=== PATIENT | male | born 1955 | race Caucasian/White ===

== ENCOUNTER 2024-08-24 20:00 | Inpatient (IN) | payer MEDICARE, MEDICAID, SELFPAY ==
--- NOTE | ~2024-08-24 | CT_ITS ---
EXAMINATION: CT CHEST, ABDOMEN AND PELVIS WITH CONTRAST CLINICAL INFORMATION: Abdominal pain. Leukocytosis. COMPARISON: None available. TECHNIQUE: Multidetector volumetric CT imaging of the chest was obtained after the administration of 98 mL of Omnipaque 350 intravenous contrast without immediate adverse reactions. Axial MIP volume rendering provided. Sagittal and coronal reformatted images were obtained. This CT examination was performed using dose optimization techniques as appropriate, variously including the following: *Automated exposure control *Adjustment of mA and/or kV according to patient size (this includes techniques or standardized protocols for targeted exams where dose is matched to indication/reason for exam; i.e. extremities or head) *Use of iterative reconstruction technique DLP: 1617 mGy-cm FINDINGS: AN/SYQ 13 NAV/C2 OPERATOR: Unremarkable. LUNGS: There is scarring and/or subsegmental atelectasis at the anterior lung bases. The lungs are otherwise clear. MEDIASTINUM: The mediastinum is normal. PLEURA: There is no pleural effusion. No pleural mass or thickening. AXILLA: No lymphadenopathy. UPPER ABDOMEN: Unremarkable LIVER, GALLBLADDER, AND BILIARY TREE: The liver is heterogeneous in attenuation and significantly irregular in contour. No focal liver lesions are seen. There is no intrahepatic biliary duct dilatation. Gallstones are noted within a normally distended gallbladder. PANCREAS: Unremarkable SPLEEN: The spleen is enlarged measuring up to 16 cm. ADRENAL GLANDS: 1.7 cm low-density adrenal nodule. KIDNEYS AND URETERS: The kidneys are normal in size, shape, and attenuation. No hydronephrosis, hydroureter, or calculi seen. No perinephric stranding. There is a 2.5 cm cyst mid pole right kidney. BLADDER: Unremarkable GASTROINTESTINAL TRACT: There are a few diverticula of the descending colon without diverticulitis. The appendix is visualized and is within normal limits. ABDOMINAL WALL: Minimal umbilical hernia containing fat. LYMPH NODES: Normal VASCULAR: There perigastric, splenic and esophageal varices. PELVIC VISCERA: Unremarkable. OSSEOUS STRUCTURES: Unremarkable CT/CT abdomen pelvis w IV con IMPRESSION: No active cardiopulmonary disease. Cirrhotic liver with varices and splenomegaly. There are a few diverticula of the descending colon without diverticulitis. No acute intra-abdominal process. Fleischner guidelines were followed. Electronically signed by: Joe Gil MD 08/25/2024 02:32 AM EDT
--- NOTE | ~2024-08-24 | CT_ITS ---
EXAMINATION: CT HEAD WITHOUT CONTRAST CLINICAL INFORMATION: Altered mental status. COMPARISON: None available. TECHNIQUE: Contiguous axial imaging was performed from the skull base to vertex without intravenous administration of contrast. This CT examination was performed using dose optimization techniques as appropriate, variously including the following: *Automated exposure control *Adjustment of mA and/or kV according to patient size (this includes techniques or standardized protocols for targeted exams where dose is matched to indication/reason for exam; i.e. extremities or head) *Use of iterative reconstruction technique DLP: 760 mGy-cm FINDINGS: The lateral, third and fourth ventricles are normally outlined. The cortical sulci and basal cisterns are normally outlined as well. There is minimal bilateral periventricular and central white matter diminished attenuation. There is no acute territorial defect, hemorrhage or midline shift. The extra-axial spaces are unremarkable. Calvarium/scalp: Intact. Maxillofacial sinuses and mastoids: Clear as visualized. CT/CT head/brain wo IV con IMPRESSION: No acute intracranial pathology. Electronically signed by: Joe Gil MD 08/25/2024 01:36 AM EDT
--- NOTE | ~2024-08-24 | CT_ITS ---
EXAMINATION: CT CHEST, ABDOMEN AND PELVIS WITH CONTRAST CLINICAL INFORMATION: Abdominal pain. Leukocytosis. COMPARISON: None available. TECHNIQUE: Multidetector volumetric CT imaging of the chest was obtained after the administration of 98 mL of Omnipaque 350 intravenous contrast without immediate adverse reactions. Axial MIP volume rendering provided. Sagittal and coronal reformatted images were obtained. This CT examination was performed using dose optimization techniques as appropriate, variously including the following: *Automated exposure control *Adjustment of mA and/or kV according to patient size (this includes techniques or standardized protocols for targeted exams where dose is matched to indication/reason for exam; i.e. extremities or head) *Use of iterative reconstruction technique DLP: 1617 mGy-cm FINDINGS: HOBBER: Unremarkable. LUNGS: There is scarring and/or subsegmental atelectasis at the anterior lung bases. The lungs are otherwise clear. MEDIASTINUM: The mediastinum is normal. PLEURA: There is no pleural effusion. No pleural mass or thickening. AXILLA: No lymphadenopathy. UPPER ABDOMEN: Unremarkable LIVER, GALLBLADDER, AND BILIARY TREE: The liver is heterogeneous in attenuation and significantly irregular in contour. No focal liver lesions are seen. There is no intrahepatic biliary duct dilatation. Gallstones are noted within a normally distended gallbladder. PANCREAS: Unremarkable SPLEEN: The spleen is enlarged measuring up to 16 cm. ADRENAL GLANDS: 1.7 cm low-density adrenal nodule. KIDNEYS AND URETERS: The kidneys are normal in size, shape, and attenuation. No hydronephrosis, hydroureter, or calculi seen. No perinephric stranding. There is a 2.5 cm cyst mid pole right kidney. BLADDER: Unremarkable GASTROINTESTINAL TRACT: There are a few diverticula of the descending colon without diverticulitis. The appendix is visualized and is within normal limits. ABDOMINAL WALL: Minimal umbilical hernia containing fat. LYMPH NODES: Normal VASCULAR: There perigastric, splenic and esophageal varices. PELVIC VISCERA: Unremarkable. OSSEOUS STRUCTURES: Unremarkable CT/CT chest w IV con IMPRESSION: No active cardiopulmonary disease. Cirrhotic liver with varices and splenomegaly. There are a few diverticula of the descending colon without diverticulitis. No acute intra-abdominal process. Fleischner guidelines were followed. Electronically signed by: Joe Gil MD 08/25/2024 02:32 AM EDT
--- NOTE | ~2024-08-24 | XR_ITS ---
EXAMINATION: XR CHEST CLINICAL INFORMATION: Altered mental status COMPARISON: None available. TECHNIQUE: Frontal view of the chest was obtained. FINDINGS: No significant abnormality is noted involving the heart, lungs, mediastinum, bony thorax or soft tissues. XR/XR chest 1V IMPRESSION: Unremarkable examination. Electronically signed by: Audra Kam MD 08/24/2024 10:03 PM EDT RP
[2024-08-24 20:13] VITALS: BP 154/86; BP 162/94; PULSE 104; PULSE 118; RESP 15; TEMP 36.4; O2SAT 98; BMI 28.8
--- NOTE | 2024-08-24 20:19 | ED_ITS ---
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 lives alone with severe depression comes here for not eating and not feeling good for last 3 days bed-bound denied any drug use but he took methadone 50 mg prior to arrival denies any cough or fever denies any SI or HI does feels very weak and lethargic Related Data Home Medications ?Medication ?Instructions ?Recorded ?Confirmed methadone 08/24/24 Allergies Allergy/AdvReac Type Severity Reaction Status Date / Time No Known Allergies Allergy Verified 08/24/24 20:17 Review of Systems 2 Review of Systems: Yes all other systems are reviewed and are negative [facility] Social History Social History Use of substances other than those prescribed or required for medical reasons: No Do you have a plan to hurt others: No Plan Physical Exam ED Vital Signs: Vital Signs - 24 hr 08/24/24 20:13 08/24/24 22:23 08/24/24 23:27 Temperature 97.5 F 98.1 F 97.8 F Pulse Rate 104 H 110 H 99 Respiratory Rate 15 15 12 Blood Pressure 154/86 H 114/74 136/82 Pulse Oximetry 98 95 97 Oxygen Delivery Method Room Air Room Air Room Air BMI result Body Mass Index 28.8 Appearance: Alert. Oriented X3. Lethargic Eyes: No pallor or icterus ENT: Pharynx normal. Oral Mucosa moist Neck: Normal inspection. Neck supple. CVS: Normal heart rate and rhythm. Pulses normal. Respiratory: No respiratory distress. Equal air entry bilateral, no wheezing/rales/rhonchi Abdomen: Soft and nontender. Bowel sounds are present, no mass palpable, no CVA tenderness Skin: Skin warm and dry. Normal skin color. Normal skin turgor. Extremities: No lower extremity edema. No calf tenderness left AKA Neuro: Oriented X 3. No motor deficit. No sensory deficit.No cerebellar signs , cranial nerves II-XII intact Medications Administered Discontinued Medications Generic Name Dose Route Start Last Admin Trade Name Freq PRN Reason Stop Dose Admin Ceftriaxone Sodium 1 gm 08/24/24 20:53 08/24/24 21:02 Ceftriaxone Sodium 1 Gm Vial IVPUSH 08/24/24 20:54 1 gm ONCE ONE Administration Sodium Chloride 1,000 mls @ 999 mls/hr 08/24/24 20:28 08/24/24 22:42 Ns IV 08/24/24 21:28 Infused .Q1H1M ONE Infusion Sodium Chloride 1,000 mls @ 999 mls/hr 08/24/24 22:12 08/24/24 22:42 Ns IV 08/24/24 23:12 999 mls/hr .Q1H1M ONE Administration Iohexol 98 ml 08/25/24 00:25 08/25/24 00:25 Iohexol 350 Mg/Ml 100 Ml Infus..Btl IV 08/25/24 00:26 98 ml ONCE ONE Administration Medical Decision Making Medical Decision Making [facility] Narrative: Patient has increased lethargy etiology not clear afebrile but had leukocytosis of 24.1 and lactic acidosis of 4.2 without any significant abdominal pain afebrile started broad-spectrum antibiotic Rocephin was given IV fluids blood cultures drawn will admit patient for increased lethargy possible bacteremia patient's feel depressed. CT chest CT Abdo CT head was ordered by hospitalist Differential Diagnosis Differential Diagnoses: The differential diagnosis associated with the presentation includes Metabolic encephalopathy/bacteremia/unknown infection/substance abuse Admission/Observation Consideration of admission/observation: Escalation of care including admission/observation considered Consult Healthcare Provider Management of the patient was discussed with: Hospitalist Lab Data [facility] Lab Attestation statement: I reviewed the patient's lab results. 08/24/24 20:37 08/24/24 20:37 Labs: Lab Results 08/24/24 08/24/24 08/24/24 Range/Units 20:37 20:38 21:05 WBC 24.3 H (4.8-10.8) X10*3/uL RBC 3.64 L (4.60-5.80) X10*6/uL Hgb 10.8 L (14.0-18.0) g/dl Hct 32.3 L (42.0-52.0) % MCV 88.7 (80.0-98.0) fL MCH 29.7 (27.0-33.0) pg MCHC 33.4 (31.0-36.0) g/dl RDW 17.4 H (11.0-16.0) % Plt Count 207 (160-400) X10*3/uL MPV 10.8 (9.4-12.4) fL Immature Gran % (Auto) 1.5 H (0.0-0.4) % Neut % (Auto) 74.4 H (45-73) % Lymph % (Auto) 16.0 L (20-40) % Fergus % (Auto) 7.7 (2-11) % Eos % (Auto) 0.2 (0-4) % Baso % (Auto) 0.2 (0-2) % Lymph # (Auto) 3.9 (1.2-4.9) X10*3/uL Fergus # (Auto) 1.9 H (0.1-1.2) X10*3/uL Eos # (Auto) 0.0 (0.0-0.4) X10*3/uL Baso # (Auto) 0.0 (0.0-0.2) X10*3/uL Abs Immat Gran (auto) 0.37 H (0.00-0.03) X10*3/uL Absolute Neuts (auto) 18.1 H (2.0-8.3) x10*3/uL Absolute Nucleated RBC 0.150 H (0.0-0.012) X10*3/uL Nucleated RBC % (auto) 0.6 H (0.0-0.2) /100WBC Smear Tech's Comments VERIFIED Sodium 146 H (135-145) mmol/L Potassium 3.2 L (3.3-5.1) mmol/L Chloride 109 H (96-108) mmol/L Carbon Dioxide 25 (22-29) mmol/L Anion Gap 15 (12-20) BUN 46 H (9-16) mg/dL Creatinine 0.86 (0.5-1.4) mg/dL Estim Creat Clear Calc 98.9 Estimated GFR > 60 Random Glucose 117 H (60-115) mg/dL Lactic Acid 4.2 H* (0.5-2.0) mmol/L Lactic Acid F/U @ 2Hr (0.5-2.0) mmol/L Calcium 9.5 (8.4-10.2) mg/dL Magnesium 2.5 (1.6-2.6) mg/dL Total Bilirubin 2.5 H (0.0-1.0) mg/dL AST 119 H (5-37) U/L ALT 68 H (0-40) U/L Alkaline Phosphatase 63 (39-117) U/L Total Protein 7.1 (6.5-8.0) g/dL Albumin 3.8 (3.5-5.0) g/dL Urine Color Urine Appearance Urine pH (5.0-9.0) Ur Specific [place] (1.005-1.025) Urine Protein (Neg-Trace) mg/dL Urine Glucose (UA) (Negative) mg/dL Urine Ketones (Negative) mg/dL Urine Blood (Negative) Urine Nitrite (Negative) Ur Leukocyte Esterase (Negative) Urine RBC (0-2) /HPF Urine WBC (0-5) /HPF Ur Squamous Epith Cells (0-2) /HPF Urine Bacteria (None Seen) Hyaline Casts (0-2) /LPF COVID-19 (DAIN) Negative (Negative) COVID-19 Clin Com See Note 08/24/24 08/24/24 Range/Units 22:46 23:46 WBC (4.8-10.8) X10*3/uL RBC (4.60-5.80) X10*6/uL Hgb (14.0-18.0) g/dl Hct (42.0-52.0) % MCV (80.0-98.0) fL MCH (27.0-33.0) pg MCHC (31.0-36.0) g/dl RDW (11.0-16.0) % Plt Count (160-400) X10*3/uL MPV (9.4-12.4) fL Immature Gran % (Auto) (0.0-0.4) % Neut % (Auto) (45-73) % Lymph % (Auto) (20-40) % Fergus % (Auto) (2-11) % Eos % (Auto) (0-4) % Baso % (Auto) (0-2) % Lymph # (Auto) (1.2-4.9) X10*3/uL Fergus # (Auto) (0.1-1.2) X10*3/uL Eos # (Auto) (0.0-0.4) X10*3/uL Baso # (Auto) (0.0-0.2) X10*3/uL Abs Immat Gran (auto) (0.00-0.03) X10*3/uL Absolute Neuts (auto) (2.0-8.3) x10*3/uL Absolute Nucleated RBC (0.0-0.012) X10*3/uL Nucleated RBC % (auto) (0.0-0.2) /100WBC Smear Tech's Comments Sodium (135-145) mmol/L Potassium (3.3-5.1) mmol/L Chloride (96-108) mmol/L Carbon Dioxide (22-29) mmol/L Anion Gap (12-20) BUN (9-16) mg/dL Creatinine (0.5-1.4) mg/dL Estim Creat Clear Calc Estimated GFR Random Glucose (60-115) mg/dL Lactic Acid (0.5-2.0) mmol/L Lactic Acid F/U @ 2Hr 3.4 H* (0.5-2.0) mmol/L Calcium (8.4-10.2) mg/dL Magnesium (1.6-2.6) mg/dL Total Bilirubin (0.0-1.0) mg/dL AST (5-37) U/L ALT (0-40) U/L Alkaline Phosphatase (39-117) U/L Total Protein (6.5-8.0) g/dL Albumin (3.5-5.0) g/dL Urine Color Dark Yellow Urine Appearance Clear Urine pH 6.0 (5.0-9.0) Ur Specific [place] >= 1.030 H (1.005-1.025) Urine Protein Trace (Neg-Trace) mg/dL Urine Glucose (UA) Negative (Negative) mg/dL Urine Ketones Trace (Negative) mg/dL Urine Blood Negative (Negative) Urine Nitrite Negative (Negative) Ur Leukocyte Esterase Trace H (Negative) Urine RBC 0-2 (0-2) /HPF Urine WBC 0-5 (0-5) /HPF Ur Squamous Epith Cells 0-2 (0-2) /HPF Urine Bacteria None Seen (None Seen) Hyaline Casts 0-2 (0-2) /LPF COVID-19 (DAIN) (Negative) COVID-19 Clin Com Independent Interpretation I performed an independent interpretation of an: Plain X-Ray Radiology Impression Discussion of test interpretation with radiology: I have reviewed the radiologist's reading. Discharge Plan Discharge Clinical Impression: Lethargic, Depression, Acidosis, lactic, Leukocytosis Patient Disposition: Admitted As Inpatient
[2024-08-24] MEDS: 0.9 % Sodium Chloride 1,000 ML 999 ML IV ×2 (20:40→22:42)
[2024-08-24 20:44] LABS: Basophils Percent Auto 0.2 % (0-2); Eosinophils Percent Auto 0.2 % (0-4); Hematocrit 32.3 % (42.0-52.0); Hemoglobin 10.8 g/dl (14.0-18.0); Imm Gran Abs Auto 0.37 X10*3/uL (0.00-0.03); Imm Gran Pct Auto 1.5 % (0.0-0.4); Lymphocytes Absolute Auto 3.9 X10*3/uL (1.2-4.9); MANUAL DIFF FLAG SCAN; Mean Corpuscular HGB Conc 33.4 g/dl (31.0-36.0); Mean Corpuscular Hemoglobin 29.7 pg (27.0-33.0); Mean Corpuscular Volume 88.7 fL (80.0-98.0); Mean Platelet Volume 10.8 fL (9.4-12.4); Monocytes Absolute Auto 1.9 X10*3/uL (0.1-1.2); Monocytes Percent Auto 7.7 % (2-11); NRBC Pct Auto 0.6 /100WBC (0.0-0.2); Neutrophils Absolute Auto 18.1 x10*3/uL (2.0-8.3); Neutrophils Percent Auto 74.4 % (45-73); Platelet Count 207 X10*3/uL (160-400); Red Blood Count 3.64 X10*6/uL (4.60-5.80); Red Cell Distribution Width 17.4 % (11.0-16.0); SCAN SMEAR FLAG 1; White Blood Count 24.3 X10*3/uL (4.8-10.8)
--- NOTE | 2024-08-24 20:47 | PC.NURSE ---
pt has LAKA, skin intact.
--- NOTE | 2024-08-24 20:49 | PC.NURSE ---
pt is slow to respond to questions. When asked if he had a pharmacy, pt states 'NO , pt does not know what medicines he takes, denies all but Methadone
[2024-08-24] MEDS: cefTRIAXone sodium 1 GM VIAL IVPUSH (21:02)
[2024-08-24 21:03] LABS: COVID-19 Test Negative (Negative); IDNOW Serial# 08D9AD1C
[2024-08-24 21:08] LABS: SLIDE REVIEW VERIFIED
[2024-08-24 21:26] LABS: Alanine Aminotransferase 68 U/L (0-40); Albumin Level 3.8 g/dL (3.5-5.0); Alkaline Phosphatase 63 U/L (39-117); Anion Gap 15 (12-20); Aspartate Amino Transferase 119 U/L (5-37); Bilirubin Total 2.5 mg/dL (0.0-1.0); Blood Urea Nitrogen 46 mg/dL (9-16); Calcium 9.5 mg/dL (8.4-10.2); Carbon Dioxide 25 mmol/L (22-29); Chloride 109 mmol/L (96-108); Creatinine Clr Calc Pharmacy 98.9; Estimated Glomerular Filt Rate > 60; Glucose Random 117 mg/dL (60-115); Magnesium 2.5 mg/dL (1.6-2.6); Potassium 3.2 mmol/L (3.3-5.1); Sodium 146 mmol/L (135-145); Total Protein 7.1 g/dL (6.5-8.0)
[2024-08-24 21:28] LABS: Lactic Acid 4.2 mmol/L (0.5-2.0)
[2024-08-24 22:23] VITALS: BP 114/74; PULSE 110; RESP 15; TEMP 36.7; O2SAT 95
[2024-08-24 22:54] LABS: Appearance Urine Clear; Color Urine Dark Yellow; Glucose Urine UA Negative (Negative); Leukocyte Esterase Urine Trace (Negative); Nitrite Urine Negative (Negative); Specific Gravity - Urine >= 1.030 (1.005-1.025); UMIC TRIGGER UACC YES; Urine Blood Negative (Negative); Urine Ketones Trace mg/dL (Negative); Urine Protein Trace mg/dL (Neg-Trace)
[2024-08-24 22:56] LABS: Bacteria Urine None Seen (None Seen); Hyaline Casts Urine 0-2 /LPF (0-2); RBC Urine 0-2 /HPF (0-2); Squamous Epithelial Cell Urine 0-2 /HPF (0-2); WBC Urine 0-5 /HPF (0-5)
[2024-08-24 23:11] LABS: Reflex Lactate? Lactic Acid Added
[2024-08-24 23:27] VITALS: BP 136/82; PULSE 99; RESP 12; TEMP 36.6; O2SAT 97
[2024-08-25 00:19] LABS: ~Lactic Acid-LAB USE ONLY 3.4 mmol/L (0.5-2.0)
[2024-08-25] MEDS: iohexoL 350 MG/ML 100 ML INFUS..BTL 98 ML IV (00:25)
[2024-08-25 00:44] LABS: Amphetamine Screen Urine Not Detected (Not Detect); Barbiturates, Urine Not Detected (Not Detect); Benzodiazepines Screen Urine Not Detected (Not Detect); Buprenorphine Scr Not Detected (Not Detect); Cannabinoid Screen Urine Not Detected (Not Detect); Cocaine Screen Urine Not Detected (Not Detect); Fentanyl, urine Not Detected (Not Detect); Methadone Screen, Urine Positive (Not Detect); Opiate Screen Urine Not Detected (Not Detect); Oxycodone Screen Urine Not Detected (Not Detect); Phencyclidine Screen Urine Not Detected (Not Detect)
[2024-08-25] MEDS: 0.9 % Sodium Chloride 1,000 ML 999 ML IV (01:22)
[2024-08-25 01:33] VITALS: BP 127/72; PULSE 77; RESP 14; O2SAT 97
[2024-08-25 01:50] LABS: Reflex Lactate? 2 Y
--- NOTE | 2024-08-25 01:50 | PC.NURSE ---
resting quietly on stretcher at this time
[2024-08-25 02:35] LABS: ~Lactic Acid-LAB USE ONLY 2.9 mmol/L (0.5-2.0)
--- NOTE | 2024-08-25 02:42 | PM.IMHP ---
History of Present Illness Date of Service: 08/25/24 Chief Complaint: Acute encephalopathy, lethargy This is a 69-year-old male with pertinent history of opioid use disorder on methadone, left AKA who was brought to the emergency department for evaluation of altered mentation. EMS was called as patient was found in bed covered with urine as per roommate. Unable to obtain history from the patient. As per EMS, patient was confused and was bed-bound for the last 3 days. Unclear baseline. At the time of my evaluation, patient with minimal conversation and does not know why he is in the hospital. Upon extensive questioning, states he does not feel well and possibly has headache. He only takes methadone as per the patient. Denies using drugs. In the emergency department, white count found to be 24.3, lactic acid 4.2 Review of Systems Review of Systems: Yes Unobtainable due to mental status PMFSH Medical History Cirrhosis Pertinent family history: Unable to obtain Surgical History Hx of AKA (above knee amputation) Social History Use of substances other than those prescribed or required for medical reasons: No Advance Directives: No Advance Directives Information Provided: No Do you have a plan to hurt others: No Plan Meds Allergies Allergy/AdvReac Type Severity Reaction Status Date / Time No Known Allergies Allergy Verified 08/24/24 20:17 Active Medications: Current Medications Ceftriaxone Sodium (Ceftriaxone Sodium 2 Gm Vial) 2 gm IVPUSH Q12H [facility] Dexamethasone Sodium Phosphate (Dexamethasone Sod Phosphate 10 Mg/Ml Vial) 10 mg IVPUSH Q6H [facility] Vancomycin HCl 1,000 mg/Vancomycin HCl 750 mg/ Sodium Chloride 535 mls @ 267.5 mls/hr IV ONCE ONE Stop: 08/25/24 04:36 Ampicillin Sodium 2 gm/ Sodium (Chloride) 100 mls @ 200 mls/hr IV Q4H [facility] Acyclovir Sodium 851.2 mg/ (Sodium Chloride) 267.024 mls @ 267.024 mls/hr IV Q8H [facility] Pharmacy Consult (Consult Rx Vancomycin Dosing) 1 each MISCELLANE DAILY PRN PRN Reason: Consult order Home Medications ?Medication ?Instructions ?Recorded ?Confirmed ?Last Taken ?Type methadone 08/24/24 08/24/24 History 2000 Physical Exam Vital Signs and Narrative: Vital Signs: Last Vital Signs Temp 97.8 F 08/24/24 23:27 Pulse 77 08/25/24 01:33 Resp 14 08/25/24 01:33 BP 127/72 08/25/24 01:33 Pulse Ox 97 08/25/24 01:33 O2 Del Method Room Air 08/25/24 01:33 BMI result Body Mass Index 28.8 Middle-aged male lying in bed in no distress Neck supple, no JVD Regular rate and rhythm, S1-S2 heard Regular breath sounds bilaterally, no wheezing or crackles appreciated Abdomen soft nontender, no guarding, no rigidity Patient is drowsy and occasionally answers in one-word responses, not following commands, unable to have a conversation, unable to assess orientation Psych: Lethargic Left AKA, right extremity with changes of stasis dermatitis Results Labs 08/24/24 20:37 08/24/24 20:37 Labs: Laboratory Results - last 24 hr 08/24/24 08/24/24 08/24/24 20:37 20:38 21:05 MCV 88.7 MCH 29.7 MCHC 33.4 RDW 17.4 H Plt Count 207 MPV 10.8 Immature Gran % (Auto) 1.5 H Neut % (Auto) 74.4 H Lymph % (Auto) 16.0 L [place] % (Auto) 7.7 Eos % (Auto) 0.2 Baso % (Auto) 0.2 Lymph # (Auto) 3.9 [place] # (Auto) 1.9 H Eos # (Auto) 0.0 Baso # (Auto) 0.0 Abs Immat Gran (auto) 0.37 H Absolute Neuts (auto) 18.1 H Absolute Nucleated RBC 0.150 H Nucleated RBC % (auto) 0.6 H Smear Tech's Comments VERIFIED Anion Gap 15 Estim Creat Clear Calc 98.9 Estimated GFR > 60 Random Glucose 117 H Lactic Acid 4.2 H* Lactic Acid F/U @ 2Hr Lactic Acid F/U @ 4Hr Calcium 9.5 Magnesium 2.5 Total Bilirubin 2.5 H AST 119 H ALT 68 H Alkaline Phosphatase 63 Total Creatine Kinase 299 H Total Protein 7.1 Albumin 3.8 Urine Color Urine Appearance Urine pH Ur Specific Social [place] Urine Protein Urine Glucose (UA) Urine Ketones Urine Blood Urine Nitrite Ur Leukocyte Esterase Urine RBC Urine WBC Ur Squamous Epith Cells Urine Bacteria Hyaline Casts Urine Opiates Screen Ur Buprenorphine Scrn Ur Oxycodone Screen Urine Methadone Screen Urine Fentanyl Screen Ur Barbiturates Screen Ur Phencyclidine Scrn Ur Amphetamines Screen U Benzodiazepines Scrn Urine Cocaine Screen U Marijuana (THC) Screen COVID-19 (DAIN) Negative COVID-19 Clin Com See Note 08/24/24 08/24/24 08/25/24 22:46 23:46 02:12 MCV MCH MCHC RDW Plt Count MPV Immature Gran % (Auto) Neut % (Auto) Lymph % (Auto) [place] % (Auto) Eos % (Auto) Baso % (Auto) Lymph # (Auto) [place] # (Auto) Eos # (Auto) Baso # (Auto) Abs Immat Gran (auto) Absolute Neuts (auto) Absolute Nucleated RBC Nucleated RBC % (auto) Smear Tech's Comments Anion Gap Estim Creat Clear Calc Estimated GFR Random Glucose Lactic Acid Lactic Acid F/U @ 2Hr 3.4 H* Lactic Acid F/U @ 4Hr 2.9 H* Calcium Magnesium Total Bilirubin AST ALT Alkaline Phosphatase Total Creatine Kinase Total Protein Albumin Urine Color Dark Yellow Urine Appearance Clear Urine pH 6.0 Ur Specific [place] >= 1.030 H Urine Protein Trace Urine Glucose (UA) Negative Urine Ketones Trace Urine Blood Negative Urine Nitrite Negative Ur Leukocyte Esterase Trace H Urine RBC 0-2 Urine WBC 0-5 Ur Squamous Epith Cells 0-2 Urine Bacteria None Seen Hyaline Casts 0-2 Urine Opiates Screen Not Detected Ur Buprenorphine Scrn Not Detected Ur Oxycodone Screen Not Detected Urine Methadone Screen Positive H Urine Fentanyl Screen Not Detected Ur Barbiturates Screen Not Detected Ur Phencyclidine Scrn Not Detected Ur Amphetamines Screen Not Detected U Benzodiazepines Scrn Not Detected Urine Cocaine Screen Not Detected U Marijuana (THC) Screen Not Detected COVID-19 (DAIN) COVID-19 Clin Com Imaging Radiologist's Impressions: Impressions Chest X-Ray 08/24/24 20:53 IMPRESSION: Unremarkable examination. Electronically signed by: Audra Kam MD 08/24/2024 10:03 PM EDT Abdomen/Pelvis CT 08/25/24 00:20 IMPRESSION: No active cardiopulmonary disease. Cirrhotic liver with varices and splenomegaly. There are a few diverticula of the descending colon without diverticulitis. No acute intra-abdominal process. Fleischner guidelines were followed. Electronically signed by: Joe Gil MD 08/25/2024 02:32 AM EDT RP Head CT 08/25/24 00:20 IMPRESSION: No acute intracranial pathology. Electronically signed by: Joe Gil MD 08/25/2024 01:36 AM EDT RP Chest CT 08/25/24 00:45 IMPRESSION: No active cardiopulmonary disease. Cirrhotic liver with varices and splenomegaly. There are a few diverticula of the descending colon without diverticulitis. No acute intra-abdominal process. Fleischner guidelines were followed. Electronically signed by: Joe Gil MD 08/25/2024 02:32 AM EDT RP Assessment and Plan (1) SIRS (systemic inflammatory response syndrome): Status: Acute (2) Acute encephalopathy: Status: Acute (3) Leukocytosis: Status: Acute Plan This is a 69-year-old male with pertinent history of opioid use disorder on methadone, left AKA who was brought to the emergency department for evaluation of altered mentation. #. Acute encephalopathy with severe sepsis: Will admit patient with empiric IV antibiotics and antiviral. CT abdomen/pelvis/chest without any acute abnormality. Ordered lumbar puncture, CSF studies and meningitis/encephalitis panel pending. Follow blood culture. #. Acute lactic acidosis due to sepsis: Trending down #. Hypokalemia: Repleted #. Opioid use disorder: Continue methadone once verified and able to take p.o. #. Cirrhosis with varices: Unclear etiology of cirrhosis. Outpatient Gastroenterology follow-up. Will benefit from diuretics once sepsis is resolved, lactulose and beta-alisha for variceal hemorrhage prophylaxis. Ammonia ok DVT prophylaxis: Mechanical Full code Med rec pending Admit as inpatient and will require two night minimum hospital stay for monitoring of mentation, IV antibiotics (as above), which is not possible in a lesser acute setting. Quality Stroke Does the patient have a stroke diagnosis?: No VTE Prior VTE?: No VTE Risk Level:: Medical - moderate - high VTE Device Contraindication: N/A - Device Ordered VTE Drug Contraindication: Treatment Not Indicated
[2024-08-25 03:07] LABS: Ammonia 51 umol/L (13-55)
[2024-08-25] MEDS: dexAMETHasone sod phosphate 10 MG/ML VIAL IVPUSH ×4 (03:21→20:37)
[2024-08-25] MEDS: cefTRIAXone sodium 2 GM VIAL IVPUSH ×2 (03:22→14:48)
[2024-08-25] MEDS: Acyclovir Sodium 850 MG in 0.9 % Sodium Chloride 250 ML 267 MG IV ×3 (03:27→19:34)
[2024-08-25] MEDS: Potassium Chloride/H20 10 MEQ/100 ML PIGGYBACK 100 MEQ IV ×4 (03:40→07:46)
[2024-08-25] MEDS: vancomycin/NS 2,000 MG/500 ML PLAST..BAG 250 MG IV (03:48)
[2024-08-25] MEDS: Ampicillin Sodium 2 GM in 0.9 % Sodium Chloride 100 ML IV ×5 (04:56→20:41)
[2024-08-25 05:12] LABS: Basophils Percent Auto 0.2 % (0-2); Eosinophils Absolute Auto 0.1 X10*3/uL (0.0-0.4); Eosinophils Percent Auto 0.7 % (0-4); Hemoglobin 9.1 g/dl (14.0-18.0); Imm Gran Abs Auto 0.17 X10*3/uL (0.00-0.03); Imm Gran Pct Auto 1.2 % (0.0-0.4); Lymphocytes Absolute Auto 3.5 X10*3/uL (1.2-4.9); Lymphocytes Percent Auto 23.5 % (20-40); MANUAL DIFF FLAG NO; Mean Corpuscular HGB Conc 33.7 g/dl (31.0-36.0); Mean Corpuscular Hemoglobin 30.1 pg (27.0-33.0); Mean Corpuscular Volume 89.4 fL (80.0-98.0); Mean Platelet Volume 10.6 fL (9.4-12.4); Monocytes Absolute Auto 1.5 X10*3/uL (0.1-1.2); Monocytes Percent Auto 10.1 % (2-11); NRBC Pct Auto 0.7 /100WBC (0.0-0.2); Neutrophils Absolute Auto 9.5 x10*3/uL (2.0-8.3); Neutrophils Percent Auto 64.3 % (45-73); PLT CLUMP 1; Red Blood Count 3.02 X10*6/uL (4.60-5.80); Red Cell Distribution Width 16.7 % (11.0-16.0); SCAN SMEAR FLAG 1; White Blood Count 14.7 X10*3/uL (4.8-10.8)
[2024-08-25 05:24] LABS: Alanine Aminotransferase 69 U/L (0-40); Alkaline Phosphatase 61 U/L (39-117); Anion Gap 13 (12-20); Aspartate Amino Transferase 104 U/L (5-37); Bilirubin Total 1.4 mg/dL (0.0-1.0); Blood Urea Nitrogen 39 mg/dL (9-16); Calcium 8.3 mg/dL (8.4-10.2); Carbon Dioxide 24 mmol/L (22-29); Chloride 113 mmol/L (96-108); Estimated Glomerular Filt Rate > 60; Glucose Random 89 mg/dL (60-115); Potassium 3.6 mmol/L (3.3-5.1); Sodium 146 mmol/L (135-145); Total Protein 5.8 g/dL (6.5-8.0)
[2024-08-25 05:27] LABS: Platelet Count 107 X10*3/uL (160-400)
--- NOTE | 2024-08-25 05:39 | PC.NURSE ---
dr baez aware of potassium of 3.6, he still wants all 4 bags of Potassium 10meq.
[2024-08-25 06:05] VITALS: BP 141/72; PULSE 94; RESP 18; TEMP 37.1; O2SAT 98
[2024-08-25 06:25] VITALS: BMI 29.4
[2024-08-25 06:38] VITALS: BMI 29.4
--- NOTE | 2024-08-25 06:54 | PHA.PROG ---
Admission Date/Time: August 25, 2024 02:41 Indication: Sepsis Weight in k.5 kg Adjusted body weight in Kg: [place] body weight in Kg: Obesity Dosing Indication % IBW: BMI 29.5 Serum Creatinine - Last 168 Hours 08/24/24 08/25/24 20:37 04:13 Creatinine 0.86 0.74 Estimated CrCl and GFR - Last 168 Hours 08/24/24 08/25/24 20:37 04:13 Estim Creat Clear Calc 98.9 115.0 Estimated GFR > 60 > 60 Vancomycin Loading Dose: 2000 X1 Current Vancomycin Dosing Regimen: 1250mg Q12H Vancomycin Monitoring using AUC goal of 400 - 600 range with trough as surrogate marker: 509 Date and Time for next Vancomycin Level to be drawn: 08/26 @1400 Pharmacist Comments on Vancomycin Plan: renal function appears stable, per indication - trying to use 1250 to get therapeutic quicker. To be rechecked 08/26 and adjusted based on renal fx and trough - predicted trough 16. Vancomycin dosing will take advantage of [employer] as a clinical decision support tool that uses Bayesian modeling to calculate individual patient's pharmacokinetic parameters and forecast the patient's drug concentration time course with the target goal AUC 24 range of 400 - 600 mg/L/hr.
[2024-08-25] MEDS: 0.9 % Sodium Chloride Flush 3 ML SYRINGE IVFLUSH ×3 (07:48→20:41)
[2024-08-25 08:00] VITALS: BP 131/79; PULSE 86; RESP 18; TEMP 37; O2SAT 95
--- NOTE | 2024-08-25 12:03 | MHC.CM.PN ---
CM ATTEMPTED CM ASSESSMENT AT BEDSIDE W/ PATIENT. HOWEVER, PATIENT ONLY ORIENTED TO PERSON AT THIS TIME. PER EMR, NOT PATIENT'S BASELINE. NO CONTACTS LISTED AND NO HCP. CM REQUESTED INFO FROM [facility], PATIENT NOT ON FILE. PER EMR, LIVES W/ ROOMMATE AND IS ON METHADONE. PATIENT UNABLE TO NAME HOME CLINIC. UNABLE TO ANSWER ANY OTHER QUESTIONS AT THIS TIME. DP: TBD, WILL REASSESS WHEN MENTAL STATUS IMPROVES.
--- NOTE | 2024-08-25 12:10 | PHA.MEDREC ---
Addendum entered by Isabell Haas RPh 08/25/24 12:21: Reviewed by [facility], no claim history Original Note: Pharmacy Consult ? Medication Reconciliation Pharmacy has completed the medication reconciliation. Spoke to patient to confirm med list. Patient seemed very confused and slow at answering any questions. patient only confirmed he takes Methadone. He couldn't say what dose or where he gets it from. With help, he was able to call his friend David and ask him to read his bottle off to me. Patient was having a hard time talking to his friend, so he put his phone on speaker phone. I was able to speak to David. He stated he can't read the bottle ,however he will bring patients bottle in to [facility] [place]. Instructed him to ask nurse to call the pharmacy when he arrives. will update med rec when/If David comes in.
--- NOTE | 2024-08-25 14:07 | HE.PHANOTE ---
Re Methadone Received verification form from nursing. Pt receives take home bottles from [facility], and last took a dose of 50mg there on 08/15/24, and was given ten take home bottles. He states he took on on 08/24/24 before coming to the ED.
--- NOTE | 2024-08-25 14:51 | HO.PM.IMPN ---
Subjective Subjective Date of Service: 08/25/24 Interval History: Confusion slowly improving. Could not obtain LP as patient not competent to give consent. Review of Systems Denies chest pain Denies shortness of breath Denies nausea vomiting diarrhea Denies fever chills Physical Exam Vital Signs: Vital Signs: Last Vital Signs Temp 98.6 F 08/25/24 08:00 Pulse 86 08/25/24 08:00 Resp 18 08/25/24 08:00 BP 131/79 08/25/24 08:00 Pulse Ox 95 08/25/24 08:00 O2 Del Method Room Air 08/25/24 08:00 BMI result Body Mass Index 29.4 Const: Other: Awake confused but easily reoriented Resp: Other: Clear to auscultation bilaterally no rales rhonchi or wheezes Cardio: Other: No S4; positive S1-S2; no S3 murmurs rubs or gallops GI: Other: Soft nontender nondistended normoactive bowel sounds Neuro: Other: Awake alert oriented x1. Cranial nerves 2-12 grossly intact as tested sensation intact. Limited exam Extrem: Other: No edema bilaterally. Left BKA Objective Data Active Medications Acetaminophen (Acetaminophen 325 Mg Tablet) 650 mg PO Q6H PRN PRN Reason: Pain, Mild (Pain Scale 1-3), fever or headache Calcium Carbonate (Calcium Carbonate 750 Mg Tab.Chew) 750 mg PO Q4H PRN PRN Reason: Heartburn Ceftriaxone Sodium (Ceftriaxone Sodium 2 Gm Vial) 2 gm IVPUSH Q12H [facility] Last Admin: 08/25/24 03:22 Dose: 2 gm Documented By: JOSE Dexamethasone Sodium Phosphate (Dexamethasone Sod Phosphate 10 Mg/Ml Vial) 10 mg IVPUSH Q6H [facility] Last Admin: 08/25/24 09:39 Dose: 10 mg Documented By: BONNIE Acyclovir Sodium 850 mg/ (Sodium Chloride) 267 mls @ 267 mls/hr IV Q8H [facility] Last Admin: 08/25/24 11:40 Dose: 267 mls/hr Documented By: BONNIE Ampicillin Sodium 2 gm/ Sodium (Chloride) 100 mls @ 200 mls/hr IV Q4H [facility] Last Admin: 08/25/24 13:30 Dose: 200 mls/hr Documented By: BONNIE Vancomycin HCl 1,250 mg/ (Sodium Chloride) 250 mls @ 166.667 mls/hr IV Q12H [facility] Magnesium Hydroxide (Milk Of Magnesia 30 Ml Oral.Susp) 30 ml PO DAILY PRN PRN Reason: Constipation Melatonin (Melatonin 3 Mg Tablet) 6 mg PO BEDTIME PRN PRN Reason: Insomnia Ondansetron HCl (Ondansetron Hcl 4 Mg/2 Ml Vial) 4 mg IVPUSH Q8H PRN PRN Reason: Nausea and Vomiting Pharmacy Consult (Consult Rx Vancomycin Dosing) 1 each MISCELLANE DAILY PRN PRN Reason: Consult order Sodium Chloride (0.9 % Sodium Chloride Flush 3 Ml Syringe) 3 ml IVFLUSH QSHIFT [facility] Last Admin: 08/25/24 07:48 Dose: 3 ml Documented By: BONNIE Labs 08/25/24 04:13 08/25/24 04:13 Labs: Laboratory Results - last 24 hr 08/24/24 08/24/24 08/24/24 20:37 20:38 21:05 MCV 88.7 MCH 29.7 MCHC 33.4 RDW 17.4 H Plt Count 207 MPV 10.8 Immature Gran % (Auto) 1.5 H Neut % (Auto) 74.4 H Lymph % (Auto) 16.0 L [place] % (Auto) 7.7 Eos % (Auto) 0.2 Baso % (Auto) 0.2 Lymph # (Auto) 3.9 [place] # (Auto) 1.9 H Eos # (Auto) 0.0 Baso # (Auto) 0.0 Abs Immat Gran (auto) 0.37 H Absolute Neuts (auto) 18.1 H Absolute Nucleated RBC 0.150 H Nucleated RBC % (auto) 0.6 H Smear Tech's Comments VERIFIED Anion Gap 15 Estim Creat Clear Calc 98.9 Estimated GFR > 60 Random Glucose 117 H Lactic Acid 4.2 H* Lactic Acid F/U @ 2Hr Lactic Acid F/U @ 4Hr Calcium 9.5 Magnesium 2.5 Total Bilirubin 2.5 H AST 119 H ALT 68 H Alkaline Phosphatase 63 Ammonia Total Creatine Kinase 299 H Total Protein 7.1 Albumin 3.8 Urine Color Urine Appearance Urine pH Ur Specific [place] Urine Protein Urine Glucose (UA) Urine Ketones Urine Blood Urine Nitrite Ur Leukocyte Esterase Urine RBC Urine WBC Ur Squamous Epith Cells Urine Bacteria Hyaline Casts Urine Opiates Screen Ur Buprenorphine Scrn Ur Oxycodone Screen Urine Methadone Screen Urine Fentanyl Screen Ur Barbiturates Screen Ur Phencyclidine Scrn Ur Amphetamines Screen U Benzodiazepines Scrn Urine Cocaine Screen U Marijuana (THC) Screen COVID-19 (DAIN) Negative COVID-19 Clin Com See Note 08/24/24 08/24/24 08/25/24 22:46 23:46 02:12 MCV MCH MCHC RDW Plt Count MPV Immature Gran % (Auto) Neut % (Auto) Lymph % (Auto) [place] % (Auto) Eos % (Auto) Baso % (Auto) Lymph # (Auto) [place] # (Auto) Eos # (Auto) Baso # (Auto) Abs Immat Gran (auto) Absolute Neuts (auto) Absolute Nucleated RBC Nucleated RBC % (auto) Smear Tech's Comments Anion Gap Estim Creat Clear Calc Estimated GFR Random Glucose Lactic Acid Lactic Acid F/U @ 2Hr 3.4 H* Lactic Acid F/U @ 4Hr 2.9 H* Calcium Magnesium Total Bilirubin AST ALT Alkaline Phosphatase Ammonia Total Creatine Kinase Total Protein Albumin Urine Color Dark Yellow Urine Appearance Clear Urine pH 6.0 Ur Specific [place] >= 1.030 H Urine Protein Trace Urine Glucose (UA) Negative Urine Ketones Trace Urine Blood Negative Urine Nitrite Negative Ur Leukocyte Esterase Trace H Urine RBC 0-2 Urine WBC 0-5 Ur Squamous Epith Cells 0-2 Urine Bacteria None Seen Hyaline Casts 0-2 Urine Opiates Screen Not Detected Ur Buprenorphine Scrn Not Detected Ur Oxycodone Screen Not Detected Urine Methadone Screen Positive H Urine Fentanyl Screen Not Detected Ur Barbiturates Screen Not Detected Ur Phencyclidine Scrn Not Detected Ur Amphetamines Screen Not Detected U Benzodiazepines Scrn Not Detected Urine Cocaine Screen Not Detected U Marijuana (THC) Screen Not Detected COVID-19 (DAIN) COVID-19 InVitae 08/25/24 08/25/24 02:56 04:13 MCV 89.4 MCH 30.1 MCHC 33.7 RDW 16.7 H Plt Count 107 L D MPV 10.6 Immature Gran % (Auto) 1.2 H Neut % (Auto) 64.3 Lymph % (Auto) 23.5 [place] % (Auto) 10.1 Eos % (Auto) 0.7 Baso % (Auto) 0.2 Lymph # (Auto) 3.5 [place] # (Auto) 1.5 H Eos # (Auto) 0.1 Baso # (Auto) 0.0 Abs Immat Gran (auto) 0.17 H Absolute Neuts (auto) 9.5 H Absolute Nucleated RBC 0.100 H Nucleated RBC % (auto) 0.7 H Smear Tech's Comments Anion Gap 13 Estim Creat Clear Calc 115.0 Estimated GFR > 60 Random Glucose 89 Lactic Acid Lactic Acid F/U @ 2Hr Lactic Acid F/U @ 4Hr Calcium 8.3 L D Magnesium Total Bilirubin 1.4 H AST 104 H ALT 69 H Alkaline Phosphatase 61 Ammonia 51 Total Creatine Kinase Total Protein 5.8 L Albumin 3.0 L Urine Color Urine Appearance Urine pH Ur Specific [place] Urine Protein Urine Glucose (UA) Urine Ketones Urine Blood Urine Nitrite Ur Leukocyte Esterase Urine RBC Urine WBC Ur Squamous Epith Cells Urine Bacteria Hyaline Casts Urine Opiates Screen Ur Buprenorphine Scrn Ur Oxycodone Screen Urine Methadone Screen Urine Fentanyl Screen Ur Barbiturates Screen Ur Phencyclidine Scrn Ur Amphetamines Screen U Benzodiazepines Scrn Urine Cocaine Screen U Marijuana (THC) Screen COVID-19 (DAIN) COVID-19 Clin Com Assessment and Plan (1) Acute encephalopathy: Status: Acute (2) Cirrhosis: Status: Acute Plan This is a 69-year-old male with pertinent history of opioid use disorder on methadone, left AKA who was brought to the emergency department for evaluation of altered mentation. 1.Acute encephalopathy with severe sepsis (resolved) -unable to obtain LP secondary to inability to consent. (as now had IV antibiotics for 24 hours cultures unreliable if taken at this time) -continue vancomycin/ceftriaxone/ampicillin/acyclovir (2) -await formal cultures 2.Hypokalemia -resolved -follow renals/divalent 3.Opioid use disorder -addiction Medicine consult 4.Cirrhosis with varices -stable and well compensated at this time -reassess in a.m.; add back therapies as appropriate Mechanical Full code Requires ongoing hospitalization for IV antibiotics pending culture Quality Stroke Does the patient have a stroke diagnosis?: No VTE Prior VTE?: No VTE Risk Level:: Medical - moderate - high VTE Device Contraindication: N/A - Device Ordered VTE Drug Contraindication: Treatment Not Indicated
[2024-08-25 15:29] VITALS: BP 142/74; PULSE 93; RESP 18; TEMP 36.9; O2SAT 93
[2024-08-25] MEDS: vancomycin HCL 1,250 MG in 0.9 % Sodium Chloride 250 ML 166.67 MG IV (15:36)
[2024-08-25] MEDS: methADONE HCl 20 MG/2 ML ORAL.CONC 50 MG PO (17:50)
[2024-08-25 19:31] VITALS: BP 150/70; PULSE 100; RESP 18; TEMP 36.8; O2SAT 95
[2024-08-26] MEDS: Ampicillin Sodium 2 GM in 0.9 % Sodium Chloride 100 ML IV ×6 (01:02→20:25)
[2024-08-26] MEDS: cefTRIAXone sodium 2 GM VIAL IVPUSH ×2 (01:31→14:44)
[2024-08-26] MEDS: dexAMETHasone sod phosphate 10 MG/ML VIAL IVPUSH ×4 (01:31→19:18)
[2024-08-26] MEDS: Acyclovir Sodium 850 MG in 0.9 % Sodium Chloride 250 ML 267 MG IV ×3 (01:43→19:18)
[2024-08-26] MEDS: vancomycin HCL 1,250 MG in 0.9 % Sodium Chloride 250 ML 125 MG IV (02:53)
[2024-08-26 04:00] VITALS: BP 131/69; PULSE 93; RESP 18; TEMP 36.6; O2SAT 95
[2024-08-26 07:28] LABS: MANUAL DIFF FLAG NO
[2024-08-26 07:31] LABS: Basophils Percent Auto 0.1 % (0-2); Hematocrit 24.5 % (42.0-52.0); Hemoglobin 8.2 g/dl (14.0-18.0); Imm Gran Abs Auto 0.25 X10*3/uL (0.00-0.03); Imm Gran Pct Auto 1.8 % (0.0-0.4); Lymphocytes Absolute Auto 1.7 X10*3/uL (1.2-4.9); Lymphocytes Percent Auto 12.8 % (20-40); Mean Corpuscular HGB Conc 33.5 g/dl (31.0-36.0); Mean Corpuscular Hemoglobin 29.8 pg (27.0-33.0); Mean Corpuscular Volume 89.1 fL (80.0-98.0); Mean Platelet Volume 11.4 fL (9.4-12.4); Monocytes Absolute Auto 0.8 X10*3/uL (0.1-1.2); NRBC Pct Auto 0.5 /100WBC (0.0-0.2); Neutrophils Absolute Auto 10.8 x10*3/uL (2.0-8.3); Neutrophils Percent Auto 79.3 % (45-73); Platelet Count 104 X10*3/uL (160-400); Red Blood Count 2.75 X10*6/uL (4.60-5.80); Red Cell Distribution Width 17.1 % (11.0-16.0); White Blood Count 13.6 X10*3/uL (4.8-10.8)
[2024-08-26 07:48] VITALS: BP 139/71; PULSE 98; RESP 16; TEMP 36.6; O2SAT 97
[2024-08-26 07:55] LABS: Alanine Aminotransferase 63 U/L (0-40); Alkaline Phosphatase 62 U/L (39-117); Anion Gap 13 (12-20); Aspartate Amino Transferase 61 U/L (5-37); Bilirubin Total 0.6 mg/dL (0.0-1.0); Blood Urea Nitrogen 31 mg/dL (9-16); Calcium 8.3 mg/dL (8.4-10.2); Carbon Dioxide 23 mmol/L (22-29); Chloride 108 mmol/L (96-108); Creatinine Clr Calc Pharmacy 97.6; Estimated Glomerular Filt Rate > 60; Glucose Fasting 154 mg/dL (60-99); Magnesium 2.2 mg/dL (1.6-2.6); Potassium 3.5 mmol/L (3.3-5.1); Sodium 140 mmol/L (135-145); Total Protein 5.6 g/dL (6.5-8.0)
[2024-08-26] MEDS: 0.9 % Sodium Chloride Flush 3 ML SYRINGE IVFLUSH ×4 (08:02→19:22)
[2024-08-26] MEDS: methADONE HCl 20 MG/2 ML ORAL.CONC 50 MG PO (10:41)
[2024-08-26 11:54] VITALS: BP 125/60; PULSE 101; RESP 20; TEMP 36.8; O2SAT 97
--- NOTE | 2024-08-26 14:19 | P.PNIM_ITS ---
Subjective Subjective Date of Service: 08/26/24 Interval History: No acute issues overnight. Less confused today. White count improving Review of Systems Denies chest pain Denies shortness of breath Denies nausea vomiting diarrhea Denies fever chills Physical Exam 2 Vital Signs: Vital Signs: Last Vital Signs Temp 98.3 F 08/26/24 11:54 Pulse 101 H 08/26/24 11:54 Resp 20 08/26/24 11:54 BP 125/60 08/26/24 11:54 Pulse Ox 97 08/26/24 11:54 O2 Del Method Room Air 08/26/24 11:54 BMI result Body Mass Index 29.4 Const: Other: Awake confused but easily reoriented Resp: Other: Clear to auscultation bilaterally no rales rhonchi or wheezes Cardio: Other: No S4; positive S1-S2; no S3 murmurs rubs or gallops GI: Other: Soft nontender nondistended normoactive bowel sounds Neuro: Other: Awake alert oriented x1. Cranial nerves 2-12 grossly intact as tested sensation intact. Limited exam Extrem: Other: No edema bilaterally. Left BKA Objective Data Active Medications Acetaminophen (Acetaminophen 325 Mg Tablet) 650 mg PO Q6H PRN PRN Reason: Pain, Mild (Pain Scale 1-3), fever or headache Calcium Carbonate (Calcium Carbonate 750 Mg Tab.Chew) 750 mg PO Q4H PRN PRN Reason: Heartburn Ceftriaxone Sodium (Ceftriaxone Sodium 2 Gm Vial) 2 gm IVPUSH Q12H [facility] Last Admin: 08/26/24 01:31 Dose: 2 gm Documented By: PHILLIP Dexamethasone Sodium Phosphate (Dexamethasone Sod Phosphate 10 Mg/Ml Vial) 10 mg IVPUSH Q6H [facility] Last Admin: 08/26/24 08:02 Dose: 10 mg Documented By: MANI Acyclovir Sodium 850 mg/ (Sodium Chloride) 267 mls @ 267 mls/hr IV Q8H [facility] Last Infusion: 08/26/24 11:41 Dose: Infused Documented By: MANI Ampicillin Sodium 2 gm/ Sodium (Chloride) 100 mls @ 200 mls/hr IV Q4H [facility] Last Infusion: 08/26/24 13:09 Dose: Infused Documented By: MANI Vancomycin HCl 1,250 mg/ (Sodium Chloride) 250 mls @ 166.667 mls/hr IV Q12H [facility] Last Infusion: 08/26/24 04:54 Dose: Infused Documented By: PHILLIP Magnesium Hydroxide (Milk Of Magnesia 30 Ml Oral.Susp) 30 ml PO DAILY PRN PRN Reason: Constipation Melatonin (Melatonin 3 Mg Tablet) 6 mg PO BEDTIME PRN PRN Reason: Insomnia Methadone HCl (Methadone Hcl 20 Mg/2 Ml Oral.Conc) 50 mg PO DAILY@0800 [facility] Ondansetron HCl (Ondansetron Hcl 4 Mg/2 Ml Vial) 4 mg IVPUSH Q8H PRN PRN Reason: Nausea and Vomiting Pharmacy Consult (Consult Rx Vancomycin Dosing) 1 each MISCELLANE DAILY PRN PRN Reason: Consult order Sodium Chloride (0.9 % Sodium Chloride Flush 3 Ml Syringe) 3 ml IVFLUSH QSHIFT [facility] Last Admin: 08/26/24 08:02 Dose: 3 ml Documented By: MANI Labs 08/26/24 05:56 08/26/24 05:56 Labs: Laboratory Results - last 24 hr 08/26/24 05:56 MCV 89.1 MCH 29.8 MCHC 33.5 RDW 17.1 H Plt Count 104 L MPV 11.4 Immature Gran % (Auto) 1.8 H Neut % (Auto) 79.3 H Lymph % (Auto) 12.8 L [place] % (Auto) 6.0 Eos % (Auto) 0.0 Baso % (Auto) 0.1 Lymph # (Auto) 1.7 [place] # (Auto) 0.8 Eos # (Auto) 0.0 Baso # (Auto) 0.0 Abs Immat Gran (auto) 0.25 H Absolute Neuts (auto) 10.8 H Absolute Nucleated RBC 0.070 H Nucleated RBC % (auto) 0.5 H Anion Gap 13 Estim Creat Clear Calc 97.6 Estimated GFR > 60 Fasting Glucose 154 H Calcium 8.3 L Magnesium 2.2 Total Bilirubin 0.6 AST 61 H ALT 63 H Alkaline Phosphatase 62 Total Protein 5.6 L Albumin 3.0 L Microbiology Microbiology Results: Microbiology 08/24/24 21:05 Blood Culture - Preliminary Blood - Venous No growth after 24 hours. 08/24/24 21:05 Blood Culture - Preliminary Blood - Venous No growth after 24 hours. Assessment and Plan (1) Acute encephalopathy: Status: Acute (2) Cirrhosis: Status: Acute Plan This is a 69-year-old male with pertinent history of opioid use disorder on methadone, left AKA who was brought to the emergency department for evaluation of altered mentation. 1.Acute encephalopathy with severe sepsis (resolved) -continue vancomycin/ceftriaxone/ampicillin/acyclovir (3) -await formal cultures.. Blood cultures negative times 24 hours 2.Hypokalemia -resolved -follow renals/divalent 3.Opioid use disorder -addiction Medicine consult -question alcohol use. Attempted to call roommate... message left 4.Cirrhosis with varices -stable and well compensated at this time -reassess in a.m.; add back therapies as appropriate Mechanical Full code Requires ongoing hospitalization for IV antibiotics pending culture Quality Stroke Does the patient have a stroke diagnosis?: No VTE Prior VTE?: No VTE Risk Level:: Medical - moderate - high VTE Device Contraindication: N/A - Device Ordered VTE Drug Contraindication: Treatment Not Indicated
[2024-08-26 14:24] LABS: Vancomycin Random 10.3 mcg/mL (15-20)
[2024-08-26] MEDS: vancomycin HCL 1,500 MG in 0.9 % Sodium Chloride 500 ML 333.33 MG IV (15:35)
[2024-08-26 16:00] VITALS: BP 144/64; PULSE 61; RESP 18; TEMP 36.7; O2SAT 98
[2024-08-26 19:55] VITALS: BP 135/69; PULSE 100; RESP 18; TEMP 36.6; O2SAT 94
[2024-08-27] VITALS (7 sets, daily range): BP systolic 129–167; BP diastolic 64–91; PULSE 95–106; RESP 16–18; TEMP 36.2–36.9; O2SAT 93–96
[2024-08-27] MEDS: Ampicillin Sodium 2 GM in 0.9 % Sodium Chloride 100 ML IV ×6 (01:42→21:30)
[2024-08-27] MEDS: cefTRIAXone sodium 2 GM VIAL IVPUSH ×2 (02:09→16:24)
[2024-08-27] MEDS: dexAMETHasone sod phosphate 10 MG/ML VIAL IVPUSH ×4 (02:09→21:22)
[2024-08-27] MEDS: Acyclovir Sodium 850 MG in 0.9 % Sodium Chloride 250 ML 267 MG IV ×3 (02:14→18:04)
[2024-08-27] MEDS: vancomycin HCL 1,500 MG in 0.9 % Sodium Chloride 500 ML 333.33 MG IV (03:27)
[2024-08-27 07:11] LABS: Ammonia 84 umol/L (13-55)
[2024-08-27 07:19] LABS: Basophils Percent Auto 0.1 % (0-2); Hematocrit 21.1 % (42.0-52.0); Hemoglobin 7.1 g/dl (14.0-18.0); Imm Gran Abs Auto 0.15 X10*3/uL (0.00-0.03); Imm Gran Pct Auto 1.9 % (0.0-0.4); Lymphocytes Absolute Auto 0.9 X10*3/uL (1.2-4.9); Lymphocytes Percent Auto 11.1 % (20-40); Mean Corpuscular HGB Conc 33.6 g/dl (31.0-36.0); Mean Corpuscular Hemoglobin 29.6 pg (27.0-33.0); Mean Corpuscular Volume 87.9 fL (80.0-98.0); Mean Platelet Volume 10.3 fL (9.4-12.4); Monocytes Absolute Auto 0.5 X10*3/uL (0.1-1.2); Monocytes Percent Auto 6.5 % (2-11); Neutrophils Absolute Auto 6.3 x10*3/uL (2.0-8.3); Neutrophils Percent Auto 80.4 % (45-73); Red Cell Distribution Width 16.7 % (11.0-16.0); White Blood Count 7.8 X10*3/uL (4.8-10.8)
[2024-08-27 07:23] LABS: NRBC Pct Auto 1.1 /100WBC (0.0-0.2); Platelet Count 68 X10*3/uL (160-400)
[2024-08-27 07:33] LABS: Alanine Aminotransferase 48 U/L (0-40); Albumin Level 2.6 g/dL (3.5-5.0); Alkaline Phosphatase 55 U/L (39-117); Anion Gap 9 (12-20); Aspartate Amino Transferase 37 U/L (5-37); Bilirubin Total 0.6 mg/dL (0.0-1.0); Blood Urea Nitrogen 30 mg/dL (9-16); Calcium 8.2 mg/dL (8.4-10.2); Carbon Dioxide 28 mmol/L (22-29); Chloride 107 mmol/L (96-108); Creatinine Clr Calc Pharmacy 110.2; Estimated Glomerular Filt Rate > 60; Glucose Fasting 189 mg/dL (60-99); Potassium 4.1 mmol/L (3.3-5.1); Sodium 140 mmol/L (135-145); Total Protein 4.8 g/dL (6.5-8.0)
[2024-08-27 07:52] LABS: MANUAL DIFF FLAG SCAN; SLIDE REVIEW VERIFIED
[2024-08-27] MEDS: 0.9 % Sodium Chloride Flush 3 ML SYRINGE IVFLUSH ×2 (08:13→16:14)
[2024-08-27] MEDS: Lactulose 20 GM/30 ML SOLUTION 30 GM PO (08:15)
[2024-08-27] MEDS: methADONE HCl 20 MG/2 ML ORAL.CONC 50 MG PO (08:22)
--- NOTE | 2024-08-27 11:24 | P.PNIM_ITS ---
Subjective Subjective Date of Service: 08/27/24 Interval History: Continues to improve. Blood cultures negative times greater than 48 hours Review of Systems Denies chest pain Denies shortness of breath Denies nausea vomiting diarrhea Denies fever chills Physical Exam 2 Vital Signs: Vital Signs: Last Vital Signs Temp 97.8 F 08/27/24 08:00 Pulse 99 08/27/24 08:00 Resp 18 08/27/24 08:00 BP 145/77 H 08/27/24 08:00 Pulse Ox 95 08/27/24 08:00 O2 Del Method Room Air 08/27/24 08:00 BMI result Body Mass Index 29.4 Const: Other: Awake confused but easily reoriented Resp: Other: Clear to auscultation bilaterally no rales rhonchi or wheezes Cardio: Other: No S4; positive S1-S2; no S3 murmurs rubs or gallops GI: Other: Soft nontender nondistended normoactive bowel sounds Neuro: Other: Awake alert oriented x1. Cranial nerves 2-12 grossly intact as tested sensation intact. Limited exam Extrem: Other: No edema bilaterally. Left BKA Objective Data Active Medications Acetaminophen (Acetaminophen 325 Mg Tablet) 650 mg PO Q6H PRN PRN Reason: Pain, Mild (Pain Scale 1-3), fever or headache Calcium Carbonate (Calcium Carbonate 750 Mg Tab.Chew) 750 mg PO Q4H PRN PRN Reason: Heartburn Ceftriaxone Sodium (Ceftriaxone Sodium 2 Gm Vial) 2 gm IVPUSH Q12H [facility] Last Admin: 08/27/24 02:09 Dose: 2 gm Documented By: PHILLIP Dexamethasone Sodium Phosphate (Dexamethasone Sod Phosphate 10 Mg/Ml Vial) 10 mg IVPUSH Q6H [facility] Last Admin: 08/27/24 08:27 Dose: 10 mg Documented By: ANTHONY Acyclovir Sodium 850 mg/ (Sodium Chloride) 267 mls @ 267 mls/hr IV Q8H [facility] Last Infusion: 08/27/24 03:28 Dose: Infused Documented By: PHILLIP Ampicillin Sodium 2 gm/ Sodium (Chloride) 100 mls @ 200 mls/hr IV Q4H [facility] Last Infusion: 08/27/24 09:03 Dose: Infused Documented By: ANTHONY Vancomycin HCl 1,500 mg/ (Sodium Chloride) 500 mls @ 333.333 mls/hr IV Q12H [facility] Last Infusion: 08/27/24 05:12 Dose: Infused Documented By: PHILLIP Lactulose (Lactulose 20 Gm/30 Ml Solution) 30 gm PO DAILY [facility] Last Admin: 08/27/24 08:15 Dose: 30 gm Documented By: ANTHONY Magnesium Hydroxide (Milk Of Magnesia 30 Ml Oral.Susp) 30 ml PO DAILY PRN PRN Reason: Constipation Melatonin (Melatonin 3 Mg Tablet) 6 mg PO BEDTIME PRN PRN Reason: Insomnia Methadone HCl (Methadone Hcl 20 Mg/2 Ml Oral.Conc) 50 mg PO DAILY@0800 [facility] Last Admin: 08/27/24 08:22 Dose: 50 mg Documented By: ANTHONY Co-signed By: GO Ondansetron HCl (Ondansetron Hcl 4 Mg/2 Ml Vial) 4 mg IVPUSH Q8H PRN PRN Reason: Nausea and Vomiting Pharmacy Consult (Consult Rx Vancomycin Dosing) 1 each MISCELLANE DAILY PRN PRN Reason: Consult order Sodium Chloride (0.9 % Sodium Chloride Flush 3 Ml Syringe) 3 ml IVFLUSH QSHIFT [facility] Last Admin: 08/27/24 08:13 Dose: 3 ml Documented By: ATNHONY Labs 08/27/24 06:53 08/27/24 06:53 Labs: Laboratory Results - last 24 hr 08/26/24 08/27/24 13:59 06:53 MCV 87.9 MCH 29.6 MCHC 33.6 RDW 16.7 H Plt Count 68 L D MPV 10.3 Immature Gran % (Auto) 1.9 H Neut % (Auto) 80.4 H Lymph % (Auto) 11.1 L [place] % (Auto) 6.5 Eos % (Auto) 0.0 Baso % (Auto) 0.1 Lymph # (Auto) 0.9 L [place] # (Auto) 0.5 Eos # (Auto) 0.0 Baso # (Auto) 0.0 Abs Immat Gran (auto) 0.15 H Absolute Neuts (auto) 6.3 Absolute Nucleated RBC 0.090 H Nucleated RBC % (auto) 1.1 H Smear Tech's Comments VERIFIED Anion Gap 9 L Estim Creat Clear Calc 110.2 Estimated GFR > 60 Fasting Glucose 189 H Calcium 8.2 L Total Bilirubin 0.6 AST 37 ALT 48 H Alkaline Phosphatase 55 Ammonia 84 H Total Protein 4.8 L Albumin 2.6 L Random Vancomycin 10.3 L Microbiology Microbiology Results: Microbiology 08/24/24 21:05 Blood Culture - Preliminary Blood - Venous No growth after 48 hours. 08/24/24 21:05 Blood Culture - Preliminary Blood - Venous No growth after 48 hours. Assessment and Plan (1) Acute encephalopathy: Status: Acute (2) Cirrhosis: Status: Acute Plan This is a 69-year-old male with pertinent history of opioid use disorder on methadone, left AKA who was brought to the emergency department for evaluation of altered mentation. 1.Acute encephalopathy with severe sepsis (resolved) -continue vancomycin/ceftriaxone/ampicillin/acyclovir (4) -await formal cultures.. Blood cultures negative times 48 hours -if afebrile overnight will DC antibiotics -ammonia level elevated. .. Start lactulose 30 g daily and follow clinically 2.Hypokalemia -resolved -follow renals/divalent 3.Opioid use disorder -addiction Medicine consult -question alcohol use. Attempted to call roommate... message left 4.Cirrhosis with varices -stable and well compensated at this time -reassess in a.m.; add back therapies as appropriate Mechanical Full code Requires ongoing hospitalization for IV antibiotics pending culture Quality Stroke Does the patient have a stroke diagnosis?: No VTE Prior VTE?: No VTE Risk Level:: Medical - moderate - high VTE Device Contraindication: N/A - Device Ordered VTE Drug Contraindication: Treatment Not Indicated
[2024-08-27 15:02] LABS: Vancomycin Random 11.6 mcg/mL (15-20)
--- NOTE | 2024-08-27 15:11 | HE.PHANOTE ---
RE VANCO DOSING RENAL FUNCTION STABLE WITH CRCL 110.2. TROUGH CONTINUES TO BE SUBTHERAPEUTIC DESPITE DOSE INCREASES. WILL CHANGE DOSING FREQUENCY WITH NEW REGIMEN 1250 Q8 HOURS. EXPECTED TROUGH AT NEXT DRAW (08/28/24 @1400) TO BE 15.5 AND AUC 525.
[2024-08-27] MEDS: vancomycin HCL 1,250 MG in 0.9 % Sodium Chloride 250 ML 166.67 MG IV ×2 (16:30→23:44)
[2024-08-28] VITALS (12 sets, daily range): BP systolic 130–151; BP diastolic 67–76; PULSE 69–94; RESP 16–20; TEMP 36.2–36.9; O2SAT 93–95
[2024-08-28] MEDS: Ampicillin Sodium 2 GM in 0.9 % Sodium Chloride 100 ML IV ×2 (01:23→05:03)
[2024-08-28] MEDS: dexAMETHasone sod phosphate 10 MG/ML VIAL IVPUSH (02:46)
[2024-08-28] MEDS: cefTRIAXone sodium 2 GM VIAL IVPUSH (02:46)
[2024-08-28] MEDS: Acyclovir Sodium 850 MG in 0.9 % Sodium Chloride 250 ML 267 MG IV (02:56)
[2024-08-28 06:23] LABS: MANUAL DIFF FLAG NO
[2024-08-28 06:28] LABS: Imm Gran Abs Auto 0.16 X10*3/uL (0.00-0.03); Imm Gran Pct Auto 2.5 % (0.0-0.4); Lymphocytes Absolute Auto 0.6 X10*3/uL (1.2-4.9); Mean Corpuscular HGB Conc 32.7 g/dl (31.0-36.0); Mean Corpuscular Hemoglobin 28.7 pg (27.0-33.0); Mean Corpuscular Volume 87.8 fL (80.0-98.0); Mean Platelet Volume 10.7 fL (9.4-12.4); Monocytes Absolute Auto 0.5 X10*3/uL (0.1-1.2); Monocytes Percent Auto 7.6 % (2-11); Neutrophils Percent Auto 79.9 % (45-73); Red Cell Distribution Width 16.8 % (11.0-16.0); White Blood Count 6.3 X10*3/uL (4.8-10.8)
[2024-08-28 06:29] LABS: NRBC Pct Auto 1.7 /100WBC (0.0-0.2); Platelet Count 74 X10*3/uL (160-400)
[2024-08-28 06:37] LABS: Hemoglobin 6.6 g/dl (14.0-18.0)
[2024-08-28 06:38] LABS: Hematocrit 20.2 % (42.0-52.0)
[2024-08-28 06:43] LABS: Alanine Aminotransferase 55 U/L (0-40); Albumin Level 2.5 g/dL (3.5-5.0); Alkaline Phosphatase 49 U/L (39-117); Anion Gap 9 (12-20); Aspartate Amino Transferase 46 U/L (5-37); Bilirubin Total 0.7 mg/dL (0.0-1.0); Blood Urea Nitrogen 29 mg/dL (9-16); Calcium 7.9 mg/dL (8.4-10.2); Carbon Dioxide 27 mmol/L (22-29); Chloride 107 mmol/L (96-108); Creatinine Clr Calc Pharmacy 113.1; Estimated Glomerular Filt Rate > 60; Glucose Fasting 161 mg/dL (60-99); Sodium 139 mmol/L (135-145); Total Protein 4.7 g/dL (6.5-8.0)
[2024-08-28] MEDS: Pantoprazole Sodium 40 MG/10 ML VIAL 80 MG IVPUSH (07:58)
[2024-08-28] MEDS: Octreotide Acetate 100 MCG/ML AMPUL IVPUSH (07:58)
[2024-08-28] MEDS: Octreotide Acetate 500 MCG in 0.9 % Sodium Chloride 500 ML 50.1 MCG IVCONT (07:59)
[2024-08-28 08:06] LABS: Ammonia 50 umol/L (13-55)
[2024-08-28] MEDS: 0.9 % Sodium Chloride Flush 3 ML SYRINGE IVFLUSH (08:14)
[2024-08-28 09:39] LABS: INTERNATIONAL NORM RATIO 1.4 (0.9-1.1); Prothrombin Time 16.2 SEC (10.9-12.4)
--- NOTE | 2024-08-28 09:45 | MHC.CM.PN ---
Addendum entered by Clementine Feliz RN 08/28/24 11:10: Per [facility] liasion patient will begin services w/ home care program on dc. Addendum entered by Clementine Feliz RN 08/28/24 10:44: Per MD rounds not medically cleared for dc. Awaiting GI/ID evals. CM will continue to follow. Original Note: Patient now alert + oriented x3. Reports he has Medicare. IMM delivered. Reports he lives w/ 2 roommates. Independent w/ care. Uses prosthetic for L AKA and walker. Has a shower chair. Methadone from [facility] [place]. No PCP. Brochure provided. HCP completed naming his friend/roommate Donovan as HCP. DP: Goal is home. Requesting services w/ [facility] for MOW, home making. Referral sent via [employer]. CM will continue to follow.
[2024-08-28] MEDS: methADONE HCl 20 MG/2 ML ORAL.CONC 50 MG PO (10:34)
--- NOTE | 2024-08-28 12:18 | HO.PM.IMPN ---
Subjective Subjective Date of Service: 08/28/24 Interval History: Events of overnight noted. Hemoglobin continues to drop. Transfusion ordered Review of Systems Denies chest pain Denies shortness of breath Denies nausea vomiting diarrhea Denies fever chills Physical Exam Vital Signs: Vital Signs: Last Vital Signs Temp 98.3 F 08/28/24 09:27 Pulse 85 08/28/24 09:27 Resp 18 08/28/24 09:27 BP 135/68 08/28/24 09:27 Pulse Ox 95 08/28/24 07:13 O2 Del Method Room Air 08/28/24 07:13 BMI result Body Mass Index 29.4 Const: Other: Awake confused but easily reoriented Resp: Other: Clear to auscultation bilaterally no rales rhonchi or wheezes Cardio: Other: No S4; positive S1-S2; no S3 murmurs rubs or gallops GI: Other: Soft nontender nondistended normoactive bowel sounds Neuro: Other: Awake alert oriented x1. Cranial nerves 2-12 grossly intact as tested sensation intact. Limited exam Extrem: Other: No edema bilaterally. Left BKA Objective Data Active Medications Acetaminophen (Acetaminophen 325 Mg Tablet) 650 mg PO Q6H PRN PRN Reason: Pain, Mild (Pain Scale 1-3), fever or headache Calcium Carbonate (Calcium Carbonate 750 Mg Tab.Chew) 750 mg PO Q4H PRN PRN Reason: Heartburn Octreotide Acetate 500 mcg/ (Sodium Chloride) 501 mls @ 50.1 mls/hr IVCONT .Q10H [facility] Last Admin: 08/28/24 07:59 Dose: 50 mcg/hr, 50.1 mls/hr Documented By: BONNIE Lactulose (Lactulose 20 Gm/30 Ml Solution) 30 gm PO DAILY [facility] Last Admin: 08/28/24 09:41 Dose: Not Given Documented By: BONNIE Non-Admin Reason: Physician Approved Magnesium Hydroxide (Milk Of Magnesia 30 Ml Oral.Susp) 30 ml PO DAILY PRN PRN Reason: Constipation Melatonin (Melatonin 3 Mg Tablet) 6 mg PO BEDTIME PRN PRN Reason: Insomnia Methadone HCl (Methadone Hcl 20 Mg/2 Ml Oral.Conc) 50 mg PO DAILY@0800 [facility] Last Admin: 08/28/24 10:34 Dose: 50 mg Documented By: BONNIE Co-signed By: ALISHA Ondansetron HCl (Ondansetron Hcl 4 Mg/2 Ml Vial) 4 mg IVPUSH Q8H PRN PRN Reason: Nausea and Vomiting Pantoprazole Sodium (Pantoprazole Sodium 40 Mg/10 Ml Vial) 40 mg IVPUSH BID@0630,1630 [facility] Sodium Chloride (0.9 % Sodium Chloride Flush 3 Ml Syringe) 3 ml IVFLUSH QSHIFT [facility] Last Admin: 08/28/24 08:14 Dose: 3 ml Documented By: BONNIE Labs 08/28/24 05:39 08/28/24 05:39 Labs: Laboratory Results - last 24 hr 08/27/24 08/28/24 08/28/24 14:42 05:39 07:45 MCV 87.8 MCH 28.7 MCHC 32.7 RDW 16.8 H Plt Count 74 L MPV 10.7 Immature Gran % (Auto) 2.5 H Neut % (Auto) 79.9 H Lymph % (Auto) 10.0 L Gilmer % (Auto) 7.6 Eos % (Auto) 0.0 Baso % (Auto) 0.0 Lymph # (Auto) 0.6 L Gilmer # (Auto) 0.5 Eos # (Auto) 0.0 Baso # (Auto) 0.0 Abs Immat Gran (auto) 0.16 H Absolute Neuts (auto) 5.0 Absolute Nucleated RBC 0.110 H Nucleated RBC % (auto) 1.7 H Smear Path Review SEE NOTE PT INR Anion Gap 9 L Estim Creat Clear Calc 113.1 Estimated GFR > 60 Fasting Glucose 161 H Calcium 7.9 L Total Bilirubin 0.7 AST 46 H ALT 55 H Alkaline Phosphatase 49 Ammonia 50 Total Protein 4.7 L Albumin 2.5 L Random Vancomycin 11.6 L Blood Type O Positive Antibody Screen NEGATIVE Crossmatch See Detail 08/28/24 09:24 MCV MCH MCHC RDW Plt Count MPV Immature Gran % (Auto) Neut % (Auto) Lymph % (Auto) Gilmer % (Auto) Eos % (Auto) Baso % (Auto) Lymph # (Auto) Gilmer # (Auto) Eos # (Auto) Baso # (Auto) Abs Immat Gran (auto) Absolute Neuts (auto) Absolute Nucleated RBC Nucleated RBC % (auto) Smear Path Review PT 16.2 H INR 1.4 H Anion Gap Estim Creat Clear Calc Estimated GFR Fasting Glucose Calcium Total Bilirubin AST ALT Alkaline Phosphatase Ammonia Total Protein Albumin Random Vancomycin Blood Type Antibody Screen Crossmatch Assessment and Plan (1) Acute encephalopathy: Status: Acute (2) Cirrhosis: Status: Acute Plan This is a 69-year-old male with pertinent history of opioid use disorder on methadone, left AKA who was brought to the emergency department for evaluation of altered mentation. 1.Acute encephalopathy with severe sepsis (resolved) -more awake and alert today; ammonia level improved with lactulose -antibiotics DC as cultures remain negative -consult ID for further input 2. Anemia ; worsening -octreotide started overnight; GI consulted -IV PPI -remains clinically stable -follow daily CBCs 3.Opioid use disorder -addiction Medicine consult -question alcohol use. Attempted to call roommate... message left 4.Cirrhosis with varices -stable and well compensated at this time -await GI input Mechanical Full code Requires ongoing hospitalization for IV antibiotics pending culture Quality Stroke Does the patient have a stroke diagnosis?: No VTE Prior VTE?: No VTE Risk Level:: Medical - moderate - high VTE Device Contraindication: N/A - Device Ordered VTE Drug Contraindication: Treatment Not Indicated
--- NOTE | 2024-08-28 14:00 | P.CDIM_ITS ---
PROVIDER RESPONSE TEXT: To clarify, the appropriate diagnosis supported by the clinical indicators: Metabolic QUERY TEXT: PHYSICIAN'S DOCUMENTATION REQUEST Date of Query: 08/28/2024 09:00 AM EDT Patient Name: Micheal Linder Admit Date: 08/25/2024 Dear Lev Potts DO, A review of the medical record indicates additional documentation may be needed. Please review below and update the documentation accordingly. Clinical Indicators: Progress notes: Acute encephalopathy with severe sepsis (resolved) Continue vancomycin/ceftriaxone/ampicillin/acyclovir. Unable to obtain history from the patient. Confused and bed-bound for the last three days. Does not know why he is in the hospital. Based on the above, please further specify, in the Progress Notes, the known or suspected type of the documented encephalopathy: Metabolic Septic Toxic Toxic metabolic Other (explain) Clinically unable to determine (explain) Thank you, Melody Lomeli, CCS, CDIS Use of terms such as suspected, likely, concern for, or probable (associated with a specific diagnosi s that is being evaluated, monitored, or treated as if it exists) are acceptable and can be coded in the inpatient se tting, when documented at the time of discharge. Please use your independent medical judgment in providing your response. THIS QUERY IS PART OF THE PERMANENT MEDICAL RECORD
--- NOTE | 2024-08-28 14:16 | HO.WOUND ---
Addendum entered by Gela Mehta RN 08/30/24 07:15: 08/29/[address] Potts - Patient able to wear prosthetic on left leg dispite wound. The patient should consider wearing the foam dressig to protect from injury while wearing the prosthetic. Patient was encouraged to follow up outpt for prosthetic fit check. Topical Wound Care Recommendations: Right Acevedo - Cleanse with Ph balanced wipes / soap and water, pat dry. Apply thin layer of triad to wound bed cover with foam dressing and change every 3 days and PRN. Left Residual Leg - Cleanse with NS, pat dry. Apply foam dressing change every 5 days and PRN. Follow up outpatient for proper prosthetic fit. Protect areas of friction wit protective dressings. Original Note: Wound Consult: Initial 69yr old?male admitted to [facility] on 08/25/24 - See progress notes and H&P for detailed history.? Wound consult placed for left residual leg wound and right lower legs wound.? Patient agreeable to assessment and photo documentation.? Patient reports he does have prosthetic for the left leg and the wound present is due to friction. Patient is unclear of the cause behind the friction. Despite etiology topical treatment will remain the same with Foam dressing to allow for moist wound healing and protect from friction. The right lower leg is noted for venous dermatitis with a small open area on the acevedo. The site is clean and moist with surrounding hemosiderin staining noted. Currently with Triad and foam dressing in place recommend continuing with this topical treatment to create a moist wound healing environment. Left residual leg - resolving stage 2 pressure injury device related Right Lower Leg - Venous Dermatitis Recommendations: 1. Turn and Reposition every 2 hours and as needed for patient comfort.? Use pillows or wedges to support off loading positions. 2. Off Load all bony prominences with use of pillows and heel boots if needed.? Apply Preventative foams where needed. ? 3. Monitor for incontinence and moisture control, use barrier creams when needed for prevention and treatment. 4. Provide adequate and supplemental nutrition.? 5. Order low air loss mattress. 6. When applicable maintain blood glucose levels per Providers order. 7. Right Acevedo - Cleanse with Ph balanced wipes, pat dry. Apply thin layer of triad to wound bed cover with foam dressing and change every 3 days and PRN. 8. Left Residual Leg - Cleanse with NS, pat dry. Apply foam dressing change every 5 days and PRN. Re-consult wound care Nurse for wound deterioration or wound changes.
--- NOTE | 2024-08-28 16:08 | P.CNID_ITS ---
History of Present Illness Data of Consult Service Date: 08/28/24 Requesting physician: Lev Potts Primary Care Provider: Unknown Physician HPI Reason for consult: leukocytosis,hepatitis He presents after being found in bed for three days. He says he was not eating or drinking. He has elevated LFT and WBC on arrival,now negative. He has cirrhotic liver. Blood cultures negative. Review of Systems 2 Review of Systems: Yes all other systems are reviewed and are negative PMFSH Past Medical History Medical History Cirrhosis Family History Family history: reviewed and not pertinent Surgical History Surgical History Hx of AKA (above knee amputation) Social History Social History Patient Tobacco Use Status: Tobacco use Unknown Meds Allergies Allergy/AdvReac Type Severity Reaction Status Date / Time No Known Allergies Allergy Verified 08/24/24 20:17 Active Medications: Current Medications Acetaminophen (Acetaminophen 325 Mg Tablet) 650 mg PO Q6H PRN PRN Reason: Pain, Mild (Pain Scale 1-3), fever or headache Calcium Carbonate (Calcium Carbonate 750 Mg Tab.Chew) 750 mg PO Q4H PRN PRN Reason: Heartburn Octreotide Acetate 500 mcg/ (Sodium Chloride) 501 mls @ 50.1 mls/hr IVCONT .Q10H [facility] Last Admin: 08/28/24 07:59 Dose: 50 mcg/hr, 50.1 mls/hr Lactulose (Lactulose 20 Gm/30 Ml Solution) 30 gm PO DAILY [facility] Last Admin: 08/28/24 09:41 Dose: Not Given Magnesium Hydroxide (Milk Of Magnesia 30 Ml Oral.Susp) 30 ml PO DAILY PRN PRN Reason: Constipation Melatonin (Melatonin 3 Mg Tablet) 6 mg PO BEDTIME PRN PRN Reason: Insomnia Methadone HCl (Methadone Hcl 20 Mg/2 Ml Oral.Conc) 50 mg PO DAILY@0800 [facility] Last Admin: 08/28/24 10:34 Dose: 50 mg Ondansetron HCl (Ondansetron Hcl 4 Mg/2 Ml Vial) 4 mg IVPUSH Q8H PRN PRN Reason: Nausea and Vomiting Pantoprazole Sodium (Pantoprazole Sodium 40 Mg/10 Ml Vial) 40 mg IVPUSH BID@0630,1630 [facility] Sodium Chloride (0.9 % Sodium Chloride Flush 3 Ml Syringe) 3 ml IVFLUSH QSHIFT [facility] Last Admin: 08/28/24 15:15 Dose: Not Given Home Medications ?Medication ?Instructions ?Recorded ?Confirmed ?Last Taken ?Type methadone 10 mg/mL oral 50 mg PO DAILY 08/25/24 08/25/24 08/24/24 History concentrate (Methadone Intensol) Physical Exam 2 Vital Signs: Vital Signs: Last Vital Signs Temp 97.9 F 08/28/24 15:26 Pulse 73 08/28/24 15:26 Resp 17 08/28/24 15:26 BP 137/71 08/28/24 15:26 Pulse Ox 94 08/28/24 15:00 O2 Del Method Room Air 08/28/24 15:00 BMI result Body Mass Index 29.4 Const: General: cooperative HEENT: Head: Yes normal to inspection Face and sinus: Yes normal facial exam Mouth: Normal oral and palatal mucosa present Teeth and gingiva: d entition normal Eyes: General: appearance normal, both eyes and all related structures P upils: Equal, round and reactive pupils present Resp: Effort & Inspection: normal respiratory effort Cardio: Rate: regular rate Rhythm: regular rhythm GI: Palpation (GI): Soft to palpation and nontender : General: Yes no CVA tenderness Back/Spine/Pelvis: Back: no CVA tenderness Skin: General skin exam: no rashes or lesions noted Neuro: General: moves all extremities Cranial nerves: Yes Equal, round and reactive pupils present Extrem: Other: left leg BKA after infection patient says,looks clear General: Yes normal to inspection Psych: Appearance: grossly normal Results Labs 08/28/24 05:39 08/28/24 05:39 Labs: Short CBC 08/28/24 Range/Units 05:39 WBC 6.3 (4.8-10.8) X10*3/uL Hgb 6.6 L* (14.0-18.0) g/dl Hct 20.2 L* (42.0-52.0) % Plt Count 74 L (160-400) X10*3/uL BMP 08/28/24 05:39 Sodium 139 Potassium 4.0 Chloride 107 Carbon Dioxide 27 BUN 29 H Creatinine 0.76 Calcium 7.9 L Liver Function 10/21/24 Range/Units 05:39 Total Bilirubin 0.7 (0.0-1.0) mg/dL AST 46 H (5-37) U/L ALT 55 H (0-40) U/L Alkaline Phosphatase 49 (39-117) U/L Albumin 2.5 L (3.5-5.0) g/dL Microbiology Microbiology Results: Microbiology 08/24/24 21:05 Blood - Venous Blood Culture - Preliminary No growth after 48 hours. 08/24/24 21:05 Blood - Venous Blood Culture - Preliminary No growth after 48 hours. Assessment and Plan (1) Cirrhosis: Status: Acute (2) Acute encephalopathy: Status: Acute (3) SIRS (systemic inflammatory response syndrome): Status: Acute (4) Leukocytosis: Status: Acute (5) Acidosis, lactic: Status: Acute Plan There is no bacteremia There is no evidence of acute meningitis (neck moves well). There is possible opioid withdrawal or Hepatitis C There is no evidence Lyme disease Stop antibiotics at this time. Check HIV and Hepatitis C.
[2024-08-28 17:19] LABS: Iron 24 mcg/dL (45-160); Percent Iron Saturation 11 % (15-50); Total Iron Binding Capacity 222 mcg/dL (228-428); Unsaturated Iron Binding 198 ug/dL
[2024-08-28 17:34] LABS: Ferritin 44 ng/mL (20-250)
[2024-08-28 17:47] LABS: Folate 13.3 ng/mL (> or = 4.0); Vitamin B12 1077 pg/mL (200-900)
--- NOTE | 2024-08-28 18:06 | PM.EVENT ---
Event Note Date of Service: 08/28/24 Event Note: GI Consult-Full note dictated-History from patient, EMR, and his RN. Imp: 69 yo male with cirrhosis due to previous Hepatitis C and probable fatty liver. He denies significant EtOH use. He describes cure of the Hep C with Harvoni. His encephalopathy has improved since admisson. There is no sign of ascites or SBP. His sepsis w/u has been negative. He has baseline anemia that has worsened, but there has been no sign of GI bleeding as per the patient and his RN. He denies any GI symptoms. Rec: Would continue supportive care, including Lactulose and F/U labs. Given no reported GI bleeding, I would stop the Octreotide and advance his diet for now. He would rather not have GI procedures at this time and is hungry. I don't think an endoscopy or colonoscopy needs to be done urgently unless there is evidence of active GI bleeding. F/U labs after the transfusions. Change to po PPI as well. If his Hgb continues to drop and there is no sign of GI bleeding I would recommend a Hematology consult. D/W patient in detail and he is comfortable with this plan. Thanks. Time Spent With Patient Time: Total time managing care of this patient today ____ minutes.
[2024-08-28] MEDS: Phytonadione (Vit K1) 10 MG in 0.9 % Sodium Chloride 50 ML 51 MG IV (18:32)
[2024-08-29] VITALS (7 sets, daily range): BP systolic 118–155; BP diastolic 63–79; PULSE 69–95; RESP 16–20; TEMP 36–36.8; O2SAT 93–97
[2024-08-29 04:08] LABS: HBsAGNum1 0.33 S/CO (0.00-0.99); Hepatitis B Core Antibody Nonreactive (Nonreactive); Hepatitis B Surface Antigen Negative (Negative)
--- NOTE | 2024-08-29 04:20 | CONS_ITS ---
DATE OF SERVICE: 08/28/2024 REASON FOR CONSULTATION: Cirrhosis, encephalopathy, and anemia. HISTORY OF PRESENT ILLNESS: This has been obtained from the patient, his RN, and the medical record. The patient is a 69-year-old male with a known history of cirrhosis. He describes having been treated and cured with Harvoni for his chronic hepatitis C about 5 years ago at [place]. He describes a history of cirrhosis, but denies any history of jaundice. He denies any significant alcohol use in the past. The patient was admitted here on August 25 with what appeared to be some component of possible sepsis, encephalopathy, and lethargy. He is on chronic methadone at home for his previous drug use, but apparently there are no other chronic medications. On admission, he had a leukocytosis and elevated lactic acid. Since admission, over the past several days, he has improved. His mental status has significantly improved. There have been no findings in regard to potential sepsis and his antibiotics have been recommended to be stopped by the infectious disease cassandra consultant earlier today. Since admission, his mental status and ammonia level have improved with lactulose. He has been eating comfortably, although has been kept n.p.o. today due to a drop in his hemoglobin. He reports that he is presently hungry. He denies any significant heartburn, dysphagia, vomiting, abdominal pain, nor diarrhea. According to the patient and his nurse, there has been no evidence of any melena nor hematochezia. His hemoglobin on admission was 10.8. This has gradually dropped to a level of 6.6 today. However, again, there has been no sign of GI bleeding. He is currently receiving 2 units of blood transfusion. The patient does not recall if he has ever had an upper endoscopy or colonoscopy. It appears that at least some of his care is done down at [facility], where he was treated for the hepatitis C with Harvoni. MEDICATIONS: At home, methadone. His current medications here include acetaminophen p.r.n., Tums, lactulose, melatonin, methadone, IV Sandostatin that was started last evening due to concern about his anemia and potential GI bleeding, Zofran, and IV Protonix. PAST MEDICAL HISTORY: Left above knee amputation. Cirrhosis due to presumably hepatitis C. He has had multiple broken bones but denies any other surgeries aside from orthopedic procedures. He denies any history of known heart disease or diabetes. SOCIAL HISTORY: He describes abstinence from drugs for about 5 years since he was treated for hepatitis C. He does not smoke nor use any alcohol. FAMILY HISTORY: Noncontributory. REVIEW OF SYSTEMS: CONSTITUTIONAL: Prior to coming in to the hospital, he was feeling poorly in regard to his appetite and energy level. CARDIAC: No chest pain. PULMONARY: No coughing or hemoptysis. GI: As above. URINARY: He denies any dysuria, hematuria. PHYSICAL EXAMINATION: GENERAL: The patient is alert, cooperative male, in no distress. He answers questions appropriately. I do not see any definite asterixis on his exam. HEENT: Nonjaundiced. Anicteric sclerae. CARDIAC: Normal S1, S2. ABDOMEN: Soft, nondistended, and nontender. There is no palpable mass. LABORATORY DATA: Initial white count 24,000 on admission, but down to 6.3 today. Hemoglobin 10.8 on admission, but 6.6 today. MCV 88, platelet count 74,000. PT 16.2 with an INR of 1.4. Normal electrolytes. BUN 29, creatinine 0.8. BUN is essentially unchanged over the past 2 days, but is lower than the admission level of 39. Lactic acid level down to 2.9. His most recent LFTs from this morning showed a total bilirubin 0.7, AST 46, ALT 55, alkaline phosphatase 49, and albumin of 2.5. His initial toxicology screen was only positive for methadone. His CT of the abdomen and pelvis describes some cirrhosis, but no sign of any focal liver lesions, biliary obstruction, nor ascites. There was some splenomegaly. Gallstones were noted. The GI tract appeared unremarkable. Varices were noted. IMPRESSION: Given the patient's clinical history, it does appear that his encephalopathy has improved with the administration of lactulose. He has not had any obvious gastrointestinal bleeding in relation to his drop in hemoglobin. At the present time, his cirrhosis appears to be fairly well compensated without any other complicating features such as significant ascites, spontaneous bacterial peritonitis, jaundice, or GI bleeding. At this point, I will continue supportive care. I would continue his lactulose and continue to follow up laboratories. Given no reported GI bleeding, I would stop his octreotide and IV PPI and advance his diet. The patient reports that he is hungry and would rather not have any GI procedures at this time. I do not think endoscopy or colonoscopy is urgent given no report of any active bleeding. I would change him to a p.o. PPI as well. If the hemoglobin continues to drop and there was no sign of GI bleeding, I would then recommend a hematology consult. Certainly, if he shows signs of gastrointestinal bleeding, we could then proceed with upper endoscopy and/or colonoscopy. We did review that it would obviously be important to continue to remain abstinent from all drugs and alcohol. The patient understood all this and was comfortable with that plan. Thank you for the consultation. MD ISRAEL Khan/SANTOSH / [id number]
[2024-08-29 04:23] LABS: ~HepC Num1 11.96 S/CO (0.00-0.79); ~Hepatitis C Antibody Reactive (Nonreactive)
[2024-08-29] MEDS: Omeprazole 40 MG CAPSULE.DR PO (06:23)
[2024-08-29 06:37] LABS: MANUAL DIFF FLAG NO
[2024-08-29 06:43] LABS: Basophils Percent Auto 0.2 % (0-2); Hematocrit 25.6 % (42.0-52.0); Hemoglobin 8.6 g/dl (14.0-18.0); Imm Gran Abs Auto 0.11 X10*3/uL (0.00-0.03); Imm Gran Pct Auto 2.1 % (0.0-0.4); Lymphocytes Absolute Auto 0.7 X10*3/uL (1.2-4.9); Lymphocytes Percent Auto 14.1 % (20-40); Mean Corpuscular HGB Conc 33.6 g/dl (31.0-36.0); Mean Corpuscular Volume 86.2 fL (80.0-98.0); Mean Platelet Volume 11.2 fL (9.4-12.4); Monocytes Absolute Auto 0.7 X10*3/uL (0.1-1.2); Monocytes Percent Auto 13.1 % (2-11); Neutrophils Absolute Auto 3.6 x10*3/uL (2.0-8.3); Neutrophils Percent Auto 70.5 % (45-73); Red Blood Count 2.97 X10*6/uL (4.60-5.80); Red Cell Distribution Width 16.4 % (11.0-16.0); White Blood Count 5.1 X10*3/uL (4.8-10.8)
[2024-08-29 06:44] LABS: NRBC Pct Auto 2.3 /100WBC (0.0-0.2); Platelet Count 77 X10*3/uL (160-400)
[2024-08-29 06:49] LABS: INTERNATIONAL NORM RATIO 1.3 (0.9-1.1); Prothrombin Time 15.2 SEC (10.9-12.4)
[2024-08-29 06:54] LABS: Alanine Aminotransferase 65 U/L (0-40); Albumin Level 2.7 g/dL (3.5-5.0); Alkaline Phosphatase 47 U/L (39-117); Anion Gap 9 (12-20); Aspartate Amino Transferase 51 U/L (5-37); Bilirubin Total 1.1 mg/dL (0.0-1.0); Blood Urea Nitrogen 25 mg/dL (9-16); Calcium 7.8 mg/dL (8.4-10.2); Carbon Dioxide 27 mmol/L (22-29); Chloride 109 mmol/L (96-108); Creatinine Clr Calc Pharmacy 122.8; Estimated Glomerular Filt Rate > 60; Glucose Fasting 123 mg/dL (60-99); Potassium 4.1 mmol/L (3.3-5.1); Sodium 141 mmol/L (135-145); Total Protein 4.8 g/dL (6.5-8.0)
[2024-08-29] MEDS: methADONE HCl 20 MG/2 ML ORAL.CONC 50 MG PO (08:15)
[2024-08-29] MEDS: 0.9 % Sodium Chloride Flush 3 ML SYRINGE IVFLUSH ×2 (08:17→19:39)
[2024-08-29 11:03] LABS: HBS Num1 1.09 mIU/mL (0-7.99); ~Hepatitis B Surface Antibody NONREACTIVE (Nonreactive)
--- NOTE | 2024-08-29 14:03 | HO.PM.IMPN ---
Subjective Subjective Date of Service: 08/29/24 Interval History: No acute issues overnight. No vomiting. Much clearer today Review of Systems Denies chest pain Denies shortness of breath Denies nausea vomiting diarrhea Denies fever chills Physical Exam Vital Signs: Vital Signs: Last Vital Signs Temp 97.8 F 08/29/24 12:00 Pulse 80 08/29/24 12:00 Resp 18 08/29/24 12:00 BP 134/75 08/29/24 12:00 Pulse Ox 94 08/29/24 12:00 O2 Del Method Room Air 08/29/24 12:00 BMI result Body Mass Index 29.4 Const: Other: Awake confused but easily reoriented Resp: Other: Clear to auscultation bilaterally no rales rhonchi or wheezes Cardio: Other: No S4; positive S1-S2; no S3 murmurs rubs or gallops GI: Other: Soft nontender nondistended normoactive bowel sounds Neuro: Other: Awake alert oriented x1. Cranial nerves 2-12 grossly intact as tested sensation intact. Limited exam Extrem: Other: No edema bilaterally. Left BKA Objective Data Active Medications Acetaminophen (Acetaminophen 325 Mg Tablet) 650 mg PO Q6H PRN PRN Reason: Pain, Mild (Pain Scale 1-3), fever or headache Calcium Carbonate (Calcium Carbonate 750 Mg Tab.Chew) 750 mg PO Q4H PRN PRN Reason: Heartburn Lactulose (Lactulose 20 Gm/30 Ml Solution) 30 gm PO DAILY [facility] Last Admin: 08/29/24 09:09 Dose: Not Given Documented By: BONNIE Non-Admin Reason: Physician Approved Magnesium Hydroxide (Milk Of Magnesia 30 Ml Oral.Susp) 30 ml PO DAILY PRN PRN Reason: Constipation Melatonin (Melatonin 3 Mg Tablet) 6 mg PO BEDTIME PRN PRN Reason: Insomnia Methadone HCl (Methadone Hcl 20 Mg/2 Ml Oral.Conc) 50 mg PO DAILY@0800 [facility] Last Admin: 08/29/24 08:15 Dose: 50 mg Documented By: BONNIE Co-signed By: BLANQUITA Omeprazole (Omeprazole 40 Mg Capsule.Dr) 40 mg PO DAILY@0630 [facility] Last Admin: 08/29/24 06:23 Dose: 40 mg Documented By: ASH Ondansetron HCl (Ondansetron Hcl 4 Mg/2 Ml Vial) 4 mg IVPUSH Q8H PRN PRN Reason: Nausea and Vomiting Sodium Chloride (0.9 % Sodium Chloride Flush 3 Ml Syringe) 3 ml IVFLUSH QSHIFT DINO Last Admin: 08/29/24 08:17 Dose: 3 ml Documented By: BONNIE Labs 08/29/24 06:19 08/29/24 06:19 Labs: Laboratory Results - last 24 hr 08/28/24 08/28/24 08/29/24 07:45 16:43 06:19 MCV 86.2 MCH 29.0 MCHC 33.6 RDW 16.4 H Plt Count 77 L MPV 11.2 Immature Gran % (Auto) 2.1 H Neut % (Auto) 70.5 Lymph % (Auto) 14.1 L [place] % (Auto) 13.1 H Eos % (Auto) 0.0 Baso % (Auto) 0.2 Lymph # (Auto) 0.7 L [place] # (Auto) 0.7 Eos # (Auto) 0.0 Baso # (Auto) 0.0 Abs Immat Gran (auto) 0.11 H Absolute Neuts (auto) 3.6 Absolute Nucleated RBC 0.120 H Nucleated RBC % (auto) 2.3 H PT 15.2 H INR 1.3 H Anion Gap 9 L Estim Creat Clear Calc 122.8 Estimated GFR > 60 Fasting Glucose 123 H Calcium 7.8 L Iron 24 L TIBC 222 L % Saturation 11 L Unsat Iron Binding 198 Ferritin 44 Total Bilirubin 1.1 H AST 51 H ALT 65 H Alkaline Phosphatase 47 Total Protein 4.8 L Albumin 2.7 L Vitamin B12 1077 H Folate 13.3 Hep Bs Antigen Negative Hep Bs Antibody NONREACTIVE Hep B Core Total Ab Nonreactive Hepatitis C Ab (EIA) Reactive H Blood Type O Positive Antibody Screen NEGATIVE Crossmatch See Detail Assessment and Plan (1) Acute encephalopathy: Status: Acute Plan This is a 69-year-old male with pertinent history of opioid use disorder on methadone, left AKA who was brought to the emergency department for evaluation of altered mentation. 1.Acute encephalopathy with severe sepsis (resolved) -more awake and alert today; ammonia level improved with lactulose -antibiotics DC as cultures remain negative -consult ID for further input 2. Anemia ; worsening -stable; rise appropriate with transfusion -IV PPI -follow daily CBCs 3.Opioid use disorder -addiction Medicine consult -continue methadone 4.Cirrhosis with varices -stable and well compensated at this time -await GI input Mechanical Full code Requires ongoing hospitalization for IV antibiotics pending culture Quality Stroke Does the patient have a stroke diagnosis?: No VTE Prior VTE?: No VTE Risk Level:: Medical - moderate - high VTE Device Contraindication: N/A - Device Ordered VTE Drug Contraindication: Treatment Not Indicated
[2024-08-30] MEDS: Omeprazole 40 MG CAPSULE.DR PO (06:13)
[2024-08-30 06:25] LABS: MANUAL DIFF FLAG NO
[2024-08-30 06:52] LABS: Alanine Aminotransferase 81 U/L (0-40); Albumin Level 2.7 g/dL (3.5-5.0); Alkaline Phosphatase 55 U/L (39-117); Anion Gap 9 (12-20); Aspartate Amino Transferase 63 U/L (5-37); Bilirubin Total 1.6 mg/dL (0.0-1.0); Blood Urea Nitrogen 24 mg/dL (9-16); Calcium 7.9 mg/dL (8.4-10.2); Carbon Dioxide 30 mmol/L (22-29); Chloride 108 mmol/L (96-108); Creatinine Clr Calc Pharmacy 116.1; Estimated Glomerular Filt Rate > 60; Glucose Fasting 91 mg/dL (60-99); Potassium 3.9 mmol/L (3.3-5.1); Sodium 143 mmol/L (135-145)
[2024-08-30 06:57] LABS: Basophils Percent Auto 0.1 % (0-2); Eosinophils Absolute Auto 0.1 X10*3/uL (0.0-0.4); Eosinophils Percent Auto 0.7 % (0-4); Hematocrit 27.9 % (42.0-52.0); Hemoglobin 9.4 g/dl (14.0-18.0); Imm Gran Abs Auto 0.07 X10*3/uL (0.00-0.03); Lymphocytes Absolute Auto 1.5 X10*3/uL (1.2-4.9); Lymphocytes Percent Auto 21.3 % (20-40); Mean Corpuscular HGB Conc 33.7 g/dl (31.0-36.0); Mean Corpuscular Hemoglobin 29.2 pg (27.0-33.0); Mean Corpuscular Volume 86.6 fL (80.0-98.0); Mean Platelet Volume 11.3 fL (9.4-12.4); Monocytes Absolute Auto 0.8 X10*3/uL (0.1-1.2); NRBC Pct Auto 0.7 /100WBC (0.0-0.2); Neutrophils Absolute Auto 4.5 x10*3/uL (2.0-8.3); Neutrophils Percent Auto 65.9 % (45-73); Red Blood Count 3.22 X10*6/uL (4.60-5.80); Red Cell Distribution Width 16.9 % (11.0-16.0); White Blood Count 6.9 X10*3/uL (4.8-10.8)
[2024-08-30 07:21] LABS: Platelet Count 77 X10*3/uL (160-400)
[2024-08-30 07:34] VITALS: BP 138/75; PULSE 88; RESP 17; TEMP 36.9; O2SAT 92
[2024-08-30] MEDS: methADONE HCl 20 MG/2 ML ORAL.CONC 50 MG PO (08:11)
[2024-08-30] MEDS: 0.9 % Sodium Chloride Flush 3 ML SYRINGE IVFLUSH (08:12)
--- NOTE | 2024-08-30 11:54 | PM.DS ---
DS: Providers Provider Date of Service: 08/30/24 Date of admission: 08/25/24 02:41 Date of discharge: 08/30/24 Primary care physician: Unknown Physician Consults: 08/25/24 14:57 Addiction Medicine Routine Consulting Provider: Addiction Abiodun Reason for consultation: Opiate use disorder Has provider been notified: No 08/26/24 02:34 Consult to Wound Care Routine Reason for consultation: small abrasion lt stump 08/28/24 06:42 Consult to Gastroenterology Routine Consulting Provider: Olayinka Pressley Reason for consultation: Hx of liver cirrhosis, encephalopathy, acute anemia Has provider been notified: No 08/28/24 07:50 Consult to Infectious Diseases Routine Consulting Provider: [facility] Reason for consultation: acute metabolic encephalopthy Has provider been notified: Yes DS: Diagnosis Discharge Diagnosis (1) Acute encephalopathy: Status: Acute DS: Summary Hospital Course Hospital Course: 69-year-old male with pertinent history of opioid use disorder on methadone, left AKA who was brought to the emergency department for evaluation of altered mentation. EMS was called as patient was found in bed covered with urine as per roommate. Unable to obtain history from the patient. As per EMS, patient was confused and was bed-bound for the last 3 days. Unclear baseline. At the time of my evaluation, patient with minimal conversation and does not know why he is in the hospital. Upon extensive questioning, states he does not feel well and possibly has headache. He only takes methadone as per the patient. Denies using drugs. In the emergency department, white count found to be 24.3, lactic acid 4.2 Hospital Course Patient admitted to the general medical floor and started on broad-spectrum coverage including vancomycin/ceftriaxone/ampicillin/acyclovir for question of meningitis. Over the course of the next 48 hours his mentation did improve however during that time he was not able to consent for an LP. Subsequently his mentation returned to normal and his antibiotics were DC. ID consulted and agreed there was no need for a lumbar puncture. Upon review of the case as thought that this was related to his methadone withdrawal as he has been on it for many years and was off it for the better part of a week. On the day of discharge he is back to his baseline and anxious to go home. Of note he does have a small abrasion on the stump on his left AKA which wound care saw and made recommendations. They felt it was acceptable for him to use his stump and do the dressings. He was seen by Physical therapy and deemed appropriate to go home with prosthesis. At this point in time he will be discharged home to follow up with a new PCP when 1st appointment available Time Attestation Discharge Coordination Time (in mins): 35 Quality: Safe Use of Opioids Does Pt have an Active Cancer Diagnosis on the Problem List?: No Quality: Stroke Does the patient have a stroke diagnosis?: No Physical Exam Vital Signs: Vital Signs: Last Vital Signs Temp 98.5 F 08/30/24 07:34 Pulse 88 08/30/24 07:34 Resp 17 08/30/24 07:34 BP 138/75 08/30/24 07:34 Pulse Ox 92 08/30/24 07:34 O2 Del Method Room Air 08/30/24 07:34 BMI result Body Mass Index 29.4 Const: Other: Awake confused but easily reoriented Resp: Other: Clear to auscultation bilaterally no rales rhonchi or wheezes Cardio: Other: No S4; positive S1-S2; no S3 murmurs rubs or gallops GI: Other: Soft nontender nondistended normoactive bowel sounds Neuro: Other: Awake alert oriented x1. Cranial nerves 2-12 grossly intact as tested sensation intact. Limited exam Extrem: Other: No edema bilaterally. Left BKA DS: Data Data Completed and Pending Labs on day of discharge: Laboratory Results - last 24 hr 08/30/24 06:06 WBC 6.9 RBC 3.22 L Hgb 9.4 L Hct 27.9 L MCV 86.6 MCH 29.2 MCHC 33.7 RDW 16.9 H Plt Count 77 L MPV 11.3 Immature Gran % (Auto) 1.0 H Neut % (Auto) 65.9 Lymph % (Auto) 21.3 [place] % (Auto) 11.0 Eos % (Auto) 0.7 Baso % (Auto) 0.1 Lymph # (Auto) 1.5 [place] # (Auto) 0.8 Eos # (Auto) 0.1 Baso # (Auto) 0.0 Abs Immat Gran (auto) 0.07 H Absolute Neuts (auto) 4.5 Absolute Nucleated RBC 0.050 H Nucleated RBC % (auto) 0.7 H Sodium 143 Potassium 3.9 Chloride 108 Carbon Dioxide 30 H Anion Gap 9 L BUN 24 H Creatinine 0.74 Estim Creat Clear Calc 116.1 Estimated GFR > 60 Fasting Glucose 91 Calcium 7.9 L Total Bilirubin 1.6 H AST 63 H ALT 81 H Alkaline Phosphatase 55 Total Protein 5.0 L Albumin 2.7 L Discharge Plan Discharge Anticipated Discharge Date/Time: 08/30/24 11:42 Patient Disposition: Home, Self-Care Discharge Diagnosis: Acute metabolic encephalopathy Referrals: Asiya Sanchez PA-C [Physician Medical Certification Specialist] - 1 Week Discharge Medications: Continued methadone [Methadone Intensol] 10 mg/mL Concentrate 50 mg PO DAILY Discharge Orders: Discharge Order (Routine); Ordered 08/30/24 Ordered By: Lev Potts Diet: Advance to usual diet Activity on Discharge: As tolerated Stand Alone Forms: Patient Portal Discharge page Print Language: Citizen Of [place] Activity Restrictions/Additional Instructions: Topical Wound Care Recommendations: Right Lindsey - Cleanse with Ph balanced wipes / soap and water, pat dry. Apply thin layer of triad to wound bed cover with foam dressing and change every 3 days and PRN. Left Residual Leg - Cleanse with NS, pat dry. Apply foam dressing change every 5 days and PRN. Follow up outpatient for proper prosthetic fit. Protect areas of friction wit protective dressings. Care Plan Goals: Resume methadone at previous clinic Health Concerns: Follow up with PCP when appointment available Plan of Treatment: Dressing changes as above Assessment: See discharge summary Patient Instructions: Pressure Injury (DC), Chronic Wounds (DC), Acute Wounds (DC)
--- NOTE | 2024-08-30 12:27 | PC.NURSE ---
last dose letter for methadone give to patient.
--- NOTE | 2024-08-30 14:24 | P.CDIM_ITS ---
PROVIDER RESPONSE TEXT: To clarify, the appropriate diagnosis supported by the clinical indicators: Clinically unable to determine (explain): likely multifactorial QUERY TEXT: PHYSICIAN'S DOCUMENTATION REQUEST Date of Query: 08/30/2024 08:36 AM EDT Patient Name: Micheal Linder Admit Date: 08/25/2024 Dear Lev Potts DO, A review of the medical record indicates additional documentation may be needed. Please review below and update the documentation accordingly. Clinical Indicators: HGB 6.6 HCT 20.2 Transfused 2 units PRBC Iron 24 L Weakness, lethargic present on admission. Post transfusion H/H: 8.6/25.6 Based on the above, could you clarify if there is a diagnosis that correlates with the H/H lab findin gs: Acute blood loss anemia possible, probable, suspected, resolved etc. Iron deficiency anemia due to acute blood loss, acute on chronic blood loss etc. Unknown etiology of lab findings Other (explain) Clinically unable to determine (explain) Thank you, Melody Lomeli, CCS, CDIS Use of terms such as suspected, likely, concern for, or probable (associated with a specific diagnosi s that is being evaluated, monitored, or treated as if it exists) are acceptable and can be coded in the inpatient se tting, when documented at the time of discharge. Please use your independent medical judgment in providing your response. THIS QUERY IS PART OF THE PERMANENT MEDICAL RECORD
[2024-08-31 05:53] LABS: HCV Log PCR <1.18 NOT DETECTED Log IU/mL (NOT DETECTED); HepC Viral Load <15 NOT DETECTED IU/mL (NOT DETECTED)
--- NOTE | 2024-09-07 15:35 | P.CDIM_ITS ---
PROVIDER RESPONSE TEXT: To clarify, the appropriate diagnosis supported by the clinical indicators: Sepsis: resolved QUERY TEXT: PHYSICIAN'S DOCUMENTATION REQUEST Date of Query: 09/06/2024 11:06 AM EDT Patient Name: Micheal Linder Admit Date: 08/25/2024 Dear Lev Potts DO, RETROSPECTIVE QUERY A review of the medical record indicates additional documentation may be needed. Please review below and update the documentation accordingly. Clinical indicators: H&P 08/25 - Acute encephalopathy with severe sepsis. Empiric IV antibiotics WBC 24.3 LA 4.2 Inability to consent to LP, continue vancomycin/ceftriaxone/acyclovir. Blood cultures negative 48 hours. ID consult 08/28 - There is no bacteremia, no evidence of acute meningitis, no evidence of Lyme disea se. Stop antibiotics. Discharge summary diagnosis 08/30 - Acute encephalopathy. Sepsis Systemic manifestations of infection, with 2 or more SIRS criteria which include: Fever > 100.4?F or hypothermia < 96.8?F Leukocytosis - WBC > 12,000 or leukopenia, WBC < 4,000, or > 10% bands Tachycardia- > 90 beats/minute Tachypnea- RR > 20 breaths/minute or PaCO2 < 32mmHg Based on the above information, Consistency, clarity, for the diagnosis of Sepsis: Sepsis resolved, possible, suspected, probable, present on arrival etc. After study Sepsis has been ruled out SIRS Other (explain) Clinically unable to determine (explain) Thank you, Melody Lomeli, CCS, CDIS Use of terms such as suspected, likely, concern for, or probable (associated with a specific diagnosi s that is being evaluated, monitored, or treated as if it exists) are acceptable and can be coded in the inpatient se tting, when documented at the time of discharge. Please use your independent medical judgment in providing your response. THIS QUERY IS PART OF THE PERMANENT MEDICAL RECORD
== END 2024-08-30 12:44 | disposition home or self-care (01) | DRG 871 ==
LOC: HO.ED 08-25 00:57 → HO.EDOVER 08-25 02:45 → HO.S3 08-25 05:10
PROVIDERS: Internal Medicine; Admitting Provider Student in an Organized Health Care Education/Training Program; Emergency Provider Internal Medicine; Visit Provider Hospitalist
DX: A41.9 Sepsis, unspecified organism (principal); G93.41 Metabolic encephalopathy; F11.23 Opioid dependence with withdrawal; E87.21 Acute metabolic acidosis; I85.10 Secondary esophageal varices without bleeding; R65.20 Severe sepsis without septic shock; K74.69 Other cirrhosis of liver; T40.3X6A Underdosing of methadone, initial encounter; D64.9 Anemia, unspecified; K76.0 Fatty (change of) liver, not elsewhere classified; E87.6 Hypokalemia; Z86.19 Personal history of other infectious and parasitic diseases; Z89.612 Acquired absence of left leg above knee
CPT/HCPCS: 36415; 70450; 71045; 71260; 74177; 80053; 80202; 80307; 81001; 82140; 82550; 82607; 82728; 82746; 83540; 83605; 83735; 85025; 85610; 86704; 86706; 86803; 86850; 86900; 86901; 86923; 87040; 87340; 87522; 87635; 97162; 99285; J0133; J0290; J0696; J1100; J2354; J2470; J3370; J3371; J3430; J3480; P9016; Q9967

== ENCOUNTER → 2024-08-25 02:41 | Outpatient (BNV) | payer SELFPAY | PROVIDERS: Admitting Provider Student in an Organized Health Care Education/Training Program; Emergency Provider Internal Medicine; Visit Provider Student in an Organized Health Care Education/Training Program | DX: G93.40 Encephalopathy, unspecified (principal); K74.60 Unspecified cirrhosis of liver | CPT/HCPCS: 99223; 99232; 99239; 99499 ==

== ENCOUNTER → 2024-08-25 02:41 | Outpatient (BNV) | payer MEDICARE, MEDICAID, SELFPAY | PROVIDERS: Admitting Provider Student in an Organized Health Care Education/Training Program; Emergency Provider Internal Medicine; Visit Provider Internal Medicine | DX: K74.60 Unspecified cirrhosis of liver (principal); G93.40 Encephalopathy, unspecified; R65.10 Systemic inflammatory response syndrome (SIRS) of non-infectious origin without acute organ dysfunction; D72.829 Elevated white blood cell count, unspecified; E87.20 Acidosis, unspecified | CPT/HCPCS: 99222 ==

== ENCOUNTER 2024-10-12 08:44 | Inpatient (IN) | payer MEDICARE, MEDICAID, SELFPAY ==
[2024-10-12] VITALS (28 sets, daily range): BP systolic 90–126; BP diastolic 42–71; PULSE 82–116; RESP 14–20; TEMP 35.8–37.1; O2SAT 87–99; BMI 31.6
--- NOTE | ~2024-10-12 | CT_ITS ---
EXAMINATION: CT ABDOMEN AND PELVIS WITHOUT AND WITH CONTRAST CLINICAL INFORMATION: GI bleed. COMPARISON: CT dated August 25, 2024. TECHNIQUE: Multidetector volumetric imaging was performed of the abdomen and pelvis before and after the IV administration of 80 mL of Omnipaque 350 strength without reported immediate complications. Sagittal and coronal reformatted images were obtained on the technologist's workstation. This CT examination was performed using dose optimization techniques as appropriate, variously including the following: *Automated exposure control *Adjustment of mA and/or kV according to patient size (this includes techniques or standardized protocols for targeted exams where dose is matched to indication/reason for exam; i.e. extremities or head) *Use of iterative reconstruction technique DLP: 1320.5 mGy-cm FINDINGS: There are multiple gastroesophageal varices protruding in the posterior fundus of the stomach. I do not see extraluminal contrast into the proper lumen of the stomach. Abundant stool within the large intestine. No intestinal obstruction pattern. No pneumatosis intestinalis. No ascites. No pneumoperitoneum. No hemoperitoneum. No peripheral enhancing fluid collection, peritoneal cavity. I do not see the appendix. Liver measures 13 cm with the heterogeneous nodular enhancement and a nodular surface. No focal enhancing mass during the arterial phase. There is absent enhancement of the main portal vein from the confluence to the left and likely right main portal branches. The hepatic veins and intrahepatic portion of the IVC are patent. Cholelithiasis. No focal pancreatic mass or peripancreatic fluid collection. No main pancreatic ductal dilatation. Spleen measures 15 cm. No nodular lesions in the adrenal glands. No gross renal mass or hydronephrosis. No nephrolithiasis. Calcified plaques throughout the abdominal aorta wall and iliac arteries without aneurysm or dissection in the abdominal aorta. There is a 2 cm ectasia of the right common iliac artery. There is a Sheikh catheter in the bladder. Small fat-containing umbilical hernia with protrusion of nondilated small bowel loops. Multilevel lumbar spondylosis more conspicuous at L4-5 and L5-S1 without acute fracture or gross listhesis. No lytic or blastic lesions. CT/CT gi bleed abd pel wo/w IVcon IMPRESSION: Cirrhosis without ascites and no overt active gastrointestinal bleed. Portal vein thrombosis. Large volume of gastroesophageal varices. Cholelithiasis. Left-sided pleural effusion. Cardiomegaly. Discussed with the requesting physician (Dr. Eulalia Andrews) at the time of the examination 1:30 PM on October 12, 2024. Fleischner guidelines were followed. Electronically signed by: Addison Davis MD 10/12/2024 01:36 PM AMA
--- NOTE | ~2024-10-12 | CT_ITS ---
Pancytopenia. PROCEDURES: 1. Limited preprocedure CT of the pelvis. Permanent images saved in PACS. 2. 11 g bone marrow core biopsy of the left posterior iliac spine 3. 11 g bone marrow aspirate of the left posterior iliac spine CLINICIANS: Matteo Rodriguez PA-C MEDICATIONS: -Versed 1 mg, Fentanyl 50 mcg, and lidocaine 1% 10 mL SQ -Antibiotics: None -For additional details, please see nursing flowsheet. COMPLICATIONS: None ESTIMATED BLOOD LOSS: < 5 ml CONTRAST: None SPECIMENS: 11 g core placed in formalin. Bone marrow aspirate placed in EDTA and sodium heparin tubes MODERATE SEDATION TIME: 20 min PROCEDURE NOTE: The procedure, risks, benefits, and alternatives were carefully explained to the patient and written informed consent was obtained. The patient was placed prone on the CT table. A timeout was performed. A limited CT of the pelvis was performed to localize the posterior iliac spine and choose appropriate needle entry and trajectory. The patient was prepped and draped in usual sterile fashion. The skin, subcutaneous tissues, and periosteum were anesthetized with lidocaine. Under CT guidance, an 11-gauge bone marrow biopsy needle was advanced into the posterior iliac spine, with the tip positioned slightly cephalad. An 11-gauge core biopsy of the bone marrow was performed and was placed in formalin. Next, the 11-gauge bone marrow biopsy needle was then advanced into the posterior iliac spine, under CT guidance, with the tip positioned slightly caudal. A bone marrow aspiration was performed. The specimens were placed in the provided EDTA and sodium heparin tubes. The needle was removed. A dry dressing was applied and secured with Tegaderm. There were no immediate complications. The patient was stable after the procedure and was transferred to the post anesthesia care unit. The procedure was done under moderate sedation with a dedicated nurse for monitoring of vital signs. CT/CT biopsy bone marrow Impression: CT-guided bone marrow biopsy and aspiration. This procedure was performed by Matteo Rodriguez PA-C and supervised by Dr. Castillo. Electronically signed by: Aj Castillo MD 10/26/2024 02:50 PM [facility] [place]
--- NOTE | ~2024-10-12 | CT_ITS ---
EXAMINATION: CT CHEST WITHOUT CONTRAST CLINICAL INFORMATION: [Shortness of breath. GI bleed. COMPARISON: CT chest dated August 25, 2024 TECHNIQUE: Multidetector volumetric CT imaging of the chest was done. Axial MIP volume rendering provided. Sagittal and coronal reformatted images were obtained. This CT examination was performed using dose optimization techniques as appropriate, variously including the following: *Automated exposure control *Adjustment of mA and/or kV according to patient size (this includes techniques or standardized protocols for targeted exams where dose is matched to indication/reason for exam; i.e. extremities or head) *Use of iterative reconstruction technique DLP: 219.7 mGy-cm FINDINGS: Left-sided pleural fusion, moderate volume. Pulmonary patchy groundglass slightly asymmetric to the left lung and to a lesser extent right lung base. No pneumothorax. No bronchiectasis. No honeycombing. Respiratory airways patent. No gross pulmonary nodules. Heart is enlarged, all 4 chambers. Prominent lymph nodes in the mediastinum the largest in the subcarinal region. No pericardial effusion. Prominent vessels in the gastroesophageal junction/periesophageal. Gynecomastia, left breast. Nodular surface of the liver with a prominent caudate lobe. Cholelithiasis. Enlarged spleen. Prominent vessels in the splenorenal. Multilevel cervical thoracic spondylosis. Trabeculated the appearance of the vertebral bodies, T8, T9 and T10. No acute fracture or listhesis. CT/CT chest wo IV con IMPRESSION: Left-sided pleural effusion, moderate volume and likely left-sided asymmetric pulmonary edema. Cardiomegaly. Hepatocellular disease/cirrhosis. Varices, gastroesophageal. Cholelithiasis. Fleischner guidelines were followed. Electronically signed by: Addison Davis MD 10/12/2024 01:15 PM AMA
--- NOTE | 2024-10-12 09:10 | ECG_ITS ---
Test Reason : TACHY Blood Pressure : / mmHG Vent. Rate : 107 BPM Atrial Rate : 107 BPM P-R Int : 150 ms QRS Dur : 084 ms QT Int : 336 ms P-R-T Axes : 056 007 082 degrees QTc Int : [address] & T wave abnormality, consider lateral ischemia Abnormal ECG No previous ECGs available Referred By: Eulalia Andrews Electronically Signed By:Estevan Fleming
--- NOTE | 2024-10-12 09:12 | ED.GENADULT ---
HPI - General Adult General Chief complaint: Altered Mental Status Stated complaint: FALL,FAIZAN HAND SWELL,LETHARGIC,-HS/LOC/THIN PER EMS Time Seen by Provider: 10/12/24 08:51 Source: patient Mode of arrival: EMS History of Present Illness ED Provider: Darryl CARREON narrative: 69-year-old male who is brought in by EMS for a fall from his bed this morning, he is not able to provide much history and appears to be exhausted. Related Data Home Medications ?Medication ?Instructions ?Recorded ?Confirmed methadone 10 mg/mL oral 50 mg PO DAILY 08/25/24 08/25/24 concentrate (Methadone Intensol) Allergies Allergy/AdvReac Type Severity Reaction Status Date / Time No Known Allergies Allergy Verified 10/12/24 08:59 Review of Systems Review of Systems: Pertinent positives and negatives as stated in HPI [facility] Past Medical History Source: nursing notes reviewed Medical History Depression Cirrhosis Surgical History Hx of AKA (above knee amputation) Social History Social History Unable to assess alcohol history related to: Unknown Patient Tobacco Use Status: Tobacco use Unknown Use of substances other than those prescribed or required for medical reasons: No Advance Directives: Yes Advance Directives on File: Yes Advance Directives Date on File: 08/31/24 Physical Exam ED Vital Signs: Vital Signs - 24 hr 10/12/24 08:56 10/12/24 09:12 10/12/24 09:40 Temperature 98.5 F Pulse Rate 116 H 107 H Pulse Rate [Monitor] Respiratory Rate 16 18 Blood Pressure 97/47 L 107/56 L Pulse Oximetry 87 L 90 L Oxygen Delivery Method Room Air Room Air Nasal Cannula Oxygen Flow Rate 2 10/12/24 09:50 10/12/24 09:53 10/12/24 10:01 Temperature 98.5 F 98.5 F 96.6 F L Pulse Rate 108 H 107 H 104 H Pulse Rate [Monitor] Respiratory Rate 18 20 16 Blood Pressure 98/50 L 97/54 L Pulse Oximetry Oxygen Delivery Method Oxygen Flow Rate 10/12/24 10:13 10/12/24 10:20 10/12/24 10:21 Temperature 96.8 F 96.8 F 98.6 F Pulse Rate 100 101 H 101 H Pulse Rate [Monitor] Respiratory Rate 18 16 18 Blood Pressure 110/67 106/42 L 103/65 Pulse Oximetry Oxygen Delivery Method Oxygen Flow Rate 10/12/24 10:24 10/12/24 10:29 10/12/24 10:35 Temperature 96.5 F L 96.8 F Pulse Rate 100 99 98 Pulse Rate [Monitor] Respiratory Rate 18 18 16 Blood Pressure 108/67 109/64 106/71 Pulse Oximetry Oxygen Delivery Method Oxygen Flow Rate 10/12/24 11:23 10/12/24 11:34 10/12/24 12:19 Temperature 98.2 F Pulse Rate 99 95 Pulse Rate [Monitor] 98 Respiratory Rate 14 16 Blood Pressure 109/68 106/68 Pulse Oximetry 90 L Oxygen Delivery Method Nasal Cannula Oxygen Flow Rate 3 10/12/24 12:39 10/12/24 12:39 Temperature 98.6 F 98.6 F Pulse Rate 95 95 Pulse Rate [Monitor] Respiratory Rate 16 16 Blood Pressure 104/59 L 104/59 L Pulse Oximetry Oxygen Delivery Method Oxygen Flow Rate BMI result Body Mass Index 31.6 VITAL SIGNS: Reviewed. GENERAL: Well developed, well nourished, in no acute distress. HEAD: Normocephalic/atraumatic EYES: PERRLA, EOMI, pale conjunctiva EARS: Ext canals without abnormality NOSE: Nares patent bilateral OROPHARYNX: no oral lesions noted, posterior pharynx clear, dry mucosa, pale mucosa NECK: Supple, no adenopathy LUNGS: Normal breath sounds. No adventitious sounds or accessory muscle use. SpO2<87>Placed on 2 L via nasal cannula CARDIOVASCULAR: Regular rate and rhythm without noted murmurs, no JVD right lower extremity edema ABDOMEN: Soft, non-tender, non-distended with bowel sounds. ANORECTAL: no external lesions, melena on finger with soft stool MUSCULOSKELETAL: No tenderness, deformities, or effusions noted on gross inspection. EXTREMITIES: No cyanosis, clubbing or edema. SKIN: Inspection of the skin reveals no rashes, poor color NEUROLOGIC: Alert and oriented x 3. Strength and sensation to light touch were grossly intact x 4. Medications Administered Discontinued Medications Generic Name Dose Route Start Last Admin Trade Name Freq PRN Reason Stop Dose Admin Sodium Chloride 500 mls @ 500 mls/hr 10/12/24 09:15 10/12/24 11:00 Ns IV 10/12/24 10:14 Infused .Q1H DINO Infusion Piperacillin Sod/Tazobactam 50 mls @ 100 mls/hr 10/12/24 11:54 10/12/24 12:08 Sod 3.375 gm/ Sodium Chloride IV 10/12/24 12:23 100 mls/hr ONCE ONE Administration Iohexol 100 ml 10/12/24 11:49 10/12/24 11:50 Iohexol 350 Mg/Ml 100 Ml Infus..Btl IV 10/12/24 11:50 80 ml ONCE ONE Administration Pantoprazole Sodium 80 mg 10/12/24 10:02 10/12/24 10:23 Pantoprazole Sodium 40 Mg/10 Ml Vial IVPUSH 10/12/24 10:03 80 mg ONCE ONE Administration Medical Decision Making Medical Decision Making MDM Narrative: 69-year-old male with history and clinical presentation, DD DX: Acute blood loss anemia, possibility of upper GI bleed, unclear medical history will need to review all chart and prior lab work, patient has anasarca. INTERVENTION: Supplemental oxygen initiated via nasal cannula, 500 cc of fluids were started for borderline low blood pressure however I do feel that this is secondary to blood loss, patient is also tachycardic which I also feel is secondary to blood loss. EKG: Sinus tachycardia, HR - 107, no STEMI, but lateral ST and T-wave abnormalities likely consistent with demand ischemia secondary to severe anemia. Due to patient's current condition ordered emergent release of 2 units of RBCs. Will be infusing via the rapid transfuser. 0950: hemoglobin-1.6 1010: 2 units RBC are in, have asked for another 2 unit emergency release, blood pressure and heart rate have responded accordingly and patient does appear to be more alert. CT of the chest / abdomen and pelvis have been ordered the latter for GI bleed protocol, also 80 mg of Protonix given the positive guaiac and melena that was found. I reviewed interpreted remainder lab work and lactic acid is likely secondary to severe hypoperfusion secondary to severe anemia and not secondary to septic shock but instead secondary to hemorrhagic shock. 1153: I suspect the possibility of pneumonia/infection as on my interpretation of CT scan of the chest there are findings that are suggestive of pneumonia, possibility of aspiration pneumonia as well as a small pleural effusion. official read of the CT scan is pending but will initiate antibiotics at this time. Repeat hematologic values show inappropriate response to 4 units of blood transfusion, platelet count is now wet patient's baseline, otherwise no leukocytosis. On coagulation studies there is worsening coagulopathy with INR-2.2. VBG with pH is 7.5 and pCO2 within normal range, no evidence of respiratory acidosis or hypercapnia. Chemistry indices demonstrate worsened liver function which is likely associated with shock liver although it is noted that patient has had similar values previously. CPK/Magnesium is within normal limits. I also received a phone call reporting improvements in lactic acid to 3.4. 1201: I discussed the case with hospitalist, Dr. Tran.. 1323: CT scan a chest demonstrates left pleural effusion although no mention of underlying or suggestion of pneumonia, otherwise nothing acute on GI bleed scan of the abdomen but radiology did call and suggest that this may be variceal bleeding but there is nothing acute. I communicated these results to Dr. Carter and patient should be Admitted. Differential Diagnosis Differential Diagnoses: The differential diagnosis associated with the presentation includes Please see the discussion above Admission/Observation Consideration of admission/observation: Escalation of care including admission/observation considered dispo for this patient is admission Consult Healthcare Provider Management of the patient was discussed with: Hospitalist see above Lab Data MDM Lab Attestation statement: I reviewed the patient's lab results. see above 10/12/24 11:25 10/12/24 11:25 Labs: Lab Results 10/12/24 10/12/24 10/12/24 Range/Units 09:23 09:24 09:33 WBC (4.8-10.8) X10*3/uL RBC (4.60-5.80) X10*6/uL Hgb (14.0-18.0) g/dl Hct (42.0-52.0) % MCV (80.0-98.0) fL MCH (27.0-33.0) pg MCHC (31.0-36.0) g/dl RDW (11.0-16.0) % Plt Count (160-400) X10*3/uL MPV (9.4-12.4) fL Immature Gran % (Auto) (0.0-0.4) % Neut % (Auto) (45-73) % Lymph % (Auto) (20-40) % [place] % (Auto) (2-11) % Eos % (Auto) (0-4) % Baso % (Auto) (0-2) % Lymph # (Auto) (1.2-4.9) X10*3/uL [place] # (Auto) (0.1-1.2) X10*3/uL Eos # (Auto) (0.0-0.4) X10*3/uL Baso # (Auto) (0.0-0.2) X10*3/uL Abs Immat Gran (auto) (0.00-0.03) X10*3/uL Absolute Neuts (auto) (2.0-8.3) x10*3/uL Absolute Nucleated RBC (0.0-0.012) X10*3/uL Nucleated RBC % (auto) (0.0-0.2) /100WBC Smear Tech's Comments Smear Path Review PT (10.9-12.4) SEC INR (0.9-1.1) VBG pH (7.32-7.43) VBG pCO2 mmHg VBG pO2 mmHg VBG HCO3 (22-26) mmol/L VBG O2 Saturation VBG Base Excess mmol/L Sodium (135-145) mmol/L Potassium (3.3-5.1) mmol/L Chloride (96-108) mmol/L Carbon Dioxide (22-29) mmol/L Anion Gap (12-20) BUN (9-16) mg/dL Creatinine (0.5-1.4) mg/dL Estim Creat Clear Calc Estimated GFR POC Glucose 116 H (60-115) mg/dL Random Glucose (60-115) mg/dL Lactic Acid (0.5-2.0) mmol/L Calcium (8.4-10.2) mg/dL Magnesium (1.6-2.6) mg/dL Total Bilirubin (0.0-1.0) mg/dL AST (5-37) U/L ALT (0-40) U/L Alkaline Phosphatase (39-117) U/L Total Creatine Kinase (38-174) U/L Total Protein (6.5-8.0) g/dL Albumin (3.5-5.0) g/dL Stool Occult Blood POSITIVE (NEGATIVE) Ethyl Alcohol mg/dL Blood Type O Positive Antibody Screen NEGATIVE Crossmatch See Detail 10/12/24 10/12/24 10/12/24 Range/Units 09:39 09:42 11:25 WBC 9.1 6.0 (4.8-10.8) X10*3/uL RBC 0.97 L D 2.09 L D (4.60-5.80) X10*6/uL Hgb 1.7 L* D 5.4 L* D (14.0-18.0) g/dl Hct 6.8 L* D 17.2 L* D (42.0-52.0) % MCV 70.1 L 82.3 D (80.0-98.0) fL MCH 17.5 L 25.8 L (27.0-33.0) pg MCHC 25.0 L 31.4 (31.0-36.0) g/dl RDW 23.1 H 20.2 H (11.0-16.0) % Plt Count 186 D 96 L D (160-400) X10*3/uL MPV 10.6 10.7 (9.4-12.4) fL Immature Gran % (Auto) 0.5 H 0.8 H (0.0-0.4) % Neut % (Auto) 76.2 H 74.6 H (45-73) % Lymph % (Auto) 11.2 L 12.3 L (20-40) % [place] % (Auto) 12.1 H 12.3 H (2-11) % Eos % (Auto) 0.0 0.0 (0-4) % Baso % (Auto) 0.0 0.0 (0-2) % Lymph # (Auto) 1.0 L 0.7 L (1.2-4.9) X10*3/uL [place] # (Auto) 1.1 0.7 (0.1-1.2) X10*3/uL Eos # (Auto) 0.0 0.0 (0.0-0.4) X10*3/uL Baso # (Auto) 0.0 0.0 (0.0-0.2) X10*3/uL Abs Immat Gran (auto) 0.05 H 0.05 H (0.00-0.03) X10*3/uL Absolute Neuts (auto) 7.0 4.5 (2.0-8.3) x10*3/uL Absolute Nucleated RBC 0.130 H 0.100 H (0.0-0.012) X10*3/uL Nucleated RBC % (auto) 1.4 H 1.7 H (0.0-0.2) /100WBC Smear Tech's Comments VERIFIED Smear Path Review SEE NOTE PT 25.6 H D (10.9-12.4) SEC INR 2.2 H (0.9-1.1) VBG pH 7.55 H (7.32-7.43) VBG pCO2 24 mmHg VBG pO2 78 mmHg VBG HCO3 21 L (22-26) mmol/L VBG O2 Saturation TNP VBG Base Excess -1.2 mmol/L Sodium 134 L 133 L (135-145) mmol/L Potassium 4.2 4.2 (3.3-5.1) mmol/L Chloride 104 105 (96-108) mmol/L Carbon Dioxide 17 L 20 L (22-29) mmol/L Anion Gap 17 12 (12-20) BUN 40 H 37 H (9-16) mg/dL Creatinine 1.06 0.97 (0.5-1.4) mg/dL Estim Creat Clear Calc 74.3 81.1 Estimated GFR > 60 > 60 POC Glucose (60-115) mg/dL Random Glucose 122 H 134 H (60-115) mg/dL Lactic Acid 6.7 H* (0.5-2.0) mmol/L Calcium 8.2 L 7.8 L (8.4-10.2) mg/dL Magnesium 2.5 (1.6-2.6) mg/dL Total Bilirubin 1.5 H 1.9 H (0.0-1.0) mg/dL AST 79 H 65 H (5-37) U/L ALT 20 14 (0-40) U/L Alkaline Phosphatase 42 39 (39-117) U/L Total Creatine Kinase 80 (38-174) U/L Total Protein 5.1 L 4.6 L (6.5-8.0) g/dL Albumin 2.7 L 2.5 L (3.5-5.0) g/dL Stool Occult Blood (NEGATIVE) Ethyl Alcohol < 10 mg/dL Blood Type Antibody Screen Crossmatch 10/12/24 Range/Units 11:31 WBC (4.8-10.8) X10*3/uL RBC (4.60-5.80) X10*6/uL Hgb (14.0-18.0) g/dl Hct (42.0-52.0) % MCV (80.0-98.0) fL MCH (27.0-33.0) pg MCHC (31.0-36.0) g/dl RDW (11.0-16.0) % Plt Count (160-400) X10*3/uL MPV (9.4-12.4) fL Immature Gran % (Auto) (0.0-0.4) % Neut % (Auto) (45-73) % Lymph % (Auto) (20-40) % [place] % (Auto) (2-11) % Eos % (Auto) (0-4) % Baso % (Auto) (0-2) % Lymph # (Auto) (1.2-4.9) X10*3/uL [place] # (Auto) (0.1-1.2) X10*3/uL Eos # (Auto) (0.0-0.4) X10*3/uL Baso # (Auto) (0.0-0.2) X10*3/uL Abs Immat Gran (auto) (0.00-0.03) X10*3/uL Absolute Neuts (auto) (2.0-8.3) x10*3/uL Absolute Nucleated RBC (0.0-0.012) X10*3/uL Nucleated RBC % (auto) (0.0-0.2) /100WBC Smear Tech's Comments Smear Path Review PT (10.9-12.4) SEC INR (0.9-1.1) VBG pH (7.32-7.43) VBG pCO2 mmHg VBG pO2 mmHg VBG HCO3 (22-26) mmol/L VBG O2 Saturation VBG Base Excess mmol/L Sodium (135-145) mmol/L Potassium (3.3-5.1) mmol/L Chloride (96-108) mmol/L Carbon Dioxide (22-29) mmol/L Anion Gap (12-20) BUN (9-16) mg/dL Creatinine (0.5-1.4) mg/dL Estim Creat Clear Calc Estimated GFR POC Glucose (60-115) mg/dL Random Glucose (60-115) mg/dL Lactic Acid 3.5 H* (0.5-2.0) mmol/L Calcium (8.4-10.2) mg/dL Magnesium (1.6-2.6) mg/dL Total Bilirubin (0.0-1.0) mg/dL AST (5-37) U/L ALT (0-40) U/L Alkaline Phosphatase (39-117) U/L Total Creatine Kinase (38-174) U/L Total Protein (6.5-8.0) g/dL Albumin (3.5-5.0) g/dL Stool Occult Blood (NEGATIVE) Ethyl Alcohol mg/dL Blood Type Antibody Screen Crossmatch Independent Interpretation I performed an independent interpretation of an: EKG Interpretation: see above Radiology Impression Radiologist Impression: see above External Record Review External record reviewed: Inpatient record, Prior outpatient labs and Prior outpatient radiology Critical Care Time Critical Care Time Critical Care Time: Yes Total Critical Care Time: 90 Attestation: I atttest the time spent in the care of this patient. Discharge Plan Discharge Clinical Impression: Anemia due to blood loss, Hemorrhagic shock, Pneumonia, Pleural effusion, left Patient Disposition: Admitted As Inpatient Print Language: Martiniquais
[2024-10-12 09:36] LABS: OBS Int Ctl Valid YES; OBS1 POSITIVE (NEGATIVE)
[2024-10-12 09:46] LABS: Venous Blood Gas Refer to POC result
[2024-10-12 09:47] LABS: VBG Base Excess -1.2 mmol/L; VBG HCO3 21 mmol/L (22-26); VBG pCO2 24 mmHg; VBG pH 7.55 (7.32-7.43); VBG pO2 78 mmHg
[2024-10-12 09:51] LABS: Imm Gran Abs Auto 0.05 X10*3/uL (0.00-0.03); Imm Gran Pct Auto 0.5 % (0.0-0.4); Lymphocytes Percent Auto 11.2 % (20-40); MANUAL DIFF FLAG SCAN; Mean Corpuscular Hemoglobin 17.5 pg (27.0-33.0); Mean Corpuscular Volume 70.1 fL (80.0-98.0); Monocytes Absolute Auto 1.1 X10*3/uL (0.1-1.2); Monocytes Percent Auto 12.1 % (2-11); Neutrophils Percent Auto 76.2 % (45-73); PLT CLUMP 1; Red Blood Count 0.97 X10*6/uL (4.60-5.80); Red Cell Distribution Width 23.1 % (11.0-16.0); SCAN SMEAR FLAG 1
[2024-10-12 09:52] LABS: INTERNATIONAL NORM RATIO 2.2 (0.9-1.1); Prothrombin Time 25.6 SEC (10.9-12.4)
[2024-10-12 09:55] LABS: Hematocrit 6.8 % (42.0-52.0); Hemoglobin 1.7 g/dl (14.0-18.0); NRBC Pct Auto 1.4 /100WBC (0.0-0.2)
[2024-10-12] MEDS: 0.9 % Sodium Chloride 500 ML IV (09:56)
[2024-10-12 09:59] LABS: Alanine Aminotransferase 20 U/L (0-40); Albumin Level 2.7 g/dL (3.5-5.0); Alkaline Phosphatase 42 U/L (39-117); Anion Gap 17 (12-20); Aspartate Amino Transferase 79 U/L (5-37); Bilirubin Total 1.5 mg/dL (0.0-1.0); Blood Urea Nitrogen 40 mg/dL (9-16); Calcium 8.2 mg/dL (8.4-10.2); Carbon Dioxide 17 mmol/L (22-29); Chloride 104 mmol/L (96-108); Creatinine Clr Calc Pharmacy 74.3; Estimated Glomerular Filt Rate > 60; Glucose Random 122 mg/dL (60-115); Potassium 4.2 mmol/L (3.3-5.1); Sodium 134 mmol/L (135-145); Total Protein 5.1 g/dL (6.5-8.0)
[2024-10-12 10:03] LABS: Lactic Acid 6.7 mmol/L (0.5-2.0)
[2024-10-12] MEDS: Pantoprazole Sodium 40 MG/10 ML VIAL 80 MG IVPUSH (10:23)
[2024-10-12 10:35] LABS: White Blood Count 9.1 X10*3/uL (4.8-10.8)
[2024-10-12 10:36] LABS: Mean Platelet Volume 10.6 fL (9.4-12.4); Platelet Count 186 X10*3/uL (160-400); SLIDE REVIEW VERIFIED
[2024-10-12 11:13] LABS: Ethanol < 10 mg/dL; Magnesium 2.5 mg/dL (1.6-2.6)
[2024-10-12 11:24] LABS: Glucose, Whole Blood 116 mg/dL (60-115)
[2024-10-12 11:31] LABS: MANUAL DIFF FLAG NO
--- NOTE | 2024-10-12 11:34 | PC.NURSE ---
Back Charting: this RN received t from EMS, pt called EMS d/t slipping off his bed, pt then wanted to refuse transport, however pt had been lethargic, more than baseline, EMS able to get pt to come in. Pt noted to be luong/jaundice on arrival, very lethargic, 90s sys and 120 HR. Pt noted to have pitting edema to upper extremities, #20x2 IV placed in the right arm. Pt labs obtained, and had to be recollected d/t number being out of range/ on recollect labs remained critcal (see chart). at bedside, ordered 4 units PRBC to get infused via rapid transfuser. Blood delivered, pt tolerated well. Pt then brought to CT, pt tolerated CT well. Sheikh placed prior to scan, 200cc pale yellow urine obtained. Pt color has improved since bood products. Awaiting CT results at this time before new orders placed by
[2024-10-12 11:36] LABS: Imm Gran Abs Auto 0.05 X10*3/uL (0.00-0.03); Imm Gran Pct Auto 0.8 % (0.0-0.4); Lymphocytes Absolute Auto 0.7 X10*3/uL (1.2-4.9); Lymphocytes Percent Auto 12.3 % (20-40); Mean Corpuscular HGB Conc 31.4 g/dl (31.0-36.0); Mean Corpuscular Hemoglobin 25.8 pg (27.0-33.0); Mean Corpuscular Volume 82.3 fL (80.0-98.0); Monocytes Absolute Auto 0.7 X10*3/uL (0.1-1.2); Monocytes Percent Auto 12.3 % (2-11); Neutrophils Absolute Auto 4.5 x10*3/uL (2.0-8.3); Neutrophils Percent Auto 74.6 % (45-73); Red Blood Count 2.09 X10*6/uL (4.60-5.80); Red Cell Distribution Width 20.2 % (11.0-16.0)
[2024-10-12 11:40] LABS: Hematocrit 17.2 % (42.0-52.0); Hemoglobin 5.4 g/dl (14.0-18.0); NRBC Pct Auto 1.7 /100WBC (0.0-0.2)
[2024-10-12 11:44] LABS: Reflex Lactate? Lactic Acid Added
[2024-10-12 11:49] LABS: Alanine Aminotransferase 14 U/L (0-40); Albumin Level 2.5 g/dL (3.5-5.0); Alkaline Phosphatase 39 U/L (39-117); Anion Gap 12 (12-20); Aspartate Amino Transferase 65 U/L (5-37); Bilirubin Total 1.9 mg/dL (0.0-1.0); Blood Urea Nitrogen 37 mg/dL (9-16); Calcium 7.8 mg/dL (8.4-10.2); Carbon Dioxide 20 mmol/L (22-29); Chloride 105 mmol/L (96-108); Creatinine Clr Calc Pharmacy 81.1; Estimated Glomerular Filt Rate > 60; Glucose Random 134 mg/dL (60-115); Potassium 4.2 mmol/L (3.3-5.1); Sodium 133 mmol/L (135-145); Total Protein 4.6 g/dL (6.5-8.0)
[2024-10-12] MEDS: iohexoL 350 MG/ML 100 ML INFUS..BTL IV (11:50)
[2024-10-12 11:59] LABS: Mean Platelet Volume 10.7 fL (9.4-12.4); Platelet Count 96 X10*3/uL (160-400)
[2024-10-12 12:05] LABS: Lactic Acid 3.5 mmol/L (0.5-2.0)
[2024-10-12] MEDS: Piperacillin Sodium/Tazobactam 3.375 GM in 0.9 % Sodium Chloride 50 ML IV (12:08)
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
[2024-10-12] MEDS: Octreotide Acetate 100 MCG/ML AMPUL 50 MCG IVPUSH (15:08)
[2024-10-12 15:11] LABS: Cancel Lactic Acid Canceled
--- NOTE | 2024-10-12 15:16 | PHA.MEDREC ---
Addendum entered by Gwen Krishnan RPh 10/12/24 16:07: Reviewed by [facility]. Original Note: Pharmacy Consult ? Medication Reconciliation Pharmacy has completed the medication reconciliation. Spoke to patient and he was able to confirmed he is taking only Methadone and confirmed it is 50mg and he states he took it last yesterday.
[2024-10-12] MEDS: Octreotide Acetate 500 MCG in 0.9 % Sodium Chloride 500 ML 50.1 MCG IVCONT (15:18)
[2024-10-12] MEDS: Pantoprazole Sodium 40 MG/10 ML VIAL IVPUSH (18:09)
[2024-10-12] MEDS: 0.9 % Sodium Chloride Flush 3 ML SYRINGE IVFLUSH ×2 (18:15→19:50)
[2024-10-12 18:38] LABS: Hemoglobin 6.2 g/dl (14.0-18.0)
[2024-10-12 18:39] LABS: Ammonia 33 umol/L (13-55); Hematocrit 18.8 % (42.0-52.0)
[2024-10-12 18:50] LABS: B Type Natriuretic Peptide 637 pg/mL (<100)
[2024-10-12] MEDS: Furosemide 20 MG/2 ML VIAL IVPUSH (19:50)
--- NOTE | 2024-10-12 21:24 | PC.NURSE ---
vitals documented at 2020 entered at wrong time, should have been documented for 203
[2024-10-13] VITALS (16 sets, daily range): BP systolic 90–111; BP diastolic 52–66; PULSE 73–86; RESP 12–20; TEMP 36.1–37.1; O2SAT 92–99; BMI 31.6
[2024-10-13] MEDS: Octreotide Acetate 500 MCG in 0.9 % Sodium Chloride 500 ML 50.1 MCG IVCONT ×2 (01:30→11:32)
[2024-10-13 03:57] LABS: Hematocrit 24.1 % (42.0-52.0); Hemoglobin 8.3 g/dl (14.0-18.0); Mean Corpuscular HGB Conc 34.4 g/dl (31.0-36.0); Mean Corpuscular Hemoglobin 27.3 pg (27.0-33.0); Mean Corpuscular Volume 79.3 fL (80.0-98.0); Mean Platelet Volume 10.3 fL (9.4-12.4); Platelet Count 54 X10*3/uL (160-400); Red Blood Count 3.04 X10*6/uL (4.60-5.80); Red Cell Distribution Width 17.4 % (11.0-16.0)
[2024-10-13 04:03] LABS: INTERNATIONAL NORM RATIO 1.5 (0.9-1.1)
[2024-10-13 04:05] LABS: Partial Thromboplastin Time 28.1 SEC (26.0-36.8)
[2024-10-13 04:15] LABS: Albumin Level 2.8 g/dL (3.5-5.0); Anion Gap 13 (12-20); Aspartate Amino Transferase 76 U/L (5-37); Bilirubin Total 3.2 mg/dL (0.0-1.0); Blood Urea Nitrogen 34 mg/dL (9-16); Calcium 8.1 mg/dL (8.4-10.2); Carbon Dioxide 21 mmol/L (22-29); Chloride 106 mmol/L (96-108); Creatinine Clr Calc Pharmacy 77.2; Estimated Glomerular Filt Rate > 60; Glucose Random 127 mg/dL (60-115); Potassium 3.7 mmol/L (3.3-5.1); Sodium 136 mmol/L (135-145); Total Protein 5.1 g/dL (6.5-8.0)
[2024-10-13 04:25] LABS: Alanine Aminotransferase 19 U/L (0-40); Alkaline Phosphatase 45 U/L (39-117)
[2024-10-13] MEDS: Pantoprazole Sodium 40 MG/10 ML VIAL IVPUSH ×2 (06:44→16:29)
--- NOTE | 2024-10-13 07:00 | CA_ITS ---
Transthoracic Echocardiogram Patient (Last, First, Middle): Micheal Linder, Gender: Male Date of : 1955 Age: 69 Procedure Date: 10/13/2024 Procedure Type: Transthoracic Echocardiogram Location: [facility] [place] Height: 172.72 cm Weight: 93.9 kg BSA: 2.07 m2 Heart Rate: bpm BP: 102 / 66 mmHg Electro Mechanical Technologist: Referring MD: Luis RAMOS Symptoms: Pleural effusion Study Quality: Good ECG Rhythm: Sinus Conclusions: - Normal left ventricular size, thickness, systolic function, and wall motion. The visually estimated ejection fraction is between 55-60%. Diastolic function is normal for age. - Mildly increased right ventricular cavity size. There is normal right ventricular systolic function. - The left atrium is moderately dilated. - Normal tricuspid valve structure. - Mild pulmonary hypertension is present. - There is mild dilatation of the ascending aorta measuring 3.70 cm. Findings Left Ventricle Normal left ventricular size, thickness, systolic function, and wall motion. The visually estimated ejection fraction is between 55-60%. Diastolic function is normal for age. Right Ventricle Mildly increased right ventricular cavity size. There is normal right ventricular systolic function. Atria The left atrium is moderately dilated. Aortic Valve There is a normal trileaflet aortic valve. There is no aortic valve stenosis. There is no aortic valve regurgitation. Mitral Valve The mitral valve appears normal. There is mild to moderate mitral valve regurgitation. There is no mitral valve stenosis. Pulmonic Valve The pulmonic valve is normal. There is no pulmonic valve regurgitation. Tricuspid Valve Normal tricuspid valve structure. There is mild to moderate tricuspid valve regurgitation. Tricuspid regurgitation envelope is inadequate for calculation of right ventricular systolic pressure. The right ventricular systolic pressure is 40 mmHg. Significantly elevated right atrial pressure. Mild pulmonary hypertension is present. Great Vessels There is mild dilatation of the ascending aorta measuring 3.70 cm. The visualized portions of the pulmonary artery and branches are normal. Venous The inferior vena cava is dilated and collapses less than 50% with inspiration. Pericardium/Pleural There is no evidence of pericardial effusion. Prior Study Comparison No prior study available for comparison. Measurements 2D Linear Measurements IVSd: 0.96 0.6-0.9/0.6-1.0 cm LVIDd: 4.62 3.9-5.3/4.2-5.9 cm LVIDd Index: 2.23 2.4-3.2/2.2-3.1 cm/m2 LVIDs: 2.55 2.0-3.6 cm LVPWd: 0.94 0.7-1.1 cm Ao Root: 3.70 2.1-3.5 cm LA Diam: 4.70 2.7-3.8/3.0-4.0 cm LAIDs Index: 2.27 1.5-2.3 cm/m2 LV Mass: 186.76 67-162/88-224 g LV Mass Index: 90.22 43-95/49-115 g/m2 LVOT Diam: 2.20 3.0+(-)1.3 cm Mitral Valve MV Pk E: 1.00 MV PK A: 0.56 MV Decel Time: 176.00 E/A: 1.80 E'Lateral: 12.40 E'Medial: 10.00 E/E' Med: 10.00 E/E' Lat: 8.10 PHT: 51.00 MVA PHT: 4.31 Decel [place]: 5.70 Aortic Valve AoV Pk Rocky: 1.66 AoV Mn Rocky: 1.05 AoV VTI: 0.34 AoV Pk Grad: 11.00 Aov Mn Grad: 5.00 VINEET Cont.VTI: 2.75 LVOT LVOT Pk Rocky: 1.14 LVOT Mn Rocky: 0.75 LVOT VTI: 0.25 LVOT Pk Grad: 5.00 LVOT Mn Grad: 3.00 LVOT Diam: 2.20 LVOT Area: 3.80 Diastolic Function MV Pk E: 1.00 MV Pk A: 0.56 E/A: 1.80 E'Medial: 10.00 E/E' Med: 10.00 E' Laterial: 12.40 E/E' Lat: 8.10 Right Ventricle TAPSE (mm): 32.00 TVS' Rocky: 9.00 Tricuspid Valve TR Pk Rocky: 2.50 TR Pk Grad: 25.00 RA Press: 3.00 RVSP: 40.00 Great Vessels Aorta Ao Root-2D: 3.70 2.0-3.7 cm Ao Asc: 3.70 2.1-3.4 cm Pulmonary Valve PV Pk Rocky: 0.94 Peak PV Grad: 4.00 Updated in Other Vendor System with Status of Final Estevan Fleming MD electronically signed on 10/13/2024 8:57:54 PM with status of Final
[2024-10-13 07:22] LABS: Hematocrit 24.5 % (42.0-52.0); Hemoglobin 8.3 g/dl (14.0-18.0); Mean Corpuscular HGB Conc 33.9 g/dl (31.0-36.0); Mean Corpuscular Hemoglobin 27.2 pg (27.0-33.0); Mean Corpuscular Volume 80.3 fL (80.0-98.0); Mean Platelet Volume 10.4 fL (9.4-12.4); Red Blood Count 3.05 X10*6/uL (4.60-5.80); Red Cell Distribution Width 17.3 % (11.0-16.0); White Blood Count 4.9 X10*3/uL (4.8-10.8)
[2024-10-13 07:28] LABS: Anion Gap 12 (12-20); Blood Urea Nitrogen 31 mg/dL (9-16); Calcium 8.2 mg/dL (8.4-10.2); Carbon Dioxide 21 mmol/L (22-29); Chloride 106 mmol/L (96-108); Creatinine Clr Calc Pharmacy 81.1; Estimated Glomerular Filt Rate > 60; Glucose Random 124 mg/dL (60-115); Potassium 3.5 mmol/L (3.3-5.1); Sodium 135 mmol/L (135-145)
[2024-10-13 07:59] LABS: NRBC Pct Auto 1.4 /100WBC (0.0-0.2); Platelet Count 58 X10*3/uL (160-400)
--- NOTE | 2024-10-13 08:40 | MHC.CM.PN ---
CM met with Patient at bedside and addressed IMM with him, providing Patient with the original and a copy has been placed on the chart. Patient lives in an apartment with 2 Roommates (one of whom/Donovan who is the HCP)and r/t his (L) AKA, he uses a w/c for mobility. Patient cannot recall who his PCP is but he is able to say that he gets his Methadone from [facility]. Patient is s/p Fall so he may benefit from a PT Eval to assist with disposition; CM has initiated and will follow for dc planning.
--- NOTE | 2024-10-13 08:56 | HE.PHANOTE ---
RE: METHADONE DOSING Per Luma Yoder LPN at [facility] [phone], methadone dose is 50 mg po daily pt goes to the clinic 1x month, supply sent with pt till oct 09).
[2024-10-13] MEDS: 0.9 % Sodium Chloride Flush 3 ML SYRINGE IVFLUSH ×2 (09:05→16:29)
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
[2024-10-13 09:50] LABS: Iron 14 mcg/dL (45-160); Percent Iron Saturation 5 % (15-50); Total Iron Binding Capacity 281 mcg/dL (228-428); Unsaturated Iron Binding 267 ug/dL
[2024-10-13 10:11] LABS: Ferritin 22 ng/mL (20-250)
--- NOTE | 2024-10-13 10:28 | P.CDIM_ITS ---
PROVIDER RESPONSE TEXT: To clarify, the appropriate diagnosis supported by the clinical indicators: Pressure injury medial sacrum Stage II: proabbale QUERY TEXT: PHYSICIAN'S DOCUMENTATION REQUEST Date of Query: 10/13/2024 10:20 AM EST Patient Name: Micheal Linder Admit Date: 10/12/2024 Dear Jasvir Lira MD, A review of the medical record indicates additional documentation may be needed. Please review below and update the documentation accordingly. Clinical Indicators: Wound care nursing notes dated 10/12 - Pressure injury medial sacrum Stage II. Macerated, pink. Foam dressing applied. Based on the above, could you please provide further information regarding the ulcer/wound/injury: Pressure injury medial sacrum Stage II suspected, possible, probable etc. Other (explain) Clinically unable to determine (explain) Thank you, Melody Lomeli, CCS, CDIS Use of terms such as suspected, likely, concern for, or probable (associated with a specific diagnosi s that is being evaluated, monitored, or treated as if it exists) are acceptable and can be coded in the inpatient se tting, when documented at the time of discharge. Please use your independent medical judgment in providing your response. THIS QUERY IS PART OF THE PERMANENT MEDICAL RECORD
--- NOTE | 2024-10-13 11:48 | MHC.CLN ---
RE; CONSULT PT WITH INCREASED NUTRITION RISK R/T PRESSURE INJURY CURRENTLY NPO WHEN DIET TO ADVANCE, RECOMMEND ADDING NUTRITION SUPPLEMENT SUPP TO PROVIDE 700KCALS, 40G PROTEIN WITH 100% ACCEPTANCE MONITOR PO INTAKE AND ENCOURAGE SUPPLEMENTS CONSULT RD IF ALTERNATIVE NUTRITION NEEDED R/T GIB/PROLONGED NPO SEE ALSO FULL CLINICAL NUTRITION ASSESSMENT
--- NOTE | 2024-10-13 12:33 | MHC.SHP ---
Pre-Procedural Eval Section A - 24 Hr Update-Section A only Date of Service: 10/13/24 The patient is an INPATIENT: Yes The patient has been examined within 24 hours of the surgical procedure. The History & Physical has been completed within 30 days and I have reviewed it.: Yes Section B - Complete if H&P > 30 days Chief Complaint: Acutw blood loss anemia Allergies: Allergies Allergy/AdvReac Type Severity Reaction Status Date / Time No Known Allergies Allergy Verified 10/12/24 08:59 Plan I have reviewed the history and physical and performed a pertinent physical examination on my patient. No changes have occurred unless specified. Time Spent With Patient Time: Total time managing care of this patient today ____ minutes.
--- NOTE | 2024-10-13 12:34 | PM.EVENT ---
Event Note Date of Service: 10/13/24 Event Note: GI Consult-Full note dictated. History from patient and EMR. Imp: 69 yo male with cirrhosis due to previous chronic Hepatitis C, that was successfully treated, who presents with melena and severe anemia. He describes taking Excedrin and Motrin every day, He denies any past history of significant EtOH use. He denies any particular GI symptoms other than anorexia. He denies abdominal pain, N/V, hematemesis, or coffee grounds emesis. He denies any previous history of GI bleeding or ulcer disease. He has stabilized after 8 u PRBC's and 1 u FFP. He denies any bleeding since admission. He does have a chronic thrombocytopenia with a platelet count of 58K and an INR of 1.5 this morning. Diff dx: PUD, gastritis, portal gastropathy. He does have varices on imaging studies but this doesn't sound like a variceal bleed. Rec: Upper endoscopy today with me or Dr. Oscar. Full consent has been obtained from him for this, including risks of bleeding and perforation. Continue IV PPI and Sandostatin for now. D/W patient in detail and he is comfortable with this plan. Thanks Time Spent With Patient Time: Total time managing care of this patient today ____ minutes.
--- NOTE | 2024-10-13 13:06 | PC.NURSE ---
inserted 18g left hand. 20g right wrist and right upper arm. intact. octeo running upon arrival.
--- NOTE | 2024-10-13 13:22 | P.CONAN_ITS ---
[facility] Active Problems Active Problems: All Active Problems Pleural effusion, left (Acute) Pneumonia (Acute) Hemorrhagic shock (Acute) Anemia due to blood loss (Acute) Hx of AKA (above knee amputation) (Acute) Past Medical History Medical History Opioid use disorder Esophageal varices Hepatitis C Depression Cirrhosis Surgical History Surgical History Hx of AKA (above knee amputation) Social History Social History Household Members: Friend(s) Housing: Apartment Do you presently have visiting nurse or other home services: No Unable to assess alcohol history related to: Unknown Patient Tobacco Use Status: Never used Tobacco Use of substances other than those prescribed or required for medical reasons: No Substance Use Type: Heroin Currently Displaying Signs/Symptoms of Drug Intoxication Withdrawal: No Advance Directives: Yes Advance Directives on File: Yes Advance Directives Date on File: 08/31/24 Recently lost weight without trying: Unsure Nutrition Risks: Poor intake 0-25% >4 days Poor oral hygiene: No service: No Meds Allergies Allergy/AdvReac Type Severity Reaction Status Date / Time No Known Allergies Allergy Verified 10/12/24 08:59 Active Medications: Current Medications Acetaminophen (Acetaminophen 325 Mg Tablet) 650 mg PO Q6H PRN PRN Reason: Pain, Mild (Pain Scale 1-3), fever or headache Benzonatate (Benzonatate 100 Mg Capsule) 100 mg PO TID PRN PRN Reason: Cough Calcium Carbonate (Calcium Carbonate 750 Mg Tab.Chew) 750 mg PO Q4H PRN PRN Reason: Heartburn Octreotide Acetate 500 mcg/ (Sodium Chloride) 501 mls @ 50.1 mls/hr IVCONT .Q10H [facility] Last Admin: 10/13/24 11:32 Dose: 50 mcg/hr, 50.1 mls/hr Magnesium Hydroxide (Milk Of Magnesia 30 Ml Oral.Susp) 30 ml PO DAILY PRN PRN Reason: Constipation Melatonin (Melatonin 3 Mg Tablet) 6 mg PO BEDTIME PRN PRN Reason: Insomnia Pantoprazole Sodium (Pantoprazole Sodium 40 Mg/10 Ml Vial) 40 mg IVPUSH BID@0630,1630 [facility] Last Admin: 10/13/24 06:44 Dose: 40 mg Sodium Chloride (0.9 % Sodium Chloride Flush 3 Ml Syringe) 3 ml IVFLUSH QSHIFT [facility] Last Admin: 10/13/24 09:05 Dose: 3 ml Home Medications ?Medication ?Instructions ?Recorded ?Confirmed ?Last Taken ?Type methadone 10 mg/mL oral 50 mg PO DAILY 08/25/24 10/13/24 10/09/24 History concentrate (Methadone Intensol) Exam Height,Weight and Vital Signs: Height 5 ft 8 in Weight 94.3 kg Last Vital Signs Temp 98.2 F 10/13/24 12:46 Pulse 81 10/13/24 12:46 Resp 16 10/13/24 12:46 BP 98/57 L 10/13/24 12:46 Pulse Ox 96 10/13/24 12:46 O2 Del Method Nasal Cannula 10/13/24 12:46 O2 Flow Rate 2 10/13/24 12:46 Pertinent Lab Results Pertinent Lab Results: Laboratory Tests 10/12/24 10/12/24 10/12/24 09:23 09:24 09:33 WBC RBC Hgb Hct MCV MCH MCHC RDW Plt Count MPV Immature Gran % (Auto) Neut % (Auto) Lymph % (Auto) [place] % (Auto) Eos % (Auto) Baso % (Auto) Lymph # (Auto) [place] # (Auto) Eos # (Auto) Baso # (Auto) Abs Immat Gran (auto) Absolute Neuts (auto) Absolute Nucleated RBC Nucleated RBC % (auto) Smear Tech's Comments Smear Path Review PT INR APTT VBG pH VBG pCO2 VBG pO2 VBG HCO3 VBG O2 Saturation VBG Base Excess Sodium Potassium Chloride Carbon Dioxide Anion Gap BUN Creatinine Estim Creat Clear Calc Estimated GFR POC Glucose 116 H Random Glucose Lactic Acid Lactic Acid F/U @ 2Hr Calcium Magnesium Iron TIBC % Saturation Unsat Iron Binding Ferritin Total Bilirubin AST ALT Alkaline Phosphatase Ammonia Total Creatine Kinase B-Natriuretic Peptide Total Protein Albumin Stool Occult Blood POSITIVE Ethyl Alcohol Blood Type O Positive Antibody Screen NEGATIVE Crossmatch See Detail 10/12/24 10/12/24 10/12/24 09:39 09:42 11:25 WBC 9.1 6.0 RBC 0.97 L D 2.09 L D Hgb 1.7 L* D 5.4 L* D Hct 6.8 L* D 17.2 L* D MCV 70.1 L 82.3 D MCH 17.5 L 25.8 L MCHC 25.0 L 31.4 RDW 23.1 H 20.2 H Plt Count 186 D 96 L D MPV 10.6 10.7 Immature Gran % (Auto) 0.5 H 0.8 H Neut % (Auto) 76.2 H 74.6 H Lymph % (Auto) 11.2 L 12.3 L [place] % (Auto) 12.1 H 12.3 H Eos % (Auto) 0.0 0.0 Baso % (Auto) 0.0 0.0 Lymph # (Auto) 1.0 L 0.7 L [place] # (Auto) 1.1 0.7 Eos # (Auto) 0.0 0.0 Baso # (Auto) 0.0 0.0 Abs Immat Gran (auto) 0.05 H 0.05 H Absolute Neuts (auto) 7.0 4.5 Absolute Nucleated RBC 0.130 H 0.100 H Nucleated RBC % (auto) 1.4 H 1.7 H Smear Tech's Comments VERIFIED Smear Path Review SEE NOTE PT 25.6 H D INR 2.2 H APTT VBG pH 7.55 H VBG pCO2 24 VBG pO2 78 VBG HCO3 21 L VBG O2 Saturation TNP VBG Base Excess -1.2 Sodium 134 L 133 L Potassium 4.2 4.2 Chloride 104 105 Carbon Dioxide 17 L 20 L Anion Gap 17 12 BUN 40 H 37 H Creatinine 1.06 0.97 Estim Creat Clear Calc 74.3 81.1 Estimated GFR > 60 > 60 POC Glucose Random Glucose 122 H 134 H Lactic Acid 6.7 H* Lactic Acid F/U @ 2Hr Calcium 8.2 L 7.8 L Magnesium 2.5 Iron 14 L TIBC 281 % Saturation 5 L Unsat Iron Binding 267 Ferritin 22 Total Bilirubin 1.5 H 1.9 H AST 79 H 65 H ALT 20 14 Alkaline Phosphatase 42 39 Ammonia Total Creatine Kinase 80 B-Natriuretic Peptide Total Protein 5.1 L 4.6 L Albumin 2.7 L 2.5 L Stool Occult Blood Ethyl Alcohol < 10 Blood Type Antibody Screen Crossmatch 10/12/24 10/12/24 10/12/24 11:31 15:01 18:14 WBC RBC Hgb 6.2 L* Hct 18.8 L* MCV MCH MCHC RDW Plt Count MPV Immature Gran % (Auto) Neut % (Auto) Lymph % (Auto) [place] % (Auto) Eos % (Auto) Baso % (Auto) Lymph # (Auto) [place] # (Auto) Eos # (Auto) Baso # (Auto) Abs Immat Gran (auto) Absolute Neuts (auto) Absolute Nucleated RBC Nucleated RBC % (auto) Smear Tech's Comments Smear Path Review PT INR APTT VBG pH VBG pCO2 VBG pO2 VBG HCO3 VBG O2 Saturation VBG Base Excess Sodium Potassium Chloride Carbon Dioxide Anion Gap BUN Creatinine Estim Creat Clear Calc Estimated GFR POC Glucose Random Glucose Lactic Acid 3.5 H* Lactic Acid F/U @ 2Hr Cancelled Calcium Magnesium Iron TIBC % Saturation Unsat Iron Binding Ferritin Total Bilirubin AST ALT Alkaline Phosphatase Ammonia 33 Total Creatine Kinase B-Natriuretic Peptide 637 H Total Protein Albumin Stool Occult Blood Ethyl Alcohol Blood Type Antibody Screen Crossmatch 10/13/24 10/13/24 03:52 06:37 WBC 5.0 4.9 RBC 3.04 L D 3.05 L Hgb 8.3 L D 8.3 L Hct 24.1 L D 24.5 L MCV 79.3 L 80.3 MCH 27.3 27.2 MCHC 34.4 33.9 RDW 17.4 H 17.3 H Plt Count 54 L D 58 L MPV 10.3 10.4 Immature Gran % (Auto) Neut % (Auto) Lymph % (Auto) [place] % (Auto) Eos % (Auto) Baso % (Auto) Lymph # (Auto) [place] # (Auto) Eos # (Auto) Baso # (Auto) Abs Immat Gran (auto) Absolute Neuts (auto) Absolute Nucleated RBC 0.050 H 0.070 H Nucleated RBC % (auto) 1.0 H 1.4 H Smear Tech's Comments Smear Path Review PT 18.0 H D INR 1.5 H APTT 28.1 VBG pH VBG pCO2 VBG pO2 VBG HCO3 VBG O2 Saturation VBG Base Excess Sodium 136 135 Potassium 3.7 3.5 Chloride 106 106 Carbon Dioxide 21 L 21 L Anion Gap 13 12 BUN 34 H 31 H Creatinine 1.02 0.97 Estim Creat Clear Calc 77.2 81.1 Estimated GFR > 60 > 60 POC Glucose Random Glucose 127 H 124 H Lactic Acid Lactic Acid F/U @ 2Hr Calcium 8.1 L 8.2 L Magnesium Iron TIBC % Saturation Unsat Iron Binding Ferritin Total Bilirubin 3.2 H AST 76 H ALT 19 Alkaline Phosphatase 45 Ammonia Total Creatine Kinase B-Natriuretic Peptide Total Protein 5.1 L Albumin 2.8 L Stool Occult Blood Ethyl Alcohol Blood Type Antibody Screen Crossmatch Airway Mallampati Class: III TM Dist: >3cm Neck ROM: Limited Loose/Missing/Broken Teeth: No Heart: RRR Lungs: CTA Assessment and Plan Assessment Anesthesia Assessment: Anesthesia Plan Discussed and Chart Reviewed Final Anesthetic Review NPO: Yes ASA Class: IV Final Preanesthetic Review: Meds/Allgs Chart Reviewed, Consent Obtained/Reviewed and Anes Risks/Benef Reviewed Patient Risk: High Procedure Risk: Intermediate Anesthetic Plan Anesthetic Plan: GA Disposition: Standard PACU
--- NOTE | 2024-10-13 13:41 | PM.OP ---
Brief Operative Note Date of Service: 10/13/24 Pre-op diagnosis: gi bleeding Post-op diagnosis: same Procedure: EGD Surgeon: Oli Oscar MD Anesthesia: GETA Was an Supervisor Nuclear Medicine used for this Procedure?: No Estimated blood loss (mL): 0 Pathology: none sent Condition: stable Disposition: PACU
--- NOTE | 2024-10-13 13:44 | PM.EVENT ---
Event Note Date of Service: 10/13/24 Event Note: EGD dictated no esophageal varices questionable nonbleeding gastric varices mild portal hypertensive gastropathy and gastritis, no bleeding Rec: d/c octreotide, monitor hct cont ppi colonoscopy 10/16 Time Spent With Patient Time: Total time managing care of this patient today ____ minutes.
--- NOTE | 2024-10-13 14:20 | OP_ITS ---
DATE OF SERVICE: 10/13/2024 SURGEON: Oli Oscar MD INDICATIONS: Anemia and black stools. PREOPERATIVE DIAGNOSIS: POSTOPERATIVE DIAGNOSIS: PROCEDURE PERFORMED: Upper endoscopy. ESTIMATED BLOOD LOSS: COMPLICATIONS: ANESTHESIA: General anesthesia. ASSISTANTS: SPECIMENS: DESCRIPTION OF PROCEDURE: A history and physical was performed. The risks and benefits of the procedure were explained to the patient and informed consent was obtained. The patient was placed in the left lateral decubitus position. The Olympus video gastroscope was introduced into the esophagus, stomach, and duodenum. Examination was performed and the scope was removed. He tolerated the procedure well and was returned to recovery area in stable condition. FINDINGS: Esophagus: The esophagus was normal. No varices were identified. Stomach: The stomach showed changes of mild portal hypertensive gastropathy and gastritis with no active bleeding. There was a question of gastric varices on retroflexed examination, but no stigmata of recent hemorrhage. Duodenum: The bulb and 2nd portion were normal. IMPRESSION: 1. Gastritis. 2. Portal hypertensive gastropathy, mild. RECOMMENDATIONS: 1. Monitor hematocrit. 2. Discontinue octreotide. 3. Continue proton pump inhibitor and advance diet. 4. Colonoscopy 10/16. MD MARIO Sagastume/SANTOSH / [id number]
[2024-10-14 04:00] VITALS: BP 95/54; PULSE 86; RESP 16; TEMP 36.4; O2SAT 92
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
[2024-10-14] MEDS: 0.9 % Sodium Chloride Flush 3 ML SYRINGE IVFLUSH ×4 (06:33→20:11)
[2024-10-14] MEDS: Pantoprazole Sodium 40 MG/10 ML VIAL IVPUSH ×2 (06:33→16:21)
[2024-10-14 07:29] VITALS: BP 112/61; PULSE 75; RESP 18; TEMP 36.5; O2SAT 97
[2024-10-14 08:01] LABS: Hematocrit 22.8 % (42.0-52.0); Hemoglobin 7.6 g/dl (14.0-18.0); Mean Corpuscular HGB Conc 33.3 g/dl (31.0-36.0); Mean Corpuscular Hemoglobin 27.2 pg (27.0-33.0); Mean Corpuscular Volume 81.7 fL (80.0-98.0); Mean Platelet Volume 10.5 fL (9.4-12.4); NRBC Pct Auto 0.8 /100WBC (0.0-0.2); Red Blood Count 2.79 X10*6/uL (4.60-5.80); Red Cell Distribution Width 18.3 % (11.0-16.0); White Blood Count 3.8 X10*3/uL (4.8-10.8)
[2024-10-14 08:07] LABS: Platelet Count 48 X10*3/uL (160-400)
[2024-10-14 08:30] LABS: Alanine Aminotransferase 18 U/L (0-40); Albumin Level 2.5 g/dL (3.5-5.0); Alkaline Phosphatase 45 U/L (39-117); Anion Gap 11 (12-20); Aspartate Amino Transferase 59 U/L (5-37); Bilirubin Direct 2.2 mg/dL (0.0-0.5); Bilirubin Total 3.7 mg/dL (0.0-1.0); Blood Urea Nitrogen 26 mg/dL (9-16); Calcium 7.9 mg/dL (8.4-10.2); Carbon Dioxide 22 mmol/L (22-29); Chloride 106 mmol/L (96-108); Creatinine Clr Calc Pharmacy 103.6; Estimated Glomerular Filt Rate > 60; Glucose Fasting 111 mg/dL (60-99); Potassium 3.4 mmol/L (3.3-5.1); Sodium 136 mmol/L (135-145); Total Protein 4.7 g/dL (6.5-8.0)
[2024-10-14] MEDS: methADONE HCl 20 MG/2 ML ORAL.CONC 50 MG PO (09:56)
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
--- NOTE | 2024-10-14 10:37 | HO.POSTANES ---
Post Anesthesia Evaluation Post Anesthesia Evaluation Date of Service: 10/14/24 Vital Signs: Vital Signs Temp Pulse Resp BP Pulse Ox O2 Del Method O2 Flow Rate 10/14/24 07:29 97.7 F 75 18 112/61 97 Nasal Cannula 2 10/14/24 04:00 97.6 F 86 16 95/54 L 92 Nasal Cannula 2 10/13/24 23:24 97.7 F 80 20 90/54 L 95 Room Air Anesthesia: General Endotracheal-GETA Mental Status: Awake Pain Control: Satisfactory Nausea/Vomiting: None Hydration: Adequate Anesthesia-Related Issues: No Anes. Related Issues
[2024-10-14 11:43] VITALS: BP 124/60; PULSE 88; RESP 20; TEMP 36.8; O2SAT 94
[2024-10-14 15:47] VITALS: BP 112/57; PULSE 93; RESP 20; TEMP 36.4; O2SAT 96
[2024-10-14 19:24] VITALS: BP 99/61; PULSE 83; RESP 20; TEMP 36.5; O2SAT 97
--- NOTE | 2024-10-14 22:18 | PC.NURSE ---
Assumed care of patient at 19:00. Please see patient shift assessment, MAR, and tasks for full details. Bed alarm, safety measures in place. Handoff report given at 21:45 to charge master coordinator.
[2024-10-14 23:22] VITALS: BP 98/53; PULSE 81; RESP 18; TEMP 36.4; O2SAT 97
[2024-10-15] VITALS (10 sets, daily range): BP systolic 98–113; BP diastolic 55–72; PULSE 75–91; RESP 17–20; TEMP 36.1–37.1; O2SAT 95–98
[2024-10-15] MEDS: Melatonin 3 MG TABLET 6 MG PO (00:02)
[2024-10-15] MEDS: Acetaminophen 325 MG TABLET 650 MG PO (00:02)
[2024-10-15] MEDS: Pantoprazole Sodium 40 MG/10 ML VIAL IVPUSH ×2 (05:12→15:40)
[2024-10-15 07:12] LABS: Hemoglobin 7.6 g/dl (14.0-18.0); Mean Corpuscular Hemoglobin 27.4 pg (27.0-33.0); NRBC Pct Auto 0.9 /100WBC (0.0-0.2); Red Blood Count 2.77 X10*6/uL (4.60-5.80); Red Cell Distribution Width 18.4 % (11.0-16.0)
[2024-10-15 07:25] LABS: White Blood Count 2.3 X10*3/uL (4.8-10.8)
[2024-10-15 07:29] LABS: Platelet Count 12 X10*3/uL (160-400)
[2024-10-15 07:33] LABS: Anion Gap 10 (12-20); Blood Urea Nitrogen 14 mg/dL (9-16); Carbon Dioxide 21 mmol/L (22-29); Chloride 107 mmol/L (96-108); Estimated Glomerular Filt Rate > 60; Glucose Random 108 mg/dL (60-115); Potassium 3.3 mmol/L (3.3-5.1); Sodium 135 mmol/L (135-145)
[2024-10-15] MEDS: methADONE HCl 20 MG/2 ML ORAL.CONC 50 MG PO (07:58)
[2024-10-15] MEDS: 0.9 % Sodium Chloride Flush 3 ML SYRINGE IVFLUSH ×3 (08:02→20:59)
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
--- NOTE | 2024-10-15 15:20 | PC.NURSE ---
per Pankaj PATTERSON, hold colonoscopy prep at this time.
--- NOTE | 2024-10-15 17:43 | PM.EVENT ---
Event Note Date of Service: 10/15/24 Event Note: GI Mr Niyah has a platelet count of 12,000. His colonoscopy should be deferred until this resolves. Discussed with Dr Lira. Time Spent With Patient Time: Total time managing care of this patient today ____ minutes.
[2024-10-16] VITALS (8 sets, daily range): BP systolic 93–114; BP diastolic 56–65; PULSE 76–96; RESP 16–20; TEMP 36.2–37; O2SAT 95–98
[2024-10-16 06:36] LABS: Hematocrit 24.2 % (42.0-52.0); Hemoglobin 7.7 g/dl (14.0-18.0); Mean Corpuscular HGB Conc 31.8 g/dl (31.0-36.0); Mean Corpuscular Hemoglobin 27.1 pg (27.0-33.0); Mean Corpuscular Volume 85.2 fL (80.0-98.0); Red Blood Count 2.84 X10*6/uL (4.60-5.80); Red Cell Distribution Width 18.7 % (11.0-16.0)
[2024-10-16 06:37] LABS: PLT ABN DIST 1; Platelet Count 48 X10*3/uL (160-400); White Blood Count 2.2 X10*3/uL (4.8-10.8)
[2024-10-16 06:56] LABS: INTERNATIONAL NORM RATIO 1.5 (0.9-1.1); Prothrombin Time 17.6 SEC (10.9-12.4)
[2024-10-16 07:07] LABS: Albumin Level 2.4 g/dL (3.5-5.0); Anion Gap 10 (12-20); Aspartate Amino Transferase 62 U/L (5-37); Bilirubin Direct 2.4 mg/dL (0.0-0.5); Bilirubin Total 3.7 mg/dL (0.0-1.0); Blood Urea Nitrogen 11 mg/dL (9-16); Calcium 7.9 mg/dL (8.4-10.2); Carbon Dioxide 24 mmol/L (22-29); Chloride 105 mmol/L (96-108); Creatinine Clr Calc Pharmacy 117.5; Estimated Glomerular Filt Rate > 60; Glucose Random 99 mg/dL (60-115); Magnesium 2.1 mg/dL (1.6-2.6); Potassium 3.3 mmol/L (3.3-5.1); Sodium 136 mmol/L (135-145); Total Protein 4.6 g/dL (6.5-8.0)
[2024-10-16 07:16] LABS: Alanine Aminotransferase 31 U/L (0-40); Alkaline Phosphatase 57 U/L (39-117)
[2024-10-16] MEDS: methADONE HCl 20 MG/2 ML ORAL.CONC 50 MG PO (08:23)
[2024-10-16] MEDS: 0.9 % Sodium Chloride Flush 3 ML SYRINGE IVFLUSH ×2 (08:26→16:52)
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
--- NOTE | 2024-10-16 10:24 | MHC.CM.PN ---
Per ROUNDS discussion, Patient is not yet medically cleared for dc (low Platelets/? of Colonoscopy tomorrow); Patient may benefit from a PT Eval to assist with disposition. CM will follow.
--- NOTE | 2024-10-16 13:48 | P.CDIM_ITS ---
PROVIDER RESPONSE TEXT: To clarify, the appropriate diagnosis supported by the clinical indicators: Metabolic: acute' QUERY TEXT: PHYSICIAN'S DOCUMENTATION REQUEST Date of Query: 10/16/2024 10:01 AM EST Patient Name: Micheal Linder Admit Date: 10/12/2024 Dear Jasvir Lira MD, A review of the medical record indicates additional documentation may be needed. Please review below and update the documentation accordingly. Clinical Indicators: H & P: 10/12 - Patient presents with fall from home, alert and oriented to person and time only. Patie nt is unable to state where he is or why he is here. Patient encephalopathic. Hypothermic, tachycardic, hypotensive, hypoxic. Patient will be admitted to the hospital for treatment and further evaluation of hepatic encephalopat hy History of opiate use - Continue Methadone. Pt will require two nights for txt of acute encephalopathy. Acute encephalopathy likely secondary to liver cirrhosis, symptomatic acute blood loss anemia and met hadone withdrawal. Based on the above, please further specify, in the Progress Notes, the known or suspected type of the documented encephalopathy: Metabolic possible, probable, suspected, resolved etc. Toxic Toxic metabolic Other (explain) Clinically unable to determine (explain) Thank you, Melody Lomeli, CCS, CDIS Use of terms such as suspected, likely, concern for, or probable (associated with a specific diagnosi s that is being evaluated, monitored, or treated as if it exists) are acceptable and can be coded in the inpatient se tting, when documented at the time of discharge. Please use your independent medical judgment in providing your response. THIS QUERY IS PART OF THE PERMANENT MEDICAL RECORD
--- NOTE | 2024-10-16 13:48 | P.CDIM_ITS ---
PROVIDER RESPONSE TEXT: To clarify, the appropriate diagnosis supported by the clinical indicators: Acute QUERY TEXT: PHYSICIAN'S DOCUMENTATION REQUEST Date of Query: 10/16/2024 10:58 AM EST Patient Name: Micheal Linder Admit Date: 10/12/2024 Dear Jasvir Lira MD, A review of the medical record indicates additional documentation may be needed. Please review below and update the documentation accordingly. Clinical Indicators: GI Op note Impression 10/13 : Gastritis Progress note within the Plan 10/16 - s/p EGD 10/13/24 showed Gastritis and portal hypertensive gastrop athy. Continue Protonix. Clarify which of the following accurately represents the acuity of the Gastritis: Acute Acute on chronic Chronic Other (explain) Clinically unable to determine (explain) Thank you, Melody Lomeli, CCS, CDIS Use of terms such as suspected, likely, concern for, or probable (associated with a specific diagnosi s that is being evaluated, monitored, or treated as if it exists) are acceptable and can be coded in the inpatient se tting, when documented at the time of discharge. Please use your independent medical judgment in providing your response. THIS QUERY IS PART OF THE PERMANENT MEDICAL RECORD
--- NOTE | 2024-10-16 15:51 | PM.EVENT ---
Event Note Date of Service: 10/16/24 Event Note: GI-Course noted. No report of active bleeding. Hgb stable. Colonoscopy was postponed today due to yesterday's platelet count of 12K. Platelet count is better today after yesterday's platelet transfusion. Will R/S colonoscopy for tomorrow, 10/17, and recheck CBC in AM as well. He can receive platelet transfusions preop tomorrow morning if need be. D/W Dr. Lira and Dr. Davenport. Thanks Time Spent With Patient Time: Total time managing care of this patient today ____ minutes.
--- NOTE | 2024-10-16 16:36 | HO.WOUND ---
Wound Consult: Initial 69yr old male? admitted to [facility] on 10/12/24 - See progress notes and H&P for detailed history.? Wound consult placed for sacrum and groin.? Patient reluctant but agreeable to assessment and photo documentation.? The groin was assessed for mild pink tissue with some swelling - no fungal dermatitis noted. Patient has current use of Male Purewick with out leaking noted. May use topical barrier cream if moisture exposure continues. Sacrum Etiology: Stage 2 Pressure Injury ?Present on Admission Measurements: see charting for details. Wound Bed: red pink clean wound bed Drainage / Odor: None noted Edges: ? well defined Jessica wound: Bruising vs DTI noted to left sacrum, will monitor. mild moisture noted - No Induration, Fluctuance or Warmth noted Pain: denies Goals of Treatment: ? Triad to protect from moisture and allow for autolytic moist wound healing - foam to aid in pressure redistribution Recommendations: 1. Turn and Reposition every 2 hours and as needed for patient comfort.? Use pillows or wedges to support off loading positions. 2. Off Load all bony prominences with use of pillows and heel boots if needed.? Apply Preventative foams where needed. ? 3. Monitor for incontinence and moisture control, use barrier creams when needed for prevention and treatment. 4. Provide adequate and supplemental nutrition.? 5. Continue low air loss mattress. 6. When applicable maintain blood glucose levels per Providers order. 7. Sacrum - Off Load Pressure with Q2hr turns with pillows. Cleanse with PH balanced wipes, pat dry. Apply triad to wound bed twice daily and PRN. Only pat and dab no scrub and rub when soiling occurs. Reapply thin layer PRN after each episode of incontinence. Re-consult wound care Nurse for wound deterioration or wound changes.
[2024-10-16] MEDS: bisacodyL 5 MG TABLET.DR 10 MG PO (16:51)
[2024-10-16] MEDS: PEG 3350/Na Sulf,Bicarb,Cl/KCL 4,000 ML SOLN.RECON 4000 ML PO (17:52)
--- NOTE | 2024-10-16 22:34 | PC.NURSE ---
Patient had one large soft/liquid brown BM in commode. Patient refusing to drink anymore of the [employer] prep for colonoscopy tomorrow. Patient stating, this whole process is too difficult for a handicap person . Patient educated on importance of continuing prep and encouraged to continue drinking. At this time patient is still refusing. Prep still available at bedside.
[2024-10-17] VITALS (9 sets, daily range): BP systolic 96–120; BP diastolic 56–80; PULSE 76–93; RESP 16–20; TEMP 36.2–36.5; O2SAT 91–98
[2024-10-17] MEDS: 0.9 % Sodium Chloride Flush 3 ML SYRINGE IVFLUSH ×4 (02:22→19:51)
[2024-10-17 08:13] LABS: Hematocrit 23.3 % (42.0-52.0); Hemoglobin 7.4 g/dl (14.0-18.0); INTERNATIONAL NORM RATIO 1.6 (0.9-1.1); Mean Corpuscular HGB Conc 31.8 g/dl (31.0-36.0); Mean Corpuscular Hemoglobin 26.9 pg (27.0-33.0); Mean Corpuscular Volume 84.7 fL (80.0-98.0); Mean Platelet Volume 10.7 fL (9.4-12.4); Prothrombin Time 18.4 SEC (10.9-12.4); Red Blood Count 2.75 X10*6/uL (4.60-5.80); Red Cell Distribution Width 18.7 % (11.0-16.0)
[2024-10-17 08:14] LABS: Platelet Count 45 X10*3/uL (160-400); White Blood Count 1.9 X10*3/uL (4.8-10.8)
[2024-10-17] MEDS: methADONE HCl 20 MG/2 ML ORAL.CONC 50 MG PO (08:16)
[2024-10-17 08:43] LABS: Albumin Level 2.3 g/dL (3.5-5.0); Anion Gap 10 (12-20); Aspartate Amino Transferase 53 U/L (5-37); Bilirubin Direct 2.1 mg/dL (0.0-0.5); Bilirubin Total 3.3 mg/dL (0.0-1.0); Blood Urea Nitrogen 8 mg/dL (9-16); Carbon Dioxide 26 mmol/L (22-29); Chloride 107 mmol/L (96-108); Creatinine Clr Calc Pharmacy 121.1; Estimated Glomerular Filt Rate > 60; Glucose Random 90 mg/dL (60-115); Magnesium 2.1 mg/dL (1.6-2.6); Potassium 3.5 mmol/L (3.3-5.1); Sodium 139 mmol/L (135-145); Total Protein 4.3 g/dL (6.5-8.0)
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
[2024-10-17 08:57] LABS: Alanine Aminotransferase 29 U/L (0-40); Alkaline Phosphatase 56 U/L (39-117)
[2024-10-17] MEDS: Lactated Ringers 1,000 ML 80 ML IVCONT (10:41)
[2024-10-17] MEDS: Sodium Phosphate,Mono-Dibasic 133 ML ENEMA PR (10:41)
--- NOTE | 2024-10-17 10:47 | PC.NURSE ---
Addendum entered by Kathy Austin RN 10/17/24 11:06: Enema results Dark brown but all liquid stool. Dr. Oscar aware and at bedside. Okay to proceed with colonoscopy. Original Note: RN from floor reported patient drank 2-3 cups of bowel prep, stool appears loose but not clear. Dr. Oscar aware. Upon arrival to [facility], Fleet Enema ND ordered and given.
--- NOTE | 2024-10-17 11:01 | MHC.SHP ---
Pre-Procedural Eval Section A - 24 Hr Update-Section A only Date of Service: 10/17/24 The patient is an INPATIENT: Yes Changes since office visit: No Cold of Flu in the past 2 weeks, No New Medical Problems, No Changes in Medication and No Patient answered all questions The patient has been examined within 24 hours of the surgical procedure. The History & Physical has been completed within 30 days and I have reviewed it.: Yes Section B - Complete if H&P > 30 days Chief Complaint: Acutw blood loss anemia Allergies: Allergies Allergy/AdvReac Type Severity Reaction Status Date / Time No Known Allergies Allergy Verified 10/12/24 08:59 Plan I have reviewed the history and physical and performed a pertinent physical examination on my patient. No changes have occurred unless specified. Time Spent With Patient Time: Total time managing care of this patient today ____ minutes.
--- NOTE | 2024-10-17 11:03 | P.CONAN_ITS ---
HPI - Anesthesia Eval Consult details Narrative: 69 yo M admitted with severe anemia PMFSH Active Problems Active Problems: All Active Problems Pleural effusion, left (Acute) Pneumonia (Acute) Hemorrhagic shock (Acute) Anemia due to blood loss (Acute) Hx of AKA (above knee amputation) (Acute) Past Medical History Medical History Opioid use disorder Esophageal varices Hepatitis C Depression Cirrhosis Family History Family history of problems with anesthesia: No Surgical History Surgical History Hx of AKA (above knee amputation) History of Problems with Anesthesia: No Social History Social History Household Members: Friend(s) Housing: Apartment Do you presently have visiting nurse or other home services: No Unable to assess alcohol history related to: Unknown Patient Tobacco Use Status: Never used Tobacco Use of substances other than those prescribed or required for medical reasons: No Substance Use Type: Heroin Currently Displaying Signs/Symptoms of Drug Intoxication Withdrawal: No Advance Directives: Yes Advance Directives on File: Yes Advance Directives Date on File: 08/31/24 Recently lost weight without trying: Unsure Nutrition Risks: Poor intake 0-25% >4 days Poor oral hygiene: No service: No Meds Allergies Allergy/AdvReac Type Severity Reaction Status Date / Time No Known Allergies Allergy Verified 10/12/24 08:59 Active Medications: Current Medications Acetaminophen (Acetaminophen 325 Mg Tablet) 650 mg PO Q6H PRN PRN Reason: Pain, Mild (Pain Scale 1-3), fever or headache Last Admin: 10/15/24 00:02 Dose: 650 mg Benzonatate (Benzonatate 100 Mg Capsule) 100 mg PO TID PRN PRN Reason: Cough Calcium Carbonate (Calcium Carbonate 750 Mg Tab.Chew) 750 mg PO Q4H PRN PRN Reason: Heartburn Lactated Ringer's (Lr) 1,000 mls @ 80 mls/hr IVCONT .[id number] DINO Last Admin: 10/17/24 10:41 Dose: 80 mls/hr Magnesium Hydroxide (Milk Of Magnesia 30 Ml Oral.Susp) 30 ml PO DAILY PRN PRN Reason: Constipation Melatonin (Melatonin 3 Mg Tablet) 6 mg PO BEDTIME PRN PRN Reason: Insomnia Last Admin: 10/15/24 00:02 Dose: 6 mg Methadone HCl (Methadone Hcl 20 Mg/2 Ml Oral.Conc) 50 mg PO DAILY DINO Last Admin: 10/17/24 08:16 Dose: 50 mg Naloxone HCl (Naloxone Hcl 0.4 Mg/Ml Vial) 0.04 mg IVPUSH Q5M PRN PRN Reason: Excessive sedation or RR < 8 Sodium Biphosphate/Sodium Phosphate (Sodium Phosphate,Carver-Dibasic 133 Ml Enema) 133 ml [place] ONCE PRN PRN Reason: Poor Colonoscopy Prep Results Last Admin: 10/17/24 10:41 Dose: 133 ml Sodium Chloride (0.9 % Sodium Chloride Flush 3 Ml Syringe) 3 ml IVFLUSH QSHIFT DINO Last Admin: 10/17/24 08:21 Dose: 3 ml Home Medications ?Medication ?Instructions ?Recorded ?Confirmed ?Last Taken ?Type methadone 10 mg/mL oral 50 mg PO DAILY 08/25/24 10/13/24 10/09/24 History concentrate (Methadone Intensol) Exam Exam Date and Time: 10/17/24 1100 Height,Weight and Vital Signs: Height 5 ft 8 in Weight 94.3 kg Last Vital Signs Temp 97.5 F 10/17/24 10:36 Pulse 93 10/17/24 10:36 Resp 16 10/17/24 10:36 BP 120/69 10/17/24 10:36 Pulse Ox 97 10/17/24 10:36 O2 Del Method Room Air 10/17/24 10:36 O2 Flow Rate 2 10/14/24 07:29 Pertinent Lab Results Pertinent Lab Results: Laboratory Tests 10/12/24 10/12/24 10/12/24 09:23 09:24 09:33 WBC RBC Hgb Hct MCV MCH MCHC RDW Plt Count MPV Immature Gran % (Auto) Neut % (Auto) Lymph % (Auto) Carver % (Auto) Eos % (Auto) Baso % (Auto) Lymph # (Auto) Carver # (Auto) Eos # (Auto) Baso # (Auto) Abs Immat Gran (auto) Absolute Neuts (auto) Absolute Nucleated RBC Nucleated RBC % (auto) Smear Tech's Comments Smear Path Review Hold Purple Top PT INR APTT VBG pH VBG pCO2 VBG pO2 VBG HCO3 VBG O2 Saturation VBG Base Excess Sodium Potassium Chloride Carbon Dioxide Anion Gap BUN Creatinine Estim Creat Clear Calc Estimated GFR POC Glucose 116 H Random Glucose Fasting Glucose Lactic Acid Lactic Acid F/U @ 2Hr Calcium Magnesium Iron TIBC % Saturation Unsat Iron Binding Ferritin Total Bilirubin Direct Bilirubin AST ALT Alkaline Phosphatase Ammonia Total Creatine Kinase B-Natriuretic Peptide Total Protein Albumin Stool Occult Blood POSITIVE Ethyl Alcohol Blood Type O Positive Antibody Screen NEGATIVE Crossmatch See Detail 10/12/24 10/12/24 10/12/24 09:39 09:42 11:25 WBC 9.1 6.0 RBC 0.97 L D 2.09 L D Hgb 1.7 L* D 5.4 L* D Hct 6.8 L* D 17.2 L* D MCV 70.1 L 82.3 D MCH 17.5 L 25.8 L MCHC 25.0 L 31.4 RDW 23.1 H 20.2 H Plt Count 186 D 96 L D MPV 10.6 10.7 Immature Gran % (Auto) 0.5 H 0.8 H Neut % (Auto) 76.2 H 74.6 H Lymph % (Auto) 11.2 L 12.3 L Carver % (Auto) 12.1 H 12.3 H Eos % (Auto) 0.0 0.0 Baso % (Auto) 0.0 0.0 Lymph # (Auto) 1.0 L 0.7 L Carver # (Auto) 1.1 0.7 Eos # (Auto) 0.0 0.0 Baso # (Auto) 0.0 0.0 Abs Immat Gran (auto) 0.05 H 0.05 H Absolute Neuts (auto) 7.0 4.5 Absolute Nucleated RBC 0.130 H 0.100 H Nucleated RBC % (auto) 1.4 H 1.7 H Smear Tech's Comments VERIFIED Smear Path Review SEE NOTE Hold Purple Top PT 25.6 H D INR 2.2 H APTT VBG pH 7.55 H VBG pCO2 24 VBG pO2 78 VBG HCO3 21 L VBG O2 Saturation TNP VBG Base Excess -1.2 Sodium 134 L 133 L Potassium 4.2 4.2 Chloride 104 105 Carbon Dioxide 17 L 20 L Anion Gap 17 12 BUN 40 H 37 H Creatinine 1.06 0.97 Estim Creat Clear Calc 74.3 81.1 Estimated GFR > 60 > 60 POC Glucose Random Glucose 122 H 134 H Fasting Glucose Lactic Acid 6.7 H* Lactic Acid F/U @ 2Hr Calcium 8.2 L 7.8 L Magnesium 2.5 Iron 14 L TIBC 281 % Saturation 5 L Unsat Iron Binding 267 Ferritin 22 Total Bilirubin 1.5 H 1.9 H Direct Bilirubin AST 79 H 65 H ALT 20 14 Alkaline Phosphatase 42 39 Ammonia Total Creatine Kinase 80 B-Natriuretic Peptide Total Protein 5.1 L 4.6 L Albumin 2.7 L 2.5 L Stool Occult Blood Ethyl Alcohol < 10 Blood Type Antibody Screen Crossmatch 10/12/24 10/12/24 10/12/24 11:31 15:01 18:14 WBC RBC Hgb 6.2 L* Hct 18.8 L* MCV MCH MCHC RDW Plt Count MPV Immature Gran % (Auto) Neut % (Auto) Lymph % (Auto) Carver % (Auto) Eos % (Auto) Baso % (Auto) Lymph # (Auto) Carver # (Auto) Eos # (Auto) Baso # (Auto) Abs Immat Gran (auto) Absolute Neuts (auto) Absolute Nucleated RBC Nucleated RBC % (auto) Smear Tech's Comments Smear Path Review Hold Purple Top PT INR APTT VBG pH VBG pCO2 VBG pO2 VBG HCO3 VBG O2 Saturation VBG Base Excess Sodium Potassium Chloride Carbon Dioxide Anion Gap BUN Creatinine Estim Creat Clear Calc Estimated GFR POC Glucose Random Glucose Fasting Glucose Lactic Acid 3.5 H* Lactic Acid F/U @ 2Hr Cancelled Calcium Magnesium Iron TIBC % Saturation Unsat Iron Binding Ferritin Total Bilirubin Direct Bilirubin AST ALT Alkaline Phosphatase Ammonia 33 Total Creatine Kinase B-Natriuretic Peptide 637 H Total Protein Albumin Stool Occult Blood Ethyl Alcohol Blood Type Antibody Screen Crossmatch 10/13/24 10/13/24 10/14/24 03:52 06:37 06:59 WBC 5.0 4.9 3.8 L RBC 3.04 L D 3.05 L 2.79 L Hgb 8.3 L D 8.3 L 7.6 L Hct 24.1 L D 24.5 L 22.8 L MCV 79.3 L 80.3 81.7 MCH 27.3 27.2 27.2 MCHC 34.4 33.9 33.3 RDW 17.4 H 17.3 H 18.3 H Plt Count 54 L D 58 L 48 L MPV 10.3 10.4 10.5 Immature Gran % (Auto) Neut % (Auto) Lymph % (Auto) Carver % (Auto) Eos % (Auto) Baso % (Auto) Lymph # (Auto) Carver # (Auto) Eos # (Auto) Baso # (Auto) Abs Immat Gran (auto) Absolute Neuts (auto) Absolute Nucleated RBC 0.050 H 0.070 H 0.030 H Nucleated RBC % (auto) 1.0 H 1.4 H 0.8 H Smear Tech's Comments Smear Path Review Hold Purple Top SEE NOTE PT 18.0 H D INR 1.5 H APTT 28.1 VBG pH VBG pCO2 VBG pO2 VBG HCO3 VBG O2 Saturation VBG Base Excess Sodium 136 135 136 Potassium 3.7 3.5 3.4 Chloride 106 106 106 Carbon Dioxide 21 L 21 L 22 Anion Gap 13 12 11 L BUN 34 H 31 H 26 H Creatinine 1.02 0.97 0.76 Estim Creat Clear Calc 77.2 81.1 103.6 Estimated GFR > 60 > 60 > 60 POC Glucose Random Glucose 127 H 124 H Fasting Glucose 111 H Lactic Acid Lactic Acid F/U @ 2Hr Calcium 8.1 L 8.2 L 7.9 L Magnesium Iron TIBC % Saturation Unsat Iron Binding Ferritin Total Bilirubin 3.2 H 3.7 H Direct Bilirubin 2.2 H AST 76 H 59 H ALT 19 18 Alkaline Phosphatase 45 45 Ammonia Total Creatine Kinase B-Natriuretic Peptide Total Protein 5.1 L 4.7 L Albumin 2.8 L 2.5 L Stool Occult Blood Ethyl Alcohol Blood Type Antibody Screen Crossmatch 10/15/24 10/16/24 10/17/24 06:27 05:56 07:39 WBC 2.3 L 2.2 L 1.9 L RBC 2.77 L 2.84 L 2.75 L Hgb 7.6 L 7.7 L 7.4 L Hct 23.0 L 24.2 L 23.3 L MCV 83.0 85.2 84.7 MCH 27.4 27.1 26.9 L MCHC 33.0 31.8 31.8 RDW 18.4 H 18.7 H 18.7 H Plt Count 12 L* D 48 L D 45 L MPV Not Reportable Not Reportable 10.7 Immature Gran % (Auto) Neut % (Auto) Lymph % (Auto) Carver % (Auto) Eos % (Auto) Baso % (Auto) Lymph # (Auto) Carver # (Auto) Eos # (Auto) Baso # (Auto) Abs Immat Gran (auto) Absolute Neuts (auto) Absolute Nucleated RBC 0.020 H 0.000 0.000 Nucleated RBC % (auto) 0.9 H 0.0 0.0 Smear Tech's Comments Smear Path Review Cancelled Hold Purple Top PT 17.6 H 18.4 H INR 1.5 H 1.6 H APTT VBG pH VBG pCO2 VBG pO2 VBG HCO3 VBG O2 Saturation VBG Base Excess Sodium 135 136 139 Potassium 3.3 3.3 3.5 Chloride 107 105 107 Carbon Dioxide 21 L 24 26 Anion Gap 10 L 10 L 10 L BUN 14 11 8 L Creatinine 0.64 0.67 0.65 Estim Creat Clear Calc 123.0 117.5 121.1 Estimated GFR > 60 > 60 > 60 POC Glucose Random Glucose 108 99 90 Fasting Glucose Lactic Acid Lactic Acid F/U @ 2Hr Calcium 8.0 L 7.9 L 8.0 L Magnesium 2.1 2.1 Iron TIBC % Saturation Unsat Iron Binding Ferritin Total Bilirubin 3.7 H 3.3 H Direct Bilirubin 2.4 H 2.1 H AST 62 H 53 H ALT 31 29 Alkaline Phosphatase 57 56 Ammonia Total Creatine Kinase B-Natriuretic Peptide Total Protein 4.6 L 4.3 L Albumin 2.4 L 2.3 L Stool Occult Blood Ethyl Alcohol Blood Type Antibody Screen Crossmatch Airway Mallampati Class: III TM Dist: >3cm Neck ROM: Full Loose/Missing/Broken Teeth: Yes (several broken teeth per patient but nothing loose) Heart: S1S2 Lungs: CTAB Assessment and Plan Assessment Anesthesia Assessment: Anesthesia Plan Discussed and Chart Reviewed Final Anesthetic Review Family History of Problems with Anesthesia: No History of Problems with Anesthesia: No NPO: Yes ASA Class: IV Final Preanesthetic Review: No Changes in Pt Med Stat, Meds/Allgs Chart Reviewed, Consent Obtained/Reviewed and Anes Risks/Benef Reviewed Patient Risk: Intermediate Procedure Risk: Low Anesthetic Plan Anesthetic Plan: MAC: and Agree w/ Assess. and Plan Disposition: Standard PACU
--- NOTE | 2024-10-17 11:40 | P.BOP_ITS ---
Brief Operative Note Date of Service: 10/17/24 Pre-op diagnosis: gi bleeding Post-op diagnosis: same Procedure: colonoscopy Surgeon: Oli Oscar MD Anesthesia: MAC Was an Drapery Inspector used for this Procedure?: No Estimated blood loss (mL): 2 Pathology: other Condition: stable Disposition: PACU
--- NOTE | 2024-10-17 11:41 | PM.EVENT ---
Event Note Date of Service: 10/17/24 Event Note: Colonoscopy note dictated limited exam due to incomplete prep 2 polyps removed no mass identified Rec: advance diet f/u bx results Time Spent With Patient Time: Total time managing care of this patient today ____ minutes.
--- NOTE | 2024-10-17 12:03 | OP_ITS ---
DATE OF SERVICE: 10/17/2024 SURGEON: Oli Oscar MD INDICATIONS: GI blood loss. PREOPERATIVE DIAGNOSIS: POSTOPERATIVE DIAGNOSIS: PROCEDURE PERFORMED: Colonoscopy to the terminal ileum with biopsy, snare polypectomy, and endoscopic clip placement. ESTIMATED BLOOD LOSS: COMPLICATIONS: ANESTHESIA: Monitored anesthesia care. ASSISTANTS: SPECIMENS: DESCRIPTION OF PROCEDURE: A history and physical was performed. The risks and benefits of the procedure were explained to the patient and informed consent was obtained. The patient was placed in the left lateral decubitus position. A digital rectal exam was performed and was found to be normal. The Olympus pediatric video colonoscope was introduced into the rectum and advanced to the cecum. The cecum was identified by transillumination, palpation, and identification of ileocecal valve. Examination was performed. The scope was removed. He tolerated the procedure well and was returned to the recovery area in stable condition. FINDINGS: The terminal ileum was examined and appeared normal. The visualized colonic mucosa was normal. Examination was extremely limited due to the fact that the patient did not complete the prep. Small polyps could have been missed. No bleeding site was identified. Two polyps were removed. The first was located at 75 cm measuring less than 5 mm and was removed with a biopsy forceps. The 10 mm polyp at 35 cm was removed with a hot snare, and endoscopic clip placement to the polypectomy site was performed because of the patient's thrombocytopenia and elevated INR. Retroflexed examination showed internal hemorrhoids. IMPRESSION: 1. Colon polyps. 2. Limited examination as above. RECOMMENDATION: 1. Follow up the biopsy results. 2. Advance diet. MD MARIO Sagastume/JUAN MIGUELL / [id number]
[2024-10-18] VITALS (13 sets, daily range): BP systolic 107–119; BP diastolic 56–68; PULSE 83–104; RESP 12–20; TEMP 36.3–37.6; O2SAT 94–97
--- OUTSIDE RECORDS SUMMARY | 2024-10-18 00:53 | XMS_ITS ---
Author Organization [facility] Address [address] [place] [address] Care Team Providers Care Driver Education Instructor Name Role Phone NONE, NONE Primary Care Provider Olayinka Qureshi Unavailable [phone] REASON FOR VISIT gi bleed Encounters Encounter Location Date Provider Diagnosis [facility] Inpatient [address] [place], [place] [id number] 10/16/2024 Olayinka Presslye PLAN OF TREATMENT No Information
--- OUTSIDE RECORDS SUMMARY | 2024-10-18 00:53 | XMS_ITS | Patient Health Record ---
Author Organization [facility] Address [address] [place] [address] Care Team Providers Care Drum Drier Name Role Phone NONE, NONE Primary Care Provider Olayinka Qureshi [phone] RESULTS Component Value Reference Range Notes Prothrombin Time INR Reviewed date:08/28/2024 11:04:51 PM Interpretation: Performing Lab:[facility], [address] [place] [phone] Notes/Report: Prothrombin Time 16.2 10.9-12.4 SEC INTERNATIONAL NORM RATIO 1.4 0.9-1.1 INTERNATIONAL NORMALIZED RATIO (INR) REFERENCE RANGES Reference Range For patients not on anticoagulant therapy: 0.9 - 1.1 INR ranges for oral anticoagulant therapy: For prevention and treatment of venous thrombosis and pulmonary embolism: 2.0 - 3.0 For acute myocardial infarction with aspirin therapy: 2.0 - 3.0 For acute myocardial infarction without aspirin therapy: 3.0 - 4.0 For patients with mechanical prosthetic heart valves: 2.5 - 3.5 IRON PROFILE Reviewed date:08/28/2024 11:02:11 PM Interpretation: Performing Lab:[facility], [address] [place] [phone] Notes/Report: Iron 24 45-160 mcg/dL Total Iron Binding Capacity 222 228-428 mcg/d L Percent Iron Saturation 11 15-50 % Unsaturated Iron Binding 198 Ferritin Reviewed date:08/28/2024 11:02:19 PM Interpretation: Performing Lab:[facility], [address] [place] [phone] Notes/Report: Ferritin 44 20-250 ng/mL Vitamin B12 and Folate Reviewed date:08/28/2024 11:02:28 PM Interpretation: Performing Lab:[facility], [address] [place] [phone] Notes/Report: Vitamin B12 1077 200-900 pg/mL NORMAL 200-900 PG/ML INDETERMINATE 160-199 PG/ML DEFICIENT < 160 PG/ML Folate 13.3 > or = 4.0 ng/mL Reference Values: > or = 4.0 ng/mL < 4.0 ng/mL suggests folate deficiency Methotrexate, aminopterin and folinic acid (leucovorin) are chemotherapeutic agents whose molecular structures are similar to folate; therefore, the Rubber Extrusion Machine Operator folate assay cannot be used for patients using these drugs. Hepatitis B Profile Reviewed date:08/29/2024 12:15:16 PM Interpretation: Performing Lab:[facility], [address] [place] [phone] Notes/Report: Hepatitis B Surface Antibody NONREACTIVE Nonreactive Nonreactive: < 8.00 mIU/mL Hepatitis B Core Antibody Nonreactive Nonreactive Hepatitis B Surface Antigen Negative Negative Hepatitis C Antibody Reflex Reviewed date:08/29/2024 09:15:29 AM Interpretation: Performing Lab:[facility], [address] [place] [phone] Notes/Report: Hepatitis C Antibody Reactive Nonreactive Presump tive evidence of antibodies to HCV. Prothrombin Time INR Reviewed date:08/29/2024 09:15:12 AM Interpretation: Performing Lab:[facility], [address] [place] [phone] Notes/Report: Prothrombin Time 15.2 10.9-12.4 SEC INTERNATIONAL NORM RATIO 1.3 0.9-1.1 INTERNATIONAL NORMALIZED RATIO (INR) REFERENCE RANGES Reference Range For patients not on anticoagulant therapy: 0.9 - 1.1 INR ranges for oral anticoagulant therapy: For prevention and treatment of venous thrombosis and pulmonary embolism: 2.0 - 3.0 For acute myocardial infarction with aspirin therapy: 2.0 - 3.0 For acute myocardial infarction without aspirin therapy: 3.0 - 4.0 For patients with mechanical prosthetic heart valves: 2.5 - 3.5 Prothrombin Time INR Reviewed date:10/17/2024 09:18:21 PM Interpretation: Performing Lab:[facility], [address] [place] [phone] Notes/Report: Prothrombin Time 17.6 10.9-12.4 SEC INTERNATIONAL NORM RATIO 1.5 0.9-1.1 INTERNATIONAL NORMALIZED RATIO (INR) REFERENCE RANGES Reference Range For patients not on anticoagulant therapy: 0.9 - 1.1 INR ranges for oral anticoagulant therapy: For prevention and treatment of venous thrombosis and pulmonary embolism: 2.0 - 3.0 For acute myocardial infarction with aspirin therapy: 2.0 - 3.0 For acute myocardial infarction without aspirin therapy: 3.0 - 4.0 For patients with mechanical prosthetic heart valves: 2.5 - 3.5 REASON FOR REFERRAL No Information SOCIAL HISTORY Sex Assigned At : Social History Observation Description Sex Assigned At Unknown PROBLEMS Problem Type ICD Code Onset Dates Problem Status W/U Status Risk SNOMED Code Notes Problem Diverticulosis of large intestine without perforation or abscess without bleeding (K57.30) Active confirmed Diverticul ar disease of colon (975365078) Problem Cirrhosis (K74.60) Active confirmed Cir rhotic (979862234) Encounters Encounter Location Date Provider Diagnosis [facility] [place] [address] [place] [id number] 10/16/2024 Olayinka Pressley PLAN OF TREATMENT No Information Insurance Providers Payer Name Payer Address Payer Phone Subscriber Number Group Number Insured Name Patient Relationship to Insured Coverage Start Date Coverage End Date MEDIC[employer] OF [employer] [address] [place] [id number] RENE PRADO Self - patient is the insured
[2024-10-18 06:18] LABS: Hematocrit 22.8 % (42.0-52.0); Mean Corpuscular HGB Conc 30.7 g/dl (31.0-36.0); Mean Corpuscular Hemoglobin 26.1 pg (27.0-33.0); Mean Corpuscular Volume 85.1 fL (80.0-98.0); Mean Platelet Volume 10.3 fL (9.4-12.4); Red Blood Count 2.68 X10*6/uL (4.60-5.80); Red Cell Distribution Width 18.5 % (11.0-16.0)
[2024-10-18 06:31] LABS: Platelet Count 47 X10*3/uL (160-400); White Blood Count 2.3 X10*3/uL (4.8-10.8)
[2024-10-18 06:34] LABS: Anion Gap 11 (12-20); Blood Urea Nitrogen 10 mg/dL (9-16); Carbon Dioxide 24 mmol/L (22-29); Chloride 107 mmol/L (96-108); Creatinine Clr Calc Pharmacy 119.3; Estimated Glomerular Filt Rate > 60; Glucose Random 114 mg/dL (60-115); Potassium 3.5 mmol/L (3.3-5.1); Sodium 138 mmol/L (135-145)
[2024-10-18] MEDS: methADONE HCl 20 MG/2 ML ORAL.CONC 50 MG PO (08:17)
[2024-10-18] MEDS: Multivitamin TABLET 1 TAB PO (08:17)
[2024-10-18] MEDS: Folic Acid 1 MG TABLET PO (08:17)
[2024-10-18] MEDS: Ferrous Sulfate 324 MG TABLET.DR PO ×2 (08:17→17:32)
[2024-10-18] MEDS: 0.9 % Sodium Chloride Flush 3 ML SYRINGE IVFLUSH ×2 (08:19→21:05)
--- NOTE | 2024-10-18 09:10 | HO.POSTANES ---
Post Anesthesia Evaluation Post Anesthesia Evaluation Date of Service: 10/18/24 Vital Signs: Vital Signs Temp Pulse Resp BP Pulse Ox O2 Del Method 10/18/24 07:15 97.3 F 90 12 119/66 96 Room Air 10/18/24 03:57 97.8 F 90 20 111/62 97 Room Air 10/18/24 00:00 97.6 F 83 20 109/56 L 97 Room Air Anesthesia: Monitored Mental Status: Awake Pain Control: Satisfactory Nausea/Vomiting: None Hydration: Adequate Anesthesia-Related Issues: No Anes. Related Issues
--- NOTE | 2024-10-18 10:48 | MHC.CM.PN ---
Per Rounds, Patient is not yet medically cleared for dc (receiving blood today); Patient will benefit from a PT Eval to assist with disposition. CM will follow.
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
--- NOTE | 2024-10-18 16:20 | MHC.CM.PN ---
PT is recommending STR; CM will follow.
[2024-10-19] VITALS (17 sets, daily range): BP systolic 108–139; BP diastolic 59–89; PULSE 84–123; RESP 15–20; TEMP 36.2–37.3; O2SAT 95–98
[2024-10-19 07:26] LABS: MANUAL DIFF FLAG NO
[2024-10-19 07:43] LABS: Eosinophils Percent Auto 0.9 % (0-4); Hematocrit 22.5 % (42.0-52.0); Hemoglobin 7.1 g/dl (14.0-18.0); Imm Gran Abs Auto 0.02 X10*3/uL (0.00-0.03); Imm Gran Pct Auto 0.6 % (0.0-0.4); Lymphocytes Absolute Auto 0.7 X10*3/uL (1.2-4.9); Lymphocytes Percent Auto 21.6 % (20-40); Mean Corpuscular HGB Conc 31.6 g/dl (31.0-36.0); Mean Corpuscular Hemoglobin 26.9 pg (27.0-33.0); Mean Corpuscular Volume 85.2 fL (80.0-98.0); Monocytes Absolute Auto 0.5 X10*3/uL (0.1-1.2); Monocytes Percent Auto 13.5 % (2-11); Neutrophils Absolute Auto 2.1 x10*3/uL (2.0-8.3); Neutrophils Percent Auto 63.4 % (45-73); Red Blood Count 2.64 X10*6/uL (4.60-5.80); Red Cell Distribution Width 18.4 % (11.0-16.0); White Blood Count 3.3 X10*3/uL (4.8-10.8)
[2024-10-19 07:44] LABS: Platelet Count 49 X10*3/uL (160-400)
[2024-10-19] MEDS: Multivitamin TABLET 1 TAB PO (08:24)
[2024-10-19] MEDS: Ferrous Sulfate 324 MG TABLET.DR PO ×2 (08:24→16:44)
[2024-10-19] MEDS: Folic Acid 1 MG TABLET PO (08:24)
[2024-10-19] MEDS: 0.9 % Sodium Chloride Flush 3 ML SYRINGE IVFLUSH ×3 (08:24→20:09)
[2024-10-19] MEDS: methADONE HCl 20 MG/2 ML ORAL.CONC 50 MG PO (08:25)
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
--- NOTE | 2024-10-19 12:54 | P.PNGI_ITS ---
Subjective Subjective Date of Service: 10/19/24 Interval History: denies abd pain no reported melena per nursing Critical Care Time (minutes): 0 Physical Exam 2 Vital Signs: Vital Signs: Last Vital Signs Temp 98.9 F 10/19/24 11:58 Pulse 104 H 10/19/24 11:58 Resp 15 10/19/24 11:58 BP 108/63 10/19/24 11:58 Pulse Ox 95 10/19/24 10:49 O2 Del Method Room Air 10/19/24 10:49 O2 Flow Rate 3 10/17/24 12:27 BMI result Body Mass Index 31.6 GI: Other: abdomen is soft and nontender Objective Data Labs 10/19/24 06:37 10/18/24 05:55 Microbiology Microbiology Results: Microbiology 10/12/24 09:23 Blood - Venous Blood Culture - Final No growth after 5 days. 10/12/24 09:17 Blood - Venous Blood Culture - Final No growth after 5 days. Procedures Date of Service Date of Service: 10/19/24 Progress Note: A&P Assessment and plan (1) Hemorrhagic shock: Status: Acute Plan agree with transfusion monitor hematocrit Time Spent With Patient Time: Total time managing care of this patient today ____ minutes. Quality Stroke Does the patient have a stroke diagnosis?: No VTE Prior VTE?: No VTE Risk Level:: Medical - moderate - high VTE Device Contraindication: N/A - Device Ordered VTE Drug Contraindication: Treatment Not Indicated
[2024-10-19 13:14] LABS: C Reactive Protein 2.03 mg/dL (< or = 0.50); Lactate Dehydrogenase 191 U/L (118-273)
[2024-10-19 15:34] LABS: Immature Retic Fraction 14.6 % (2.3-13.4); Retic HGB Equivalent 18.8 pg (30.0-35.0); Reticulocyte Percent 5.1 % (0.5-1.8)
[2024-10-19 15:35] LABS: Reticulocytes Absolute 0.145 X10*6/uL (0.026-0.095)
[2024-10-19 16:04] LABS: Erythrocyte Sedimentation Rate 4 MM/HR (0-15)
[2024-10-19 17:03] LABS: OBS Int Ctl Valid YES; OBS1 POSITIVE (NEGATIVE)
[2024-10-19] MEDS: Metoprolol Tartrate 12.5 MG HALFTAB PO ×2 (18:43→20:09)
[2024-10-19] MEDS: Potassium Chloride ER 20 MEQ TAB.ER.PRT 40 MEQ PO (18:44)
[2024-10-19] MEDS: Magnesium Oxide 400 MG TABLET PO (18:44)
[2024-10-19] MEDS: Nystatin Powder 15 GM BOTTLE 1 APPL TOPICAL (20:09)
[2024-10-20] VITALS (8 sets, daily range): BP systolic 106–129; BP diastolic 65–77; PULSE 80–104; RESP 16–20; TEMP 36.1–37.1; O2SAT 95–100
[2024-10-20 01:25] LABS: Ammonia 115 umol/L (13-55)
[2024-10-20] MEDS: Lactulose 20 GM/30 ML SOLUTION PO ×2 (02:03→07:59)
[2024-10-20 07:21] LABS: MANUAL DIFF FLAG NO
[2024-10-20 07:23] LABS: Eosinophils Percent Auto 0.6 % (0-4); Hematocrit 25.6 % (42.0-52.0); Hemoglobin 8.6 g/dl (14.0-18.0); Imm Gran Abs Auto 0.01 X10*3/uL (0.00-0.03); Imm Gran Pct Auto 0.2 % (0.0-0.4); Lymphocytes Absolute Auto 1.2 X10*3/uL (1.2-4.9); Lymphocytes Percent Auto 23.2 % (20-40); Mean Corpuscular HGB Conc 33.6 g/dl (31.0-36.0); Mean Corpuscular Hemoglobin 28.2 pg (27.0-33.0); Mean Corpuscular Volume 83.9 fL (80.0-98.0); Mean Platelet Volume 11.1 fL (9.4-12.4); Monocytes Absolute Auto 0.6 X10*3/uL (0.1-1.2); Monocytes Percent Auto 10.9 % (2-11); Neutrophils Absolute Auto 3.5 x10*3/uL (2.0-8.3); Neutrophils Percent Auto 65.1 % (45-73); Platelet Count 75 X10*3/uL (160-400); Red Blood Count 3.05 X10*6/uL (4.60-5.80); Red Cell Distribution Width 17.1 % (11.0-16.0); White Blood Count 5.3 X10*3/uL (4.8-10.8)
[2024-10-20 07:36] LABS: Anion Gap 6 (12-20); Blood Urea Nitrogen 28 mg/dL (9-16); Calcium 7.9 mg/dL (8.4-10.2); Carbon Dioxide 28 mmol/L (22-29); Chloride 112 mmol/L (96-108); Creatinine Clr Calc Pharmacy 148.6; Estimated Glomerular Filt Rate > 60; Glucose Random 92 mg/dL (60-115); Potassium 4.1 mmol/L (3.3-5.1); Sodium 142 mmol/L (135-145)
[2024-10-20] MEDS: Ferrous Sulfate 324 MG TABLET.DR PO ×2 (07:58→15:45)
[2024-10-20] MEDS: Magnesium Oxide 400 MG TABLET PO (07:58)
[2024-10-20] MEDS: Multivitamin TABLET 1 TAB PO (07:58)
[2024-10-20] MEDS: Folic Acid 1 MG TABLET PO (07:58)
[2024-10-20] MEDS: Metoprolol Tartrate 12.5 MG HALFTAB PO (07:59)
[2024-10-20] MEDS: methADONE HCl 20 MG/2 ML ORAL.CONC 50 MG PO (08:02)
[2024-10-20] MEDS: 0.9 % Sodium Chloride Flush 3 ML SYRINGE IVFLUSH ×3 (08:18→22:32)
[2024-10-20] MEDS: Nystatin Powder 15 GM BOTTLE 1 APPL TOPICAL ×2 (08:22→22:26)
--- NOTE | 2024-10-20 11:31 | MHC.CM.PN ---
Per ROUNDS, Patient is medically cleared for dc to SNF/STR today. CM does not yet have a bed offer and once a bed offer is secured, Methadone Guest Dosing will be needed. Patient also has [place] Medicaid as a secondary insurance and a [place] SNf may need to be considered for copay for day 21 and beyond in a SNF. CM will follow.
--- NOTE | 2024-10-20 13:35 | MHC.CM.PN ---
Patient has [place] Medicaid as his secondary insurance; CM has referred Patient to [address] [place] [address]([facility], and [facility]); CM awaits response.
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
[2024-10-20] MEDS: Furosemide 20 MG/2 ML VIAL IVPUSH (15:43)
--- NOTE | 2024-10-20 16:10 | MHC.CM.PN ---
[facility] [place] is inquiring; CM will follow.
[2024-10-20 16:38] LABS: Hematocrit 23.5 % (42.0-52.0); Hemoglobin 7.4 g/dl (14.0-18.0); Mean Corpuscular HGB Conc 31.5 g/dl (31.0-36.0); Mean Corpuscular Hemoglobin 27.2 pg (27.0-33.0); Mean Corpuscular Volume 86.4 fL (80.0-98.0); Mean Platelet Volume 12.5 fL (9.4-12.4); Platelet Count 104 X10*3/uL (160-400); Red Blood Count 2.72 X10*6/uL (4.60-5.80); Red Cell Distribution Width 17.4 % (11.0-16.0)
[2024-10-21] VITALS (10 sets, daily range): BP systolic 96–110; BP diastolic 51–71; PULSE 71–100; RESP 12–18; TEMP 35.8–37.4; O2SAT 97–99
[2024-10-21 06:53] LABS: MANUAL DIFF FLAG NO
[2024-10-21 06:59] LABS: Basophils Percent Auto 0.1 % (0-2); Eosinophils Percent Auto 0.2 % (0-4); Hematocrit 23.7 % (42.0-52.0); Hemoglobin 7.2 g/dl (14.0-18.0); Imm Gran Abs Auto 0.04 X10*3/uL (0.00-0.03); Imm Gran Pct Auto 0.4 % (0.0-0.4); Mean Corpuscular HGB Conc 30.4 g/dl (31.0-36.0); Mean Corpuscular Hemoglobin 27.2 pg (27.0-33.0); Mean Corpuscular Volume 89.4 fL (80.0-98.0); Mean Platelet Volume 10.8 fL (9.4-12.4); Monocytes Absolute Auto 0.9 X10*3/uL (0.1-1.2); Neutrophils Absolute Auto 6.6 x10*3/uL (2.0-8.3); Neutrophils Percent Auto 69.3 % (45-73); Platelet Count 106 X10*3/uL (160-400); Red Blood Count 2.65 X10*6/uL (4.60-5.80); Red Cell Distribution Width 18.3 % (11.0-16.0); White Blood Count 9.5 X10*3/uL (4.8-10.8)
[2024-10-21 07:12] LABS: Anion Gap 12 (12-20); Blood Urea Nitrogen 39 mg/dL (9-16); Calcium 8.2 mg/dL (8.4-10.2); Carbon Dioxide 25 mmol/L (22-29); Chloride 112 mmol/L (96-108); Estimated Glomerular Filt Rate > 60; Glucose Random 109 mg/dL (60-115); Potassium 4.1 mmol/L (3.3-5.1); Sodium 145 mmol/L (135-145)
[2024-10-21] MEDS: Ferrous Sulfate 324 MG TABLET.DR PO ×2 (09:27→16:36)
[2024-10-21] MEDS: Furosemide 20 MG/2 ML VIAL IVPUSH ×2 (09:27→18:25)
[2024-10-21] MEDS: Metoprolol Tartrate 12.5 MG HALFTAB PO ×2 (09:27→20:36)
[2024-10-21] MEDS: Magnesium Oxide 400 MG TABLET PO (09:27)
[2024-10-21] MEDS: 0.9 % Sodium Chloride Flush 3 ML SYRINGE IVFLUSH ×3 (09:28→23:15)
[2024-10-21] MEDS: Multivitamin TABLET 1 TAB PO (09:28)
[2024-10-21] MEDS: Folic Acid 1 MG TABLET PO (09:28)
[2024-10-21] MEDS: Nystatin Powder 15 GM BOTTLE 1 APPL TOPICAL ×2 (09:33→20:36)
[2024-10-21] MEDS: Lactulose 20 GM/30 ML SOLUTION PO ×2 (10:23→20:36)
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
[2024-10-21 13:19] LABS: Mean Corpuscular HGB Conc 32.2 g/dl (31.0-36.0); Mean Corpuscular Hemoglobin 28.6 pg (27.0-33.0); Mean Corpuscular Volume 88.8 fL (80.0-98.0); Mean Platelet Volume 10.5 fL (9.4-12.4); Red Blood Count 2.24 X10*6/uL (4.60-5.80); Red Cell Distribution Width 18.9 % (11.0-16.0)
[2024-10-21 13:43] LABS: Hematocrit 19.9 % (42.0-52.0); Hemoglobin 6.4 g/dl (14.0-18.0); Platelet Count 91 X10*3/uL (160-400)
[2024-10-21] MEDS: Phytonadione (Vit K1) 10 MG in 0.9 % Sodium Chloride 50 ML 51 MG IV (15:29)
[2024-10-21] MEDS: Octreotide Acetate 500 MCG in 0.9 % Sodium Chloride 500 ML 50.1 MCG IVCONT (16:25)
[2024-10-21] MEDS: Pantoprazole Sodium 40 MG/10 ML VIAL IVPUSH (16:28)
[2024-10-22] VITALS (8 sets, daily range): BP systolic 88–102; BP diastolic 48–64; PULSE 67–82; RESP 16–18; TEMP 36.1–36.8; O2SAT 7–98
[2024-10-22] MEDS: Octreotide Acetate 500 MCG in 0.9 % Sodium Chloride 500 ML 50.1 MCG IVCONT ×3 (02:01→22:19)
--- NOTE | 2024-10-22 05:06 | HO.SKINPHOTO ---
Location Coccyx Category:Pressure injury Stage: Length: Width: Depth: cm Location: Category: Stage: Length: Width: Depth: cm Location: Category: Stage: Length: Width: Depth: cm Location: Category: Stage: Length: Width: Depth: cm Location: Category: Stage: Length: Width: Depth: cm Location: Category: Stage: Length: Width: Depth: cm
[2024-10-22] MEDS: Pantoprazole Sodium 40 MG/10 ML VIAL IVPUSH ×2 (05:34→16:16)
[2024-10-22 06:39] LABS: MANUAL DIFF FLAG NO
[2024-10-22 06:43] LABS: Basophils Percent Auto 0.1 % (0-2); Eosinophils Absolute Auto 0.2 X10*3/uL (0.0-0.4); Eosinophils Percent Auto 1.9 % (0-4); Hematocrit 28.7 % (42.0-52.0); Hemoglobin 9.1 g/dl (14.0-18.0); Imm Gran Abs Auto 0.04 X10*3/uL (0.00-0.03); Imm Gran Pct Auto 0.5 % (0.0-0.4); Lymphocytes Percent Auto 11.7 % (20-40); Mean Corpuscular HGB Conc 31.7 g/dl (31.0-36.0); Mean Corpuscular Hemoglobin 28.3 pg (27.0-33.0); Mean Corpuscular Volume 89.4 fL (80.0-98.0); Monocytes Absolute Auto 0.7 X10*3/uL (0.1-1.2); Monocytes Percent Auto 8.5 % (2-11); Neutrophils Absolute Auto 6.6 x10*3/uL (2.0-8.3); Neutrophils Percent Auto 77.3 % (45-73); Platelet Count 101 X10*3/uL (160-400); Red Blood Count 3.21 X10*6/uL (4.60-5.80); Red Cell Distribution Width 18.8 % (11.0-16.0); White Blood Count 8.5 X10*3/uL (4.8-10.8)
[2024-10-22 06:48] LABS: INTERNATIONAL NORM RATIO 1.1 (0.9-1.1); Prothrombin Time 13.2 SEC (10.9-12.4)
[2024-10-22 07:17] LABS: Alanine Aminotransferase 20 U/L (0-40); Albumin Level 2.2 g/dL (3.5-5.0); Alkaline Phosphatase 69 U/L (39-117); Anion Gap 13 (12-20); Aspartate Amino Transferase 49 U/L (5-37); Bilirubin Direct 1.6 mg/dL (0.0-0.5); Blood Urea Nitrogen 35 mg/dL (9-16); Calcium 8.1 mg/dL (8.4-10.2); Carbon Dioxide 24 mmol/L (22-29); Chloride 111 mmol/L (96-108); Creatinine Clr Calc Pharmacy 106.4; Estimated Glomerular Filt Rate > 60; Glucose Random 111 mg/dL (60-115); Potassium 3.9 mmol/L (3.3-5.1); Sodium 144 mmol/L (135-145); Total Protein 4.4 g/dL (6.5-8.0)
[2024-10-22 07:26] LABS: Bilirubin Total 3.3 mg/dL (0.0-1.0)
[2024-10-22] MEDS: Multivitamin TABLET 1 TAB PO (08:39)
[2024-10-22] MEDS: 0.9 % Sodium Chloride Flush 3 ML SYRINGE IVFLUSH ×3 (08:39→22:20)
[2024-10-22] MEDS: Magnesium Oxide 400 MG TABLET PO (08:39)
[2024-10-22] MEDS: Ferrous Sulfate 324 MG TABLET.DR PO ×2 (08:39→16:16)
[2024-10-22] MEDS: Furosemide 20 MG/2 ML VIAL IVPUSH (08:39)
[2024-10-22] MEDS: Folic Acid 1 MG TABLET PO (08:39)
[2024-10-22] MEDS: Metoprolol Tartrate 12.5 MG HALFTAB PO (08:39)
[2024-10-22] MEDS: Nystatin Powder 15 GM BOTTLE 1 APPL TOPICAL ×2 (08:40→22:20)
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
[2024-10-22] MEDS: Albumin Human 25 % 100 ML IV ×3 (13:11→17:53)
[2024-10-22] MEDS: Lactulose 20 GM/30 ML SOLUTION PO ×2 (13:11→22:19)
[2024-10-22] MEDS: rifAXIMin 550 MG TABLET PO ×2 (13:11→22:19)
[2024-10-22] MEDS: Zinc Sulfate 220 MG CAPSULE PO (13:30)
[2024-10-22] MEDS: Furosemide 200 MG in 0.9 % Sodium Chloride 80 ML IVCONT (21:15)
[2024-10-23] VITALS (8 sets, daily range): BP systolic 93–120; BP diastolic 52–58; PULSE 60–67; RESP 16–19; TEMP 36–36.3; O2SAT 95–100; BMI 34.2
[2024-10-23] MEDS: Albumin Human 25 % 100 ML IV ×5 (00:02→22:35)
[2024-10-23] MEDS: Pantoprazole Sodium 40 MG/10 ML VIAL IVPUSH ×2 (06:15→17:26)
[2024-10-23 06:42] LABS: Anion Gap 14 (12-20); Blood Urea Nitrogen 28 mg/dL (9-16); Calcium 8.3 mg/dL (8.4-10.2); Carbon Dioxide 23 mmol/L (22-29); Chloride 110 mmol/L (96-108); Estimated Glomerular Filt Rate > 60; Glucose Random 96 mg/dL (60-115); Potassium 3.4 mmol/L (3.3-5.1); Sodium 144 mmol/L (135-145)
[2024-10-23] MEDS: Metoprolol Tartrate 12.5 MG HALFTAB PO ×2 (08:50→22:38)
[2024-10-23] MEDS: Ferrous Sulfate 324 MG TABLET.DR PO ×2 (08:50→17:26)
[2024-10-23] MEDS: Octreotide Acetate 500 MCG in 0.9 % Sodium Chloride 500 ML 50.1 MCG IVCONT (08:50)
[2024-10-23] MEDS: Folic Acid 1 MG TABLET PO (08:50)
[2024-10-23] MEDS: Zinc Sulfate 220 MG CAPSULE PO (08:50)
[2024-10-23] MEDS: Multivitamin TABLET 1 TAB PO (08:50)
[2024-10-23] MEDS: Magnesium Oxide 400 MG TABLET PO (08:50)
[2024-10-23] MEDS: Lactulose 20 GM/30 ML SOLUTION PO ×2 (08:50→22:36)
[2024-10-23] MEDS: rifAXIMin 550 MG TABLET PO ×2 (08:50→22:36)
[2024-10-23] MEDS: methADONE HCl 20 MG/2 ML ORAL.CONC 50 MG PO (08:51)
[2024-10-23] MEDS: 0.9 % Sodium Chloride Flush 3 ML SYRINGE IVFLUSH ×3 (08:51→22:39)
--- NOTE | 2024-10-23 10:18 | MHC.CM.PN ---
Per ROUNDS discussion, Patient is no longer medically cleared for dc . [facility] in [facility] is interested and has emailed this worker a check list on documents that will be needed for Methadone Guest Dosing. CM has started to gather the requested information but will continue to follow for medical clearance for dc.
[2024-10-23] MEDS: Nystatin Powder 15 GM BOTTLE 1 APPL TOPICAL ×2 (11:00→22:36)
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
--- NOTE | 2024-10-23 14:21 | MHC.CLN ---
RE: CONSULT PT WITH INCREASED NUTRITION RISK R/T PRESSURE INJURY POOR PO INTAKE DIET RX: REGULAR-APPROPRIATE PT RECEIVING ENSURE TID TO PROMOTE WOUND HEALING AND INCREASE KCALS SUPP PROVIDES 1050KCALS, 60G PROTEIN MONITOR PO INTAKE AND ENCOURAGE SUPPLEMENT
--- NOTE | 2024-10-23 15:11 | MHC.CM.PN ---
RN was asked by ALIZE/Donovan to call [facility] (Zina Darden @ [phone]) regarding Patient being hospitalized and unable to pay mortgage/rent. CM did speak with Zina to confirm that Patient has been hospitalized for the past 11days and currently.
--- NOTE | 2024-10-23 17:22 | P.PNGI_ITS ---
Subjective Subjective Date of Service: 10/23/24 Interval History: History from his RN, Hospitalist staff, patient , and EMR He has had two brown stools today and without any signs of melena nor hematochezia. There has been no vomiting. Eating is fair. Denies abdominal pain or heartburn. He has having liquid brown stools on the Lactulose Critical Care Time (minutes): 0 Physical Exam 2 Vital Signs: Vital Signs: Last Vital Signs Temp 97.4 F 10/23/24 15:28 Pulse 60 10/23/24 15:28 Resp 16 10/23/24 15:28 BP 94/52 L 10/23/24 15:28 Pulse Ox 95 10/23/24 15:28 O2 Del Method Room Air 10/23/24 15:28 O2 Flow Rate 3 10/17/24 12:27 BMI result Body Mass Index 34.2 Const: General: cooperative, comfortable, no acute distress, awake and tired appearing Eyes: Sclerae: sclerae normal GI: Other: Abd-soft, NT, no mass Neuro: Other: Alert, although a little lethargic; oriented to year and his name, not to place; no definitive asterixis Objective Data Labs 10/22/24 05:59 10/23/24 06:14 Labs: Laboratory Results - last 24 hr 10/23/24 06:14 Sodium 144 Potassium 3.4 Chloride 110 H Carbon Dioxide 23 Anion Gap 14 BUN 28 H Creatinine 0.82 Estim Creat Clear Calc 96.0 Estimated GFR > 60 Random Glucose 96 Calcium 8.3 L Microbiology Microbiology Results: Microbiology 10/12/24 09:23 Blood - Venous Blood Culture - Final No growth after 5 days. 10/12/24 09:17 Blood - Venous Blood Culture - Final No growth after 5 days. Procedures Date of Service Date of Service: 10/23/24 Progress Note: A&P Assessment and plan (1) Anemia due to blood loss: Status: Acute (2) Acute hepatic encephalopathy: Status: Acute Assessment and Plan: Imp: Cirrhosis with significant anemia requiring transfusions but without definitive active GI blood loss judging by just brown stools and no report of melena or hematochezia by report. His upper endo and colonoscopy have not been particularly revealing in regard to a GI source of blood loss. Hematology consult did not think there was a primary Hematologic source of his anemia. His encephalopathy seems to be clinically improving on the Lactulose and Xifaxan. Rec: Continue supportive care, F/U labs, continue PPI. I don't think IV Sandostatin is needed given no description of variceal bleeding. If he develops obvious bleeding with melena or hematochezia I would recommend a CTA of the abdomen to try to isolate a source of active bleeding. If the situation persists with ongoing significant drops in his Hgb, but without any obvious GI bleeding,I would recommend a F/U Hematology consult. Thanks Time Spent With Patient Time: Total time managing care of this patient today ____ minutes. Quality Stroke Does the patient have a stroke diagnosis?: No VTE Prior VTE?: No VTE Risk Level:: Medical - moderate - high VTE Device Contraindication: N/A - Device Ordered VTE Drug Contraindication: Treatment Not Indicated
[2024-10-23] MEDS: Midodrine HCl 5 MG TABLET PO ×2 (17:25→22:39)
[2024-10-23] MEDS: Furosemide 200 MG in 0.9 % Sodium Chloride 80 ML IVCONT (22:35)
[2024-10-24] VITALS (11 sets, daily range): BP systolic 96–136; BP diastolic 52–73; PULSE 55–86; RESP 16–18; TEMP 36.3–36.7; O2SAT 96–99
[2024-10-24] MEDS: Albumin Human 25 % 100 ML IV ×2 (02:50→08:15)
[2024-10-24] MEDS: Pantoprazole Sodium 40 MG/10 ML VIAL IVPUSH ×2 (05:47→15:58)
[2024-10-24 06:17] LABS: Eosinophils Percent Auto 0.9 % (0-4); Imm Gran Abs Auto 0.01 X10*3/uL (0.00-0.03); Imm Gran Pct Auto 0.4 % (0.0-0.4); Lymphocytes Absolute Auto 0.6 X10*3/uL (1.2-4.9); Lymphocytes Percent Auto 26.6 % (20-40); MANUAL DIFF FLAG SCAN; Mean Corpuscular HGB Conc 32.5 g/dl (31.0-36.0); Mean Corpuscular Hemoglobin 29.2 pg (27.0-33.0); Mean Corpuscular Volume 89.8 fL (80.0-98.0); Mean Platelet Volume 10.5 fL (9.4-12.4); Monocytes Absolute Auto 0.3 X10*3/uL (0.1-1.2); Monocytes Percent Auto 11.8 % (2-11); Neutrophils Absolute Auto 1.4 x10*3/uL (2.0-8.3); Neutrophils Percent Auto 60.3 % (45-73); Red Blood Count 2.26 X10*6/uL (4.60-5.80); Red Cell Distribution Width 19.8 % (11.0-16.0); SCAN SMEAR FLAG 1
[2024-10-24 06:33] LABS: INTERNATIONAL NORM RATIO 1.5 (0.9-1.1); Prothrombin Time 17.3 SEC (10.9-12.4)
[2024-10-24 06:39] LABS: Platelet Count 42 X10*3/uL (160-400); White Blood Count 2.3 X10*3/uL (4.8-10.8)
[2024-10-24 07:12] LABS: Hematocrit 20.3 % (42.0-52.0); Hemoglobin 6.6 g/dl (14.0-18.0)
[2024-10-24 07:13] LABS: SLIDE REVIEW VERIFIED
[2024-10-24] MEDS: 0.9 % Sodium Chloride Flush 3 ML SYRINGE IVFLUSH ×3 (08:17→22:22)
[2024-10-24] MEDS: Ferrous Sulfate 324 MG TABLET.DR PO ×2 (08:30→15:58)
[2024-10-24] MEDS: Midodrine HCl 5 MG TABLET PO ×3 (08:30→22:22)
[2024-10-24] MEDS: Metoprolol Tartrate 12.5 MG HALFTAB PO ×2 (08:30→22:21)
[2024-10-24] MEDS: rifAXIMin 550 MG TABLET PO ×2 (08:30→22:21)
[2024-10-24] MEDS: Magnesium Oxide 400 MG TABLET PO (08:30)
[2024-10-24] MEDS: Folic Acid 1 MG TABLET PO (08:30)
[2024-10-24] MEDS: Multivitamin TABLET 1 TAB PO (08:30)
[2024-10-24] MEDS: Zinc Sulfate 220 MG CAPSULE PO (08:30)
[2024-10-24] MEDS: methADONE HCl 20 MG/2 ML ORAL.CONC 50 MG PO (08:31)
[2024-10-24] MEDS: Nystatin Powder 15 GM BOTTLE 1 APPL TOPICAL ×2 (08:31→22:22)
[2024-10-24] MEDS: Lactulose 20 GM/30 ML SOLUTION PO ×2 (08:31→22:21)
--- NOTE | 2024-10-24 11:41 | HO.WOUND ---
Wound Consult: Follow up 69yr old male? [place] [facility] [place] See progress notes and H&P for detailed history.? Wound consult follow up for sacral wound.? Patient agreeable to assessment and photo documentation.? 10/24/24 Sacrum Etiology: Stage 2 Pressure Injury ?Present on Admission Wound Bed: red pink clean wound bed Drainage / Odor: None noted Edges: ? well defined Jessica wound: Bruising vs DTI noted to left sacrum, will monitor. mild moisture noted - No Induration, Fluctuance or Warmth noted Pain: denies Goals of Treatment: ? Triad to protect from moisture and allow for autolytic moist wound healing No new topical recommendations needed at this time. Recommendations: 1. Turn and Reposition every 2 hours and as needed for patient comfort.? Use pillows or wedges to support off loading positions. 2. Off Load all bony prominences with use of pillows and heel boots if needed.? Apply Preventative foams where needed. ? 3. Monitor for incontinence and moisture control, use barrier creams when needed for prevention and treatment. 4. Provide adequate and supplemental nutrition.? 5. Continue low air loss mattress. 6. When applicable maintain blood glucose levels per Providers order. 7. Sacrum - Off Load Pressure with Q2hr turns with pillows. Cleanse with PH balanced wipes, pat dry. Apply triad to wound bed twice daily and PRN. Only pat and dab no scrub and rub when soiling occurs. Reapply thin layer PRN after each episode of incontinence. Re-consult wound care Nurse for wound deterioration or wound changes.
--- NOTE | 2024-10-24 13:17 | PM.HEMONCPN ---
Medical Summary - Medical Summary Date of Service: 10/24/24 Chief complaint: Reports that he is feeling well Primary Care Provider: None Physician Interval History Interval history: Micheal Linder is a 69 year old male with history of liver cirrhosis related to hepatitis-C who has been admitted to the hospital with severe anemia, hemoglobin of 1.7 gram/dL. He says for several days prior to admission he has been feeling very weak and tired, on the day of admission he fell off the chair and his roommate called the ambulance. He was having black stools for a week or so, he did not have hematochezia. No associated nausea, vomiting or abdominal pain. No fever or chills. Patient was treated with Harvoni under physicians at [facility]. No history of alcohol abuse. He was admitted in August 2024 for encephalopathy and anemia. He received blood transfusion at that time but refused GI workup. 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 He has undergone EGD and colonoscopy. EGD revealed gastritis and mild portal hypertensive gastropathy. Colonoscopy showed polyps but no source of acute bleeding. Review of Systems - Neurologic Reports weakness [facility] Medical History: Medical History (Last Reviewed 10/13/24 @ 13:22 by Mandi Kaur MD) Cirrhosis Depression Esophageal varices Hepatitis C Opioid use disorder Surgical History: Surgical History (Last Reviewed 10/13/24 @ 13:22 by Mandi Kaur MD) Hx of AKA (above knee amputation) Social History: Social History (Last Reviewed 10/13/24 @ 13:22 by Mandi Kaur MD) Living Situation History: Household Members: Friend(s) Housing: Apartment Do you presently have visiting nurse or other home services: No Alcohol History: Unable to assess alcohol history related to: Unknown Alcohol History Details: 1. How often do you have a drink containing alcohol?: a. Never AUDIT-C Alcohol total score: 0 Currently Displaying Signs/Symptoms of Alcohol Withdrawal: No Tobacco History: Patient Tobacco Use Status: Never used Tobacco Substance Use History: Use of substances other than those prescribed or required for medical reasons: No Substance Use Type: Heroin Currently Displaying Signs/Symptoms of Drug Intoxication Withdrawal: No Advance Directives: Advance Directives: Yes Advance Directives on File: Yes Advance Directives Date on File: 08/31/24 Nutrition Assessment: Recently lost weight without trying: Unsure Nutrition Risks: Poor intake 0-25% >4 days Poor oral hygiene: No Occupation Assessmet: service: No Home Medications and Allergies Current Medications: Current Medications Acetaminophen (Acetaminophen 325 Mg Tablet) 650 mg PO Q6H PRN PRN Reason: Pain, Mild (Pain Scale 1-3), fever or headache Last Admin: 10/15/24 00:02 Dose: 650 mg Benzonatate (Benzonatate 100 Mg Capsule) 100 mg PO TID PRN PRN Reason: Cough Calcium Carbonate (Calcium Carbonate 750 Mg Tab.Chew) 750 mg PO Q4H PRN PRN Reason: Heartburn Ferrous Sulfate (Ferrous Sulfate 324 Mg Tablet.Dr) 324 mg PO BIDWM [facility] Last Admin: 10/24/24 08:30 Dose: 324 mg Folic Acid (Folic Acid 1 Mg Tablet) 1 mg PO DAILY [facility] Last Admin: 10/24/24 08:30 Dose: 1 mg Furosemide 200 mg/ Sodium (Chloride) 100 mls @ 2.5 mls/hr IVCONT .Q24H [facility] Last Admin: 10/23/24 22:35 Dose: 5 mg/hr, 2.5 mls/hr Lactulose (Lactulose 20 Gm/30 Ml Solution) 20 gm PO BID [facility] Last Admin: 10/24/24 08:31 Dose: 20 gm Magnesium Hydroxide (Milk Of Magnesia 30 Ml Oral.Susp) 30 ml PO DAILY PRN PRN Reason: Constipation Magnesium Oxide (Magnesium Oxide 400 Mg Tablet) 400 mg PO DAILY [facility] Last Admin: 10/24/24 08:30 Dose: 400 mg Melatonin (Melatonin 3 Mg Tablet) 6 mg PO BEDTIME PRN PRN Reason: Insomnia Last Admin: 10/15/24 00:02 Dose: 6 mg Methadone HCl (Methadone Hcl 20 Mg/2 Ml Oral.Conc) 50 mg PO DAILY [facility] Last Admin: 10/24/24 08:31 Dose: 50 mg Metoprolol Tartrate (Metoprolol Tartrate 12.5 Mg Halftab) 12.5 mg PO BID [facility]; Protocol Last Admin: 10/24/24 08:30 Dose: 12.5 mg Midodrine (Midodrine Hcl 5 Mg Tablet) 5 mg PO TID [facility] Last Admin: 10/24/24 08:30 Dose: 5 mg Multivitamins/Vitamin C (Multivitamin Tablet) 1 tab PO DAILY [facility] Last Admin: 10/24/24 08:30 Dose: 1 tab Naloxone HCl (Naloxone Hcl 0.4 Mg/Ml Vial) 0.04 mg IVPUSH Q5M PRN PRN Reason: Excessive sedation or RR < 8 Naloxone HCl (Naloxone Hcl 0.4 Mg/Ml Vial) 0.04 mg IVPUSH Q5M PRN PRN Reason: Excessive sedation or RR < 8 Nystatin (Nystatin Powder 15 Gm Bottle) 1 appl TOPICAL BID [facility]; Protocol Last Admin: 10/24/24 08:31 Dose: 1 appl Pantoprazole Sodium (Pantoprazole Sodium 40 Mg/10 Ml Vial) 40 mg IVPUSH BID@0630,1630 [facility] Last Admin: 10/24/24 05:47 Dose: 40 mg Rifaximin (Rifaximin 550 Mg Tablet) 550 mg PO BID [facility] Last Admin: 10/24/24 08:30 Dose: 550 mg Sodium Biphosphate/Sodium Phosphate (Sodium Phosphate,[place]-Dibasic 133 Ml Enema) 133 ml [place] ONCE PRN PRN Reason: Poor Colonoscopy Prep Results Last Admin: 10/17/24 10:41 Dose: 133 ml Sodium Chloride (0.9 % Sodium Chloride Flush 3 Ml Syringe) 3 ml IVFLUSH QSHIFT [facility] Last Admin: 10/24/24 08:17 Dose: 3 ml Zinc Sulfate (Zinc Sulfate 220 Mg Capsule) 220 mg PO DAILY [facility] Last Admin: 10/24/24 08:30 Dose: 220 mg Home Medications ?Medication ?Instructions ?Recorded ?Confirmed ?Type methadone 10 mg/mL oral 50 mg PO DAILY 08/25/24 10/13/24 History concentrate (Methadone Intensol) Allergies Allergy/AdvReac Type Severity Reaction Status Date / Time No Known Allergies Allergy Verified 10/12/24 08:59 Exam Vital signs: Vital Signs Temp 97.7 F 10/24/24 11:43 Pulse 61 10/24/24 11:43 Resp 16 10/24/24 11:43 BP 127/65 10/24/24 11:43 Pulse Ox 96 10/24/24 11:41 O2 Del Method Room Air 10/24/24 11:41 O2 Flow Rate 3 10/17/24 12:27 Intake & Output 10/23/24 10/24/24 10/24/24 18:59 06:59 18:59 Intake Total 1702 / 2205.333 503.333 / 2205.333 450 / 450 Output Total 1900 / 1900 750 / 750 Balance 1702 / 305.333 -1396.667 / 305.333 -300 / -300 Urine Output (Average ml/kg/hr) 1.55 0.61 Intake: Intake, Oral Amount 400 / 640 240 / 640 Intake (Blood Product) Amount 350 / 350 Red Blood Cells (E0336) Unit 350 / 350 [id number] Intake, IV Amount 1302 / 1565.333 263.333 / 1565.333 100 / 100 Albumin Human 25 % 100 ml @ 100 300 / 500 200 / 500 100 / 100 mls/hr IV Q6H [facility] Rx#: [id number] Furosemide 200 mg In 0.9 % 63.333 / 63.333 Sodium Chloride 80 ml @ 5 MG/HR 2.5 mls/hr IVCONT .Q24H [facility] Rx #:[id number] Octreotide Acetate 500 mcg In 0 1002 / 1002 .9 % Sodium Chloride 500 ml @ 50 MCG/HR 50.1 mls/hr IVCONT . Q10H [facility] Rx#:[id number] Output: Output, Urine Amount 1900 / 1900 750 / 750 Other: Lunch % Eaten 75% Eating (Feeding) Ability Cueing Needed Number of Unmeasured Voids 1 Number of Bowel Movements 2 Urine purewick Urine Color Pale Yellow Last Bowel Movement 10/22/24 10/24/24 10/24/24 Stool Incontinent Stool Amount Moderate Weight 102 kg BMI result Body Mass Index 34.2 - Constitutional Present: no acute distress, obese, somnolent - Routine HEENT Exam Head: Present: normal inspection - Routine Respiratory Exam Present: CTAB. Absent: wheezes - Routine Cardiovascular Exam Cardiovascular: Present: S1, S2 - Routine Abdominal Exam Present: soft - Routine Extremities Exam Present: pulses intact Data - Labs CBC & Chem 7: 10/24/24 05:47 10/23/24 06:14 Labs: Laboratory Last Values WBC 2.3 X10*3/uL (4.8-10.8) L 10/24/24 05:47 WBC Cancelled 10/24/24 05:47 RBC 2.26 X10*6/uL (4.60-5.80) L D 10/24/24 05:47 RBC Cancelled 10/24/24 05:47 Hgb 6.6 g/dl (14.0-18.0) L* D 10/24/24 05:47 Hgb Cancelled 10/24/24 05:47 Hct 20.3 % (42.0-52.0) L* D 10/24/24 05:47 Hct Cancelled 10/24/24 05:47 MCV 89.8 fL (80.0-98.0) 10/24/24 05:47 MCV Cancelled 10/24/24 05:47 MCH 29.2 pg (27.0-33.0) 10/24/24 05:47 MCH Cancelled 10/24/24 05:47 MCHC 32.5 g/dl (31.0-36.0) 10/24/24 05:47 MCHC Cancelled 10/24/24 05:47 RDW 19.8 % (11.0-16.0) H 10/24/24 05:47 RDW Cancelled 10/24/24 05:47 Plt Count 42 X10*3/uL (160-400) L D 10/24/24 05:47 Plt Count Cancelled 10/24/24 05:47 MPV 10.5 fL (9.4-12.4) 10/24/24 05:47 MPV Cancelled 10/24/24 05:47 Immature Gran % (Auto) 0.4 % (0.0-0.4) 10/24/24 05:47 Immature Gran % (Auto) Cancelled 10/24/24 05:47 Neut % (Auto) 60.3 % (45-73) 10/24/24 05:47 Neut % (Auto) Cancelled 10/24/24 05:47 Lymph % (Auto) 26.6 % (20-40) 10/24/24 05:47 Lymph % (Auto) Cancelled 10/24/24 05:47 [place] % (Auto) 11.8 % (2-11) H 10/24/24 05:47 [place] % (Auto) Cancelled 10/24/24 05:47 Eos % (Auto) 0.9 % (0-4) 10/24/24 05:47 Eos % (Auto) Cancelled 10/24/24 05:47 Baso % (Auto) 0.0 % (0-2) 10/24/24 05:47 Baso % (Auto) Cancelled 10/24/24 05:47 Lymph # (Auto) 0.6 X10*3/uL (1.2-4.9) L 10/24/24 05:47 Lymph # (Auto) Cancelled 10/24/24 05:47 [place] # (Auto) 0.3 X10*3/uL (0.1-1.2) 10/24/24 05:47 [place] # (Auto) Cancelled 10/24/24 05:47 Eos # (Auto) 0.0 X10*3/uL (0.0-0.4) 10/24/24 05:47 Eos # (Auto) Cancelled 10/24/24 05:47 Baso # (Auto) 0.0 X10*3/uL (0.0-0.2) 10/24/24 05:47 Baso # (Auto) Cancelled 10/24/24 05:47 Abs Immat Gran (auto) 0.01 X10*3/uL (0.00-0.03) 10/24/24 05:47 Abs Immat Gran (auto) Cancelled 10/24/24 05:47 Absolute Neuts (auto) 1.4 x10*3/uL (2.0-8.3) L 10/24/24 05:47 Absolute Neuts (auto) Cancelled 10/24/24 05:47 Absolute Nucleated RBC 0.000 X10*3/uL (0.0-0.012) 10/24/24 05:47 Absolute Nucleated RBC Cancelled 10/24/24 05:47 Nucleated RBC % (auto) 0.0 /100WBC (0.0-0.2) 10/24/24 05:47 Nucleated RBC % (auto) Cancelled 10/24/24 05:47 Smear Tech's Comments VERIFIED 10/24/24 05:47 Smear Path Review Cancelled 10/15/24 06:27 ESR 4 MM/HR (0-15) 10/19/24 15:03 Absolute Retic 0.145 X10*6/uL (0.026-0.095) H 10/19/24 15:03 Percent Retic 5.1 % (0.5-1.8) H 10/19/24 15:03 Immature Retic Fraction 14.6 % (2.3-13.4) H 10/19/24 15:03 Retic Hgb Equivalent 18.8 pg (30.0-35.0) L 10/19/24 15:03 Hold Purple Top SEE NOTE 10/14/24 06:59 PT 17.3 SEC (10.9-12.4) H D 10/24/24 05:47 INR 1.5 (0.9-1.1) H 10/24/24 05:47 APTT 28.1 SEC (26.0-36.8) 10/13/24 03:52 VBG pH 7.55 (7.32-7.43) H 10/12/24 09:42 VBG pCO2 24 mmHg 10/12/24 09:42 VBG pO2 78 mmHg 10/12/24 09:42 VBG HCO3 21 mmol/L (22-26) L 10/12/24 09:42 VBG O2 Saturation TNP 10/12/24 09:42 VBG Base Excess -1.2 mmol/L 10/12/24 09:42 Sodium 144 mmol/L (135-145) 10/23/24 06:14 Potassium 3.4 mmol/L (3.3-5.1) 10/23/24 06:14 Chloride 110 mmol/L (96-108) H 10/23/24 06:14 Carbon Dioxide 23 mmol/L (22-29) 10/23/24 06:14 Anion Gap 14 (12-20) 10/23/24 06:14 BUN 28 mg/dL (9-16) H 10/23/24 06:14 Creatinine 0.82 mg/dL (0.5-1.4) 10/23/24 06:14 Estim Creat Clear Calc 96.0 10/23/24 06:14 Estimated GFR > 60 10/23/24 06:14 POC Glucose 116 mg/dL (60-115) H 10/12/24 09:33 Random Glucose 96 mg/dL (60-115) 10/23/24 06:14 Fasting Glucose 111 mg/dL (60-99) H 10/14/24 06:59 Lactic Acid 3.5 mmol/L (0.5-2.0) H* 10/12/24 11:31 Lactic Acid F/U @ 2Hr Cancelled 10/12/24 15:01 Calcium 8.3 mg/dL (8.4-10.2) L 10/23/24 06:14 Magnesium 2.0 mg/dL (1.6-2.6) 10/20/24 06:57 Iron 14 mcg/dL (45-160) L 10/12/24 09:39 TIBC 281 mcg/dL (228-428) 10/12/24 09:39 % Saturation 5 % (15-50) L 10/12/24 09:39 Unsat Iron Binding 267 ug/dL 10/12/24 09:39 Ferritin 22 ng/mL (20-250) 10/12/24 09:39 Total Bilirubin 3.3 mg/dL (0.0-1.0) H 10/22/24 05:59 Direct Bilirubin 1.6 mg/dL (0.0-0.5) H 10/22/24 05:59 AST 49 U/L (5-37) H 10/22/24 05:59 ALT 20 U/L (0-40) 10/22/24 05:59 Alkaline Phosphatase 69 U/L (39-117) 10/22/24 05:59 Ammonia 115 umol/L (13-55) H 10/20/24 01:11 Lactate Dehydrogenase 191 U/L (118-273) 10/18/24 05:55 Total Creatine Kinase 80 U/L (38-174) 10/12/24 09:39 C-Reactive Protein 2.03 mg/dL (< or = 0.50) H 10/18/24 05:55 B-Natriuretic Peptide 637 pg/mL (<100) H 10/12/24 18:14 Total Protein 4.4 g/dL (6.5-8.0) L 10/22/24 05:59 Albumin 2.2 g/dL (3.5-5.0) L 10/22/24 05:59 Stool Occult Blood POSITIVE (NEGATIVE) 10/19/24 16:00 Ethyl Alcohol < 10 mg/dL 10/12/24 09:39 Blood Type O Positive 10/21/24 15:33 Antibody Screen NEGATIVE 10/21/24 15:33 Crossmatch See Detail 10/21/24 15:33 - Imaging Radiologist's impression: ITS Impressions Chest CT 10/12/24 10:02 IMPRESSION: Left-sided pleural effusion, moderate volume and likely left-sided asymmetric pulmonary edema. Cardiomegaly. Hepatocellular disease/cirrhosis. Varices, gastroesophageal. Cholelithiasis. Fleischner guidelines were followed. Electronically signed by: Addison Davis MD 10/12/2024 01:15 PM EST RP Abdomen/Pelvis CT 10/12/24 11:08 IMPRESSION: Cirrhosis without ascites and no overt active gastrointestinal bleed. Portal vein thrombosis. Large volume of gastroesophageal varices. Cholelithiasis. Left-sided pleural effusion. Cardiomegaly. Discussed with the requesting physician (Dr. Eulalia Andrews) at the time of the examination 1:30 PM on October 12, 2024. Fleischner guidelines were followed. Electronically signed by: Addison Davis MD 10/12/2024 01:36 PM EST RP Assessment and Plan Patient Active problem list reviewed?: Yes (1) Anemia due to blood loss Status: Acute Assessment and plan: 1. This is a 69-year-old male with liver cirrhosis related to previous hepatitis-C, status post Harvoni who is now presenting with severe anemia. He has had melena and imaging with CT abdomen shows multiple gastroesophageal varices but no ascites or focal lesions. There is portal vein thrombosis. Left-sided pleural effusion, cardiomegaly and splenomegaly. For severe anemia, hemoglobin 1.7 gram/dL, he received 7 units PRBC, 2 FFP. His platelet count dropped to 12 K which is probably dilutional from blood loss and receiving PRBC. He responded appropriately to 1 unit platelet transfusion. His coagulation tests are at his baseline, he has mild coagulopathy of liver disease. There was no evidence of DIC, or any myelophthisic process. EGD/colonoscopy showed gastritis and mild portal hypertensive gastropathy. No evidence of acute bleed. Patient continues to drop his blood counts and remains transfusion dependent. I discussed bone marrow aspiration/biopsy to rule out any bone marrow processes such as leukemia/MDS and lymphoma. Patient understood the procedure, he said he would think about it, he did not consent yet the procedure. I recommend CT-guided bone marrow aspiration/biopsy in the next few days. - Time Spent With Patient Time Spent with Patient (in minutes): 15
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
[2024-10-25 03:39] VITALS: BP 108/61; PULSE 52; RESP 18; TEMP 36.3; O2SAT 98
[2024-10-25 06:32] LABS: Hematocrit 22.8 % (42.0-52.0); Hemoglobin 7.5 g/dl (14.0-18.0); Mean Corpuscular HGB Conc 32.9 g/dl (31.0-36.0); Mean Corpuscular Hemoglobin 29.6 pg (27.0-33.0); Mean Corpuscular Volume 90.1 fL (80.0-98.0); Mean Platelet Volume 11.3 fL (9.4-12.4); Red Blood Count 2.53 X10*6/uL (4.60-5.80); Red Cell Distribution Width 19.5 % (11.0-16.0)
[2024-10-25 06:33] LABS: Platelet Count 50 X10*3/uL (160-400); White Blood Count 1.9 X10*3/uL (4.8-10.8)
[2024-10-25 06:52] LABS: Haptoglobin 28 mg/dL (40-268)
[2024-10-25 07:07] VITALS: BP 115/60; PULSE 53; RESP 18; TEMP 36.3; O2SAT 97
[2024-10-25 07:26] LABS: Folate 14.1 ng/mL (> or = 4.0); Vitamin B12 1179 pg/mL (200-900)
[2024-10-25 07:54] LABS: Alanine Aminotransferase 18 U/L (0-40); Albumin Level 3.6 g/dL (3.5-5.0); Alkaline Phosphatase 54 U/L (39-117); Anion Gap 11 (12-20); Aspartate Amino Transferase 44 U/L (5-37); Bilirubin Direct 1.1 mg/dL (0.0-0.5); Bilirubin Total 2.5 mg/dL (0.0-1.0); Blood Urea Nitrogen 16 mg/dL (9-16); Calcium 8.2 mg/dL (8.4-10.2); Carbon Dioxide 30 mmol/L (22-29); Chloride 104 mmol/L (96-108); Creatinine Clr Calc Pharmacy 115.2; Estimated Glomerular Filt Rate > 60; Glucose Random 99 mg/dL (60-115); Lactate Dehydrogenase 175 U/L (118-273); Potassium 2.7 mmol/L (3.3-5.1); Sodium 142 mmol/L (135-145); Total Protein 5.2 g/dL (6.5-8.0)
[2024-10-25] MEDS: methADONE HCl 20 MG/2 ML ORAL.CONC 50 MG PO (08:21)
[2024-10-25] MEDS: rifAXIMin 550 MG TABLET PO ×2 (08:22→20:45)
[2024-10-25] MEDS: Lactulose 20 GM/30 ML SOLUTION PO ×2 (08:22→20:45)
[2024-10-25] MEDS: Zinc Sulfate 220 MG CAPSULE PO (08:22)
[2024-10-25] MEDS: Ferrous Sulfate 324 MG TABLET.DR PO ×2 (08:22→16:12)
[2024-10-25] MEDS: Folic Acid 1 MG TABLET PO (08:22)
[2024-10-25] MEDS: Midodrine HCl 5 MG TABLET PO ×3 (08:22→20:43)
[2024-10-25] MEDS: Magnesium Oxide 400 MG TABLET PO (08:22)
[2024-10-25] MEDS: Nystatin Powder 15 GM BOTTLE 1 APPL TOPICAL ×2 (08:22→20:45)
[2024-10-25] MEDS: Metoprolol Tartrate 12.5 MG HALFTAB PO ×2 (08:22→20:42)
[2024-10-25] MEDS: Multivitamin TABLET 1 TAB PO (08:22)
[2024-10-25] MEDS: 0.9 % Sodium Chloride Flush 3 ML SYRINGE IVFLUSH ×3 (08:23→20:46)
[2024-10-25] MEDS: Potassium Chloride ER 20 MEQ TAB.ER.PRT 40 MEQ PO ×2 (08:44→16:12)
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
--- NOTE | 2024-10-25 10:07 | MHC.CLN ---
F/U PT WITH INCREASED NUTRITION RISK R/T PRESSURE INJURY PO INTAKE: VARIABLE DIET RX: REGULAR-APPROPRIATE PT RECEIVING ENSURE TID TO PROMOTE WOUND HEALING AND INCREASE KCALS SUPP PROVIDES 1050KCALS, 60G PROTEIN CONTINUE TO MONITOR PO INTAKE AND ENCOURAGE SUPPLEMENT
[2024-10-25 11:16] VITALS: BP 103/65; PULSE 59; RESP 17; TEMP 36.2; O2SAT 96
[2024-10-25 15:16] VITALS: BP 105/58; PULSE 63; RESP 14; TEMP 36.3; O2SAT 94
--- NOTE | 2024-10-25 16:01 | MHC.CM.PN ---
EMR reviewed and per MD rounds, pt is not medically cleared for discharge due to management of worsening pancytopenia.
[2024-10-25 19:23] VITALS: BP 115/65; PULSE 68; RESP 16; TEMP 36.3; O2SAT 99
[2024-10-25] MEDS: Melatonin 3 MG TABLET 6 MG PO (20:45)
[2024-10-25 23:27] VITALS: BP 106/54; PULSE 57; RESP 16; TEMP 36; O2SAT 100
[2024-10-26] VITALS (17 sets, daily range): BP systolic 94–117; BP diastolic 50–71; PULSE 54–75; RESP 13–18; TEMP 36.1–36.8; O2SAT 92–100
[2024-10-26 06:49] LABS: Anion Gap 15 (12-20); Blood Urea Nitrogen 13 mg/dL (9-16); Calcium 8.8 mg/dL (8.4-10.2); Carbon Dioxide 27 mmol/L (22-29); Chloride 104 mmol/L (96-108); Creatinine Clr Calc Pharmacy 127.8; Estimated Glomerular Filt Rate > 60; Glucose Random 99 mg/dL (60-115); Potassium 3.5 mmol/L (3.3-5.1); Sodium 142 mmol/L (135-145)
[2024-10-26 07:06] LABS: Hemoglobin 7.3 g/dl (14.0-18.0)
[2024-10-26 07:08] LABS: Hematocrit 22.6 % (42.0-52.0); Mean Corpuscular HGB Conc 32.3 g/dl (31.0-36.0); Mean Corpuscular Hemoglobin 29.2 pg (27.0-33.0); Mean Corpuscular Volume 90.4 fL (80.0-98.0); Mean Platelet Volume 11.7 fL (9.4-12.4)
[2024-10-26 07:12] LABS: Platelet Count 44 X10*3/uL (160-400); White Blood Count 1.4 X10*3/uL (4.8-10.8)
[2024-10-26 07:13] LABS: PLT ABN DIST 1
[2024-10-26] MEDS: Midodrine HCl 5 MG TABLET PO ×3 (07:26→19:51)
[2024-10-26] MEDS: Ferrous Sulfate 324 MG TABLET.DR PO ×2 (07:26→16:09)
[2024-10-26] MEDS: Zinc Sulfate 220 MG CAPSULE PO (07:26)
[2024-10-26] MEDS: rifAXIMin 550 MG TABLET PO ×2 (07:26→19:51)
[2024-10-26] MEDS: Metoprolol Tartrate 12.5 MG HALFTAB PO (07:26)
[2024-10-26] MEDS: methADONE HCl 20 MG/2 ML ORAL.CONC 50 MG PO (07:27)
[2024-10-26] MEDS: Folic Acid 1 MG TABLET PO (07:27)
[2024-10-26] MEDS: Multivitamin TABLET 1 TAB PO (07:27)
[2024-10-26] MEDS: Magnesium Oxide 400 MG TABLET PO (07:27)
[2024-10-26] MEDS: Lactulose 20 GM/30 ML SOLUTION PO ×3 (07:27→19:51)
[2024-10-26] MEDS: 0.9 % Sodium Chloride Flush 3 ML SYRINGE IVFLUSH ×3 (07:29→19:52)
[2024-10-26] MEDS: Nystatin Powder 15 GM BOTTLE 1 APPL TOPICAL ×2 (07:40→19:51)
[2024-10-26] MEDS: Midazolam HCl/PF 2 MG/2 ML VIAL 1 MG IVPUSH (08:27)
[2024-10-26] MEDS: fentaNYL citrate/PF 100 MCG/2 ML VIAL 50 MCG IVPUSH (08:29)
--- NOTE | 2024-10-26 09:13 | P.CDIM_ITS ---
PROVIDER RESPONSE TEXT: To clarify, the appropriate diagnosis supported by the clinical indicators: Hypokalemia: acute QUERY TEXT: PHYSICIAN'S DOCUMENTATION REQUEST Date of Query: 10/26/2024 08:26 AM EST Patient Name: Micheal Linder Admit Date: 10/12/2024 Dear Jasvir Lira MD, A review of the medical record indicates additional documentation may be needed. Please review below and update the documentation accordingly. Clinical Indicators: LABS: potassium 2.7 L 3.5 Klor-con Based on the above, is there a diagnosis that correlates with these lab findings: Hypokalemia possible, resolved, suspected etc. Labs indicate a diagnosis of (please specify) Other (explain) Clinically unable to determine (explain) Thank you, Melody Lomeli, CCS, CDIS Use of terms such as suspected, likely, concern for, or probable (associated with a specific diagnosi s that is being evaluated, monitored, or treated as if it exists) are acceptable and can be coded in the inpatient se tting, when documented at the time of discharge. Please use your independent medical judgment in providing your response. THIS QUERY IS PART OF THE PERMANENT MEDICAL RECORD
--- NOTE | 2024-10-26 09:36 | PM.PROC ---
Brief Operative Note Date of procedure: 10/26/24 Pre-op diagnosis: Panctyopenia, cirrhosis Post-op diagnosis: same Procedure: CT bone marrow biopsy Left PIS- 11 g core and aspiration performed. No immediate complications.
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
[2024-10-26 09:59] LABS: Bone Marrow SEE SEPARATE REPORT
--- NOTE | 2024-10-26 10:23 | MHC.CM.PN ---
Per ROUNDS discussion, Patient is still acute and not yet medically cleared for dc( bone marrow biopsy today);CM will continue to follow.
[2024-10-27] VITALS (10 sets, daily range): BP systolic 94–109; BP diastolic 50–82; PULSE 62–85; RESP 16–20; TEMP 36.2–36.9; O2SAT 95–100
[2024-10-27 06:52] LABS: Hematocrit 23.3 % (42.0-52.0); Hemoglobin 7.4 g/dl (14.0-18.0); Mean Corpuscular HGB Conc 31.8 g/dl (31.0-36.0); Mean Corpuscular Hemoglobin 29.2 pg (27.0-33.0); Mean Corpuscular Volume 92.1 fL (80.0-98.0); Mean Platelet Volume 12.6 fL (9.4-12.4); Platelet Count 50 X10*3/uL (160-400); Red Blood Count 2.53 X10*6/uL (4.60-5.80); Red Cell Distribution Width 18.8 % (11.0-16.0); White Blood Count 1.3 X10*3/uL (4.8-10.8)
[2024-10-27] MEDS: Zinc Sulfate 220 MG CAPSULE PO (07:18)
[2024-10-27] MEDS: Folic Acid 1 MG TABLET PO (07:18)
[2024-10-27] MEDS: Lactulose 20 GM/30 ML SOLUTION PO ×3 (07:18→21:03)
[2024-10-27] MEDS: Multivitamin TABLET 1 TAB PO (07:18)
[2024-10-27] MEDS: Nystatin Powder 15 GM BOTTLE 1 APPL TOPICAL ×2 (07:18→21:12)
[2024-10-27] MEDS: Magnesium Oxide 400 MG TABLET PO (07:18)
[2024-10-27] MEDS: 0.9 % Sodium Chloride Flush 3 ML SYRINGE IVFLUSH ×3 (07:18→21:05)
[2024-10-27] MEDS: Midodrine HCl 5 MG TABLET PO ×3 (07:19→21:03)
[2024-10-27] MEDS: methADONE HCl 20 MG/2 ML ORAL.CONC 50 MG PO (07:19)
[2024-10-27] MEDS: rifAXIMin 550 MG TABLET PO ×2 (07:19→21:03)
[2024-10-27] MEDS: Ferrous Sulfate 324 MG TABLET.DR PO ×2 (07:19→15:40)
[2024-10-27 07:23] LABS: Anion Gap 13 (12-20); Blood Urea Nitrogen 12 mg/dL (9-16); Calcium 9.2 mg/dL (8.4-10.2); Carbon Dioxide 29 mmol/L (22-29); Chloride 106 mmol/L (96-108); Estimated Glomerular Filt Rate > 60; Glucose Random 84 mg/dL (60-115); Potassium 3.9 mmol/L (3.3-5.1); Sodium 144 mmol/L (135-145)
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
--- NOTE | 2024-10-27 11:13 | MHC.CLN ---
F/U PT WITH INCREASED NUTRITION RISK R/T PRESSURE INJURY PO INTAKE: REMAINS VARIABLE DIET RX: REGULAR-APPROPRIATE PT RECEIVING ENSURE TID TO PROMOTE WOUND HEALING AND INCREASE KCALS SUPP PROVIDES 1050KCALS, 60G PROTEIN CONTINUE TO MONITOR PO INTAKE AND ENCOURAGE SUPPLEMENT
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
--- NOTE | 2024-10-27 13:26 | MHC.CM.PN ---
EMR reviewed and per MD rounds, pt is not medically cleared for discharge due to workup of pancytopenia.
[2024-10-27] MEDS: Metoprolol Tartrate 12.5 MG HALFTAB PO (21:05)
[2024-10-28] VITALS (19 sets, daily range): BP systolic 92–115; BP diastolic 51–64; PULSE 61–109; RESP 12–19; TEMP 36.2–37.4; O2SAT 96–99
[2024-10-28 07:10] LABS: Mean Corpuscular HGB Conc 30.8 g/dl (31.0-36.0); Mean Corpuscular Hemoglobin 28.3 pg (27.0-33.0); Mean Platelet Volume 11.5 fL (9.4-12.4); Platelet Count 134 X10*3/uL (160-400); Red Blood Count 2.26 X10*6/uL (4.60-5.80); Red Cell Distribution Width 18.4 % (11.0-16.0); White Blood Count 5.6 X10*3/uL (4.8-10.8)
[2024-10-28 07:16] LABS: Anion Gap 16 (12-20); Blood Urea Nitrogen 19 mg/dL (9-16); Calcium 8.3 mg/dL (8.4-10.2); Carbon Dioxide 23 mmol/L (22-29); Chloride 106 mmol/L (96-108); Creatinine Clr Calc Pharmacy 134.1; Estimated Glomerular Filt Rate > 60; Glucose Random 129 mg/dL (60-115); Sodium 141 mmol/L (135-145)
[2024-10-28 07:32] LABS: Glucose, Whole Blood 118 mg/dL (60-115)
[2024-10-28 07:39] LABS: Hematocrit 20.8 % (42.0-52.0); Hemoglobin 6.4 g/dl (14.0-18.0)
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
[2024-10-28] MEDS: rifAXIMin 550 MG TABLET PO (10:02)
[2024-10-28] MEDS: Multivitamin TABLET 1 TAB PO (10:02)
[2024-10-28] MEDS: Zinc Sulfate 220 MG CAPSULE PO (10:02)
[2024-10-28] MEDS: Folic Acid 1 MG TABLET PO (10:02)
[2024-10-28] MEDS: Magnesium Oxide 400 MG TABLET PO (10:02)
[2024-10-28] MEDS: methADONE HCl 20 MG/2 ML ORAL.CONC 50 MG PO (10:03)
[2024-10-28] MEDS: 0.9 % Sodium Chloride Flush 3 ML SYRINGE IVFLUSH ×3 (10:03→20:30)
[2024-10-28] MEDS: Lactulose 20 GM/30 ML SOLUTION PO (10:03)
[2024-10-28] MEDS: Ferrous Sulfate 324 MG TABLET.DR PO ×2 (10:03→16:08)
[2024-10-28] MEDS: Metoprolol Tartrate 12.5 MG HALFTAB PO (10:09)
[2024-10-28] MEDS: Midodrine HCl 5 MG TABLET PO ×2 (10:09→14:29)
[2024-10-28] MEDS: Nystatin Powder 15 GM BOTTLE 1 APPL TOPICAL (10:12)
[2024-10-28] MEDS: Octreotide Acetate 100 MCG/ML AMPUL 50 MCG IVPUSH ×2 (13:24→20:30)
[2024-10-28] MEDS: Pantoprazole Sodium 40 MG/10 ML VIAL IVPUSH (13:24)
[2024-10-28] MEDS: cefTRIAXone sodium 1 GM VIAL IVPUSH (14:25)
[2024-10-28] MEDS: Albumin Human 25 % 100 ML IV ×2 (14:28→16:07)
[2024-10-28 16:48] LABS: Hematocrit 20.2 % (42.0-52.0); Hemoglobin 6.5 g/dl (14.0-18.0)
[2024-10-28 20:59] LABS: Glucose, Whole Blood 101 mg/dL (60-115)
[2024-10-29] VITALS (18 sets, daily range): BP systolic 91–114; BP diastolic 47–65; PULSE 71–101; RESP 15–18; TEMP 36.5–37.4; O2SAT 94–100
[2024-10-29] MEDS: Octreotide Acetate 100 MCG/ML AMPUL 50 MCG IVPUSH ×2 (05:51→12:51)
[2024-10-29] MEDS: Pantoprazole Sodium 40 MG/10 ML VIAL IVPUSH (05:51)
[2024-10-29 06:11] LABS: Mean Corpuscular HGB Conc 31.4 g/dl (31.0-36.0); Mean Corpuscular Hemoglobin 28.7 pg (27.0-33.0); Mean Corpuscular Volume 91.3 fL (80.0-98.0); Mean Platelet Volume 10.4 fL (9.4-12.4); Red Cell Distribution Width 16.7 % (11.0-16.0)
[2024-10-29 06:12] LABS: Platelet Count 48 X10*3/uL (160-400); White Blood Count 1.2 X10*3/uL (4.8-10.8)
[2024-10-29 06:16] LABS: Hematocrit 13.7 % (42.0-52.0); Hemoglobin 4.3 g/dl (14.0-18.0)
[2024-10-29 06:25] LABS: Anion Gap 11 (12-20); Blood Urea Nitrogen 19 mg/dL (9-16); Calcium 8.3 mg/dL (8.4-10.2); Carbon Dioxide 29 mmol/L (22-29); Chloride 105 mmol/L (96-108); Estimated Glomerular Filt Rate > 60; Glucose Random 109 mg/dL (60-115); Potassium 3.9 mmol/L (3.3-5.1); Sodium 141 mmol/L (135-145)
[2024-10-29] MEDS: cefTRIAXone sodium 1 GM VIAL IVPUSH (06:34)
--- NOTE | 2024-10-29 06:38 | PC.NURSE ---
Shravan from lab this morning to typewriter tester with covering Dr. Whitman included in message re: pt H+H critical at 4.3/13.7. Vitals obtained, BP soft 91/47 (map 62) HR 91. Patient is alert and conversing with clear speech with staff, mentation maintained per previous, and pt symptoms. MD orders for FFP, Plt, RBC, 1x rocephin. Nursing sandblaster supervisor made aware. Patient has been NPO since midnight for ?EGD per MD.
--- NOTE | 2024-10-29 07:31 | PC.NURSE ---
Pt more altered than normal, (disoriented to person, place, time, and year). Had large stool that was black and red tinged on commode, and was also incon of urine on floor. Pt was too altered to have meds as he a unable to fully follow commands. Only held meds in hand but would not bring them to mouth, safety issue to swallow. Only admin IVP octreotide. Transfused 1 unit of PRBCs and 1 FFP for Hgb of 6.5 and Plt of 134. Labs ordered for AM. At 23:04, pt had run of MD DARCY made aware. No new orders. See vitals.
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
--- NOTE | 2024-10-29 09:35 | MHC.SHP ---
Pre-Procedural Eval Section A - 24 Hr Update-Section A only Date of Service: 10/29/24 The patient is an INPATIENT: Yes Changes since office visit: No Cold of Flu in the past 2 weeks, No New Medical Problems, No Changes in Medication and No Patient answered all questions The patient has been examined within 24 hours of the surgical procedure. The History & Physical has been completed within 30 days and I have reviewed it.: Yes Section B - Complete if H&P > 30 days Chief Complaint: Acutw blood loss anemia Allergies: Allergies Allergy/AdvReac Type Severity Reaction Status Date / Time No Known Allergies Allergy Verified 10/12/24 08:59 Plan I have reviewed the history and physical and performed a pertinent physical examination on my patient. No changes have occurred unless specified. Time Spent With Patient Time: Total time managing care of this patient today ____ minutes.
--- NOTE | 2024-10-29 10:46 | PM.EVENT ---
Event Note Date of Service: 10/29/24 Event Note: EGD dictated large gastric varix with adherent clot, nonbleeding Rec: continue octreotide transfer to tertiary care [facility] for possible TIPS vs BRTO Time Spent With Patient Time: Total time managing care of this patient today ____ minutes.
--- NOTE | 2024-10-29 11:52 | OP_ITS ---
DATE OF SERVICE: 10/29/2024 SURGEON: Oli Oscar MD INDICATIONS: Upper GI bleeding. PREOPERATIVE DIAGNOSIS: POSTOPERATIVE DIAGNOSIS: PROCEDURE PERFORMED: Upper endoscopy. ESTIMATED BLOOD LOSS: COMPLICATIONS: ANESTHESIA: General anesthesia. ASSISTANTS: SPECIMENS: DESCRIPTION OF PROCEDURE: A history and physical performed. The risks and benefits of the procedure were explained to the patient. Informed consent was obtained. The patient was placed in the left lateral decubitus position. The Olympus videogastroscope was introduced into the esophagus, stomach, and duodenum. Examination was performed. The scope was removed. He tolerated the procedure well and was taken to recovery area in stable condition. FINDINGS: 1. Esophagus: The esophagus was normal. No varices were identified. 2. Stomach: The stomach showed a large 2X3 cm gastric varix in the fundus with some smaller varices. There was an adherent clot on the large varix There was no active bleeding. There was a small amount of old blood in the stomach. No therapy was performed. There was portal hypertensive gastropathy. 3. Duodenum: The bulb and 2nd portion were normal. IMPRESSION: 1. Gastric varices with adherent clot, not bleeding. 2. Portal hypertensive gastropathy. RECOMMENDATION: 1. Continue to monitor hematocrit. 2. Continue octreotide. 3. The patient will need to be transferred to a tertiary care center with expertise at management of bleeding gastric varices such as emergent TIPS vs BRTO. MD MARIO Sagastume/SANTOSH / [id number] MTDD
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
--- NOTE | 2024-10-29 12:23 | MHC.CM.PN ---
Patient will be transferred to [facility], pending bed availability.
[2024-10-29] MEDS: Midodrine HCl 5 MG TABLET PO (12:50)
[2024-10-29] MEDS: rifAXIMin 550 MG TABLET PO (12:58)
[2024-10-29] MEDS: Nystatin Powder 15 GM BOTTLE 1 APPL TOPICAL (12:58)
[2024-10-29] MEDS: 0.9 % Sodium Chloride Flush 3 ML SYRINGE IVFLUSH (13:09)
[2024-10-29 14:27] LABS: Hematocrit 14.7 % (42.0-52.0); Hemoglobin 4.9 g/dl (14.0-18.0)
--- NOTE | 2024-10-29 14:34 | P.EN_ITS ---
Event Note Date of Service: 10/29/24 Event Note: EGD with gastric varix (see report), patient accepted to ICU at [facility] (dr Medardo valencia), currently 3rd bed in line, will transfer to ICU while awaiting bed Time Spent With Patient Time: Total time managing care of this patient today ____ minutes.
--- NOTE | 2024-10-29 15:41 | PC.NURSE ---
pt being transfered to via ambulance. PRBC currently running at 100mL/hr. vitals / end of transfusion will not documented in [facility] by this RN d/t transfer. pt left [facility] at 1543 10/29/24
== END 2024-10-29 15:43 | disposition short-term general hospital (02) | DRG 811 ==
LOC: HO.ED 12:14 → HO.EDOVER 14:50 → HO.IMC 15:47
PROVIDERS: Internal Medicine; Internal Medicine Gastroenterology; Pathology Anatomic Pathology & Clinical Pathology; Physician Assistant Surgical; Student in an Organized Health Care Education/Training Program; Admitting Provider Student in an Organized Health Care Education/Training Program; Emergency Provider Student in an Organized Health Care Education/Training Program; Visit Provider Internal Medicine
PROC: 0DJ08ZZ Inspection of Upper Intestinal Tract, Via Natural or Artificial Opening Endoscopic (ICD-10-PCS; CPT 43235; principal; 2024-10-13 14:50)
PROC: 0DJD8ZZ Inspection of Lower Intestinal Tract, Via Natural or Artificial Opening Endoscopic (ICD-10-PCS; CPT 45378; principal; 2024-10-17 12:30)
DX: D46.9 Myelodysplastic syndrome, unspecified (principal); G93.41 Metabolic encephalopathy; J96.01 Acute respiratory failure with hypoxia; I81 Portal vein thrombosis; R57.8 Other shock; K29.01 Acute gastritis with bleeding; D62 Acute posthemorrhagic anemia; K76.6 Portal hypertension; N17.9 Acute kidney failure, unspecified; D61.818 Other pancytopenia; E87.21 Acute metabolic acidosis; I47.10 Supraventricular tachycardia, unspecified; F11.20 Opioid dependence, uncomplicated; K76.82 Hepatic encephalopathy; K74.69 Other cirrhosis of liver; E87.6 Hypokalemia; I86.4 Gastric varices; K31.89 Other diseases of stomach and duodenum; Z86.19 Personal history of other infectious and parasitic diseases; Z89.612 Acquired absence of left leg above knee; L89.152 Pressure ulcer of sacral region, stage 2; Z79.899 Other long term (current) drug therapy
CPT/HCPCS: 36415; 38221; 71250; 74178; 80048; 80053; 80076; 80307; 81455; 82140; 82272; 82550; 82607; 82728; 82746; 82803; 82947; 83010; 83540; 83605; 83615; 83735; 83880; 85014; 85018; 85025; 85027; 85045; 85610; 85652; 85730; 86140; 86850; 86900; 86901; 86920; 86923; 87040; 88184; 88185; 88237; 88264; 88305; 88311; 88313; 93005; 93306; 97162; 97530; 99152; 99285; C1758; J0171; J0696; J1100; J1940; J2003; J2250; J2354; J2405; J2470; J2543; J2704; J3010; J3430; J7120; P9016; P9017; P9047; P9073; Q9957; Q9967

== ENCOUNTER → 2024-10-12 09:10 | Outpatient (BNV) | payer MEDICARE, MEDICAID, SELFPAY | PROVIDERS: Admitting Provider Student in an Organized Health Care Education/Training Program; Emergency Provider Student in an Organized Health Care Education/Training Program; Visit Provider Internal Medicine Cardiovascular Disease | DX: R94.31 Abnormal electrocardiogram [ECG] [EKG] (principal) | CPT/HCPCS: 93010 ==

== ENCOUNTER → 2024-10-12 10:02 | Outpatient (BNV) | payer MEDICARE, MEDICAID, SELFPAY | PROVIDERS: Emergency Provider Student in an Organized Health Care Education/Training Program; Visit Provider Radiology Diagnostic Radiology | DX: K70.30 Alcoholic cirrhosis of liver without ascites (principal); I81 Portal vein thrombosis; K80.80 Other cholelithiasis without obstruction; J90 Pleural effusion, not elsewhere classified | CPT/HCPCS: 71250; 74178 ==

== ENCOUNTER 2024-10-12 14:38 | Outpatient (BNV) | payer MEDICARE, MEDICAID, SELFPAY | END 2024-10-13 07:00 | PROVIDERS: Admitting Provider Student in an Organized Health Care Education/Training Program; Emergency Provider Student in an Organized Health Care Education/Training Program; Visit Provider Internal Medicine Cardiovascular Disease | DX: I34.0 Nonrheumatic mitral (valve) insufficiency (principal); I36.1 Nonrheumatic tricuspid (valve) insufficiency; I27.20 Pulmonary hypertension, unspecified | CPT/HCPCS: 93306 ==

== ENCOUNTER 2024-10-12 14:38 | Outpatient (BNV) | payer MEDICARE, MEDICAID, SELFPAY | END 2024-10-26 08:17 | PROVIDERS: Admitting Provider Student in an Organized Health Care Education/Training Program; Emergency Provider Student in an Organized Health Care Education/Training Program; Visit Provider Physician Assistant Surgical | DX: D61.818 Other pancytopenia (principal) | CPT/HCPCS: 38221; 76942 ==

== ENCOUNTER → 2024-10-12 14:38 | Outpatient (BNV) | payer MEDICARE, MEDICAID, SELFPAY | PROVIDERS: Admitting Provider Student in an Organized Health Care Education/Training Program; Emergency Provider Student in an Organized Health Care Education/Training Program; Visit Provider Student in an Organized Health Care Education/Training Program | DX: D50.0 Iron deficiency anemia secondary to blood loss (chronic) (principal); D61.818 Other pancytopenia; D69.6 Thrombocytopenia, unspecified | CPT/HCPCS: 99232; 99233 ==

== ENCOUNTER → 2024-10-12 14:38 | Outpatient (BNV) | payer MEDICARE, MEDICAID, SELFPAY | PROVIDERS: Admitting Provider Student in an Organized Health Care Education/Training Program; Emergency Provider Student in an Organized Health Care Education/Training Program; Visit Provider Internal Medicine | DX: D50.0 Iron deficiency anemia secondary to blood loss (chronic) (principal) | CPT/HCPCS: 99222 ==

== ENCOUNTER → 2024-10-12 14:38 | Outpatient (BNV) | payer MEDICARE, MEDICAID, SELFPAY | PROVIDERS: Admitting Provider Student in an Organized Health Care Education/Training Program; Emergency Provider Student in an Organized Health Care Education/Training Program; Visit Provider Physician Assistant Surgical | DX: D75.89 Other specified diseases of blood and blood-forming organs (principal) | CPT/HCPCS: 38222; 77012 ==

== ENCOUNTER 2024-12-19 15:08 | Emergency (ER) | payer OTHER, SELFPAY ==
[2024-12-19] VITALS (12 sets, daily range): BP systolic 104–132; BP diastolic 58–86; PULSE 69–88; RESP 11–18; TEMP 36.6–37; O2SAT 94–100; BMI 33.8
--- NOTE | ~2024-12-19 | US_ITS ---
CLINICAL HISTORY: swelling, pain US Scrotum with Doppler Comparison: None Findings: Severe scrotal wall edema. Right testicle normal size and echotexture, 3.7 x 2.6 x 2.5 cm. Left testicle normal size and echotexture, 3.4 x 2.3 x 2.2 cm. Color Doppler and arterial/venous spectral tracings of both testicles within normal limits. Normal epididymides. No hydroceles or varicoceles. IMPRESSION: No evidence of torsion. Severe scrotal wall edema. This document has been electronically signed by: Matteo Avalos MD on 12/19/2024 22:22:43
--- NOTE | ~2024-12-19 | XR_ITS ---
CLINICAL HISTORY: diminished LLL LS, ?pleural effusion 2 view chest x-ray Comparison: CT/SR - CT CHEST WO IV CON - 10/12/24 11:07 EST CR/SR - XR CHEST 1V - 08/24/24 21:03 EDT Findings: No consolidation. There is blunting of the bilateral costophrenic angle visualized on the lateral view. There is enlargement of the cardiopericardial silhouette. No acute fracture. IMPRESSION: Suspect small bilateral pleural effusion. This document has been electronically signed by: Clinton Nunes MD on 12/19/2024 17:40:52
--- NOTE | ~2024-12-19 | CT_ITS ---
CLINICAL HISTORY: ABD distention, acute anemia CT abdomen and pelvis with contrast Comparison: CT/[place]/SR - CT GI BLEED ABD PEL WO/W IVCON - 10/12/24 11:07 EST Findings: Small bilateral pleural effusions with overlying atelectasis. Cirrhosis with splenomegaly and moderate volume ascites. Cholelithiasis. No biliary ductal dilatation or findings of cholecystitis. Remaining solid organs normal. Upper abdominal varices and portosystemic collaterals. Normal stomach, small bowel, appendix, and colon. Pelvic organs normal. Bones intact. IMPRESSION: Cirrhosis, splenomegaly, moderate volume ascites, and additional sequela of portal venous hypertension without acute finding. This document has been electronically signed by: Pj Chow MD on 12/20/2024 00:02:53
--- OUTSIDE RECORDS SUMMARY | 2024-12-19 16:07 | XMS_ITS | Patient Health Record ---
Author Organization [facility] Address [address] [place] [address] Care Team Providers Care Mineral Industry Teacher Name Role Phone NONE, NONE Primary Care Provider Olayinka Qureshi [phone] RESULTS Component Value Reference Range Notes Prothrombin Time INR Reviewed date:08/28/2024 11:04:51 PM Interpretation: Performing Lab:[address] [phone] Notes/Report: Prothrombin Time 16.2 10.9-12.4 SEC INTERNATIONAL [...] PROFILE Reviewed date:08/28/2024 11:02:11 PM Interpretation: Performing Lab:[facility], [address] [place] [phone] Notes/Report: Iron 24 45-160 mcg/dL Total Iron Binding Capacity 222 228-428 mcg/dL Percent Iron Saturation 11 15-50 % Unsaturated Iron Binding 198 Ferritin Reviewed date:08/28/2024 11:02:19 PM Interpretation: Performing Lab:[facility], [address] [place] [phone] Notes/Report: Ferritin 44 20-250 ng/mL Vitamin B12 and Folate Reviewed date:08/28/2024 11:02:28 PM Interpretation: Performing Lab:[facility], [address] [place] [phone] Notes/Report: Vitamin B12 1077 200-900 pg/mL NORMAL 200-900 PG/ML INDETERMINATE 160-199 PG/ML DEFICIENT < 160 PG/ML Folate 13.3 > or = 4.0 ng/mL Reference Values: > or = 4.0 ng/mL < 4.0 ng/mL suggests folate deficiency Methotrexate, aminopterin and folinic acid (leucovorin) are chemotherapeutic agents whose molecular structures are similar to folate; therefore, the [employer]ating [employer] folate assay cannot be used for patients using these drugs. Hepatitis B Profile Reviewed date:08/29/2024 12:15:16 PM Interpretation: Performing Lab:[facility], [address] [place] [phone] Notes/Report: Hepatitis B Surface Antibody NONREACTIVE Nonreactive Nonreactive: < 8.00 mIU/mL Hepatitis B Core Antibody Nonreactive Nonreactive Hepatitis B Surface Antigen Negative Negative Hepatitis C Antibody Reflex Reviewed date:08/29/2024 09:15:29 AM Interpretation: Performing Lab:[facility], [address] [place] [phone] Notes/Report: Hepatitis C Antibody Reactive Nonreactive Presump tive evidence of antibodies to HCV. Prothrombin Time INR Reviewed date:08/29/2024 09:15:12 AM Interpretation: Performing Lab:[facility], [address] [place] [phone] Notes/Report: Prothrombin Time 15.2 10.9-12.4 SEC INTERNATIONAL [...] INR Reviewed date:10/17/2024 09:18:21 PM Interpretation: Performing Lab:[facility], [address] [place] [phone] Notes/Report: Prothrombin Time 17.6 10.9-12.4 SEC INTERNATIONAL [...] mechanical prosthetic heart valves: 2.5 - 3.5 Pathology Reviewed date:10/24/2024 03:54:21 PM Interpretation: Performing Lab:[facility], [address] [place] [phone] Notes/Report: Complete Blood Count Auto Di ff Reviewed date:10/24/2024 01:25:55 PM Interpretation: Performing Lab:[facility], [address] [place] [phone] Notes/Report: White Blood Count 2.3 4.8-10.8 X10*3/uL Red Blood Count 2.26 4.60-5.80 X10*6/uL Hemoglobin 6.6 14.0-18.0 g/dl Critical HGB sent by a secure message and confirmed by Critical HGB sent by a secure message and confirmed by DONAVON on 10/24/24 at 07 by LENNY. DONAVON on 10/24/24 at 07 by LENNY. Hematocrit 20.3 42.0-52.0 % Critical HCT sent by a secure message and confirmed by Critical HCT sent by a secure message and confirmed by DONAVON on 10/24/24 at 07 by LENNY. DONAVON on 10/24/24 at 711 by LENNY. Mean Corpuscular Volume 89.8 80.0-98.0 fL Mean Corpuscular Hemoglobin 29.2 27.0-33.0 pg Mean Corpuscular HGB Conc 32.5 31.0-36.0 g/dl Red Cell Distribution Width 19.8 11.0-16.0 % Platelet Count 42 160-400 X10*3/uL Mean Platelet Volume 10.5 9.4-12.4 fL Neutrophils Percent Auto 60.3 45-73 % Imm Gran Pct Auto 0.4 0.0-0.4 % Lymphocytes Percent Auto 26.6 20-40 % Monocytes Percent Auto 11.8 2-11 % Eosinophils Percent Auto 0.9 0-4 % Basophils Percent Auto 0.0 0-2 % NRBC Pct Auto 0.0 0.0-0.2 /100WBC Neutrophils Absolute Auto 1.4 2.0-8.3 x10*3/u L Imm Gran Abs Auto 0.01 0.00-0.03 X10*3/uL Lymphocytes Absolute Auto 0.6 1.2-4.9 X10*3/u L Monocytes Absolute Auto 0.3 0.1-1.2 X10*3/uL Eosinophils Absolute Auto 0.0 0.0-0.4 X10*3/u L Basophils Absolute Auto 0.0 0.0-0.2 X10*3/uL NRBC Abs Auto 0.000 0.0-0.012 X10*3/uL White Blood Count 2.3 4.8-10.8 X10*3/uL Red Blood Count 2.26 4.60-5.80 X10*6/uL Hemoglobin 6.6 14.0-18.0 g/dl Critical HGB sent by a secure message and confirmed by Critical HGB sent by a secure message and confirmed by DONAVON on 10/24/24 at 07 by LENNY. DONAVON on 10/24/24 at 07 by LENNY. Hematocrit 20.3 42.0-52.0 % Critical HCT sent by a secure message and confirmed by Critical HCT sent by a secure message and confirmed by DONAVON on 10/24/24 at 07 by LENNY. DONAVON on 10/24/24 at 711 by LENNY. Mean Corpuscular Volume 89.8 80.0-98.0 fL Mean Corpuscular Hemoglobin 29.2 27.0-33.0 pg Mean Corpuscular HGB Conc 32.5 31.0-36.0 g/dl Red Cell Distribution Width 19.8 11.0-16.0 % Platelet Count 42 160-400 X10*3/uL Mean Platelet Volume 10.5 9.4-12.4 fL Neutrophils Percent Auto 60.3 45-73 % Imm Gran Pct Auto 0.4 0.0-0.4 % Lymphocytes Percent Auto 26.6 20-40 % Monocytes Percent Auto 11.8 2-11 % Eosinophils Percent Auto 0.9 0-4 % Basophils Percent Auto 0.0 0-2 % NRBC Pct Auto 0.0 0.0-0.2 /100WBC Neutrophils Absolute Auto 1.4 2.0-8.3 x10*3/u L Imm Gran Abs Auto 0.01 0.00-0.03 X10*3/uL Lymphocytes Absolute Auto 0.6 1.2-4.9 X10*3/u L Monocytes Absolute Auto 0.3 0.1-1.2 X10*3/uL Eosinophils Absolute Auto 0.0 0.0-0.4 X10*3/u L Basophils Absolute Auto 0.0 0.0-0.2 X10*3/uL NRBC Abs Auto 0.000 0.0-0.012 X10*3/uL Prothrombin Time INR Reviewed date:10/24/2024 01:26:12 PM Interpretation: Performing Lab:[address] [phone] Notes/Report: Prothrombin Time 17.3 10.9-12.4 SEC INTERNATIONAL NORM RATIO 1.5 0.9-1.1 [...] mechanical prosthetic heart valves: 2.5 - 3.5 SLIDE REVIEW Reviewed date:10/24/2024 01:26:03 PM Interpretation: Performing Lab:[address] [phone] Notes/Report: SLIDE REVIEW VERIFIED REASON FOR REFERRAL No Information SOCIAL HISTORY Sex Assigned At : Social History Observation Description Sex Assigned At Unknown PROBLEMS Problem Type ICD Code Onset Dates Problem Status W/U Status Risk SNOMED Code Notes Problem Diverticulosis of large intestine without perforation or abscess without bleeding (K57.30) Active confirmed Diverticul ar disease of colon (611219357) Problem Cirrhosis (K74.60) Active confirmed Cir rhotic (035579623) Problem Gastritis (K29.70) Active confirmed Gas tritis (5015699) Problem Portal hypertension (K76.6) Active confirmed Portal hypertension (53669618) Encounters Encounter Location Date Provider Diagnosis [facility] [address] [place], [place] [id number] 10/16/2024 Olayinka Pressley [facility] [address] [place] [address] 10/24/2024 Olayinka Pressley PLAN OF TREATMENT No Information Insurance Providers Payer Name Payer Address Payer Phone Subscriber Number Group Number Insured Name Patient Relationship to Insured Coverage Start Date Coverage End Date MEDICARE OF [facility] [address] [place] [id number] RENE PRADO Self - patient is the insured
--- OUTSIDE RECORDS SUMMARY | 2024-12-19 16:07 | XMS_ITS ---
Author Organization [facility] Address [address] [place] [phone] Care Team Providers Care Candle Cutter Name Role Phone NONE, NONE Primary Care Provider Olayinka Qureshi Unavailable [phone] REASON FOR VISIT pathology Encounters Encounter Location Date Provider Diagnosis [facility] [address] [place] [id number] 10/24/2024 Olayinka Pressley PLAN OF TREATMENT No Information
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
--- OUTSIDE RECORDS SUMMARY | 2024-12-19 16:07 | XMS_ITS ---
Author Name [facility] Organization Unknown Results Test Name/Text Value Interpretation Date Range Source Vit B12 SerPl-mCnc 1059pg/mL Above high normal [id number] 243 - 894 [facility] Folate SerPl-mCnc 20ng/mL Normal [id number] 7.2 - [facility] Imm Granulocytes/leuk NFr Bld Auto 0.9% Normal [id number] [facility] Eosinophil/leuk NFr Bld Auto 0.5% Normal [id number] [facility] Lymphocytes/leuk NFr Bld Auto 18.3% Normal [id number] [facility] Imm Granulocytes num Bld Auto 0.02Thou/uL Normal [id number] 0 - 0.1 [facility] Monocytes num Bld Auto 0.32Thou/uL Normal [id number] 0.2 - 1.5 [facility] Neutrophils num Bld Auto 1.43Thou/uL Below low normal [id number] 2 - 7.5 [facility] Neutrophils/leuk NFr Bld Auto 65.6% Normal [id number] [facility] Basophils/leuk NFr Bld Auto 0% Normal [id number] [facility] Basophils num Bld Auto 0Thou/uL Normal [id number] 0 - 0.2 [facility] Monocytes/leuk NFr Bld Auto 14.7% Normal [id number] [facility] Lymphocytes num Bld Auto 0.4Thou/uL Below low normal [id number] 1.5 - 4.5 [facility] Eosinophil num Bld Auto 0.01Thou/uL Normal [id number] 0 - 0.7 [facility] MCH RBC Qn Auto 28.3pg Normal [id number] 27 - 31 H [facility] RDW RBC Auto-Rto 17.5% Above high normal [id number] 11 .5 - 14.5 [facility] Immature Platelet Fraction 6.5% Normal [id number] 1.2 - 8.6 [facility] Hct VFr Bld Auto 28.3% Below low normal [id number] 39 - 54 [facility] Platelet num Bld Auto 36Thou/uL Below low normal [id number] 2 150 - 450 [facility] MCHC RBC Auto-mCnc 30.7g/dL Normal [id number] 30 - 36 [facility] MCV RBC Auto 92fL Normal [id number] 80 - 100 [facility] T WBC num Bld Auto 2.3Thou/uL Below low normal [id number] 4 - 11 [facility] RBC num Bld Auto 3.07Mil/uL Below low normal [id number] 4. 5 - 6.2 [facility] Hgb Bld-mCnc 8.7g/dL Below low normal [id number] 13 - 17 .7 [facility] MCH RBC Qn Auto 28.4pg Normal [id number] 27 - 31 H [facility] PMV Bld Auto 12.2fL Normal [id number] 7.5 - 12.[address] RDW RBC Auto-Rto 17.4% Above high normal [id number] 11 .5 - 14.5 [facility] Immature Platelet Fraction 6.5% Normal [id number] 1.2 - 8.6 H[facility]CT Hct VFr Bld Auto 27% Below low normal [id number] 39 - 54 [facility] Platelet num Bld Auto 38Thou/uL Below low normal [id number] 5 150 - 450 [facility] MCHC RBC Auto-mCnc 30.7g/dL Normal [id number] 30 - 36 [facility] MCV RBC Auto 93fL Normal [id number] 80 - 100 [facility] T WBC num Bld Auto 1.4Thou/uL Critically low [id number] 4 - 11 [facility] RBC num Bld Auto 2.92Mil/uL Below low normal [id number] 4. 5 - 6.2 [facility]CT Hgb Bld-mCnc 8.3g/dL Below low normal [id number] 13 - 17 .7 [facility]CT Chloride SerPl-sCnc 106mmol/L Normal [id number] 98 - 10 7 [facility] Glucose SerPl-mCnc 106mg/dL Above high normal [id number] 65 - 99 [facility] GFR/BSA.pred SerPlBld [id number] 90 Normal [id number] 59 - HHCCT Creat SerPl-mCnc 0.7mg/dL Normal [id number] 0.5 - 1.3 H[facility]CT BUN/Creat SerPl 11Ratio Normal [id number] 10 - 25 H [facility] Anion Gap Bld-sCnc 9 Normal [id number] 7 - 17 [facility]CT Calcium SerPl-mCnc 8.4mg/dL Below low normal [id number] 8 .7 - 10.5 [facility]CT CO2 SerPl-sCnc 25mmol/L Normal [id number] 22 - 33 HH CCT BUN SerPl-mCnc 8mg/dL Normal [id number] 8 - 21 HH CCT Sodium SerPl-sCnc 140mmol/L Normal [id number] 136 - 145 [facility]CT Potassium SerPl-sCnc 3.7mmol/L Normal [id number] 3.4 - 5.3 H[facility]CT Magnesium SerPl-mCnc 1.7mg/dL Normal [id number] 1.6 - 2.7 H[facility]CT MCH RBC Qn Auto 28.8pg Normal [id number] 27 - 31 H HCCT PMV Bld Auto 10.6fL Normal [id number] 7.5 - 12.[address] RDW RBC Auto-Rto 17.2% Above high normal [id number] 11 .5 - 14.5 [facility]CT Immature Platelet Fraction 4.8% Normal [id number] 1.2 - 8.6 HHCCT Hct VFr Bld Auto 26.3% Below low normal [id number] 39 - 54 [facility] Platelet num Bld Auto 40Thou/uL Below low normal [id number] 4 150 - 450 [facility]CT MCHC RBC Auto-mCnc 31.6g/dL Normal [id number] 30 - 36 [facility]CT MCV RBC Auto 91fL Normal [id number] 80 - 100 [facility] T WBC num Bld Auto 1.3Thou/uL Critically low [id number] 4 - 11 [facility] RBC num Bld Auto 2.88Mil/uL Below low normal [id number] 4. 5 - 6.2 [facility]CT Hgb Bld-mCnc 8.3g/dL Below low normal [id number] 13 - 17 .7 HHCCT MCH RBC Qn Auto 29.1pg Normal [id number] 27 - 31 H HCCT PMV Bld Auto 10.9fL Normal [id number] 7.5 - 12.[address] RDW RBC Auto-Rto 18% Above high normal [id number] 11 .5 - 14.5 H[facility]CT Immature Platelet Fraction 4.2% Normal [id number] 1.2 - 8.6 HHCCT Hct VFr Bld Auto 28.7% Below low normal [id number] 39 - 54 [facility] Platelet num Bld Auto 49Thou/uL Below low normal [id number] 1 150 - 450 [facility]CT MCHC RBC Auto-mCnc 30.7g/dL Normal [id number] 30 - 36 [facility]CT MCV RBC Auto 95fL Normal [id number] 80 - 100 [facility] T WBC num Bld Auto 1.4Thou/uL Critically low [id number] 4 - 11 [facility] RBC num Bld Auto 3.02Mil/uL Below low normal [id number] 4. 5 - 6.2 H[facility]CT Hgb Bld-mCnc 8.8g/dL Below low normal [id number] 13 - 17 .7 HHCCT MCH RBC Qn Auto 28.5pg Normal [id number] 27 - 31 H HCCT PMV Bld Auto 11.6fL Normal [id number] 7.5 - 12.[address] RDW RBC Auto-Rto 18.1% Above high normal [id number] 11 .5 - 14.5 H[facility]CT Immature Platelet Fraction 4.7% Normal [id number] 1.2 - 8.6 HHCCT Hct VFr Bld Auto 27.8% Below low normal [id number] 39 - 54 [facility]CT Platelet num Bld Auto 51Thou/uL Below low normal [id number] 5 150 - 450 [facility]CT MCHC RBC Auto-mCnc 31.3g/dL Normal [id number] 30 - 36 H[facility]CT MCV RBC Auto 91fL Normal [id number] 80 - 100 [facility] T WBC num Bld Auto 1.2Thou/uL Critically low [id number] 4 - 11 [facility]CT RBC num Bld Auto 3.05Mil/uL Below low normal [id number] 4. 5 - 6.2 H[facility]CT Hgb Bld-mCnc 8.7g/dL Below low normal [id number] 13 - 17 .7 HHCCT POC Glucose 111mg/dL Above high normal [id number] 65 - 99 [facility]CT POC Glucose 103mg/dL Above high normal [id number] 65 - 99 H[facility]CT MCH RBC Qn Auto 28.9pg Normal [id number] 27 - 31 H HCCT PMV Bld Auto 10.3fL Normal [id number] 7.5 - 12.[address] RDW RBC Auto-Rto 17.9% Above high normal [id number] 11 .5 - 14.5 HHCCT Immature Platelet Fraction 4.1% Normal [id number] 1.2 - 8.6 HHCCT Hct VFr Bld Auto 27.4% Below low normal [id number] 39 - 54 [facility]CT Platelet num Bld Auto 48Thou/uL Below low normal [id number] 9 150 - 450 H[facility]CT MCHC RBC Auto-mCnc 31.4g/dL Normal [id number] 30 - 36 H[facility]CT MCV RBC Auto 92fL Normal [id number] 80 - 100 [facility] T WBC num Bld Auto 1.3Thou/uL Critically low [id number] 4 - 11 [facility]CT RBC num Bld Auto 2.98Mil/uL Below low normal [id number] 4. 5 - 6.2 H[facility]CT Hgb Bld-mCnc 8.6g/dL Below low normal [id number] 13 - 17 .7 HHCCT Phosphate SerPl-mCnc 3mg/dL Normal [id number] 2.7 - 4.5 H[facility]CT Globulin Ser Calc-mCnc 1.8g/dL Normal [id number] 1.5 - 3.9 HHCCT ALT SerPl-cCnc 18U/L Normal [id number] 10 - 55 HH CCT AST SerPl-cCnc 52U/L Normal [id number] 10 - 55 HH CCT Albumin SerPl-mCnc 3.4g/dL Normal [id number] 3.4 - 4. 8 H[facility]CT Bilirub Direct SerPl-mCnc 0.8mg/dL Above high normal [id number] 0 - 0.2 HHCCT Albumin/Glob SerPl 1.9Ratio Normal 1 - 3 HHCCT Prot SerPl-mCnc 5.2g/dL Below low normal [id number] 6.3 - 8.3 HHCCT Bilirub SerPl-mCnc 1.8mg/dL Above high normal 0.2 - 1 HHCCT ALP SerPl-cCnc 54U/L Normal 45 - 128 HH CCT Magnesium SerPl-mCnc 1.7mg/dL Normal 1.6 - 2.7 HHCCT Chloride SerPl-sCnc 104mmol/L Normal 98 - 10 7 HHCCT Glucose SerPl-mCnc 104mg/dL Above high normal 65 - 99 HHCCT GFR/BSA.pred SerPlBld SMF-[id number]-[id number] 90 Normal [id number] 59 - HHCCT Creat SerPl-mCnc 0.9mg/dL Normal 0.5 - 1.3 HHCCT BUN/Creat SerPl 13Ratio Normal 10 - 25 H HCCT Anion Gap Bld-sCnc 9 Normal [id number] 7 - 17 HHCCT Calcium SerPl-mCnc 8.4mg/dL Below low normal 8 .7 - 10.5 HHCCT CO2 SerPl-sCnc 26mmol/L Normal 22 - 33 HH CCT BUN SerPl-mCnc 12mg/dL Normal 8 - 21 HH CCT Sodium SerPl-sCnc 139mmol/L Normal 136 - 145 HHCCT Potassium SerPl-sCnc 3.8mmol/L Normal 3.4 - 5.3 HHCCT INR PPP 1.4 Normal [id number] HHCCT Prothrombin time 16.7seconds Above high normal [id number] 10 - 13.5 HHCCT Anticoagulant OTHER AGENT OR UNKNOWN Normal HHCCT MCH RBC Qn Auto 28.8pg Normal [id number] 27 - 31 H HCCT PMV Bld Auto 11.1fL Normal [id number] 7.5 - 12.[address] RDW RBC Auto-Rto 18% Above high normal [id number] 11 .5 - 14.5 HHCCT Immature Platelet Fraction 4.3% Normal [id number] 1.2 - 8.6 HHCCT Hct VFr Bld Auto 29.7% Below low normal [id number] 39 - 54 H[facility]CT Platelet num Bld Auto 57Thou/uL Below low normal [id number] 1 150 - 450 H[facility]CT MCHC RBC Auto-mCnc 31g/dL Normal [id number] 30 - 36 HHCCT MCV RBC Auto 93fL Normal [id number] 80 - 100 [facility] T WBC num Bld Auto 1.8Thou/uL Critically low [id number] 4 - 11 H[facility]CT RBC num Bld Auto 3.19Mil/uL Below low normal [id number] 4. 5 - 6.2 HHCCT Hgb Bld-mCnc 9.2g/dL Below low normal [id number] 13 - 17 .7 HHCCT MCH RBC Qn Auto 28.4pg Normal [id number] 27 - 31 H HCCT PMV Bld Auto 10.9fL Normal [id number] 7.5 - 12.5 [facility] CT RDW RBC Auto-Rto 18.3% Above high normal [id number] 11 .5 - 14.5 HHCCT Immature Platelet Fraction 3.9% Normal [id number] 1.2 - 8.6 HHCCT Hct VFr Bld Auto 25.9% Below low normal [id number] 39 - 54 H[facility]CT Platelet num Bld Auto 55Thou/uL Below low normal [id number] 3 150 - 450 HHCCT MCHC RBC Auto-mCnc 30.1g/dL Normal [id number] 30 - 36 HHCCT MCV RBC Auto 94fL Normal [id number] 80 - 100 [facility] T WBC num Bld Auto 1.3Thou/uL Critically low [id number] 4 - 11 H[facility]CT RBC num Bld Auto 2.75Mil/uL Below low normal [id number] 4. 5 - 6.2 HHCCT Hgb Bld-mCnc 7.8g/dL Below low normal [id number] 13 - 17 .7 HHCCT POC Glucose 81mg/dL Normal [id number] 65 - 99 HHCCT MCH RBC Qn Auto 28.7pg Normal [id number] 27 - 31 H HCCT PMV Bld Auto 11fL Normal [id number] 7.5 - 12.[address] RDW RBC Auto-Rto 18.5% Above high normal [id number] 11 .5 - 14.5 HHCCT Immature Platelet Fraction 4.8% Normal [id number] 1.2 - 8.6 HHCCT Hct VFr Bld Auto 27.2% Below low normal [id number] 39 - 54 HHCCT Platelet num Bld Auto 67Thou/uL Below low normal [id number] 1 150 - 450 HHCCT MCHC RBC Auto-mCnc 31.6g/dL Normal [id number] 30 - 36 HHCCT MCV RBC Auto 91fL Normal [id number] 80 - 100 [facility] T WBC num Bld Auto 1.4Thou/uL Critically low [id number] 4 - 11 HHCCT RBC num Bld Auto 3Mil/uL Below low normal [id number] 4.5 - 6.2 HHCCT Hgb Bld-mCnc 8.6g/dL Below low normal [id number] 13 - 17 .7 HHCCT POC Glucose 88mg/dL Normal [id number] 65 - 99 HHCCT Magnesium SerPl-mCnc 2mg/dL Normal [id number] 1.6 - 2.7 HHCCT Chloride SerPl-sCnc 109mmol/L Above high normal [id number] 98 - 107 HHCCT Glucose SerPl-mCnc 82mg/dL Normal [id number] 65 - 99 HHCCT GFR/BSA.pred SerPlBld GBE-RJN-[id number] 90 Normal [id number] 59 - HHCCT Creat SerPl-mCnc 0.8mg/dL Normal [id number] 0.5 - 1.3 HHCCT BUN/Creat SerPl 18Ratio Normal [id number] 10 - 25 H HCCT Anion Gap Bld-sCnc 7 Normal [id number] 7 - 17 HHCCT Calcium SerPl-mCnc 8.5mg/dL Below low normal [id number] 8 .7 - 10.5 HHCCT CO2 SerPl-sCnc 26mmol/L Normal 22 - 33 HH CCT BUN SerPl-mCnc 14mg/dL Normal 8 - 21 HH CCT Sodium SerPl-sCnc 142mmol/L Normal 136 - 145 HHCCT Potassium SerPl-sCnc 4.2mmol/L Normal 3.4 - 5.3 HHCCT Phosphate SerPl-mCnc 3.6mg/dL Normal 2.7 - 4.5 HHCCT MCH RBC Qn Auto 28.7pg Normal 27 - 31 H HCCT PMV Bld Auto 11.5fL Normal 7.5 - 12.[address] RDW RBC Auto-Rto 18.3% Above high normal 11 .5 - 14.5 HHCCT Immature Platelet Fraction 4.3% Normal 1.2 - 8.6 HHCCT Hct VFr Bld Auto 26.2% Below low normal [id number] 39 - 54 HHCCT Platelet num Bld Auto 61Thou/uL Below low normal [id number] 1 150 - 450 HHCCT MCHC RBC Auto-mCnc 30.9g/dL Normal 30 - 36 HHCCT MCV RBC Auto 93fL Normal 80 - 100 [facility] T WBC num Bld Auto 1.4Thou/uL Critically low [id number] 4 - 11 HHCCT RBC num Bld Auto 2.82Mil/uL Below low normal [id number] 4. 5 - 6.2 HHCCT Hgb Bld-mCnc 8.1g/dL Below low normal [id number] 13 - 17 .7 HHCCT POC Glucose 97mg/dL Normal [id number] 65 - 99 HHCCT MCH RBC Qn Auto 29.2pg Normal [id number] 27 - 31 H HCCT PMV Bld Auto 10.5fL Normal [id number] 7.5 - 12.[address] RDW RBC Auto-Rto 18.3% Above high normal 11 .5 - 14.5 HHCCT Immature Platelet Fraction 5.7% Normal [id number] 1.2 - 8.6 HHCCT Hct VFr Bld Auto 28.9% Below low normal [id number] 39 - 54 HHCCT Platelet num Bld Auto 68Thou/uL Below low normal [id number] 2 150 - 450 HHCCT MCHC RBC Auto-mCnc 31.8g/dL Normal [id number] 30 - 36 HHCCT MCV RBC Auto 92fL Normal [id number] 80 - 100 [facility] T WBC num Bld Auto 1.9Thou/uL Critically low [id number] 4 - 11 HHCCT RBC num Bld Auto 3.15Mil/uL Below low normal [id number] 4. 5 - 6.2 HHCCT Hgb Bld-mCnc 9.2g/dL Below low normal [id number] 13 - 17 .7 HHCCT MCH RBC Qn Auto 28.7pg Normal [id number] 27 - 31 H HCCT PMV Bld Auto 10fL Normal [id number] 7.5 - 12.[address] RDW RBC Auto-Rto 18% Above high normal [id number] 11 .5 - 14.5 HHCCT Immature Platelet Fraction 6.6% Normal [id number] 1.2 - 8.6 HHCCT Hct VFr Bld Auto 29.8% Below low normal [id number] 39 - 54 H[facility]CT Platelet num Bld Auto 69Thou/uL Below low normal [id number] 7 150 - 450 HHCCT MCHC RBC Auto-mCnc 31.5g/dL Normal [id number] 30 - 36 HHCCT MCV RBC Auto 91fL Normal [id number] 80 - 100 [facility] T WBC num Bld Auto 1.9Thou/uL Critically low [id number] 4 - 11 HHCCT RBC num Bld Auto 3.28Mil/uL Below low normal [id number] 4. 5 - 6.2 HHCCT Hgb Bld-mCnc 9.4g/dL Below low normal [id number] 13 - 17 .7 HHCCT POC Glucose 124mg/dL Above high normal [id number] 65 - 99 HHCCT Imm Granulocytes/leuk NFr Bld Auto 0.6% Normal [id number] HHCCT Eosinophil/leuk NFr Bld Auto 0% Normal [id number] HHCCT Lymphocytes/leuk NFr Bld Auto 14.4% Normal [id number] HHCCT Imm Granulocytes num Bld Auto 0.01Thou/uL Normal [id number] 0 - 0.1 HHCCT Monocytes num Bld Auto 0.19Thou/uL Below low normal [id number] 0.2 - 1.5 HHCCT Neutrophils num Bld Auto 1.33Thou/uL Below low normal [id number] 2 - 7.5 HHCCT Neutrophils/leuk NFr Bld Auto 73.8% Normal [id number] HHCCT Basophils/leuk NFr Bld Auto 0.6% Normal [id number] HHCCT Basophils num Bld Auto 0.01Thou/uL Normal [id number] 0 - 0.2 HHCCT Monocytes/leuk NFr Bld Auto 10.6% Normal [id number] HHCCT Lymphocytes num Bld Auto 0.26Thou/uL Below low normal [id number] 1.5 - 4.5 HHCCT Eosinophil num Bld Auto 0Thou/uL Normal [id number] 0 - 0.7 HHCCT MCH RBC Qn Auto 29.5pg Normal [id number] 27 - 31 H HCCT PMV Bld Auto 10.3fL Normal [id number] 7.5 - 12.[address] RDW RBC Auto-Rto 17.9% Above high normal [id number] 11 .5 - 14.5 HHCCT Immature Platelet Fraction 6.1% Normal [id number] 1.2 - 8.6 HHCCT Hct VFr Bld Auto 28.7% Below low normal [id number] 39 - 54 HHCCT Platelet num Bld Auto 77Thou/uL Below low normal [id number] 3 150 - 450 HHCCT MCHC RBC Auto-mCnc 32.8g/dL Normal [id number] 30 - 36 HHCCT MCV RBC Auto 90fL Normal [id number] 80 - 100 [facility] T WBC num Bld Auto 1.8Thou/uL Critically low [id number] 4 - 11 HHCCT RBC num Bld Auto 3.19Mil/uL Below low normal [id number] 4. 5 - 6.2 HHCCT Hgb Bld-mCnc 9.4g/dL Below low normal [id number] 13 - 17 .7 HHCCT POC Glucose 119mg/dL Above high normal [id number] 65 - 99 HHCCT MCH RBC Qn Auto 28.8pg Normal [id number] 27 - 31 H HCCT PMV Bld Auto 10.1fL Normal [id number] 7.5 - 12.[address] RDW RBC Auto-Rto 17.9% Above high normal [id number] 11 .5 - 14.5 HHCCT Immature Platelet Fraction 5.8% Normal [id number] 1.2 - 8.6 HHCCT Hct VFr Bld Auto 28.1% Below low normal [id number] 39 - 54 HHCCT Platelet num Bld Auto 71Thou/uL Below low normal [id number] 6 150 - 450 HHCCT MCHC RBC Auto-mCnc 32g/dL Normal [id number] 30 - 36 HHCCT MCV RBC Auto 90fL Normal [id number] 80 - 100 [facility] T WBC num Bld Auto 1.1Thou/uL Critically low 654530907610 4 - 11 HHCCT RBC num Bld Auto 3.12Mil/uL Below low normal [id number] 4. 5 - 6.2 HHCCT Hgb Bld-mCnc 9g/dL Below low normal [id number] 13 - 17 .7 HHCCT Phosphate SerPl-mCnc 3.7mg/dL Normal [id number] 2.7 - 4.5 HHCCT Chloride SerPl-sCnc 105mmol/L Normal [id number] 98 - 10 7 HHCCT Glucose SerPl-mCnc 128mg/dL Above high normal [id number] 65 - 99 HHCCT GFR/BSA.pred SerPlBld BWY-IJS-[id number] 90 Normal [id number] 59 - HHCCT Creat SerPl-mCnc 0.8mg/dL Normal [id number] 0.5 - 1.3 HHCCT BUN/Creat SerPl 14Ratio Normal [id number] 10 - 25 H HCCT Anion Gap Bld-sCnc 7 Normal [id number] 7 - 17 HHCCT Calcium SerPl-mCnc 9.2mg/dL Normal 8.7 - 10 .5 HHCCT CO2 SerPl-sCnc 29mmol/L Normal 22 - 33 HH CCT BUN SerPl-mCnc 11mg/dL Normal 8 - 21 HH CCT Sodium SerPl-sCnc 141mmol/L Normal 136 - 145 HHCCT Potassium SerPl-sCnc 4.9mmol/L Normal 3.4 - 5.3 HHCCT Magnesium SerPl-mCnc 2.1mg/dL Normal 1.6 - 2.7 HHCCT POC Glucose 137mg/dL Above high normal 65 - 99 HHCCT POC Glucose 139mg/dL Above high normal 65 - 99 HHCCT MCH RBC Qn Auto 29.2pg Normal 27 - 31 H HCCT PMV Bld Auto 11.6fL Normal 7.5 - 12.[address] RDW RBC Auto-Rto 18.2% Above high normal [id number] 11 .5 - 14.5 HHCCT Immature Platelet Fraction 5.5% Normal 1.2 - 8.6 HHCCT Hct VFr Bld Auto 28.1% Below low normal [id number] 39 - 54 HHCCT Platelet num Bld Auto 71Thou/uL Below low normal [id number] 8 150 - 450 HHCCT MCHC RBC Auto-mCnc 32.4g/dL Normal 30 - 36 HHCCT MCV RBC Auto 90fL Normal [id number] 80 - 100 [facility] T WBC num Bld Auto 1.2Thou/uL Critically low 602617652472 4 - 11 HHCCT RBC num Bld Auto 3.12Mil/uL Below low normal [id number] 4. 5 - 6.2 HHCCT Hgb Bld-mCnc 9.1g/dL Below low normal [id number] 13 - 17 .7 HHCCT ISTAT Glucose 101mg/dL Above high normal 65 - 99 HHCCT ISTAT Hemoglobin 8.2gm/dL Below low normal 13 - 17.7 HHCCT ISTAT Sample Type Normal HHCCT Venous O2 Saturation, POC 61% Normal 60 - 75 HHCCT ISTAT Venous TCO2 28mmol/L Normal 23 - 29 HHCCT ISTAT Base Excess 1mmol/L Normal HHCCT ISTAT Venous pH 7.36 Normal 7.33 - 7.43 HHCCT ISTAT Venous PO2 33mmHg Normal 0 - 60 HHCCT ISTAT VENOUS PCO2 47.8mmHg Normal 35 - 50 HHCCT ISTAT Venous HCO3 26.7mmol/L Normal 23 - 28 HHCCT ISTAT Sodium 141mmol/L Normal 136 - 145 HHCC T ISTAT Potassium 4.4mmol/L Normal 3.4 - 5.3 H HCCT ISTAT Ionized Calcium 1.34mmol/L Above high normal 211 1.17 - 1.33 HHCCT ISTAT Hematocrit 24% Below low normal 39 - 54 HHCCT ISTAT Potassium 4.3mmol/L Normal 3.4 - 5.3 H HCCT ISTAT Ionized Calcium 1.22mmol/L Normal 1.17 - 1.33 HHCCT ISTAT Sodium 142mmol/L Normal 136 - 145 HHCC T ISTAT Sample Type Normal HHCCT Venous O2 Saturation, POC 65% Normal 60 - 75 HHCCT ISTAT Venous TCO2 29mmol/L Normal 23 - 29 HHCCT ISTAT Base Excess 3mmol/L Normal HHCCT ISTAT Venous pH 7.37 Normal 7.33 - 7.43 HHCCT ISTAT Venous PO2 35mmHg Normal 0 - 60 HHCCT ISTAT VENOUS PCO2 48.3mmHg Normal 35 - 50 HHCCT ISTAT Venous HCO3 27.9mmol/L Normal [id number] 23 - 28 HHCCT ISTAT Hemoglobin 7.1gm/dL Below low normal 839362792909 13 - 17.7 HHCCT ISTAT Hematocrit 21% Below low normal 533925854969 39 - 54 HHCCT ISTAT Glucose 104mg/dL Above high normal [id number] 65 - 99 HHCCT MCH RBC Qn Auto 28.4pg Normal [id number] 27 - 31 H HCCT PMV Bld Auto 11.6fL Normal [id number] 7.5 - 12.[address] RDW RBC Auto-Rto 19% Above high normal [id number] 11 .5 - 14.5 HHCCT Immature Platelet Fraction 6.3% Normal [id number] 1.2 - 8.6 HHCCT Hct VFr Bld Auto 20.5% Below low normal [id number] 39 - 54 HHCCT Platelet num Bld Auto 54Thou/uL Below low normal [id number] 7 150 - 450 HHCCT MCHC RBC Auto-mCnc 31.7g/dL Normal [id number] 30 - 36 HHCCT MCV RBC Auto 90fL Normal [id number] 80 - 100 HHCC T WBC num Bld Auto 0.8Thou/uL Critically low [id number] 4 - 11 HHCCT RBC num Bld Auto 2.29Mil/uL Below low normal [id number] 4. 5 - 6.2 HHCCT Hgb Bld-mCnc 6.5g/dL Below low normal [id number] 13 - 17 .7 HHCCT POC Glucose 115mg/dL Above high normal [id number] 65 - 99 HHCCT POC Glucose 91mg/dL Normal [id number] 65 - 99 HHCCT Hct VFr Bld Auto 22.2% Below low normal [id number] 39 - 54 HHCCT Hgb Bld-mCnc 7.2g/dL Below low normal [id number] 13 - 17 .7 HHCCT POC Glucose 110mg/dL Above high normal [id number] 65 - 99 HHCCT Globulin Ser Calc-mCnc 1.6g/dL Normal [id number] 1.5 - 3.9 HHCCT ALT SerPl-cCnc 17U/L Normal [id number] 10 - 55 HH CCT AST SerPl-cCnc 47U/L Normal [id number] 10 - 55 HH CCT Albumin SerPl-mCnc 3g/dL Below low normal [id number] 3 .4 - 4.8 HHCCT Bilirub Direct SerPl-mCnc 0.8mg/dL Above high normal [id number] 0 - 0.2 HHCCT Albumin/Glob SerPl 1.9Ratio Normal [id number] 1 - 3 HHCCT Prot SerPl-mCnc 4.6g/dL Below low normal [id number] 6.3 - 8.3 HHCCT Bilirub SerPl-mCnc 1.9mg/dL Above high normal [id number] 0.2 - 1 HHCCT ALP SerPl-cCnc 46U/L Normal [id number] 45 - 128 HH CCT Chloride SerPl-sCnc 104mmol/L Normal [id number] 98 - 10 7 HHCCT Glucose SerPl-mCnc 101mg/dL Above high normal [id number] 65 - 99 HHCCT GFR/BSA.pred SerPlBld IWE-JKD-TeUWti 90 Normal [id number] 59 - HHCCT Creat SerPl-mCnc 0.8mg/dL Normal [id number] 0.5 - 1.3 HHCCT BUN/Creat SerPl 18Ratio Normal [id number] 10 - 25 H HCCT Anion Gap Bld-sCnc 5 Below low normal [id number] 7 - 17 H[facility]CT Calcium SerPl-mCnc 8.5mg/dL Below low normal [id number] 8 .7 - 10.5 H[facility]CT CO2 SerPl-sCnc 30mmol/L Normal [id number] 22 - 33 HH CCT BUN SerPl-mCnc 14mg/dL Normal [id number] 8 - 21 HH CCT Sodium SerPl-sCnc 139mmol/L Normal [id number] 136 - 145 H[facility]CT Potassium SerPl-sCnc 4.5mmol/L Normal [id number] 3.4 - 5.3 H[facility]CT MCH RBC Qn Auto 28.3pg Normal [id number] 27 - 31 H [facility]CT PMV Bld Auto 11.6fL Normal [id number] 7.5 - 12.5 [facility] CT RDW RBC Auto-Rto 19.1% Above high normal [id number] 11 .5 - 14.5 [facility] Immature Platelet Fraction 5.2% Normal [id number] 1.2 - 8.6 [facility] Hct VFr Bld Auto 20.2% Below low normal [id number] 39 - 54 [facility] Platelet num Bld Auto 60Thou/uL Below low normal [id number] 3 150 - 450 H[facility]CT MCHC RBC Auto-mCnc 32.2g/dL Normal [id number] 30 - 36 H[facility]CT MCV RBC Auto 88fL Normal [id number] 80 - 100 HH T WBC num Bld Auto 1.1Thou/uL Critically low [id number] 4 - 11 [facility] RBC num Bld Auto 2.3Mil/uL Below low normal [id number] 4.5 - 6.2 [facility]CT Hgb Bld-mCnc 6.5g/dL Below low normal 13 - 17 .7 [facility] Fibrinogen PPP-mCnc 124mg/dL Below low normal [id number] 148 - 435 HHT INR PPP 1.3 Normal [id number] [facility] Prothrombin time 15.1seconds Above high normal [id number] 10 - 13.5 [facility]CT Anticoagulant OTHER AGENT OR UNKNOWN Normal [facility] POC Glucose 102mg/dL Above high normal [id number] 65 - 99 CCT TSH SerPl DL<=0.005 mIU/L-aCnc 1.04mIU/L Normal [id number] 0.27 - 4.2 [facility] POC Glucose 101mg/dL Above high normal [id number] 65 - 99 [facility]CT Hct VFr Bld Auto 16.9% Critically low [id number] 39 - 54 H[facility]CT Hgb Bld-mCnc 5.4g/dL Below low normal 13 - 17 .7 [facility] Lymphocytes/leuk NFr Bld Auto 41% Normal [facility] Targets Bld Ql Smear Normal [facility] Neutrophils num Bld Auto 0.5Thou/uL Below low normal 2 - 7.5 [facility] Segmented Neutrophil 53% Normal [facility] Monocytes/leuk NFr Bld Auto 6% Normal [facility] Monocyte, Absolute 0.1Thou/uL Below low normal 0.2 - 1.5 H[facility]CT Normocytes Normal H[facility]CT Lymphocytes num Bld Auto 0.4Thou/uL Below low normal 1.5 - 4.5 [facility]CT Normochromic Bld Ql Smear Normal [facility] INR PPP 1.4 Normal [facility] Prothrombin time 16.1seconds Above high normal 10 - 13.5 [facility] PMV Bld Auto 11.7fL Normal 7.5 - 12.[address] Immature Platelet Fraction 5% Normal 1.2 - 8.6 H[facility]CT Hct VFr Bld Auto 16.2% Critically low 39 - 54 [facility]CT MCH RBC Qn Auto 27.7pg Normal 27 - 31 H HCCT RDW RBC Auto-Rto 20.4% Above high normal 11 .5 - 14.5 [facility] Platelet num Bld Auto 55Thou/uL Below low normal [id number] 150 - 450 H[facility]CT MCHC RBC Auto-mCnc 32.1g/dL Normal 30 - 36 H[facility]CT MCV RBC Auto 86fL Normal 80 - 100 [facility] T WBC num Bld Auto 1Thou/uL Critically low [id number] 4 - 1 1 H[facility]CT RBC num Bld Auto 1.88Mil/uL Below low normal [id number] 4. 5 - 6.2 H[facility]CT Hgb Bld-mCnc 5.2g/dL Below low normal [id number] 13 - 17 .7 H[facility]CT Retics num Auto 79.7Thou/uL Normal 30 - 100 H[facility]CT Immature Reticulocyte Fraction 26.8% Above high normal [id number] 2.3 - 15.9 [facility]CT Retics/100 RBC NFr Auto 4.2% Above high normal [id number] 0.7 - 2 H[facility]CT Hgb Retic Qn Auto 24.1pg Below low normal 28 - 35 HHCCT Anticoagulant OTHER AGENT OR UNKNOWN Normal [facility]CT Ammonia Plas-sCnc 43umol/L Normal 16 - 60 HHCCT LDH SerPl L to P-cCnc 153U/L Normal 120 - 260 H[facility]CT Chloride SerPl-sCnc 105mmol/L Normal 98 - 10 7 HHCCT Glucose SerPl-mCnc 112mg/dL Above high normal 65 - 99 HHCCT GFR/BSA.pred SerPlBld PVR-YQZ-CcPHes 90 Normal 59 - [facility] Creat SerPl-mCnc 0.7mg/dL Normal 0.5 - 1.3 [facility] BUN/Creat SerPl 23Ratio Normal 10 - 25 H [facility] Anion Gap Bld-sCnc 5 Below low normal 7 - 17 [facility] Calcium SerPl-mCnc 8.4mg/dL Below low normal 8 .7 - 10.5 [facility] CO2 SerPl-sCnc 30mmol/L Normal 22 - 33 HH CCT BUN SerPl-mCnc 16mg/dL Normal 8 - 21 HH CCT Sodium SerPl-sCnc 140mmol/L Normal 136 - 145 [facility] Potassium SerPl-sCnc 4.1mmol/L Normal 3.4 - 5.3 [facility] Globulin Ser Calc-mCnc 1.3g/dL Below low normal 1.5 - 3.9 [facility] ALT SerPl-cCnc 17U/L Normal 10 - 55 HH CCT AST SerPl-cCnc 42U/L Normal 10 - 55 HH CCT Albumin SerPl-mCnc 3.1g/dL Below low normal 3 .4 - 4.8 [facility] Bilirub Direct SerPl-mCnc 0.7mg/dL Above high normal 0 - 0.2 [facility] Albumin/Glob SerPl 2.4Ratio Normal 1 - 3 [facility] Prot SerPl-mCnc 4.4g/dL Below low normal 6.3 - 8.3 [facility] Bilirub SerPl-mCnc 1.7mg/dL Above high normal 0.2 - 1 [facility] ALP SerPl-cCnc 45U/L Normal 45 - 128 HH CCT Ferritin SerPl-mCnc 49ug/L Normal 30 - 40 0 [facility] Haptoglob SerPl-mCnc 19mg/dL Below low normal 30 - 200 [facility] Magnesium SerPl-mCnc 2.1mg/dL Normal 1.6 - 2.7 [facility] Lipase SerPl-cCnc 47U/L Normal 13 - 60 [facility] Phosphate SerPl-mCnc 2.7mg/dL Normal 2.7 - 4.5 [facility] Iron SerPl-mCnc 11ug/dL Below low normal 53 - 167 [facility] Iron Satn MFr SerPl 8% Below low normal 20 - 50 [facility] TIBC SerPl-mCnc 132ug/dL Normal 100 - 400 H [facility] UIBC SerPl-mCnc 121ug/dL Normal 112 - 346 H [facility] Lactate SerPl-sCnc 1.5mmol/L Normal 0.5 - 1. 9 [facility] POC Glucose 97mg/dL Normal 65 - 99 [facility] Problems Problem Status Onset Date Problem Type Date of Resoluti on Source UGIB (upper gastrointestinal bleed) active 2024-10-29 ProblemAct [facility] Liver failure active 2024-10-29 ProblemAct [facility] T
--- OUTSIDE RECORDS SUMMARY | 2024-12-19 16:07 | XMS_ITS | Clinical Summary ---
Author Organization [facility] Address [address] [place] [address] Care Team Providers Care Community Manager Name Role Phone Pcp, Leann Owen MD Primary Care Provider [phone] Allergies No known active allergies Medications Medication Sig Dispensed Refills Start Date End Date Status METHADONE HCL PO Take 75 mg by mouth daily. 0 Active Ferrous Fumarate-Folic Acid (HEMOCYTE-F) 324-1 MG TABS Take 1 tablet by mouth 3 (three) times a day. 90 each 0 10/06/2015 Active Multiple Vitamins-Minerals (MULTIVITAMIN PO) Take 1 tablet by mouth daily. 0 Active PROTEIN PO Take 30 mL by mouth 2 (two) times a day. 0 Active docusate sodium 100 MG CAPS Take 100 mg by mouth 2 (two) times a day as needed for constipation. 10 capsule 0 01/25/2019 Active oxyCODONE (ROXICODONE) 5 MG immediate release tablet Take 1 tablet (5 mg total) by mouth every 6 (six) hours as needed. 40 tablet 0 01/25/2019 Active oxyCODONE HCl ER (OxyCONTIN) 10 MG T12A controlled release tablet Take 1 tablet (10 mg total) by mouth every 12 (twelve) hours. 10 tablet 0 01/26/2019 Active diazePAM (VALIUM) tablet 5 mg Take 1 tablet (5 mg total) by mouth every 6 (six) hours as needed for muscle spasms. 30 tablet 0 01/26/2019 Active polyethylene glycol (MIRALAX) packet Take 17 g by mouth daily. 14 each 0 01/26/2019 Active acetaminophen (TYLENOL) 325 MG tablet Take 2 tablets (650 mg total) by mouth every 6 (six) hours. 120 tablet 0 01/26/2019 Active folic acid (FOLVITE) tablet 1 mg 0 02/07/2019 Active LYRICA 75 MG capsule 0 02/11/2019 Acti ve methocarbamol (ROBAXIN) 750 MG tablet 0 02/07/2019 Active Active Problems Problem Noted Date Diagnosed Date Osteomyelitis 01/17/2019 Surgical wound dehiscence 06/02/2016 Chronic hepatitis C without hepatic coma 015 Iron deficiency anemia 10/04/2015 Acute osteomyelitis of left tibia 09/26/2015 History of heroin abuse 09/26/2015 Long-term current use of methadone for opiate de pendence 09/26/2015 Immunizations Name Administration Dates Next Due Influenza Trivalent (Fluzone /Afluria) 5.0mL Multi-dose Vial 11/15/2015 Pneumococcal Polysaccharide PPSV23 11/18/2015 Tdap 09/25/2015 Family History Relation Name Status Comments Father Alive Mother Alive Social History Tobacco Use Types Packs/Day Years Used Date Smoking Tobacco: Every Day Cigarettes 0.5 5 Smokeless Tobacco: Never Alcohol Use Standard Drinks/Week Comments No 0 (1 standard drink = 0.6 oz pur e alcohol) Sex and Gender Information Value Date Recorded Sex Assigned at Male 01/17/2019 1:15 PM EDT Gender Identity Male 01/17/2019 1:15 PM EDT Sexual Orientation Not on file Last Filed Vital Signs Vital Sign Reading Time Taken Comments Blood Pressure 114/72 02/21/2019 2:52 PM EDT Pulse 82 02/21/2019 2:52 PM EDT Temperature 36.6 ??C (97.8 ??F) 01/26/2019 7:56 AM ED T Respiratory Rate 13 02/21/2019 2:52 PM EDT Oxygen Saturation 91% 01/26/2019 7:56 AM EDT Inhaled Oxygen Concentration - - Weight 92.5 kg (204 lb) 02/21/2019 2:52 PM EDT Height 180.3 cm (5' 11 ) 01/19/2019 3:10 PM EDT Body Mass Index 28.45 01/19/2019 3:10 PM EDT Plan of Treatment Health Maintenance Due Date Last Done Comments COVID-19 Vaccine (#1) 1956 Depression Screening 1968 Preventative Health Evaluation 1974 Colon Cancer Screening (Colonoscopy) 2001 Shingrix-Zoster Vaccine (1 of 2) 2006 Pneumococcal Vaccine (2 of 2 - PCV) 11/18/2016 11/18/2015 Fall Risk Assessment 2021 Influenza Vaccine (#1) 2024 11/15/2015 DTap / Tdap / Td (2 - Td or Tdap) 09/25/2025 015 RSV Adult > 60+ Yrs or Pregn ant (1 - 1-dose 75+ series) 2031 Hepatitis B Vaccines Aged Out No long er eligible based on patient's age to complete this topic RSV Ped < 20 months Aged Out No longe r eligible based on patient's age to complete this topic Medical Devices Implanted Type Area Medical Record Librarians Teacher Device Identifier Shelf Expiration Date Model / Serial / Lot Sponge Surgiflo 8ml Hemostatic Matrix Absorbable Latex Free - [id number] - [id number] Implanted:Qty: 1 on 07/17/2016 by Farshad Barroso MD at [facility] [place] [facility] Hemostatic Agent Left: Knee [employer] 01/05/2018 2991 / / [id number] Sponge Surgiflo 8ml Hemostatic Matrix Absorbable Latex Free - [id number] - [id number] Implanted:Qty: 1 on 07/17/2016 by Farshad Barroso MD at [facility] [place] and Med Hemostatic Agent Left: Knee [employer] 01/05/2018 2991 / / [id number] Cement Simplex P Full Dose Radiopaque Tobramycin Bone - [id number] - [id number] Implanted:Qty: 1 on 09/28/2015 by Nando Dhillon MD at [facility] [place] and [facility] Left: Leg [employer] 10/19/2017 6197-9-00 1 / / Cement Simplex P Full Dose Radiopaque Tobramycin Bone - [id number] - [id number] Implanted:Qty: 1 on 11/06/2015 by Nando Dhillon MD at [facility] and [facility] Left: Tibia [employer] 07/07/2016 6197-9-00 1 / / [id number] Tissue Osteoset 25ml Resorbable Bead Kit Calcium Sulfate - [id number] - [id number] Implanted:Qty: 1 on 11/09/2015 by Farshad Barroso MD at [facility] [place] and Med Left: Knee [employer] 02/06/2022 [id number] / / [id number] Cement Simplex P Full Dose Radiopaque Tobramycin Bone - [id number] - [id number] Implanted:Qty: 2 on 06/04/2016 by Nando Dhillon MD at [facility] [place] and Med Left: Knee [employer] 06/08/2016 6197-9-01 0 / / [id number] Description:vancomycin mixed with cement Cement Simplex P Radiopaque Full Dose Bone 10 Pack - [id number] - [id number] Implanted:Qty: 1 on 07/17/2016 by Farshad Barroso MD at [facility] and Med Left: Knee [employer] 09/07/2018 6191-1-01 0 / / [id number] Description:CEMENT MIXED WIT H 4000MG VANCOMYCIN Advance Directives For more information, please contact: [phone] Latest Code Status on File Code Status Date Activated Date Inactivated Comments Full Code 01/23/2019 11:19 AM 01/26/2019 6:23 PM This code status was ascertained in the following way: discussion with patient . Code Status History Code Status Date Activated Date Inactivated Comments Full Code 01/17/2019 7:32 PM 01/19/2019 2:03 AM This code status was ascertained in the following way: discussed with pt . Full Code 01/17/2019 6:21 PM 01/17/2019 7:32 PM This code status was ascertained in the following way: discussion with patient . Full Code 07/17/2016 3:06 PM 07/21/2016 9:00 PM This c ode status was ascertained in the following way: discussion with patient. Full Code 06/01/2016 9:46 PM 06/09/2016 12:51 AM This code status was ascertained in the following way: discussion with patient. Care Teams Community Manager Relationship Specialty Start Date End Date Pcp, Leann Owen MD [address] [place] [address] PCP - General Men'S Garment Fitter 06/01/16
--- OUTSIDE RECORDS SUMMARY | 2024-12-19 16:07 | XMS_ITS ---
Author Organization [facility] Address [address] [place] [address] Care Team Providers Care Debug Technician Name Role Phone NONE, NONE Primary Care Provider Olayinka Qureshi Unavailable [phone] REASON FOR VISIT gi bleed Encounters Encounter Location Date Provider Diagnosis [facility] [facility] [address], [place] [id number] 10/16/2024 Olayinka Pressley PLAN OF TREATMENT No Information
--- OUTSIDE RECORDS SUMMARY | 2024-12-19 16:07 | XMS_ITS | Clinical Summary ---
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 1 mL 1 11/07/2024 Active senna-docusate (SENNA-S) 8.6-50 MGIndications:Chr onic liver failure without hepatic coma (HCC) Take 2 tablets by mouth nightly. 60 tablet 11/07/2024 Active lactulose (ENULOSE) 10 gm/15 mL solutionIndicatio ns:Chronic liver failure without hepatic coma (HCC) Take 30 mL (20 g total) by mouth every 12 hours. 1800 mL 11/07/2024 Active folic acid (FOLVITE) 1 MG tabletIndications :Chronic liver failure without hepatic coma (HCC) Take 1 tablet (1 mg total) by mouth daily. 30 tablet 11/07/2024 Active rifAXIMin (XIFAXAN) 550 MG tabletIndications :Chronic liver failure without hepatic coma (HCC) Take 1 tablet (550 mg total) by mouth every 12 (twelve) hours around the clock. 60 tablet 11/07/2024 Active ferrous sulfate 325 (65 FE) MG EC tabletIndications :Chronic liver failure without hepatic coma (HCC) Take 1 tablet (325 mg total) by mouth every other day. Take 2 hours before or 4 hours after acid reducers. 15 tablet 11/07/2024 Active methadone (DOLOPHINE) 10 MG tabletIndications :Chronic liver failure without hepatic coma (HCC) Take 5 tablets by mouth daily for 2 doses, 11/07/2024 Active valACYclovir (VALTREX) 500 MG tabletIndications :Chronic liver failure without hepatic coma (HCC) Take 1 tablet (500 mg total) by mouth every 24 hours around the clock. 60 tablet 11/07/2024 01/06/2025 Active multivitamin with minerals Tab tabletIndications :Chronic liver failure without hepatic coma (HCC) Take 1 tablet by mouth daily. 30 tablet 11/07/2024 Active carvedilol (COREG) 6.25 MG tabletIndications :Chronic liver failure without hepatic coma (HCC) Take 1 tablet (6.25 mg total) by mouth 2 (two) times a day with meals. 60 tablet 11/07/2024 Active PANTOprazole (PROTONIX) 40 MG EC tabletIndications :Chronic liver failure without hepatic coma (HCC) Take 1 tablet (40 mg total) by mouth 2 (two) times a day. 60 tablet 11/07/2024 Active levoFLOXacin (LEVAQUIN) 500 MG tabletIndications :Chronic liver failure without hepatic coma (HCC) Take 1 tablet (500 mg total) by mouth every 24 hours around the clock. 30 tablet 11/07/2024 12/07/2024 Active Problems Problem Noted Date Diagnosed Date Liver failure 10/29/2024 UGIB (upper gastrointestinal bleed) 10/29/2024 Encounters Date Type Department Care Team Description 11/06/2024 Transcribe Orders [facility] at Home [address] [place] [address] Zaid Buchanan MD Liver failure without hepatic coma, unspecified chronicity (HCC) (Primary Dx) 10/31/2024 11:26 AM EST Anesthesia Event [facility] [address] [place] [address] Matthieu Sanz MD Gordon, Donald E PA-C 10/31/2024 10:31 AM EST - 10/31/2024 11:06 AM EST Surgery [facility] [address] [place] [address] Ni Kline, ENDOSCOPY UPPER 10/30/2024 4:05 PM EST - 10/30/2024 6:26 PM EST Surgery [facility] Radiology [address] [place] [address] Anthony Soto MD EMBOLIZATION VASCULAR 10/30/2024 3:36 PM EST Anesthesia Event [facility] Radiology [address] [place] [address] Davey Huff MD 10/29/2024 4:39 PM EST - 11/07/2024 1:29 PM EST Hospital Encounter [facility] [address] [place] [address], [place] [address] Medardo Martin MD Thorevska, MD Omar Hong, MD Racheal Antonio Andrew, MD Jacob, Jason C, MD Gionfriddo, MD Chanel Wiley, MD Jp Garcia, MD Jayece Subacute liver failure without hepatic coma (Primary Dx); Chronic liver failure without hepatic coma (HCC); UGIB (upper gastrointestinal bleed) Discharge Disposition: Home with Health Care Services 10/29/2024 Travel from Last 3 Months Social History Tobacco Use Types Packs/Day Years Used Date Smoking Tobacco: Never Smokeless Tobacco: Never Tobacco Cessation:Counseling Given: Not Answered [facility] Utilities Answer Date Recorded In the past 12 months has [employer], oil, or water [employer] threatened to shut off services in your home? No 10/31/2024 AUDIT-C Answer Date Recorded Q1: How often do you have a drink containing alcohol? Never 10/29/2024 Q2: How many drinks containi ng alcohol do you have on a typical day when you are drinking? Patient does not drink Q3: How often do you have si x or more drinks on one occasion? Never 10/29/2024 Overall Financial Resource Strain (CARDIA) Answe r Date Recorded How hard is it for you to pa y for the very basics like food, housing, medical care, and heating? Not very hard 10/31/2024 PHQ-2 Answer Date Recorded PHQ-2 Total Score 0 10/29/2024 Hunger Vital Sign Answer Date Recorded Within the past 12 months, y ou worried that your food would run out before you got the money to buy more. Never true 10/31/20 24 Within the past 12 months, t he food you bought just didn't last and you didn't have money to get more. Never true 10/31/2024 PRAPARE - Transportation Answer Date Re corded In the past 12 months, has l ack of transportation kept you from medical appointments or from getting medications? No 10/09 In the past 12 months, has l ack of transportation kept you from meetings, work, or from getting things needed for daily living? No 10/31/2024 Housing Stability Vital Sign Answer Jovan e Recorded In the last 12 months, was t here a time when you were not able to pay the mortgage or rent on time? No 10/31/2024 In the past 12 months, how m any times have you moved where you were living? 1 10/31/2024 At any time in the past 12 m [facility], were you homeless or living in a long term (including now)? No 10/31/2024 Sex and Gender Information Value Date Recorded Sex Assigned at Male 10/29/2024 4:41 PM EST Gender Identity Male 10/29/2024 4:41 PM EST Sexual Orientation Heterosexual (straight) 10/29 4:41 PM EST Last Filed Vital Signs Vital Sign Reading Time Taken Comments Blood Pressure 109/65 11/07/2024 11:31 AM EST Pulse 77 11/07/2024 11:31 AM EST Temperature 37.6 ??C (99.7 ??F) 11/07/2024 1 1:31 AM EST Respiratory Rate 16 11/07/2024 11:3 1 AM EST Oxygen Saturation 97% 11/07/2024 11: 31 AM EST Inhaled Oxygen Concentration - - Weight 97.4 kg (214 lb 11.7 oz) 11/07/2024 6:24 AM EST Height 172.7 cm (5' 8 ) 10/29/2024 5:00 PM EST Body Mass Index 32.65 10/29/2024 5:00 PM EST Plan of Treatment Health Maintenance Due Date Last Done Comments Hepatitis C Virus Screening 1955 DTaP/Tdap/Td Vaccines (1 - Tdap) 1975 Pneumococcal Vaccines 50+ (1 of 2 - PCV) 1975 Colonoscopy 2001 Zoster (Shingles) Vaccine (1 of 2) 2006 Influenza Vaccine 06/08/2024 11/15/2015 COVID-19 Vaccine (1 - 2023-2 5 season) 2024 RSV Vaccine 60 years and old er and Patients (1 - 1-dose 75+ series) 2031 HIV Screening Discontinued 09/27/2015 Hepatitis B Vaccines Aged Out No long er eligible based on patient's age to complete this topic Procedures Procedure Name Priority Date/Time Associated Diagnosis Comments DIFFERENTIAL, AUTOMATED (ADD ON ONLY) Routine 11/07/2024 6:41 AM EST COMPLETE BLOOD COUNT, WITHOUT DIFFERENTIAL Routine 11/07/2024 6:41 AM EST FOLATE LEVEL Routine 11/07/2024 6:41 AM EST VITAMIN B12 Routine 11/07/2024 6:41 AM EST COMPLETE BLOOD COUNT, WITHOUT DIFFERENTIAL Routine 11/05/2024 6:40 AM EST MAGNESIUM Routine 11/04/2024 6:17 AM EST BASIC METABOLIC PANEL Routine 11/04/2024 6:17 AM EST COMPLETE BLOOD COUNT, WITHOUT DIFFERENTIAL Routine 11/04/2024 6:17 AM EST TYPE AND SCREEN Routine 11/04/2024 6:14 AM EST COMPLETE BLOOD COUNT, WITHOUT DIFFERENTIAL Routine 11/02/2024 11:30 AM EST POCT GLUCOSE, FINGERSTICK Routine 11/02/2024 7:51 AM EST COMPLETE BLOOD COUNT, WITHOUT DIFFERENTIAL Routine 11/02/2024 6:27 AM EST POCT GLUCOSE, FINGERSTICK Routine 11/02/2024 4:15 AM EST PROTIME-INR Routine 11/02/2024 12:35 AM EST PHOSPHORUS Routine 11/02/2024 12:35 AM EST MAGNESIUM Routine 11/02/2024 12:35 AM EST HEPATIC FUNCTION PANEL Routine 11/02/2024 12:35 AM EST BASIC METABOLIC PANEL Routine 11/02/2024 12:35 AM EST COMPLETE BLOOD COUNT, WITHOUT DIFFERENTIAL Routine 11/02/2024 12:35 AM EST COMPLETE BLOOD COUNT, WITHOUT DIFFERENTIAL Routine 11/01/2024 5:50 PM EST COMPLETE BLOOD COUNT, WITHOUT DIFFERENTIAL Routine 11/01/2024 11:23 AM EST ECG 12-LEAD Routine 11/01/2024 10:38 AM EST POCT GLUCOSE, FINGERSTICK Routine 11/01/2024 8:00 AM EST COMPLETE BLOOD COUNT, WITHOUT DIFFERENTIAL Routine 11/01/2024 5:54 AM EST POCT GLUCOSE, FINGERSTICK Routine 11/01/2024 4:02 AM EST PHOSPHORUS Routine 10/31/2024 11:42 PM EST MAGNESIUM Routine 10/31/2024 11:42 PM EST BASIC METABOLIC PANEL Routine 10/31/2024 11:42 PM EST COMPLETE BLOOD COUNT, WITHOUT DIFFERENTIAL Routine 10/31/2024 11:42 PM EST POCT GLUCOSE, FINGERSTICK Routine 10/31/2024 7:51 PM EST COMPLETE BLOOD COUNT, WITHOUT DIFFERENTIAL Routine 10/31/2024 5:33 PM EST COMPLETE BLOOD COUNT, WITHOUT DIFFERENTIAL Routine 10/31/2024 11:43 AM EST ENDOSCOPY UPPER 10/31/2024 11:13 AM EST UGIB (upper gastrointestinal bleed) ECHOCARDIOGRAM (TTE) COMPREHENSIVE (CONTRAST PRN) Routine 10/31/2024 10:31 AM EST POCT GLUCOSE, FINGERSTICK Routine 10/31/2024 8:06 AM EST DIFFERENTIAL, AUTOMATED (ADD ON ONLY) Routine 10/31/2024 5:19 AM EST COMPLETE BLOOD COUNT, WITHOUT DIFFERENTIAL Routine 10/31/2024 5:19 AM EST POCT GLUCOSE, FINGERSTICK Routine 10/31/2024 4:26 AM EST POCT GLUCOSE, FINGERSTICK Routine 10/30/2024 11:33 PM EST BASIC METABOLIC PANEL Routine 10/30/2024 11:29 PM EST PHOSPHORUS Routine 10/30/2024 11:29 PM EST MAGNESIUM Routine 10/30/2024 11:29 PM EST COMPLETE BLOOD COUNT, WITHOUT DIFFERENTIAL Routine 10/30/2024 11:29 PM EST US DUPLEX ABDOMEN/PELVIS-COMPLE TE Routine 10/30/2024 9:18 PM EST POCT GLUCOSE, FINGERSTICK Routine 10/30/2024 7:54 PM EST TRANSFUSE FRESH FROZEN PLASMA Routine 10/30/2024 6:41 PM EST COMPLETE BLOOD COUNT, WITHOUT DIFFERENTIAL Routine 10/30/2024 6:08 PM EST ENDOVASCULAR PROCEDURE Routine 10/30/2024 5:41 PM EST UGIB (upper gastrointestinal bleed) ISTAT HEMOGLOBIN (ACTIVE) Routine 10/30/2024 5:09 PM EST ISTAT HEMATOCRIT (ACTIVE) Routine 10/30/2024 5:09 PM EST ISTAT GLUCOSE Routine 10/30/2024 5:09 PM EST ISTAT VENOUS BLOOD GAS (VBG) Routine 10/30/2024 5:09 PM EST ISTAT CALCIUM, IONIZED (ICA) Routine 10/30/2024 5:09 PM EST ISTAT POTASSIUM (K) Routine 10/30/2024 5 :09 PM EST ISTAT SODIUM (NA) Routine 10/30/2024 5:0 9 PM EST TRANSFUSE RED BLOOD CELLS Routine 10/30/2024 4:30 PM EST TRANSFUSE RED BLOOD CELLS Routine 10/30/2024 4:19 PM EST ISTAT HEMOGLOBIN (ACTIVE) Routine 10/30/2024 4:06 PM EST ISTAT HEMATOCRIT (ACTIVE) Routine 10/30/2024 4:06 PM EST ISTAT GLUCOSE Routine 10/30/2024 4:06 PM EST ISTAT VENOUS BLOOD GAS (VBG) Routine 10/30/2024 4:06 PM EST ISTAT CALCIUM, IONIZED (ICA) Routine 10/30/2024 4:06 PM EST ISTAT POTASSIUM (K) Routine 10/30/2024 4 :06 PM EST ISTAT SODIUM (NA) Routine 10/30/2024 4:0 6 PM EST ANES INTUBATION Routine 10/30/2024 4:04 PM EST PREPARE RBC'S Routine 10/30/2024 3:13 PM EST TRANSFUSE PLATELETS Routine 10/30/2024 2 :19 PM EST PREPARE FRESH FROZEN PLASMA Routine 10/30/2024 1:58 PM EST PREPARE PLATELETS Routine 10/30/2024 1:5 7 PM EST PREPARE RBC'S Routine 10/30/2024 1:[address] ABDOMEN+PELVIS W W/O CONTRAST STAT 10/30/2024 1:12 PM EST COMPLETE BLOOD COUNT, WITHOUT DIFFERENTIAL Routine 10/30/2024 12:15 PM EST POCT GLUCOSE, FINGERSTICK Routine 10/30/2024 12:02 PM EST XR CHEST 1 VIEW-PORTABLE Routine 10/30/2024 10:48 AM EST POCT GLUCOSE, FINGERSTICK Routine 10/30/2024 8:00 AM EST HEMOGLOBIN AND HEMATOCRIT Routine 10/30/2024 6:23 AM EST POCT GLUCOSE, FINGERSTICK Routine 10/30/2024 3:55 AM EST TRANSFUSE FRESH FROZEN PLASMA Routine 10/30/2024 3:54 AM EST TRANSFUSE FRESH FROZEN PLASMA Routine 10/30/2024 3:24 AM EST PREPARE FRESH FROZEN PLASMA Routine 10/30/2024 2:32 AM EST TRANSFUSE RED BLOOD CELLS Routine 10/30/2024 2:20 AM EST HEPATIC FUNCTION PANEL Routine 10/30/2024 1:27 AM EST PROTIME-INR Routine 10/30/2024 1:27 AM EST COMPLETE BLOOD COUNT, WITHOUT DIFFERENTIAL Routine 10/30/2024 1:27 AM EST BASIC METABOLIC PANEL Routine 10/30/2024 1:27 AM EST FIBRINOGEN LEVEL Routine 10/30/2024 1:27 AM EST TRANSFUSE PLATELETS Routine 10/30/2024 1 2:20 AM EST POCT GLUCOSE, FINGERSTICK Routine 10/30/2024 12:04 AM EST TRANSFUSE RED BLOOD CELLS Routine 10/29/2024 11:32 PM EST TRANSFUSE FRESH FROZEN PLASMA Routine 10/29/2024 10:13 PM EST TRANSFUSE RED BLOOD CELLS Routine 10/29/2024 9:45 PM EST ABO CONFIRMATION Routine 10/29/2024 8:54 PM EST HEMOGLOBIN AND HEMATOCRIT Routine 10/29/2024 8:54 PM EST TSH, HIGHLY SENSITIVE Routine 10/29/2024 8:54 PM EST POCT GLUCOSE, FINGERSTICK Routine 10/29/2024 8:44 PM EST PREPARE PLATELETS Routine 10/29/2024 7:4 5 PM EST PREPARE FRESH FROZEN PLASMA Routine 10/29/2024 7:44 PM EST PREPARE RBC'S Routine 10/29/2024 7:34 PM EST TYPE AND SCREEN Routine 10/29/2024 6:56 PM EST PROTIME-INR Routine 10/29/2024 6:51 PM EST PHOSPHORUS Routine 10/29/2024 5:34 PM EST MAGNESIUM Routine 10/29/2024 5:34 PM EST FERRITIN Routine 10/29/2024 5:34 PM EST HAPTOGLOBIN Routine 10/29/2024 5:34 PM EST IRON AND TOTAL IRON BINDING CAPACITY Routine 10/29/2024 5:34 PM EST RETICULOCYTE COUNT Routine 10/29/2024 5: 34 PM EST LIPASE Routine 10/29/2024 5:34 PM EST LACTIC ACID, PLASMA Routine 10/29/2024 5 :34 PM EST LACTATE DEHYDROGENASE (LDH) Routine 10/29/2024 5:34 PM EST HEPATIC FUNCTION PANEL Routine 10/29/2024 5:34 PM EST BASIC METABOLIC PANEL Routine 10/29/2024 5:34 PM EST AMMONIA LEVEL Routine 10/29/2024 5:34 PM EST COMPLETE BLOOD COUNT, WITH DIFFERENTIAL Routine 10/29/2024 5:34 PM EST POCT GLUCOSE, FINGERSTICK Routine 10/29/2024 5:02 PM EST from Last 3 Months Results * (ABNORMAL) Differential, Automated (For Add-On Orders to CBC ONLY) (11/07/2024 6:41 AM EST) Only the most recent of2 resultswithin the time period is included. Neutrophils Auto 65.6 % 11/07/20 9:04 AM [facility] Immature Granulocytes 0.9 % 11/07/2024 9:04 AM [facility] Lymphocytes Auto 18.3 % 11/07/20 9:04 AM [facility] Monocytes Auto 14.7 % 11/07/2024 9:04 AM [facility] Eosinophils Auto 0.5 % 11/07/20 9:04 AM [facility] Basophils Auto 0.0 % 11/07/2024 9:04 AM [facility] Abs Neutrophils Auto 1.43(L) 2.00 - 7.50 Thou/uL 11/07/2024 9:04 AM [facility] Abs Immature Granulocytes 0.02 0.00 - 0.10 Thou/uL 11/07/2024 9:04 AM [facility] Abs Lymphocytes Auto 0.40(L) 1.50 - 4.50 Thou/uL 11/07/2024 9:04 AM [facility] Abs Monocytes Auto 0.32 0.20 - 1.50 Thou/uL 11/07/2024 9:04 AM [facility] Abs Eosinophils Auto 0.01 0.00 - 0.70 Thou/uL 11/07/2024 9:04 AM [facility] Abs Basophils Auto 0.00 0.00 - 0.20 Thou/uL 11/07/2024 9:04 AM [facility] Blood specimen / Unknown 11/07/2024 6:41 AM EST 11/07/2024 6:44 AM EST Zaid Buchanan MD [place] [address], [place] [address] * (ABNORMAL) Complete Blood Count WITHOUT Differential - Early AM (11/07/2024 6:41 AM EST) Only the most recent of17 resultswithin the time period is included. White Blood Cell Count 2.3(L) 4.0 - 11.0 Thou/uL 11/07/2024 7:12 AM [facility] Platelet Count 36(L) 150 - 450 Thou/uL 11/07/2024 7:12 AM [facility] Hemoglobin 8.7(L) 13.0 - 17.7 g/dL 11/07/2024 7:12 AM [facility] Hematocrit 28.3(L) 39.0 - 54.0 % 11/07/2024 7:12 AM [facility] Red Blood Cell Count 3.07(L) 4.50 - 6.20 Mil/uL 11/07/2024 7:12 AM [facility] MCV 92 80 - 100 fL 11/07/2024 7:12 AM [facility] MCH 28.3 27.0 - 31.0 pg 11/07/2024 7:12 AM [facility] MCHC 30.7 30.0 - 36.0 g/dL 11/07/2024 7:12 AM [facility] RDW 17.5(H) 11.5 - 14.5 % 11/07/2024 7:12 AM [facility] Immature Platelet Fraction 6.5 1.2 - 8.6 % 11/07/2024 7:12 AM [facility] Blood Blood specimen / Unknown 11/07/2024 6:41 AM EST 11/07/2024 6:44 AM EST Zaid Buchanan MD LAB BLOOD ORDERABLES Performing Organization Address [facility] [place] [address], [place] [address] * Folate Level (11/07/2024 6:41 AM EST) Folate, Serum 20.0 >7.2 ng/mL 11/07/2024 10:37 AM [facility] Blood Serum specimen / Unknown 11/07/2024 6:41 AM EST 11/07/2024 6:44 AM EST Zaid Buchanan MD [place] [address], [place] [address] * (ABNORMAL) Vitamin B12 (11/07/2024 6:41 AM EST) Vitamin B12 1,059(H) 243 - 894 pg/mL 11/07/2024 10:38 AM [facility] Blood (Plasma/Serum) 11/07/2024 6:41 AM EST 11/07/2024 6:44 AM EST Zaid Buchanan MD LAB BLOOD ORDERABLES Performing Organization Address [facility] [address], [place] [address] * MAGNESIUM (11/04/2024 6:17 AM EST) Only the most recent of5 resultswithin the time period is included. Magnesium 1.7 1.6 - 2.7 mg/dL 11/04/2024 7:34 AM [facility] Blood (Plasma/Serum) 11/04/2024 6:17 AM EST 11/04/2024 6:31 AM EST Carroll Springer MD LAB BLOOD ORDERABL ES Performing Organization Address [facility] [place] [address], [place] [address] * (ABNORMAL) BASIC METABOLIC PANEL (11/04/2024 6:17 AM EST) Only the most recent of6 resultswithin the time period is included. Glucose 106(H) 65 - 99 mg/dL 11/04/2024 7:34 AM [facility] Comment:Fasting: <100 mg/dL, Non-Fasting: <200 mg/dL (ADA 2004) Blood Urea Nitrogen (BUN) 8 8 - 21 mg/dL 11/04/2024 7:34 AM [facility] Creatinine 0.7 0.5 - 1.3 mg/dL 11/04/2024 7:34 AM [facility] eGFR >90 >59 11/04/2024 7:34 AM [facility] Comment:CKD-EPI (2020) in mL /min/1.73 sq meters. Sodium 140 136 - 145 mmol/L 11/04/2024 7:34 AM [facility] Potassium 3.7 3.4 - 5.3 mmol/L 11/04/2024 7:34 AM [facility] Chloride 106 98 - 107 mmol/L 11/04/2024 7:34 AM [facility] CO2 25 22 - 33 mmol/L 11/04/2024 7:34 AM [facility] Anion Gap 9 7 - 17 11/04/2024 7:34 AM [facility] Calcium 8.4(L) 8.7 - 10.5 mg/dL 11/04/2024 7:34 AM [facility] BUN/Creatinine Ratio 11 10.0 - 25.0 Ratio 11/04/2024 7:34 AM [facility] Blood (Plasma/Serum) 11/04/2024 6:17 AM EST 11/04/2024 6:31 AM EST Carroll Springer MD LAB BLOOD ORDERABL ES Performing Organization Address [facility] [place] [address], [place] [address] * Type and Screen (11/04/2024 6:14 AM EST) Only the most recent of2 resultswithin the time period is included. ABO/Rh O POSITIVE 11/04/2024 7:25 AM [facility] Antibody Screen NEGATIVE 7:25 AM [facility] Specimen Expiration 11/07/2024 11/04/2024 7:25 AM [facility] Blood Blood specimen / Unknown 11/04/2024 6:14 AM EST 11/04/2024 6:40 AM EST Carroll Springer MD BLOOD BANK TEST OR DERABLES Performing Organization Address [facility]/[place] [address], [place] [address] * (ABNORMAL) POCT Glucose, Fingerstick (11/02/2024 7:51 AM EST) Only the most recent of15 resultswithin the time period is included. POC Glucose 111(H) 65 - 99 mg/dL 11/02/2024 7:54 AM EST Blood specimen / Unknown 11/02/2024 7:51 AM EST 11/02/2024 7:54 AM EST Medardo Martin MD POINT OF CARE TEST O RDERABLES HOSPITAL LAB See Below * (ABNORMAL) Protime-INR (Routine) (11/02/2024 12:35 AM EST) Only the most recent of3 resultswithin the time period is included. Anticoagulant OTHER AGENT OR UNKNOWN 11/02/2024 12:36 AM EST Prothrombin Time (PT) 16.7(H) 10.0 - 13.5 seconds 11/02/2024 1:05 AM EST [facility] INR 1.4 11/02/2024 1:05 AM EST [facility] Comment:INR Therapeutic Rang es: Standard dose anticoagulant 2.0 to 3.0, High dose anticoagulant 2.5-3.5. Blood Plasma specimen / Unknown 11/02/2024 12:35 AM EST 11/02/2024 12:45 AM EST Aj Wick MD LAB BLOOD ORDERABLE S Performing Organization Address [facility] [place] [address], [place] [address] * Phosphorus (Routine) (11/02/2024 12:35 AM EST) Only the most recent of4 resultswithin the time period is included. Phosphorus 3.0 2.7 - 4.5 mg/dL 11/02/2024 1:37 AM EST [facility] Blood (Plasma/Serum) 11/02/2024 12:35 AM EST 11/02/2024 12:45 AM EST Aj Wick MD LAB BLOOD ORDERABLE S Performing Organization Address [facility] [place] [address], [place] [address] * (ABNORMAL) Hepatic Function Panel (Routine) (11/02/2024 12:35 AM EST) Only the most recent of3 resultswithin the time period is included. Alkaline Phosphatase 54 45 - 128 U/L 11/02/2024 1:37 AM [facility] Aspartate Aminotrans (AST) 52 10 - 55 U/L 11/02/2024 1:37 AM [facility] Alanine Aminotrans (ALT) 18 10 - 55 U/L 11/02/2024 1:37 AM [facility] Bilirubin, Total 1.8(H) 0.2 - 1.0 mg/dL 11/02/2024 1:37 AM [facility] Protein, Total 5.2(L) 6.3 - 8.3 g/dL 11/02/2024 1:37 AM [facility] Albumin 3.4 3.4 - 4.8 g/dL 11/02/2024 1:37 AM [facility] Bilirubin, Direct 0.8(H) 0 - 0.2 mg/dL 11/02/2024 1:37 AM [facility] Globulin 1.8 1.5 - 3.9 g/dL 11/02/2024 1:37 AM [facility] Albumin/Globulin Ratio 1.9 1.0 - 3.0 Ratio 11/02/2024 1:37 AM [facility] Blood (Plasma/Serum) 11/02/2024 12:35 AM EST 11/02/2024 12:45 AM EST Aj Wick MD [place] [address], [place] [address] * ECG 12 lead (11/01/2024 10:38 AM EST) Systolic BP 101 mmHg EKG [facility] Diastolic BP 58 mmHg EKG [facility] Ventricular rate 59 BPM EKG [facility] Atrial rate 59 BPM EKG [facility] P-R interval 186 ms EKG [facility] QRS duration 72 ms EKG [facility] Q-T interval 466 ms EKG [facility] QTC calculation (Bazett) 461 ms EKG [facility] P axis 41 degrees EKG [facility] R axis 37 degrees EKG [facility] T axis 60 degrees EKG [facility] 11/01/2024 10:3 8 AM EST Narrative EKG [facility] - 11/01/2024 11:52 AM EST Sinus bradycardia Septal infarct , age undetermined Abnormal ECG Confirmed by MD Alarcon Robert ([id number]) on 11/01/2024 11:52:51 AM Procedure Note Olayinka Alarcon MD - 11/01/2024 Sinus bradycardia Septal infarct , age undetermined Abnormal ECG Confirmed by MD Alarcon Robert ([id number]) on 11/01/2024 11:52:51 AM Medardo Martin MD ECG ORDERABLES [facility] * ECHOCARDIOGRAM COMPREHENSIVE (10/31/2024 10:31 AM EST) Heart Rate 60 bpm BP Systolic 111 mmHg BP Diastolic 72 mmHg Height 68.00 inches Weight 199.00 lbs BSA 2.04 m2 LV [place] vol 3D 185.0 mL LV Diastolic Volume 154 mL LV sys vol 3D 65.0 mL LV Systolic Volume 52 mL IVS (F:0.6-0.9, M:0.6-1.0) 0.7 cm IVS Mean (F:0.6-0.9, M:0.6-1.0) 0.7 cm LVIDD (F:3.8-5.2, M:4.2-5.8) 4.5 cm LVIDD Mean (F:3.8-5.2, M:4.2-5.8) 4.5 cm LVIDS (F:2.2-3.5, M:2.5-4.0) 2.6 cm LVIDS (F:2.2-3.5, M:2.5-4.0) 2.6 cm LVOT diameter 2.2 cm LVOT diameter mean 2.2 cm LVOT mn grad mean 3.0 mmHg LVOT VTI MEAN 31.0 cm LVOT mn grad 3.0 mmHg LVOT VTI 31.0 cm LVOT peak rocky 1.3 m/s LVOT peak rocky mean 1.3 m/s PW (F:0.6-0.9, M:0.6-1.0) 0.9 cm PW Mean (F:0.6-0.9, M:0.6-1.0) 0.9 cm MV E' Lateral Velocity 12.50 cm/s MV E' Lateral Velocity Mean 12.50 cm/s MV E' Septal Velocity 9.03 cm/s MV E' Septal Velocity Mean 9.03 cm/s LA sup-inf (apical 2-ch view) 6.13 cm LA volume 87.1 mL RA area 16.4 cm2 RA 2D Volume 35.0 mL Sinuses of Valsalva 3.8 cm Sinuses of Valsalva Mean 3.8 cm Ascending aorta 3.7 cm Ascending aorta mean 3.7 cm Inferior Vena Cava Diameter 2.7 cm Inferior Vena Cava Diameter Mean 2.7 cm E wave decelartion time 282 ms E wave decelartion time mean 282 ms MV Peak A-Wave 47.6 cm/s MV Peak A-Wave Mean 47.6 cm/s MV Peak E-Wave 83.1 cm/s MV Peak E-Wave Mean 83.1 cm/s RVID d 4.5 cm RVID d Mean 4.5 cm RV Free wall pk S' 12.0 cm/s RV Free wall pk S' Mean 12.0 cm/s Tapse 2.8 cm Tapse Mean 2.8 cm TR Peak Rocky 2.5 m/s Mcadams BP EF (55-75) 66 % EF - 3D Echo 65 % LVOT stroke volume 118 mL SVI 57 mL/m2 Left Ventricular Cardiac Index 3.5 L/min/m2 Left Ventricular Cardiac Output 7.1 L/min LV Diastolic Volume Index (F:29-61, M:35-75) 75.5 mL/m2 LV Systolic Volume Index (F:8-24, M:11-31) 25.5 mL/m2 LV mass 113.6 g LV Mass Index (F:43-95, M:49-115) 55.7 g/m2 LV RWT 0.40 LA Volume Index (16-34) 42.7 mL/m2 E/A ratio 1.75 E/E' Lateral 6.6 E/E' Septal 9.2 E/E' Average 7.9 AV LVOT peak gradient 6.8 mmHg LA Volume Index 17.2 mL/m2 LVOT area 3.8 cm2 Sinuses of Valsalva Index 1.9 cm/m2 Ascending aorta Index 1.8 cm/m2 E/E' ratio 6.65 LVOT SI 57.75 mL/m2 TR Peak Gradient 25 mmHg GLS 21.5 % Est. RA pres 15 mmHg RVSP 40 mmHg PASP 40.0 mmHg Anatomical Region Laterality Modality Ultrasound Narrative 10/31/2024 11:07 AM EST ?The left ventricle is normal in size. Left ventricular systolic function is normal. The quantitative EF by 2D Mcadams biplane is 66%. Global longitudinal strain is normal at -21.5%. Diastolic function is normal. ?The right ventricle is mildly dilated. Right ventricular systolic function is normal. ?There is mild to moderate tricuspid regurgitation. The estimated right ventricular systolic pressure is mildly elevated at 40 mmHg. ?There is no previous study for comparison in our system. Technical Details Overall the study quality was adequate. Left Ventricle The left ventricle is normal in size. Wall thickness is normal. Left ventricular systolic function is normal. The quantitative EF by 2D Mcadams biplane is 66%. Global longitudinal strain is normal at -21.5%. No wall motion abnormalities are present. Diastolic function is normal. Right Ventricle The right ventricle is mildly dilated. Right ventricular systolic function is normal. Left Atrium Left atrial size is normal. The pulmonary veins exhibit systolic dominant flow. Right Atrium Right atrial size is normal. Based on IVC diameter and collapse, right atrial pressure is estimated to be high (15 mmHg). Mitral Valve The mitral valve is structurally normal. There is mild mitral regurgitation. Tricuspid Valve The tricuspid valve leaflets are mildly thickened. There is mild to moderate tricuspid regurgitation. The estimated right ventricular systolic pressure is mildly elevated at 40 mmHg. Aortic Valve The aortic valve is tricuspid. The aortic valve leaflets are mildly calcified. There is trace aortic regurgitation. There is no aortic valve stenosis. Pulmonic Valve The pulmonic valve was not well visualized. There is trace pulmonic regurgitation. Ascending Aorta The aortic root and ascending aorta are normal in dimension. Pericardium There is no pericardial effusion. Prior Study There is no previous study for comparison in our system. Aj Wick MD CV ECHO ORDERABLES * Transfuse Fresh Frozen Plasma:Transfusion Indications: PT greater than 15 seconds or INR greater than 1.5 & liver disease with bleeding (10/30/2024 9:30 PM EST) Only the most recent of4 resultswithin the time period is included. Nelson Nelson MD BLOOD TRANSFUSION OR DERABLES * US Duplex abdomen/pelvis-Complete (10/30/2024 9:18 PM EST) Anatomical Region Laterality Modality Vascular Ultrasound 10/30/2024 8:14 PM EST Impressions 10/31/2024 2:56 PM EST 1. ??Cirrhotic liver with occluded portal vein. 2. ??Splenomegaly. 3. ??Cholelithiasis. Narrative 10/31/2024 2:56 PM EST EXAMINATION: US DUPLEX ABDOMEN/PELVIS-COMPLETE CLINICAL INFORMATION: Cirrhosis with portal vein thrombosis COMPARISON: CT from 10/30/2024 TECHNIQUE: Real-time imaging of the abdominal viscera. Color and spectral Doppler evaluation of the hepatic vasculature. FINDINGS: LIVER: Liver is heterogeneous and echogenic with nodular contour consistent with underlying cirrhosis. No focal liver lesion. No intrahepatic biliary duct dilatation. SPLENIC VEIN: Multiple varices seen at the splenic hilum which are patent. Splenic vein and through the mid abdomen is obscured by bowel gas shadowing HEPATIC VEINS: Patent with normal waveforms. PORTAL VEINS: Occluded with mixed echogenicity thrombus HEPATIC ARTERIES: Normal upstroke and diastolic flow. INFERIOR VENA CAVA: Patent with normal waveforms. GALLBLADDER: Echogenic sludge and shadowing stones seen within the gallbladder. No gallbladder wall thickening or pericholecystic fluid COMMON BILE DUCT: Normal in caliber measuring 0.4 cm in diameter. PANCREAS: The visualized pancreatic head is normal in appearance. The remainder of the pancreas is obscured from visualization by the overlying bowel gas. RIGHT KIDNEY: Normal. No hydronephrosis. No renal calculi or focal parenchymal lesions. The kidney measures 10.2 cm in maximum dimension. LEFT KIDNEY: Normal. No hydronephrosis. No renal calculi or focal parenchymal lesions. The kidney measures 11.1 cm in maximum dimension. SPLEEN: Enlarged. The spleen measures 19.4 cm in maximum dimension. ABDOMINAL AORTA: The visualized proximal segment is normal in caliber. INFERIOR VENA CAVA: Visualized portions are normal. FREE FLUID: Trace ascites Procedure Note Polo Coles MD - 10/31/2024 EXAMINATION: US DUPLEX ABDOMEN/PELVIS-COMPLETE CLINICAL INFORMATION: Cirrhosis with portal vein thrombosis COMPARISON: CT from 10/30/2024 TECHNIQUE: Real-time imaging of the abdominal viscera. Color and spectral Doppler evaluation of the hepatic vasculature. FINDINGS: LIVER: Liver is heterogeneous and echogenic with nodular contour consistent with underlying cirrhosis. No focal liver lesion. No intrahepatic biliary duct dilatation. SPLENIC VEIN: Multiple varices seen at the splenic hilum which are patent. Splenic vein and through the mid abdomen is obscured by bowel gas shadowing HEPATIC VEINS: Patent with normal waveforms. PORTAL VEINS: Occluded with mixed echogenicity thrombus HEPATIC ARTERIES: Normal upstroke and diastolic flow. INFERIOR VENA CAVA: Patent with normal waveforms. GALLBLADDER: Echogenic sludge and shadowing stones seen within the gallbladder. No gallbladder wall thickening or pericholecystic fluid COMMON BILE DUCT: Normal in caliber measuring 0.4 cm in diameter. PANCREAS: The visualized pancreatic head is normal in appearance. The remainder of the pancreas is obscured from visualization by the overlying bowel gas. RIGHT KIDNEY: Normal. No hydronephrosis. No renal calculi or focal parenchymal lesions. The kidney measures 10.2 cm in maximum dimension. LEFT KIDNEY: Normal. No hydronephrosis. No renal calculi or focal parenchymal lesions. The kidney measures 11.1 cm in maximum dimension. SPLEEN: Enlarged. The spleen measures 19.4 cm in maximum dimension. ABDOMINAL AORTA: The visualized proximal segment is normal in caliber. INFERIOR VENA CAVA: Visualized portions are normal. FREE FLUID: Trace ascites IMPRESSION: 1. Cirrhotic liver with occluded portal vein. 2. Splenomegaly. 3. Cholelithiasis. Nelson Nelson MD IMG US ORDERABLES * Transfuse Platelets:Transfusion Indications: Plt count less than or equal to 50K and bleeding (10/30/2024 6:49 PM EST) Only the most recent of2 resultswithin the time period is included. Nelson Nelson MD BLOOD TRANSFUSION OR DERABLES * EMBOLIZATION VASCULAR (10/30/2024 5:41 PM EST) Anatomical Region Laterality Modality X-Ray Angiograph y 10/30/2024 3:48 PM EST Impressions 10/31/2024 1:42 PM EST Splenic angiography demonstrates Dilated Tortuous Splenic artery. Plan: The examination was terminated due to inability to access the distal splenic artery secondary to tortuous nature and stenotic proximal origin. At this time the patient is not a candidate for endovascular therapy. Recommendations were given to the primary team to evaluate the patient for surgical splenectomy once stable. ?? PROCEDURE SUMMARY: - Arterial access with ultrasound guidance - Celiac angiography: Performed as described below - Splenic angiography and embolization as described below - Additional procedure(s): None PROCEDURE DETAILS: Pre-procedure Consent: Informed consent for the procedure including risks, benefits and alternatives was obtained and time-out was performed prior to the procedure. Preparation: The site was prepared and draped using maximal sterile barrier technique including cutaneous antisepsis. Anesthesia/sedation Level of anesthesia/sedation: General anesthesia Anesthesia/sedation administered by: Independent trained observer under attending supervision with continuous monitoring of the patient's level of consciousness and physiologic status Total intra-service sedation time (minutes): per anesthesia Access Local anesthesia was administered. The vessel was sonographically evaluated and judged to be patent. Real time ultrasound was used to visualize needle entry into the vessel and a permanent image was stored. A 5 sheath was placed. Vessel accessed: Right common femoral artery Access technique: Micropuncture set with 21 gauge needle Selective angiography Vessel catheterized: Splenic artery Findings: Dilated, Tortuous, with stenotic origin. Despite numerous attempts with a variety of catheters and wires, we were not able to achieve stable access to advance into the distal vessel to perform embolization. The procedure was terminated. Closure Access site angiography performed: Yes Findings: Patent vessel with appropriate access level Arterial closure technique: Angioseal Hemostasis achieved from closure technique: Yes Duration of manual compression (minutes): 5 Contrast Contrast agent: Omnipaque 300 Contrast volume (mL): 40 Radiation Dose Fluoroscopy time (minutes): 27 ?? Reference air kerma (mGy): 2005 Kerma area product (uGy-cm2): 92459 Additional Details Additional description of procedure: None Equipment details: None Specimens removed: None Estimated blood loss (mL): Less than 10 Standardized report: [email or web address] Attestation Signer name: Anthony Soto MD I attest that I was present for the entire procedure. I reviewed the stored images and agree with the report as written. Interpreted by: ??Aj Moreira DO Event Specialist Food Demonstrator I personally reviewed the images and, if necessary, I edited the report. I agree with the report as now presented. Narrative 10/31/2024 1:42 PM EST PROCEDURE: Splenic angiography and embolization Referring provider: NELSON NELSON Procedural Personnel Attending physician(s): Dr. Soto Resident physician(s): Dr. Moreira Advanced practice provider(s): None Pre-procedure diagnosis: Gastric varices Post-procedure diagnosis: Same Indication: Gastric Varices/Thrombosis of portal vein and splenic vein Additional clinical history: None Complications: No immediate complications. Procedure Note Anthony Soto MD - 10/31/2024 PROCEDURE: Splenic angiography and embolization Referring provider: NELSON NELSON Procedural Personnel Attending physician(s): Dr. Soto Resident physician(s): Dr. Moreira Advanced practice provider(s): None Pre-procedure diagnosis: Gastric varices Post-procedure diagnosis: Same Indication: Gastric Varices/Thrombosis of portal vein and splenic vein Additional clinical history: None Complications: No immediate complications. IMPRESSION: Splenic angiography demonstrates Dilated Tortuous Splenic artery. Plan: The examination was terminated due to inability to access the distal splenic artery secondary to tortuous nature and stenotic proximal origin. At this time the patient is not a candidate for endovascular therapy. Recommendations were given to the primary team to evaluate the patient for surgical splenectomy once stable. PROCEDURE SUMMARY: - Arterial access with ultrasound guidance - Celiac angiography: Performed as described below - Splenic angiography and embolization as described below - Additional procedure(s): None PROCEDURE DETAILS: Pre-procedure Consent: Informed consent for the procedure including risks, benefits and alternatives was obtained and time-out was performed prior to the procedure. Preparation: The site was prepared and draped using maximal sterile barrier technique including cutaneous antisepsis. Anesthesia/sedation Level of anesthesia/sedation: General anesthesia Anesthesia/sedation administered by: Independent trained observer under attending supervision with continuous monitoring of the patient's level of consciousness and physiologic status Total intra-service sedation time (minutes): per anesthesia Access Local anesthesia was administered. The vessel was sonographically evaluated and judged to be patent. Real time ultrasound was used to visualize needle entry into the vessel and a permanent image was stored. A 5 sheath was placed. Vessel accessed: Right common femoral artery Access technique: Micropuncture set with 21 gauge needle Selective angiography Vessel catheterized: Splenic artery Findings: Dilated, Tortuous, with stenotic origin. Despite numerous attempts with a variety of catheters and wires, we were not able to achieve stable access to advance into the distal vessel to perform embolization. The procedure was terminated. Closure Access site angiography performed: Yes Findings: Patent vessel with appropriate access level Arterial closure technique: Angioseal Hemostasis achieved from closure technique: Yes Duration of manual compression (minutes): 5 Contrast Contrast agent: Omnipaque 300 Contrast volume (mL): 40 Radiation Dose Fluoroscopy time (minutes): 27 Reference air kerma (mGy): 2006 Kerma area product (uGy-cm2): 35692 Additional Details Additional description of procedure: None Equipment details: None Specimens removed: None Estimated blood loss (mL): Less than 10 Standardized report: [email or web address] Attestation Signer name: Anthony Soto MD I attest that I was present for the entire procedure. I reviewed the stored images and agree with the report as written. Interpreted by: Aj Moreira DO Event Specialist Food Demonstrator I personally reviewed the images and, if necessary, I edited the report. I agree with the report as now presented. Shakir Dobbins MD CV ENDOVASCULAR IRINEO LEIJA * ISTAT Venous Blood Gas (VBG) (10/30/2024 5:09 PM EST) Only the most recent of2 resultswithin the time period is included. PH Venous, I-STAT 7.36 7.33 - 7.43 10/30/2024 5:11 PM EST PCO2 Venous, I-STAT 47.8 35.0 - 50.0 mmHg 10/30/2024 5:11 PM EST PO2 Venous, I-STAT 33 0 - 60 mmHg 10/30/2024 5:11 PM EST HCO3 Venous, I-STAT 26.7 23.0 - 28.0 mmol/L 10/30/2024 5:11 PM EST TCO2 Venous Calc, I-STAT 28 23 - 29 mmol/L 10/30/2024 5:11 PM EST Base Excess, I-STAT 1 mmol/L 10/30/2024 5:11 PM EST Comment:Reference Range: Neg ative 2 to Positive 3 SO2 Venous, I-STAT 61 60 - 75 % 10/30/2024 5:11 PM EST Sample Type, I-STAT VENOUS 10/30/2024 5:11 PM EST Blood specimen / Unknown 10/30/2024 5:09 PM EST 10/30/2024 5:11 PM EST Nelson Nelson MD POCT ORDERABLES - DE VICE Performing Organization Address [facility] Co de Phone Number HOSPITAL LAB See Below * (ABNORMAL) ISTAT Hemoglobin (10/30/2024 5:09 PM EST) Only the most recent of2 resultswithin the time period is included. Hemoglobin, I-STAT 8.2(L) 13.0 - 17.7 gm/dL 10/30/2024 5:11 PM EST Blood specimen / Unknown 10/30/2024 5:09 PM EST 10/30/2024 5:11 PM EST Nelson Nelson MD POCT ORDERABLES - DE VICE Performing Organization Address City/State/[facility] Co de Phone Number HOSPITAL LAB See Below * (ABNORMAL) ISTAT Hematocrit (10/30/2024 5:09 PM EST) Only the most recent of2 resultswithin the time period is included. Hematocrit, I-STAT 24.0(L) 39.0 - 54.0 % 10/30/2024 5:11 PM EST Blood specimen / Unknown 10/30/2024 5:09 PM EST 10/30/2024 5:11 PM EST Nelson Nelson MD POCT ORDERABLES - DE VICE Performing Organization Address [facility] LAB See Below * (ABNORMAL) ISTAT Calcium, Ionized (ICA) (10/30/2024 5:09 PM EST) Only the most recent of2 resultswithin the time period is included. Ionized Calcium, I-STAT 1.34(H) 1.17 - 1.33 mmol/L 10/30/2024 5:11 PM EST Blood specimen / Unknown 10/30/2024 5:09 PM EST 10/30/2024 5:11 PM EST Nelson Nelson MD POINT OF CARE TEST O RDERAJOSHUA Performing Organization Address [facility] Number [facility] LAB See Below * ISTAT Potassium (K) (10/30/2024 5:09 PM EST) Only the most recent of2 resultswithin the time period is included. Potassium, I-STAT 4.4 3.4 - 5.3 mmol/L 10/30/2024 5:11 PM EST Blood specimen / Unknown 10/30/2024 5:09 PM EST 10/30/2024 5:11 PM EST Nelson Nelson MD POINT OF CARE TEST O CLAIRE Performing Organization Address [facility] Number [facility] LAB See Below * ISTAT Sodium (Na) (10/30/2024 5:09 PM EST) Only the most recent of2 resultswithin the time period is included. Sodium, I-STAT 141 136 - 145 mmol/L 10/30/2024 5:11 PM EST Blood specimen / Unknown 10/30/2024 5:09 PM EST 10/30/2024 5:11 PM EST Nelson Nelson MD POINT OF CARE TEST O RDERABLES HOSPITAL LAB See Below * (ABNORMAL) ISTAT Glucose (10/30/2024 5:09 PM EST) Only the most recent of2 resultswithin the time period is included. Glucose, I-STAT 101(H) 65 - 99 mg/dL 10/30/2024 5:11 PM EST Blood specimen / Unknown 10/30/2024 5:09 PM EST 10/30/2024 5:11 PM EST Nelson Nelson MD POCT ORDERABLES - DE VICE HOSPITAL LAB See Below * Transfuse RBC's: (10/30/2024 4:31 PM EST) Only the most recent of5 resultswithin the time period is included. Davey Huff MD BLOOD TRANSFUSION OR DERABLES * ANES INTUBATION (10/30/2024 4:04 PM EST) Narrative Davey Huff MD - 10/30/2024 4:04 PM EST Davey Huff MD ? 10/30/2024 ??4:16 PM Anesthesia Procedure Note - Elective intubation Patient Name: Micheal Linder : 1955 Patient location: other (specify) - interventional radiology Procedure indications: airway protection Procedure diagnosis: Anesthesia Performed by: Anesthesiologist ? Davey Huff MD ? Chart Verification Airway: airway not difficult Preanesthetic Checklist monitors and equipment checked. Patient's pre-procedure mental status: awake The patient was sedated prior to procedure. Current level of sedation: general anesthesia Airway not difficult - NPO status: > 8 hours Procedure Details Intubation route: oral Intubation method: video laryngoscopy ??GS 3 Number of attempts: 1 Patient status for intubation: sedated, unresponsive and RSI Patient position: supine Tube size: 7.5 mm Tube: EVAC ??- cuffed and cuff inflated Cricoid pressure not applied or not required Cord visualization: Grade I Placement confirmation method: chest rise and ETCO2 monitor Breath sounds: equal bilaterally ETT to lip: 22 cm Dentition: same as baseline Complications: no complications Additional comments: RSI No evidence of aspiration Cords appeared erythematous but not edematous prior to ETT insertion Davey Huff MD [place] ANESTHESIA * Prepare RBC's:Prepare in: Units; Number of Units: 2; Transfusion Indications: Hemoglobin less than 7 gm/dl or HCT less than 21% (10/30/2024 3:13 PM EST) Only the most recent of3 resultswithin the time period is included. Units Ordered 1 10/30/2024 3:19 PM [facility] Serum specimen / Unknown 10/30/2024 3:13 PM EST 10/30/2024 3:19 PM EST Davey Huff MD BLOOD BANK PRODUCT O RDERAJOSHUA Performing Organization Address [facility] [place] [address], [place] [address] * Prepare Fresh Frozen Plasma:Prepare in: Units; Number of Units: 1; Transfusion Indications: PT greater than 15 seconds or INR greater than 1.5 & liver disease with bleeding (10/30/2024 1:58 PM EST) Only the most recent of3 resultswithin the time period is included. Units Ordered 1 10/30/2024 1:58 PM EST Unit Number [id number] 10/30/2024 2:55 PM [facility] Blood Component Type THAWED PLASMA 10/30/2024 2:55 PM [facility] Unit Division 00 10/30/2024 2:55 PM [facility] Unit Status ISSUED,FINAL 10/31/2024 12:07 AM [facility] Transfusion Status OK TO TRANSFUSE 10/30/2024 2:55 PM [facility] Blood 10/30/2024 1:58 PM EST 10/30/2024 2:55 PM EST Nelson Nelson MD BLOOD BANK PRODUCT O RDERAJOSHUA [facility] LAB See Below [address] [address] * Prepare Platelets:Prepare in: Doses; Number of doses: 1; Transfusion Indications: Plt count less than or equal to 50K and bleeding (10/30/2024 1:57 PM EST) Only the most recent of2 resultswithin the time period is included. Units Ordered 1 10/30/2024 1:58 PM EST Unit Number [id number] 10/30/2024 2:08 PM EST [facility] Blood Component Type Apheresis Platelets (7d) Leukocytes Reduced - 2nd container 10/30/2024 2:08 PM [facility] Unit Division 00 10/30/2024 2:08 PM EST [facility] Unit Status ISSUED,FINAL 10/31/2024 12:07 AM [facility] Transfusion Status OK TO TRANSFUSE 10/30/2024 2:08 PM EST [facility] Blood 10/30/2024 1:57 PM EST 10/30/2024 2:08 PM EST Nelson Nelson MD BLOOD BANK PRODUCT O RDERABLES [facility]ITAL LAB See Below [address] [address] * CT Abdomen+pelvis w w/o contrast (10/30/2024 1:12 PM EST) Anatomical Region Laterality Modality Abdomen, Pelvis Computed Tomogra phy 10/30/2024 12:5 6 PM EST Impressions 10/30/2024 2:04 PM EST Nodular cirrhotic liver contour. No early arterial enhancing lesions identified. Sequela portal hypertension with splenomegaly and mild volume ascites. Upper abdominal, perigastric, paraesophageal varices. Small area of contrast like hyperdensity within the gastric antrum present on the noncontrast portion of the study which may represent retained contrast from prior procedure or other ingested materials. Poor enhancement of the portal vein on the delayed images with thrombosis not excluded. Consider further correlation with ultrasound. Cholelithiasis and sludge. No CT evidence of acute cholecystitis. No biliary ductal dilatation. Small umbilical hernia containing tiny loop of small bowel. No obstruction. 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 Mild narrowing of the mid left renal artery with soft and calcific plaque. Lower chest demonstrates trace bilateral pleural effusions with adjacent atelectasis. Narrative 10/30/2024 2:[address] ABDOMEN+PELVIS W W/O CONTRAST HISTORY: TIPS vs BRTO evaluation of varices. 3 phase study COMPARISON: None TECHNIQUE: Serial axial images of the lung bases, abdomen and pelvis were obtained before as well as following intravenous administration of IV contrast. Images were reformatted and reviewed in coronal and sagittal planes. This exam was performed according to the departmental dose-optimization program which includes automated exposure control, adjustment of the mA and/or kV according to patient size and/or use of iterative reconstruction technique. FINDINGS: Lower chest demonstrates trace bilateral pleural effusions with adjacent atelectasis. Nodular cirrhotic liver contour. No early arterial enhancing lesions identified. Sequela portal hypertension with splenomegaly and mild volume ascites. Upper abdominal, perigastric, paraesophageal varices. Small area of contrast like hyperdensity within the gastric antrum present on the noncontrast portion of the study which may represent retained contrast from prior procedure or other ingested materials. Poor enhancement of the portal vein on the delayed images with partial thrombosis cannot excluded. Consider further correlation with ultrasound. Cholelithiasis and sludge. No CT evidence of acute cholecystitis. No biliary ductal dilatation. Mildly atrophic pancreas. Left adrenal gland not well assessed due to patient motion and due to adjacent varices. Right adrenal gland unremarkable. Bilateral kidneys intact. No hydronephrosis. Small right renal cyst. No follow-up imaging is recommended. JACR 2018 Dec; 264-273, Management of the Incidental Renal Mass on CT, [employer] 2020; 814-848, Bosniak Classification of Cystic Renal Masses, Version 2019. Small umbilical hernia containing tiny loop of small bowel. No obstruction. The appendix is not visualized however there are no secondary signs of appendicitis. No significant diverticulosis. ??No acute diverticulitis. No free air. No bulky abdominal pelvic adenopathy. Mild bilateral flank subcutaneous edema. 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 Mild narrowing of the mid left renal artery with soft and calcific plaque. Sections through the pelvis demonstrates an incompletely distended urinary bladder. No acute osseous injuries. Procedure Note Bogdan Clark MD - 10/30/2024 CT ABDOMEN+PELVIS W W/O CONTRAST HISTORY: TIPS vs BRTO evaluation of varices. 3 phase study COMPARISON: None TECHNIQUE: Serial axial images of the lung bases, abdomen and pelvis were obtained before as well as following intravenous administration of IV contrast. Images were reformatted and reviewed in coronal and sagittal planes. This exam was performed according to the departmental dose-optimization program which includes automated exposure control, adjustment of the mA and/or kV according to patient size and/or use of iterative reconstruction technique. FINDINGS: Lower chest demonstrates trace bilateral pleural effusions with adjacent atelectasis. Nodular cirrhotic liver contour. No early arterial enhancing lesions identified. Sequela portal hypertension with splenomegaly and mild volume ascites. Upper abdominal, perigastric, paraesophageal varices. Small area of contrast like hyperdensity within the gastric antrum present on the noncontrast portion of the study which may represent retained contrast from prior procedure or other ingested materials. Poor enhancement of the portal vein on the delayed images with partial thrombosis cannot excluded. Consider further correlation with ultrasound. Cholelithiasis and sludge. No CT evidence of acute cholecystitis. No biliary ductal dilatation. Mildly atrophic pancreas. Left adrenal gland not well assessed due to patient motion and due to adjacent varices. Right adrenal gland unremarkable. Bilateral kidneys intact. No hydronephrosis. Small right renal cyst. No follow-up imaging is recommended. JACR 2018 Dec; 264-273, Management of the Incidental Renal Mass on CT, [employer] 2020; 814-848, Bosniak Classification of Cystic Renal Masses, Version 2019. Small umbilical hernia containing tiny loop of small bowel. No obstruction. The appendix is not visualized however there are no secondary signs of appendicitis. No significant diverticulosis. No acute diverticulitis. No free air. No bulky abdominal pelvic adenopathy. Mild bilateral flank subcutaneous edema. 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 Mild narrowing of the mid left renal artery with soft and calcific plaque. Sections through the pelvis demonstrates an incompletely distended urinary bladder. No acute osseous injuries. IMPRESSION: Nodular cirrhotic liver contour. No early arterial enhancing lesions identified. Sequela portal hypertension with splenomegaly and mild volume ascites. Upper abdominal, perigastric, paraesophageal varices. Small area of contrast like hyperdensity within the gastric antrum present on the noncontrast portion of the study which may represent retained contrast from prior procedure or other ingested materials. Poor enhancement of the portal vein on the delayed images with thrombosis not excluded. Consider further correlation with ultrasound. Cholelithiasis and sludge. No CT evidence of acute cholecystitis. No biliary ductal dilatation. Small umbilical hernia containing tiny loop of small bowel. No obstruction. 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 Mild narrowing of the mid left renal artery with soft and calcific plaque. Lower chest demonstrates trace bilateral pleural effusions with adjacent atelectasis. Anthony Soto MD IM CT ORDERABL ES * XR Chest 1 view-Portable (10/30/2024 10:48 AM EST) Anatomical Region Laterality Modality Chest Computed Radiogr aphy 10/30/2024 9:42 AM EST Impressions 10/30/2024 2:06 PM EST Mild pulmonary vascular congestion. Narrative 10/30/2024 2:06 PM EST XR CHEST 1 VIEW-PORTABLE HISTORY: acute hypoxic respiratory failure. COMPARISON: None TECHNIQUE: Single view chest FINDINGS: The cardiac silhouette is upper limits in size. Mild pulmonary vascular congestion. No focal consolidation. The costophrenic angles are sharp. ?? There is no evidence for pneumothorax. Procedure Note Bogdan Clark MD - 10/30/2024 XR CHEST 1 VIEW-PORTABLE HISTORY: acute hypoxic respiratory failure. COMPARISON: None TECHNIQUE: Single view chest FINDINGS: The cardiac silhouette is upper limits in size. Mild pulmonary vascular congestion. No focal consolidation. The costophrenic angles are sharp. There is no evidence for pneumothorax. IMPRESSION: Mild pulmonary vascular congestion. Aj Wick MD IMG DIAGNOSTIC IMAG ING ORDERABLES * (ABNORMAL) Hemoglobin and Hematocrit (10/30/2024 6:23 AM EST) Only the most recent of2 resultswithin the time period is included. Pathologist [facility] Hematocrit 22.2(L) 39.0 - 54.0 % 10/30/2024 6:39 AM EST [facility] Hemoglobin 7.2(L) 13.0 - 17.7 g/dL 10/30/2024 6:39 AM EST [facility] Blood Blood specimen / Unknown 10/30/2024 6:23 AM EST 10/30/2024 6:27 AM EST Poppy Gavin MD LAB BLOOD ORDERAB LES Performing Organization Address [facility] [place] [address], [place] [address] * (ABNORMAL) Fibrinogen Level (10/30/2024 1:27 AM EST) Fibrinogen 124(L) 148 - 435 mg/dL 10/30/2024 2:10 AM EST [facility] Blood Plasma specimen / Unknown 10/30/2024 1:27 AM EST 10/30/2024 1:47 AM EST Poppy Gavin MD LAB BLOOD ORDERAB LES Performing Organization Address [facility]/[place] [address], [place] [address] * ABO Confirmation (10/29/2024 8:54 PM EST) ABO/Rh O POSITIVE 10/29/2024 9:18 PM EST [facility] Blood specimen / Unknown 10/29/2024 8:54 PM EST 10/29/2024 9:10 PM EST Poppy Gavin MD BLOOD BANK TEST O RDERABLES Performing Organization Address [facility] [place] [address], [place] [address] * TSH (Routine) (10/29/2024 8:54 PM EST) TSH, Highly Sensitive 1.04 0.27 - 4.20 mIU/L 10/29/2024 9:41 PM EST [facility] Blood (Plasma/Serum) 10/29/2024 8:54 PM EST 10/29/2024 9:07 PM EST Poppy Gavin MD LAB BLOOD ORDERAB LES Performing Organization Address [facility] [place] [address], [place] [address] * (ABNORMAL) Iron and Total Iron Binding Capacity (10/29/2024 5:34 PM EST) Iron 11(L) 53 - 167 ug/dL 10/29/2024 6:37 PM [facility] UIBC 121 112 - 346 ug/dL 10/29/2024 6:37 PM [facility] Total Iron Binding Capacity 132 100 - 400 ug/dL 10/29/2024 6:37 PM [facility] Iron Sat 8(L) 20 - 50 % 10/29/2024 6:37 PM [facility] Blood (Plasma/Serum) 10/29/2024 5:34 PM EST 10/29/2024 5:56 PM EST Poppy Gavin MD LAB BLOOD ORDERAB LES Performing Organization Address [facility] [place] [address], [place] [address] * (ABNORMAL) Complete Blood Count, with Differential (10/29/2024 5:34 PM EST) White Blood Cell Count 1.0(LL) 4.0 - 11.0 Thou/uL 10/29/2024 7:29 PM [facility] Comment:Results verified by smear review. Platelet Count 55(L) 150 - 450 Thou/uL 10/29/2024 7:29 PM [facility] Comment:Results verified by smear review. Hemoglobin 5.2(L) 13.0 - 17.7 g/dL 10/29/2024 7:29 PM [facility] Hematocrit 16.2(LL) 39.0 - 54.0 % 10/29/2024 7:29 PM [facility] Comment:Test results baye d. Red Blood Cell Count 1.88(L) 4.50 - 6.20 Mil/uL 10/29/2024 7:29 PM [facility] MCV 86 80 - 100 fL 10/29/2024 7:29 PM [facility] MCH 27.7 27.0 - 31.0 pg 10/29/2024 7:29 PM [facility] MCHC 32.1 30.0 - 36.0 g/dL 10/29/2024 7:29 PM [facility] RDW 20.4(H) 11.5 - 14.5 % 10/29/2024 7:29 PM [facility] MPV 11.7 7.5 - 12.5 fL 10/29/2024 7:29 PM [facility] Immature Platelet Fraction 5.0 1.2 - 8.6 % 10/29/2024 7:29 PM [facility] Neutrophils Man 53 % 8:25 PM [facility] Lymphocytes Man 41 % 8:25 PM [facility] Monocytes Man 6 % 10/29/2024 8:25 PM [facility] Abs Neutrophils Count (ANC) 0.5(L) 2.0 - 7.5 Thou/uL 10/29/2024 8:25 PM [facility] Abs Lymphocytes Man 0.4(L) 1.5 - 4.5 Thou/uL 10/29/2024 8:25 PM [facility] Abs Monocytes Man 0.1(L) 0.2 - 1.5 Thou/uL 10/29/2024 8:25 PM [facility] Normochromic Present 10/29/2024 8:25 PM [facility] Normocytic Present 10/29/2024 8:25 PM [facility] Target Cells Present 10/29/2024 8:25 PM [facility] Blood Blood specimen / Unknown 10/29/2024 5:34 PM EST 10/29/2024 5:56 PM EST Poppy Gavin MD LAB BLOOD ORDERAB LES [address] [address], [place] [address] * (ABNORMAL) RETICULOCYTE COUNT (10/29/2024 5:34 PM EST) [facility] Reticulocyte Count 4.2(H) 0.7 - 2.0 % 10/29/2024 7:29 PM [facility] Reticulocyte, Absolute 79.7 30.0 - 100.0 Thou/uL 10/29/2024 7:29 PM [facility] Retic Hemoglobin Content 24.10(L) 28 - 35 pg 10/29/2024 7:29 PM [facility] Immature Reticulocyte Fraction 26.8(H) 2.3 - 15.9 % 10/29/2024 7:29 PM [facility] Blood Blood specimen / Unknown 10/29/2024 5:34 PM EST 10/29/2024 5:56 PM EST Poppy Gavin MD [place] [address], [place] [address] * Lipase (10/29/2024 5:34 PM EST) Pathologist [facility] Lipase 47 13 - 60 U/L 10/29/2024 6:37 PM [facility] Blood (Plasma/Serum) 10/29/2024 5:34 PM EST 10/29/2024 5:56 PM EST Poppy Gavin MD [place] [address], [place] [address] * Lactate Dehydrogenase (LDH) (10/29/2024 5:34 PM EST) Pathologist [facility] Lactate Dehydrogenase (LDH) 153 120 - 260 U/L 10/29/2024 6:37 PM [facility] Blood (Plasma/Serum) 10/29/2024 5:34 PM EST 10/29/2024 5:56 PM EST Poppy Gavin MD [place] [address], [place] [address] * Lactic Acid, Plasma (10/29/2024 5:34 PM EST) Lactic Acid 1.5 0.5 - 1.9 mmol/L 10/29/2024 6:20 PM EST [facility] Blood Plasma specimen / Unknown 10/29/2024 5:34 PM EST 10/29/2024 5:56 PM EST Poppy Gavin MD LAB BLOOD ORDERAB LES Performing Organization Address [facility] [address], [place] [address] * (ABNORMAL) HAPTOGLOBIN (10/29/2024 5:34 PM EST) Haptoglobin 19(L) 30 - 200 mg/dL 10/29/2024 6:37 PM EST [facility] Blood (Plasma/Serum) 10/29/2024 5:34 PM EST 10/29/2024 5:56 PM EST Poppy Gavin MD LAB BLOOD ORDERAB LES Performing Organization Address [facility] [address], [place] [address] * FERRITIN (10/29/2024 5:34 PM EST) Ferritin 49 30 - 400 ug/L 10/29/2024 6:37 PM EST [facility] Blood (Plasma/Serum) 10/29/2024 5:34 PM EST 10/29/2024 5:56 PM EST Poppy Gavin MD LAB BLOOD ORDERAB LES Performing Organization Address [facility] Co de Phone Number [address] [address], [address] [address] * Ammonia Level (10/29/2024 5:34 PM EST) Ammonia, Plasma 43 16 - 60 umol/L 10/29/2024 6:48 PM EST [facility] Blood Plasma specimen / Unknown 10/29/2024 5:34 PM EST 10/29/2024 5:55 PM EST Poppy Gavin MD LAB BLOOD ORDERAB LES Performing Organization Address [facility] [place] [address], [place] [address] from Last 3 Months Advance Directives * DNR (Latest Code Status on File) Date Activated Date Inactivated Comments 11/03/2024 12:07 PM Question Answer Comments Decision thoroughly discussed with: Patient * Full Code Date Activated Date Inactivated Comments 10/29/2024 5:32 PM 11/03/2024 12:07 PM Healthcare Agents on File Name Relationship Healthcare Agent Relationshi p Communication Mary Linder Parent 4. Next of Kin ( Spouse, Adult Child, Parent, Adult Sibling, Grandparent) Care Teams Cellular Equipment Repairer Relationship Specialty Start Date End Date Pcp, No PCP - General General Medicine 10/29/24
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
--- NOTE | 2024-12-19 16:51 | PC.NURSE ---
pt reporting swollen testicles and pain X approx 2 weeks. testicles noted to be red, significantly swollen and weeping. alert and oriented, breathing even and unlabored, skin pale and jaundice.
[2024-12-19 16:56] LABS: Eosinophils Percent Auto 0.4 % (0-4); Hematocrit 24.3 % (42.0-52.0); Imm Gran Abs Auto 0.02 X10*3/uL (0.00-0.03); Imm Gran Pct Auto 0.8 % (0.0-0.4); MANUAL DIFF FLAG SCAN; SCAN SMEAR FLAG 1
[2024-12-19 16:58] LABS: Lymphocytes Absolute Auto 0.6 X10*3/uL (1.2-4.9); Lymphocytes Percent Auto 21.8 % (20-40); Mean Corpuscular Hemoglobin 23.2 pg (27.0-33.0); Mean Corpuscular Volume 82.9 fL (80.0-98.0); Monocytes Absolute Auto 0.4 X10*3/uL (0.1-1.2); Monocytes Percent Auto 15.5 % (2-11); Neutrophils Absolute Auto 1.6 x10*3/uL (2.0-8.3); Neutrophils Percent Auto 61.5 % (45-73); Red Blood Count 2.93 X10*6/uL (4.60-5.80); Red Cell Distribution Width 18.9 % (11.0-16.0)
[2024-12-19 16:59] LABS: White Blood Count 2.5 X10*3/uL (4.8-10.8)
[2024-12-19 17:00] LABS: PLT ABN DIST 1; Platelet Count 82 X10*3/uL (160-400)
[2024-12-19 17:02] LABS: INTERNATIONAL NORM RATIO 1.5 (0.9-1.1); Prothrombin Time 17.2 SEC (10.9-12.4)
[2024-12-19 17:04] LABS: Hemoglobin 6.8 g/dl (14.0-18.0)
[2024-12-19 17:11] LABS: Lipase 17 U/L (8-78); Magnesium 1.8 mg/dL (1.6-2.6)
[2024-12-19 17:12] LABS: Alanine Aminotransferase 16 U/L (0-40); Albumin Level 1.8 g/dL (3.5-5.0); Anion Gap 8 (12-20); Aspartate Amino Transferase 88 U/L (5-37); Bilirubin Direct 0.8 mg/dL (0.0-0.5); Bilirubin Total 1.4 mg/dL (0.0-1.0); Blood Urea Nitrogen 10 mg/dL (9-16); Calcium 7.8 mg/dL (8.4-10.2); Carbon Dioxide 27 mmol/L (22-29); Chloride 109 mmol/L (96-108); Creatinine Clr Calc Pharmacy 131.2; Estimated Glomerular Filt Rate > 60; Glucose Random 83 mg/dL (60-115); Potassium 3.6 mmol/L (3.3-5.1); Sodium 140 mmol/L (135-145); Total Protein 5.6 g/dL (6.5-8.0)
[2024-12-19 17:18] LABS: B Type Natriuretic Peptide 170 pg/mL (<100)
[2024-12-19] MEDS: Albumin Human 25 % 50 ML 100 ML IV ×2 (17:36→18:07)
[2024-12-19 17:52] LABS: SLIDE REVIEW VERIFIED
[2024-12-19 17:55] LABS: Alkaline Phosphatase 167 U/L (39-117)
--- NOTE | 2024-12-19 19:06 | PC.NURSE ---
This RN assumed pt care @ 1900. Pt a&Ox4, no signs of distress Pt denies pain at this time Plan of care ongoing.
--- NOTE | 2024-12-19 20:25 | PC.NURSE ---
Pt a&ox4, no signs of distress Pts family at bedside Plan of care ongoing.
--- NOTE | 2024-12-19 20:51 | PC.NURSE ---
Pt requested and hob lowered Plan of care ongoing.
--- NOTE | 2024-12-19 22:35 | PHA.MEDREC ---
Addendum entered by Aj Herrera [facility] 12/19/24 22:42: med rec reviewed Original Note: Pharmacy Consult ? Medication Reconciliation Pharmacy has completed the medication reconciliation. Spoke with patient who had Rx slips on hand. Patient also confirmed his methadone and confirmed he takes 50mg daily. He states he ran out of his medications a few days ago and has not refilled his medications.
[2024-12-19] MEDS: iohexoL 350 MG/ML 100 ML INFUS..BTL 85 ML IV (23:38)
[2024-12-20 00:11] VITALS: BP 112/64; PULSE 76; RESP 10; TEMP 36.9
[2024-12-20 00:39] VITALS: BP 109/63; PULSE 77; RESP 12; TEMP 36.9; O2SAT 97
[2024-12-20 00:55] LABS: Appearance Urine Cloudy; Color Urine Dark Yellow; Glucose Urine UA Negative (Negative); Leukocyte Esterase Urine Negative (Negative); Nitrite Urine Negative (Negative); Specific Gravity - Urine >= 1.030 (1.005-1.025); Urine Blood Negative (Negative); Urine Ketones Trace mg/dL (Negative); Urine Protein Trace mg/dL (Neg-Trace)
[2024-12-20 04:53] LABS: Hemoglobin 8.1 g/dl (14.0-18.0); MANUAL DIFF FLAG SCAN; SCAN SMEAR FLAG 1
[2024-12-20 04:55] LABS: Hematocrit 26.5 % (42.0-52.0); Lymphocytes Absolute Auto 0.5 X10*3/uL (1.2-4.9); Mean Corpuscular HGB Conc 30.6 g/dl (31.0-36.0); Mean Corpuscular Hemoglobin 25.4 pg (27.0-33.0); Mean Corpuscular Volume 83.1 fL (80.0-98.0); Monocytes Absolute Auto 0.3 X10*3/uL (0.1-1.2); Neutrophils Absolute Auto 1.3 x10*3/uL (2.0-8.3); PLT ABN DIST 1; Platelet Count 77 X10*3/uL (160-400); Red Blood Count 3.19 X10*6/uL (4.60-5.80); Red Cell Distribution Width 17.2 % (11.0-16.0); White Blood Count 2.1 X10*3/uL (4.8-10.8)
[2024-12-20 05:14] LABS: SLIDE REVIEW VERIFIED
[2024-12-20 06:47] VITALS: BP 107/67; PULSE 87; RESP 12; TEMP 36.9; O2SAT 95
[2024-12-20 07:02] VITALS: BP 107/67; PULSE 87; RESP 12; TEMP 36.9; O2SAT 95
== END 2024-12-20 07:06 | disposition short-term general hospital (02) ==
PROVIDERS: Nurse Practitioner Family; Emergency Provider Emergency Medicine Emergency Medical Services
DX: D64.9 Anemia, unspecified (principal); R60.1 Generalized edema; J90 Pleural effusion, not elsewhere classified; I85.00 Esophageal varices without bleeding; R10.2 Pelvic and perineal pain; R06.02 Shortness of breath; R14.0 Abdominal distension (gaseous); Z79.899 Other long term (current) drug therapy
CPT/HCPCS: 36415; 36430; 71046; 74177; 76870; 80048; 80076; 81003; 83690; 83735; 83880; 85025; 85610; 86850; 86900; 86901; 86923; 93975; 96365; 99285; P9016; P9047; Q9967

== ENCOUNTER → 2024-12-19 16:11 | Outpatient (BNV) | payer OTHER, SELFPAY | PROVIDERS: Emergency Provider Emergency Medicine Emergency Medical Services; Visit Provider Nuclear Medicine | DX: N49.2 Inflammatory disorders of scrotum (principal); J90 Pleural effusion, not elsewhere classified | CPT/HCPCS: 71046; 74177; 76870; 93976 ==